=== PATIENT | male | born 1975 | race Caucasian/White ===

== ENCOUNTER 2016-02-17 13:46 | Outpatient (RCR) | payer MEDICAID, MEDICARE ==
[~2016-02-17 13:46] MED LIST: ADDR10T PO; AGM875T PO; ALLO300T2 GT; AMLO5TAB2 PO; AMOX500C2 PO; AMPH20CA PO; AMPH20CA5 PO; AMPH20TA2 PO; CEFD300C3 PO; CEPH-507 PO; CEPH250T; CEPH500C; CEPH500C PO; CTLP20T PO; DCS100C PO; DICL500C PO; DOXY-13 PO; DOXY100C2 PO; HYDR-1231 PO; HYDR-34 PO; HYDR-3454 PO; HYDR-3583 PO; HYDR-3714 PO; HYDR-3720; HYDR-3812 PO; HYDR-3876 PO; HYDR-690 PO; HYDR-707 PO; HYDR1CAP2 PO; HYDR1TAB PO; HYDR1TAB66 PO; HYDR1TAB8 OP; IBP800T PO; INDO25CA PO; INDO50CA PO; INTE30KI4 IM; LEVO750T6 PO; LIDO20SO20 PO; LISI-552 PO; LISI20TA PO; METH4TAB; METH4TAB PO; MINO50CA2 PO; NAPR220C11 PO; NF-AMPE5T PO; ONDA4TAB11 PO; ONDA8TAB13 PO; OXYC-197 PO; PRD50T PO; SULF1TAB35 PO; SULF1TAB38 PO; TMZP15C PO; [UNRECOGNIZED DRUG - OTHER]; milk thistle
--- OUTSIDE RECORDS SUMMARY | 2016-02-17 13:49 | XMS REPORT ---
Author JASEN Bardales Organization [employer] Address Unknown Phone Unavailable Care Team Providers Care Counter Checker Name Role Phone JASEN CARNEY CP Unavailable Allergies No Known Allergies Problems Problem Type Condition Code Onset Dates Condition Status Problem Unspecified diseases of conjunctiva due to viruses 077.99 Active Problem Attention deficit disorder of childhood without mention of hyperactivity 314.00 Active Problem Abdominal pain, right upper quadrant 789.01 Active Problem Seroma complicating a procedure 998.13 Active Problem Gout, unspecified 274.9 Active Problem Acute pharyngitis 462 Active Problem Unspecified disorder of skin and subcutaneous tissue 709.9 Active Problem Infected postoperative seroma 998.51 Active Problem Anxiety state, unspecified 300.00 Active Medications No Known Medications Results No Known Results Summary Purpose [employer] Submission
[2016-02-17 14:09] LABS: BASOPHILS % (AUTO) 1 % (0-10); EOSINOPHILS # (AUTO) 0.3 10^3/uL (0.0-0.3); EOSINOPHILS % (AUTO) 4 % (0-10); LYMPHOCYTES # (AUTO) 1.8 X 10^3 (1.0-4.0); LYMPHOCYTES % (AUTO) 30 % (12-44); MEAN CORPUSCULAR HEMOGLOBIN 30 PG (25-34); MEAN CORPUSCULAR HGB CONC 32 G/DL (32-36); MEAN CORPUSCULAR VOLUME 93 FL (80-99); MEAN PLATELET VOLUME 10.1 FL (7.4-10.4); MONOCYTES # (AUTO) 0.5 X 10^3 (0.0-1.0); MONOCYTES % (AUTO) 9 % (0-12); NEUTROPHILS # (AUTO) 3.3 X 10^3 (1.8-7.8); NEUTROPHILS % (AUTO) 56 % (42-75); PLATELET COUNT 247 10^3/uL (130-400); RED BLOOD COUNT 4.51 10^6/uL (4.35-5.85); RED CELL DISTRIBUTION WIDTH 12.9 % (10.0-14.5); WHITE BLOOD COUNT 5.9 10^3/uL (4.3-11.0)
[2016-02-17 14:34] LABS: ALANINE AMINOTRANSFERASE 23 U/L (0-55); ALBUMIN 4.1 G/DL (3.2-4.5); ANION GAP 8 MMOL/L (5-14); ASPARTATE AMINO TRANSFERASE 21 U/L (5-34); BILIRUBIN,TOTAL 0.4 MG/DL (0.1-1.0); BLOOD UREA NITROGEN 15 MG/DL (7-18); BUN/CREATININE RATIO 14; CALCIUM 9.4 MG/DL (8.5-10.1); CARBON DIOXIDE 26 MMOL/L (21-32); CHLORIDE 108 MMOL/L (98-107); CREATININE SERUM 1.05 MG/DL (0.60-1.30); GFR ESTIMATED > 60; GLUCOSE 85 MG/DL (70-105); LACTATE DEHYDROGENASE 210 U/L (125-220); POTASSIUM 4.3 MMOL/L (3.6-5.0); SODIUM 142 MMOL/L (135-145); TOTAL PROTEIN 7.1 G/DL (6.4-8.2)
== END 2016-05-17 | disposition home or self-care (01) ==
LOC: ONC 13:46
PROVIDERS: ATTEND Internal Medicine Hematology & Oncology
DX: Z08 Encounter for follow-up examination after completed treatment for malignant neoplasm (principal); Z85.820 Personal history of malignant melanoma of skin; F32.9 Major depressive disorder, single episode, unspecified; Z92.3 Personal history of irradiation; Z79.899 Other long term (current) drug therapy
CPT/HCPCS: 36415; 80053; 83615; 85025; 99213

== ENCOUNTER 2016-06-29 13:31 | Outpatient (RCR) | payer MEDICAID, MEDICARE ==
[2016-06-29 13:58] LABS: BASOPHILS % (AUTO) 1 % (0-10); EOSINOPHILS # (AUTO) 0.2 10^3/uL (0.0-0.3); EOSINOPHILS % (AUTO) 4 % (0-10); LYMPHOCYTES # (AUTO) 1.5 X 10^3 (1.0-4.0); LYMPHOCYTES % (AUTO) 27 % (12-44); MEAN CORPUSCULAR HEMOGLOBIN 30 PG (25-34); MEAN CORPUSCULAR HGB CONC 33 G/DL (32-36); MEAN CORPUSCULAR VOLUME 91 FL (80-99); MEAN PLATELET VOLUME 10.1 FL (7.4-10.4); MONOCYTES # (AUTO) 0.6 X 10^3 (0.0-1.0); MONOCYTES % (AUTO) 11 % (0-12); NEUTROPHILS # (AUTO) 3.1 X 10^3 (1.8-7.8); NEUTROPHILS % (AUTO) 58 % (42-75); PLATELET COUNT 252 10^3/uL (130-400); RED BLOOD COUNT 4.25 10^6/uL (4.35-5.85); RED CELL DISTRIBUTION WIDTH 12.9 % (10.0-14.5); WHITE BLOOD COUNT 5.4 10^3/uL (4.3-11.0)
[2016-06-29 14:22] LABS: ALANINE AMINOTRANSFERASE 25 U/L (0-55); ALBUMIN 3.9 G/DL (3.2-4.5); ANION GAP 6 MMOL/L (5-14); ASPARTATE AMINO TRANSFERASE 20 U/L (5-34); BILIRUBIN,TOTAL 0.4 MG/DL (0.1-1.0); BLOOD UREA NITROGEN 18 MG/DL (7-18); BUN/CREATININE RATIO 15; CALCIUM 9.4 MG/DL (8.5-10.1); CARBON DIOXIDE 30 MMOL/L (21-32); CHLORIDE 105 MMOL/L (98-107); CREATININE SERUM 1.23 MG/DL (0.60-1.30); GFR ESTIMATED > 60; GLUCOSE 105 MG/DL (70-105); LACTATE DEHYDROGENASE 194 U/L (125-220); POTASSIUM 4.1 MMOL/L (3.6-5.0); SODIUM 141 MMOL/L (135-145); TOTAL PROTEIN 6.9 G/DL (6.4-8.2)
[2016-09-17] MEDS ORDERED: NF-ADDXR30 PO (17:39)
[2016-09-17] MEDS ORDERED: TAMS0.4C98 PO (19:13)
[2016-09-17] MEDS ORDERED: SULF1TAB35 PO (19:13)
[2016-09-17] MEDS ORDERED: OXYC-197 PO (19:13)
[2016-09-23] MEDS ORDERED: NITR-68 PO (11:57)
[2016-09-23] MEDS ORDERED: HYDR-3875 PO (12:06)
== END 2016-09-27 | disposition home or self-care (01) ==
LOC: ONC 13:31
PROVIDERS: ATTEND Internal Medicine Hematology & Oncology
DX: Z08 Encounter for follow-up examination after completed treatment for malignant neoplasm (principal); Z85.820 Personal history of malignant melanoma of skin; F32.9 Major depressive disorder, single episode, unspecified; Z92.3 Personal history of irradiation; Z79.899 Other long term (current) drug therapy
CPT/HCPCS: 36415; 80053; 83615; 85025; 99213

== ENCOUNTER 2016-09-17 17:02 | Emergency (ER) | payer MEDICAID ==
[~2016-09-17] VITALS: Ht 190.5 cm; Wt 111.1 kg
[2016-09-17] MEDS ORDERED: NF-ADDXR30 PO (17:39)
--- NOTE | 2016-09-17 17:59 | ED Back Pain ---
General Chief Complaint: Back Problems Stated Complaint: RIGHT LOWER BACK PAIN/RLQ ABD PAIN Nursing Triage Note: Pt c/o R flank pain that started yesterday that now radiates to R side of abdomenn. Pt also c/o nausea. Nursing Sepsis Screen: No Definite Risk Source of Information: Patient Exam Limitations: No Limitations History of Present Illness Time Seen by Provider: 17:58 Initial Comments To ER with right flank pain that began 2-3 days ago. Radiates to the right abdomen. No fevers or chills. No dysuria. No history of this. Timing/Duration: 1-2 Days Severity: Moderate Allergies and Home Medications Allergies Coded Allergies: No Known Drug Allergies (Unverified , 03/10/11) Home Medications Dextroamphetamine/Amphetamine 20 Mg Cap.er.24h, 20 MG PO DAILY, (Reported) Dextroamphetamine/Amphetamine 30 Mg Cap.er.24h, 30 MG PO DAILY, (Reported) Lisinopril 20 Mg Tablet, 20 MG PO DAILY, (Reported) Oxycodone HCl/Acetaminophen 1 Each Tablet, 1 EACH PO Q4H PRN for PAIN-MODERATE TO SEVERE, #20 Prescribed by: ESA LOPEZ on 09/17/161912 Sulfamethoxazole/Trimethoprim 1 Each Tablet, 1 EACH PO BID, #14 Prescribed by: ESA LOPEZ on 09/17/161912 Tamsulosin HCl 0.4 Mg Cap, 0.4 MG PO DAILY, #14 Prescribed by: ESA LOPEZ on 09/17/161912 Constitutional: see HPI, No chills, No fever EENTM: see HPI Respiratory: no symptoms reported Cardiovascular: no symptoms reported Genitourinary: see HPI Musculoskeletal: no symptoms reported Skin: no symptoms reported Past Cvsjdjv-Yifwgc-Morexl Hx Patient Social History Alcohol Use: Denies Use Recreational Drug Use: No (denies current use) Drug of Choice: PT REPORTS HX OF METH USE; LAST USED 1 YEAR [employer] Recent Foreign Travel: No Contact w/Someone Who Travel: No Recent Infectious Disease Expo: No Recent Hopitalizations: No Immunizations Up To Date Tetanus Booster (TDap): More than 5yrs Date of Pneumonia Vaccine: Mar 08, 2009 Seasonal Allergies Seasonal Allergies: No Surgeries HX Surgeries: Yes (removal of 2 lesions to right and left groin on 12/23/2015) Surgeries: Adenoidectomy, Appendectomy, Orthopedic, Tonsillectomy Respiratory Hx Respiratory Disorders: Yes Respiratory Disorders: Sleep Apnea Cardiovascular Hx Cardiac Disorders: Yes Cardiac Disorders: Heart Murmur, Hypertension Neurological Hx Neurological Disorders: No Neurological Disorders: Headaches /Migraines Reproductive System Hx Reproductive Disorders: No Sexually Transmitted Disease: No HIV/AIDS: No Genitourinary Hx Genitourinary Disorders: Yes Genitourinary Disorders: Kidney Stones Gastrointestinal Hx Gastrointestinal Disorders: No Gastrointestinal Disorders: Gastroesophageal Reflux, Hepatitis Musculoskeletal Hx Musculoskeletal Disorders: Yes Musculoskeletal Disorders: Gout Endocrine Hx Endocrine Disorders: No HEENT HX ENT Disorders: No Loss of Vision: Denies Hearing Impairment: Denies Cancer Hx Cancer: Yes (stage 4 melanoma skin cancer) Cancer: Melanoma Psychosocial Hx Psychiatric Problems: Yes Behavioral Health Disorders: Anxiety, Depression Integumentary HX Skin/Integumentary Disorder: Yes (multiple lesion removals for melanoma) Blood Transfusions Hx Blood Disorders: No Adverse Reaction to a Blood Tr: No Family Medical History Significant Family History: No Pertinent Family Hx Family Medial History: FH: coronary artery disease 19 MOTHER FH: liver cancer 19 FATHER Physical Exam Vital Signs Vital Sign - Last 12Hours 09/17/16 17:34 Temp 99.1 Pulse 87 Resp 18 B/P (MAP) 158/106 Pulse Ox 97 O2 Delivery Room Air Capillary Refill : Less Than 3 Seconds General Appearance: No Apparent Distress, WD/WN HEENT: PERRL/EOMI, TMs Normal Respiratory: No Accessory Muscle Use, No Respiratory Distress Gastrointestinal: Normal Bowel Sounds, No Pulsatile Mass, Non Tender, Soft Extremity: Normal Capillary Refill, No Calf Tenderness Neurologic/Psychiatric: Alert, Oriented x3 Skin: Normal Color, Warm/Dry Progress/Results/Core Measures Results/Orders Lab Results Laboratory Tests Test 09/17/16 18:17 Range/Units White Blood Count 9.3 4.3-11.0 10^3/uL Red Blood Count 4.46 4.35-5.85 10^6/uL Hemoglobin 13.2 L 13.3-17.7 G/DL Hematocrit 40 40-54 % Mean Corpuscular Volume 89 80-99 FL Mean Corpuscular Hemoglobin 30 25-34 PG Mean Corpuscular Hemoglobin Concent 33 32-36 G/DL Red Cell Distribution Width 12.1 10.0-14.5 % Platelet Count 238 130-400 10^3/uL Mean Platelet Volume 10.5 H 7.4-10.4 FL Neutrophils (%) (Auto) 70 42-75 % Lymphocytes (%) (Auto) 15 12-44 % Monocytes (%) (Auto) 13 H 0-12 % Eosinophils (%) (Auto) 2 0-10 % Basophils (%) (Auto) 0 0-10 % Neutrophils # (Auto) 6.5 1.8-7.8 X 10^3 Lymphocytes # (Auto) 1.4 1.0-4.0 X 10^3 Monocytes # (Auto) 1.2 H 0.0-1.0 X 10^3 Eosinophils # (Auto) 0.2 0.0-0.3 10^3/uL Basophils # (Auto) 0.0 0.0-0.1 10^3/uL Sodium Level 136 135-145 MMOL/L Potassium Level 3.9 3.6-5.0 MMOL/L Chloride Level 102 98-107 MMOL/L Carbon Dioxide Level 22 21-32 MMOL/L Anion Gap 12 5-14 MMOL/L Blood Urea Nitrogen 15 7-18 MG/DL Creatinine 1.54 H 0.60-1.30 MG/DL Estimat Glomerular Filtration Rate 51 BUN/Creatinine Ratio 10 0-20 Glucose Level 98 70-105 MG/DL Calcium Level 9.4 8.5-10.1 MG/DL Total Bilirubin 0.7 0.1-1.0 MG/DL Aspartate Amino Transf (AST/SGOT) 12 5-34 U/L Alanine Aminotransferase (ALT/SGPT) 19 0-55 U/L Alkaline Phosphatase 65 40-136 U/L Total Protein 6.2 L 6.4-8.2 GM/DL Albumin 3.8 3.2-4.5 GM/DL My Orders Orders - ESA LOPEZ APRN Cbc With Automated Diff (09/17/16 17:46) Comprehensive Metabolic Panel (09/17/16 17:46) Ua Culture If Indicated (09/17/16 17:46) Drug Screen Stat (Urine) (09/17/16 17:46) Ct Abd/Pelvis Wo(Kidney Stone) (09/17/16 17:56) Saline Lock/Iv-Start (09/17/16 17:56) Ketorolac Injection (Toradol Injection) (09/17/16 18:00) Orphenadrine Injection (Norflex Injectio (09/17/16 18:00) Ns Iv 1000 Ml (Sodium Chloride 0.9%) (09/17/16 19:00) Ceftriaxone Injection (Rocephin Injectio (09/17/16 19:15) Abdomen/Kub 1view (09/17/16 19:08) Morphine Injection (Morphine Injection (09/17/16 19:15) Medications Given in ED Current Medications Medications Dose Ordered Sig/Tra Route Start Time Stop Time Status Last Admin Dose Admin Ceftriaxone Sodium 1000 mg/ Sodium Chloride 50 ml @ 100 mls/hr ONCE ONCE IV 09/17/16 19:15 09/17/16 19:44 DC 09/17/16 19:21 100 MLS/HR Ketorolac Tromethamine 30 mg ONCE ONCE IVP 09/17/16 18:00 09/17/16 18:01 DC 09/17/16 18:30 30 MG Morphine Sulfate 4 mg ONCE ONCE IVP 09/17/16 19:15 09/17/16 19:16 DC 09/17/16 19:20 4 MG Orphenadrine Citrate 30 mg ONCE ONCE IV 09/17/16 18:00 09/17/16 18:01 DC 09/17/16 18:32 30 MG Vital Signs/I&O Vital Sign - Last 12Hours 09/17/16 17:34 Temp 99.1 Pulse 87 Resp 18 B/P (MAP) 158/106 Pulse Ox 97 O2 Delivery Room Air Blood Pressure Mean: 123 Diagnostic Imaging Diagonstic Imaging: CT Comments NAME: LINDSAY [facility] REC#: [id number] PT STATUS: REG ER : 1975 PHYSICIAN: ESA LOPEZ APRN ADMIT DATE: 09/17/16/ER Draft Date of Exam:09/17/16 CT ABD/PELVIS WO(KIDNEY STONE) PROCEDURE: CT urinary tract, rule out kidney stone. TECHNIQUE: Multiple contiguous axial images were obtained through the abdomen and pelvis without the use of intravenous contrast. INDICATION: Right flank pain. COMPARISON: None. FINDINGS: There is mild bilateral basilar atelectasis. There is a 7 mm stone in the proximal right ureter about 6 cm distal to the ureteropelvic junction. There is moderate hydroureter proximal to the stone as well as moderate hydronephrosis. There is prominent perinephric soft tissue stranding/edema. There is an additional punctate calcification in the upper pole of the right kidney. There are 1 or 2 punctate nonobstructive calculi in the left kidney. There is a 2.3 cm probable cyst in the superior right renal cortex. The liver, gallbladder, pancreas, spleen, and adrenal glands appear unremarkable. The appendix is absent. There is a moderate amount of stool in the colon. The bladder appears unremarkable. There is no ascites or adenopathy. The abdominal aorta appears normal in caliber. There are small fat-containing inguinal hernias bilaterally. No acute osseous abnormality is demonstrated. IMPRESSION: 1. There is a 6 mm stone in the proximal right ureter about 6 cm distal to the ureteropelvic junction with moderate obstructive uropathy changes. 2. Bilateral nephrolithiasis. Dictated on workstation # [id number] Dict: 09/17/161849 Trans: 09/17/161855 [id number] Interpreted by: GIUSEPPE MALAGON DO Electronically signed by: Departure Communication Progress Notes 2048-patient still refuses to provide urine sample Impression Impression: Primary Impression: Calculus of proximal right ureter Disposition: HOME, SELF-CARE Condition: Stable Departure-Patient Inst. Decision time for Depature: 19:11 Referrals: [facility] JOSEPH DO (PCP) Primary Care Physician LUCAS PERALTA (Family) Primary Care Physician ERIC HELM MD Patient Instructions: Kidney Stones in Adults Add. Discharge Instructions: 1. Drink plenty of fluids 2. Medication as directed 3. Call Dr. Helm tomorrow to make an appointment to be seen All discharge instructions reviewed with patient and/or family. Voiced understanding. Scripts Tamsulosin HCl (Flomax) 0.4 Mg Cap 0.4 MG PO DAILY, #14 CAP Prov: ESA LOPEZ APRN 09/17/16 Sulfamethoxazole/Trimethoprim (Bactrim Ds Tablet) 1 Each Tablet 1 EACH PO BID, #14 TAB Prov: ESA LPOEZ APRN 09/17/16 Oxycodone HCl/Acetaminophen (Percocet 5-325 mg Tablet) 1 Each Tablet 1 EACH PO Q4H Y for PAIN-MODERATE TO SEVERE, #20 TAB Prov: ESA LOPEZ APRN 09/17/16 Copy Copies To 1: ERIC HELM MD, PETER J APRN Sep 17, 2016 17:59
[2016-09-17] MEDS ORDERED: ORPHENADRINE 60 MG/2 ML (NORFLEX) AMP IV ONE (18:00)
[2016-09-17] MEDS ORDERED: KETOROLAC 30 MG/ML VIAL IVP ONE (18:00)
[2016-09-17 18:32] LABS: BASOPHILS % (AUTO) 0 % (0-10); EOSINOPHILS # (AUTO) 0.2 10^3/uL (0.0-0.3); EOSINOPHILS % (AUTO) 2 % (0-10); LYMPHOCYTES # (AUTO) 1.4 X 10^3 (1.0-4.0); LYMPHOCYTES % (AUTO) 15 % (12-44); MEAN CORPUSCULAR HEMOGLOBIN 30 PG (25-34); MEAN CORPUSCULAR HGB CONC 33 G/DL (32-36); MEAN CORPUSCULAR VOLUME 89 FL (80-99); MEAN PLATELET VOLUME 10.5 FL (7.4-10.4); MONOCYTES # (AUTO) 1.2 X 10^3 (0.0-1.0); MONOCYTES % (AUTO) 13 % (0-12); NEUTROPHILS # (AUTO) 6.5 X 10^3 (1.8-7.8); NEUTROPHILS % (AUTO) 70 % (42-75); PLATELET COUNT 238 10^3/uL (130-400); RED BLOOD COUNT 4.46 10^6/uL (4.35-5.85); RED CELL DISTRIBUTION WIDTH 12.1 % (10.0-14.5); WHITE BLOOD COUNT 9.3 10^3/uL (4.3-11.0)
[2016-09-17 18:45] LABS: ALBUMIN 3.8 GM/DL (3.2-4.5); BILIRUBIN,TOTAL 0.7 MG/DL (0.1-1.0); CALCIUM 9.4 MG/DL (8.5-10.1); CREATININE SERUM 1.54 MG/DL (0.60-1.30); ICTERUS 0.7 (0-1.9); POTASSIUM 3.9 MMOL/L (3.6-5.0); TOTAL PROTEIN 6.2 GM/DL (6.4-8.2)
--- NOTE | 2016-09-17 18:56 | Diagnostic Imaging Report ---
PROCEDURE: CT urinary tract, rule out kidney stone. TECHNIQUE: Multiple contiguous axial images were obtained through the abdomen and pelvis without the use of intravenous contrast. INDICATION: Right flank pain. COMPARISON: None. FINDINGS: There is mild bilateral basilar atelectasis. There is a 7 mm stone in the proximal right ureter about 6 cm distal to the ureteropelvic junction. There is moderate hydroureter proximal to the stone as well as moderate hydronephrosis. There is prominent perinephric soft tissue stranding/edema. There is an additional punctate calcification in the upper pole of the right kidney. There are 1 or 2 punctate nonobstructive calculi in the left kidney. There is a 2.3 cm probable cyst in the superior right renal cortex. The liver, gallbladder, pancreas, spleen, and adrenal glands appear unremarkable. The appendix is absent. There is a moderate amount of stool in the colon. The bladder appears unremarkable. There is no ascites or adenopathy. The abdominal aorta appears normal in caliber. There are small fat-containing inguinal hernias bilaterally. No acute osseous abnormality is demonstrated. IMPRESSION: 1. There is a 6 mm stone in the proximal right ureter about 6 cm distal to the ureteropelvic junction with moderate obstructive uropathy changes. 2. Bilateral nephrolithiasis. Dictated by: Dictated on workstation # [id number]
[2016-09-17] MEDS ORDERED: NS IV 1000 ML 1,000 ML IV SCH (19:00)
[2016-09-17] MEDS ORDERED: OXYC-197 PO (19:13)
[2016-09-17] MEDS ORDERED: TAMS0.4C98 PO (19:13)
[2016-09-17] MEDS ORDERED: SULF1TAB35 PO (19:13)
[2016-09-17] MEDS ORDERED: morphine INJ 10 MG/ML 1ML (SYR OR VIAL) IVP ONE (19:15)
[2016-09-17] MEDS ORDERED: cefTRIAXone INJECTION 1,000 MG in NS (IVPB) 50 ML IV ONE (19:15)
--- NOTE | 2016-09-17 19:49 | Diagnostic Imaging Report ---
INDICATION: Flank pain. COMPARISON: CT scan from earlier the same date. FINDINGS: A 6 mm stone seen within the proximal right ureter on recent CT is visualized on plain radiographs adjacent to the right transverse process of L3. No additional urinary tract calcification is demonstrated on this film. The bowel gas pattern appears unremarkable. No osseous abnormality is seen. IMPRESSION: The calcification seen in the mid right ureter on recent CT is visible by radiography as described. Dictated by: Dictated on workstation # [id number]
[2016-09-17 21:01] VITALS: BP 158/106
== END 2016-09-17 21:01 | disposition home or self-care (01) ==
LOC: EDUNIT# 17:02 → ER 17:05
DX: N20.1 Calculus of ureter (principal); I10 Essential (primary) hypertension; Z85.820 Personal history of malignant melanoma of skin
CPT/HCPCS: 36415; 74000; 74176; 80053; 85025

== ENCOUNTER → 2016-09-21 | Outpatient (CLI) | payer MEDICAID ==
[~2016-09-21] MED LIST changes: +HYDR-3875 PO; +NF-ADDXR30 PO; +NITR-68 PO; +TAMS0.4C98 PO
--- NOTE | 2016-09-21 13:25 | Diagnostic Imaging Report ---
INDICATION: Ureteral calculus. EXAMINATION: KUB at 12:47 AM. FINDINGS: There is a 7 mm calculus adjacent to the L4 transverse process on the right. This is unchanged from the exam dated 09/17/2016. The bowel gas pattern is normal. IMPRESSION: The right mid ureteral calculus is unchanged from 09/17/2016. Dictated by: Dictated on workstation # [id number]
== END ==
LOC: RAD 12:19
PROVIDERS: ATTEND Urology
DX: N20.1 Calculus of ureter (principal)
CPT/HCPCS: 74000

== ENCOUNTER 2016-09-22 10:47 | Outpatient (CLI) | payer MEDICAID ==
[~2016-09-22] VITALS: Ht 190.5 cm; Wt 111.3 kg
[~2016-09-22 10:47] MED LIST changes: -HYDR-3875 PO; -NITR-68 PO
[2016-09-23] MEDS ORDERED: NITR-68 PO (11:57)
[2016-09-23] MEDS ORDERED: HYDR-3875 PO (12:06)
== END 2016-09-22 11:24 ==
LOC: PREOP 10:47
PROVIDERS: ATTEND Urology
DX: Z01.818 Encounter for other preprocedural examination (principal); N20.1 Calculus of ureter

== ENCOUNTER 2016-09-23 06:57 | Day surgery (SDC) | payer MEDICAID ==
[~2016-09-23] VITALS: Ht 190.5 cm; Wt 111.3 kg
[2016-09-23 07:03] VITALS: BP 158/105
[2016-09-23] MEDS ORDERED: cefTRIAXone 1 GM/NS 50 ML IVPB IV ONE ×2 (07:15)
[2016-09-23] MEDS ORDERED: CATHETER FLUSH 10 ML SYR IV PRN (07:15)
[2016-09-23] MEDS ORDERED: LACTATED RINGERS 1,000 ML IV PRN (07:46)
--- NOTE | 2016-09-23 07:46 | Diagnostic Imaging Report ---
INDICATION: Right ureteral calculus. Comparison with 09/21/2016. FINDINGS: The mid right ureteral calculus along the transverse process of L3 is again noted and unchanged. No new calculi are present. Bowel gas pattern appears normal. IMPRESSION: Persistent right mid ureteral calculus. This measures approximately 9 mm in diameter. Dictated by: Dictated on workstation # [id number]
[2016-09-23] MEDS ORDERED: FAMOTIDINE 20MG/2ML IV (PEPCID) IV ONE (08:00)
--- NOTE | 2016-09-23 08:50 | Progress Note-Pre Operative ---
Pre-Operative Progress Note H&P Reviewed The H&P was reviewed, patient examined and no changes noted. Date Seen by Provider: Sep 23, 2016 Time Seen by Provider: 08:49 Date H&P Reviewed: Sep 23, 2016 Time H&P Reviewed: 08:50 Pre-Operative Diagnosis: RT PROXIMAL URETERAL STONE ERIC HELM MD Sep 23, 2016 8:50 am
[2016-09-23] MEDS ORDERED: fentaNYL INJECTION 100 MCG/2 ML AMP IV ONE (09:15)
[2016-09-23] MEDS ORDERED: MIDAZOLAM 2 MG/2 ML (VERSED) VIAL IV ONE (09:15)
[2016-09-23] MEDS ORDERED: fentaNYL INJECTION 100 MCG/2 ML AMP ONE (09:25)
[2016-09-23] MEDS ORDERED: SEVOFLURANE (ULTANE) 15 ML INHAL SOLN ONE (09:26)
[2016-09-23] MEDS ORDERED: LACTATED RINGERS 1,000 ML IV ONE (09:26)
[2016-09-23] MEDS ORDERED: proPOfol 200 MG/20 ML (DIPRIVAN) VIAL IV ONE (09:26)
[2016-09-23] MEDS ORDERED: LIDOCAINE PF 2% 5 ML (XYLOCAINE) VIAL ONE (09:26)
[2016-09-23] MEDS ORDERED: ONDANSETRON 4 MG/2 ML (SDV) Z0FRAN ONE (09:56)
[2016-09-23] MEDS ORDERED: FUROSEMIDE 40 MG/4 ML INJ (LASIX) ONE (09:56)
--- NOTE | 2016-09-23 09:59 | Progress Note-Post Operative ---
Post-Operative Progess Note Surgeon (s)/Gas Cutting Machine Operator (s) Surgeon ERIC HEML MD Gas Cutting Machine Operator: N/A Pre-Operative Diagnosis RT PROXIMAL URETERAL STONE Post-Operative Diagnosis SAME Procedure & Operative Findings Date of Procedure 09/23/16 Procedure Performed/Findings RT ESWL FOR RT PROXIMAL URETERAL STONE Anesthesia Type GENERAL Estimated Blood Loss Estimated blood loss (mL): N/A Specimens/Packing Specimens Removed N/A Packing: N/A ERIC HELM MD Sep 23, 2016 9:59 am
--- NOTE | 2016-09-23 10:01 | Discharge Inst-Urology ---
Discharge Inst-Urology Discharge Medications New, Converted, or Re-newed RX: RX on Chart Patient Instructions/Follow Up Plan Please make appointment to been seen in office in 2 weeks. KUB prior to it KUB on way home Post ESWL instructions Increase oral fluids for 48 hours and then as needed. Diet and Activity as tolerated. If questions or concerns contact your physician Or seek help at emergency department. ERIC HELM MD Sep 23, 2016 10:01 am
[2016-09-23] MEDS ORDERED: ONDANSETRON 4 MG/2 ML (SDV) Z0FRAN IVP PRN (10:45)
[2016-09-23] MEDS ORDERED: morphine INJ 10 MG/ML 1ML (SYR OR VIAL) IVP PRN (10:45)
[2016-09-23 11:15] VITALS: BP 133/89
[2016-09-23 11:45] VITALS: BP 140/96
[2016-09-23] MEDS ORDERED: NITR-68 PO (11:57)
[2016-09-23] MEDS ORDERED: HYDR-3875 PO (12:06)
[2016-09-23 12:15] VITALS: BP 134/95
[2016-09-23 12:25] VITALS: BP 134/95
--- NOTE | 2016-09-23 14:37 | OPERATIVE REPORT ---
DATE OF SERVICE: 09/23/2016 PREOPERATIVE DIAGNOSIS: Right proximal ureteral stone. POSTOPERATIVE DIAGNOSIS: Right proximal ureteral stone. OPERATION PERFORMED: Right extracorporeal shock wave lithotripsy. SURGEON: Raul Helm MD ANESTHESIA: General. COMPLICATIONS: None. DESCRIPTION OF PROCEDURE: Under satisfactory general anesthesia, with the patient in supine position on the ESWL table, the right proximal ureteral stone was localized. Shocks were delivered at kV of 6, a total of 3000 shocks nicely fragmented the stone. The patient was given 30 mg of Toradol and 40 mg of Lasix IV at the end of the procedure. He tolerated the procedure and anesthesia well and was sent to the recovery room in stable condition. Job ID: [id number] DocumentID: [id number] Dictated Date: 09/23/2016 10:16:03 Release And Technical Records Clerk Date: 09/23/2016 14:36:36 Dictated By: RAUL HELM MD
--- NOTE | 2016-09-23 16:36 | Diagnostic Imaging Report ---
INDICATION: ESWL. COMPARISON: 09/23/2016 earlier the same day. This film is timed 12:06 p.m. FINDINGS: A calculus projecting over the right flank at the level of the inferior margin of the L3 spinous process measures a cephalocaudal dimension of about 9 mm. It appears unchanged in size and location from the prior. A left hemipelvic calcification of about 4 mm may be phlebolith or distal left ureteral stone. It is also unchanged. IMPRESSION: Calcifications unchanged in size, morphology, and alignment. Dictated by: Dictated on workstation # [id number]
--- OUTSIDE RECORDS SUMMARY | 2016-09-24 18:03 | XMS REPORT | Continuity of Care Document ---
Author Author [facility] Address Unknown Phone Unavailable Allergies Active Description Code Type Severity Reaction Onset Reported/Identified Relationship to Patient Clinical Status Yes No Known Drug Allergies [id number] Drug Allergy Unknown N/ A 03/10/2011 Medications Problems Date Dx Coded Attending Type Code Diagnosis Diagnosed By 03/25/2009 LUCAS PERALTA APRN V74.1 SCREENING EXAMINATION FOR PULMONARY TUBERCULOSIS 03/25/2009 V74.1 SCREENING EXAMINATION FOR PULMONARY TUBERCULOSIS 03/25/2009 V74.1 SCREENING EXAMINATION FOR PULMONARY TUBERCULOSIS 03/25/2009 V74.1 SCREENING EXAMINATION FOR PULMONARY TUBERCULOSIS 03/25/2009 V74.1 SCREENING EXAMINATION FOR PULMONARY TUBERCULOSIS 03/25/2009 [facility] DO V74.1 SCREENING EXAMINATION FOR PULMONARY TUBERCULOSIS 03/25/2009 CRISSY GUEVARA MD V74.1 SCREENING EXAMINATION FOR PULMONARY TUBERCULOSIS 03/25/2009 INNA BAZAN, JOSH De Anda V74.1 SCREENING EXAMINATION FOR PULMONARY TUBERCULOSIS 03/25/2009 LUCAS PERALTA APRN V74.1 SCREENING EXAMINATION FOR PULMONARY TUBERCULOSIS 03/25/2009 [facility] DO V74.1 SCREENING EXAMINATION FOR PULMONARY TUBERCULOSIS 03/25/2009 LUCAS PERALTA APRN V74.1 SCREENING EXAMINATION FOR PULMONARY TUBERCULOSIS 03/25/2009 MARIBEL DDS, NANCY Romero V74.1 SCREENING EXAMINATION FOR PULMONARY TUBERCULOSIS 03/27/2009 LUCAS PERALTA APRN V70.5 PREEMPLOYMENT/PRESCHOOL EXAM 03/27/2009 V70.5 PREEMPLOYMENT/PRESCHOOL EXAM 03/27/2009 V70.5 PREEMPLOYMENT/PRESCHOOL EXAM 03/27/2009 V70.5 PREEMPLOYMENT/PRESCHOOL EXAM 03/27/2009 V70.5 PREEMPLOYMENT/PRESCHOOL EXAM 03/27/2009 [facility] DO V70.5 PREEMPLOYMENT/PRESCHOOL EXAM 03/27/2009 CRISSY GUEVARA MD V70.5 PREEMPLOYMENT/PRESCHOOL EXAM 03/27/2009 INNA BAZAN, JOSH De Anda V70.5 PREEMPLOYMENT/PRESCHOOL EXAM 03/27/2009 LUCAS PERALTA APRN V70.5 PREEMPLOYMENT/PRESCHOOL EXAM 03/27/2009 [facility] DO V70.5 PREEMPLOYMENT/PRESCHOOL EXAM 03/27/2009 LUCAS PERALTA APRN V70.5 PREEMPLOYMENT/PRESCHOOL EXAM 03/27/2009 WHITE DDS, NANCY D V70.5 PREEMPLOYMENT/PRESCHOOL EXAM 04/04/2009 LUCAS PERALTA APRN 070.54 CHRONIC HEPATITIS C WITHOUT MENTION OF HEPATIC COMA 04/04/2009 LUCAS PERALTA APRN 681.10 CELLULITIS AND ABSCESS OF TOE, UNSPECIFIED 04/04/2009 LUCAS PERALTA APRN 998.83 NON-HEALING SURGICAL WOUND, NOT ELSEWHERE CLASSIFIED 04/04/2009 070.54 CHRONIC HEPATITIS C WITHOUT MENTION OF HEPATIC COMA 04/04/2009 681.10 CELLULITIS AND ABSCESS OF TOE, UNSPECIFIED 04/04/2009 998.83 NON-HEALING SURGICAL WOUND, NOT ELSEWHERE CLASSIFIED 04/04/2009 070.54 CHRONIC HEPATITIS C WITHOUT MENTION OF HEPATIC COMA 04/04/2009 681.10 CELLULITIS AND ABSCESS OF TOE, UNSPECIFIED 04/04/2009 998.83 NON-HEALING SURGICAL WOUND, NOT ELSEWHERE CLASSIFIED 04/04/2009 070.54 CHRONIC HEPATITIS C WITHOUT MENTION OF HEPATIC COMA 04/04/2009 681.10 CELLULITIS AND ABSCESS OF TOE, UNSPECIFIED 04/04/2009 998.83 NON-HEALING SURGICAL WOUND, NOT ELSEWHERE CLASSIFIED 04/04/2009 070.54 CHRONIC HEPATITIS C WITHOUT MENTION OF HEPATIC COMA 04/04/2009 681.10 CELLULITIS AND ABSCESS OF TOE, UNSPECIFIED 04/04/2009 998.83 NON-HEALING SURGICAL WOUND, NOT ELSEWHERE CLASSIFIED 04/04/2009 [facility] DO 070.54 CHRONIC HEPATITIS C WITHOUT MENTION OF HEPATIC COMA 04/04/2009 [facility] DO 681.10 CELLULITIS AND ABSCESS OF TOE, UNSPECIFIED 04/04/2009 [facility] DO K 998.83 NON-HEALING SURGICAL WOUND, NOT ELSEWHERE CLASSIFIED 04/04/2009 CRISSY GUEVARA MD 070.54 CHRONIC HEPATITIS C WITHOUT MENTION OF HEPATIC COMA 04/04/2009 CRISSY GUEVARA MD 681.10 CELLULITIS AND ABSCESS OF TOE, UNSPECIFIED 04/04/2009 CRISSY GUEVARA MD 998.83 NON-HEALING SURGICAL WOUND, NOT ELSEWHERE CLASSIFIED 04/04/2009 JOSH KEITH MD 070.54 CHRONIC HEPATITIS C WITHOUT MENTION OF HEPATIC COMA 04/04/2009 JOSH KEITH MD 681.10 CELLULITIS AND ABSCESS OF TOE, UNSPECIFIED 04/04/2009 JOSH KEITH MD 998.83 NON-HEALING SURGICAL WOUND, NOT ELSEWHERE CLASSIFIED 04/04/2009 LUCAS PERALTA APRN 070.54 CHRONIC HEPATITIS C WITHOUT MENTION OF HEPATIC COMA 04/04/2009 LUCAS PERALTA APRN 681.10 CELLULITIS AND ABSCESS OF TOE, UNSPECIFIED 04/04/2009 LUCAS PERALTA APRN 998.83 NON-HEALING SURGICAL WOUND, NOT ELSEWHERE CLASSIFIED 04/04/2009 JAKE ENCINAS [facility] K 070.54 CHRONIC HEPATITIS C WITHOUT MENTION OF HEPATIC COMA 04/04/2009 JOSEPH DO [facility] K 681.10 CELLULITIS AND ABSCESS OF TOE, UNSPECIFIED 04/04/2009 JOSEPH DO [facility] K 998.83 NON-HEALING SURGICAL WOUND, NOT ELSEWHERE CLASSIFIED 04/04/2009 LUCAS PERALTA APRN 070.54 CHRONIC HEPATITIS C WITHOUT MENTION OF HEPATIC COMA 04/04/2009 LUCAS PERALTA APRN 681.10 CELLULITIS AND ABSCESS OF TOE, UNSPECIFIED 04/04/2009 LUCAS PERALTA APRN 998.83 NON-HEALING SURGICAL WOUND, NOT ELSEWHERE CLASSIFIED 04/04/2009 WHITE DDS, NANCY D 070.54 CHRONIC HEPATITIS C WITHOUT MENTION OF HEPATIC COMA 04/04/2009 WHITE DDS, NANCY D 681.10 CELLULITIS AND ABSCESS OF TOE, UNSPECIFIED 04/04/2009 WHITE DDS, NANCY D 998.83 NON-HEALING SURGICAL WOUND, NOT ELSEWHERE CLASSIFIED 11/09/2009 Ot 274.9 11/09/2009 Ot 729.5 12/12/2009 Ot 521.00 12/12/2009 Ot 525.9 12/12/2009 Ot 681.00 12/15/2009 Ot 681.00 12/15/2009 Ot 780.60 12/15/2009 Ot 780.79 06/02/2010 LUCAS PERALTA APRN 296.90 MOOD DISORDER 06/02/2010 KATHRYN MOSS BLEACHER, LUCAS T 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 06/02/2010 LUCAS PERALTA APRN 702.19 OTHER SEBORRHEIC KERATOSIS 06/02/2010 LUCAS PERALTA APRN 719.40 ARTHRAIGIA UNSPEC 06/02/2010 LUCAS PERALTA APRN 781.0 ABNORMAL INVOLUNTARY MOVEMENTS 06/02/2010 LUCAS PERALTA APRN 783.5 POLYDIPSIA 06/02/2010 LUCAS PERALTA APRN 788.42 POLYURIA 06/02/2010 296.90 MOOD DISORDER 06/02/2010 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 06/02/2010 702.19 OTHER SEBORRHEIC KERATOSIS 06/02/2010 719.40 ARTHRAIGIA UNSPEC 06/02/2010 781.0 ABNORMAL INVOLUNTARY MOVEMENTS 06/02/2010 783.5 POLYDIPSIA 06/02/2010 788.42 POLYURIA 06/02/2010 296.90 MOOD DISORDER 06/02/2010 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 06/02/2010 702.19 OTHER SEBORRHEIC KERATOSIS 06/02/2010 719.40 ARTHRAIGIA UNSPEC 06/02/2010 781.0 ABNORMAL INVOLUNTARY MOVEMENTS 06/02/2010 783.5 POLYDIPSIA 06/02/2010 788.42 POLYURIA 06/02/2010 296.90 MOOD DISORDER 06/02/2010 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 06/02/2010 702.19 OTHER SEBORRHEIC KERATOSIS 06/02/2010 719.40 ARTHRAIGIA UNSPEC 06/02/2010 781.0 ABNORMAL INVOLUNTARY MOVEMENTS 06/02/2010 783.5 POLYDIPSIA 06/02/2010 788.42 POLYURIA 06/02/2010 296.90 MOOD DISORDER 06/02/2010 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 06/02/2010 702.19 OTHER SEBORRHEIC KERATOSIS 06/02/2010 719.40 ARTHRAIGIA UNSPEC 06/02/2010 781.0 ABNORMAL INVOLUNTARY MOVEMENTS 06/02/2010 783.5 POLYDIPSIA 06/02/2010 788.42 POLYURIA 06/02/2010 JOSEPH DO, [facility] K 296.90 MOOD DISORDER 06/02/2010 JAKE ENCINAS [facility] K 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 06/02/2010 JAKE ENCINAS [facility] K 702.19 OTHER SEBORRHEIC KERATOSIS 06/02/2010 JAKE ENCINAS [facility] K 719.40 ARTHRAIGIA UNSPEC 06/02/2010 JAKE ENCINAS [facility] K 781.0 ABNORMAL INVOLUNTARY MOVEMENTS 06/02/2010 JAKE ENCINAS [facility] K 783.5 POLYDIPSIA 06/02/2010 JAKE ENCINAS [facility] K 788.42 POLYURIA 06/02/2010 CRISSY GUEVARA MD 296.90 MOOD DISORDER 06/02/2010 CRISSY GUEVARA MD 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 06/02/2010 CRISSY GUEVARA MD 702.19 OTHER SEBORRHEIC KERATOSIS 06/02/2010 CRISSY GUEVARA MD 719.40 ARTHRAIGIA UNSPEC 06/02/2010 CRISSY GUEVARA MD 781.0 ABNORMAL INVOLUNTARY MOVEMENTS 06/02/2010 CRISSY GUEVARA MD 783.5 POLYDIPSIA 06/02/2010 CRISSY GUEVARA MD 788.42 POLYURIA 06/02/2010 JOSH KEITH MD 296.90 MOOD DISORDER 06/02/2010 JOSH KEITH MD 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 06/02/2010 JOSH KEITH MD 702.19 OTHER SEBORRHEIC KERATOSIS 06/02/2010 JOSH KEITH MD 719.40 ARTHRAIGIA UNSPEC 06/02/2010 JOSH KEITH MD 781.0 ABNORMAL INVOLUNTARY MOVEMENTS 06/02/2010 JOSH KEITH MD 783.5 POLYDIPSIA 06/02/2010 JOSH KEITH MD 788.42 POLYURIA 06/02/2010 LUCAS PERALTA APRN 296.90 MOOD DISORDER 06/02/2010 LUCAS PERALTA APRN 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 06/02/2010 LUCAS PERALTA APRN 702.19 OTHER SEBORRHEIC KERATOSIS 06/02/2010 LUCAS PERALTA APRN 719.40 ARTHRAIGIA UNSPEC 06/02/2010 LUCAS PERALTA APRN 781.0 ABNORMAL INVOLUNTARY MOVEMENTS 06/02/2010 LUCAS PERALTA APRN 783.5 POLYDIPSIA 06/02/2010 LUCAS PERALTA APRN 788.42 POLYURIA 06/02/2010 JOSEPH DO, [facility] K 296.90 MOOD DISORDER 06/02/2010 JOSEPH DO, [facility] K 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 06/02/2010 JOSEPH DO, [facility] K 702.19 OTHER SEBORRHEIC KERATOSIS 06/02/2010 JOSEPH DO, [facility] K 719.40 ARTHRAIGIA UNSPEC 06/02/2010 JOSEPH DO, [facility] K 781.0 ABNORMAL INVOLUNTARY MOVEMENTS 06/02/2010 JOSEPH DO, [facility] K 783.5 POLYDIPSIA 06/02/2010 JOSEPH DO, [facility] K 788.42 POLYURIA 06/02/2010 LUCAS PERALTA APRN 296.90 MOOD DISORDER 06/02/2010 LUCAS PERALTA APRN 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 06/02/2010 LUCAS PERALTA APRN 702.19 OTHER SEBORRHEIC KERATOSIS 06/02/2010 LUCAS PERALTA APRN 719.40 ARTHRAIGIA UNSPEC 06/02/2010 LUCAS PERALTA APRN 781.0 ABNORMAL INVOLUNTARY MOVEMENTS 06/02/2010 LUCAS PERALTA APRN 783.5 POLYDIPSIA 06/02/2010 LUCAS PERALTA APRN 788.42 POLYURIA 06/02/2010 WHITE DDS, NANCY D 296.90 MOOD DISORDER 06/02/2010 MARIBEL DDS, NANCY D 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 06/02/2010 WHITE DDS, NANCY D 702.19 OTHER SEBORRHEIC KERATOSIS 06/02/2010 WHITE DDS, NANCY D 719.40 ARTHRAIGIA UNSPEC 06/02/2010 WHITE DDS, NANCY D 781.0 ABNORMAL INVOLUNTARY MOVEMENTS 06/02/2010 WHITE DDS, NANCY D 783.5 POLYDIPSIA 06/02/2010 WHITE DDS, NANCY D 788.42 POLYURIA 08/18/2010 LUCAS PERALTA APRN 701.9 UNSPECIFIED HYPERTROPHIC AND ATROPHIC CONDITIONS OF SKIN 08/18/2010 701.9 UNSPECIFIED HYPERTROPHIC AND ATROPHIC CONDITIONS OF SKIN 08/18/2010 701.9 UNSPECIFIED HYPERTROPHIC AND ATROPHIC CONDITIONS OF SKIN 08/18/2010 701.9 UNSPECIFIED HYPERTROPHIC AND ATROPHIC CONDITIONS OF SKIN 08/18/2010 701.9 UNSPECIFIED HYPERTROPHIC AND ATROPHIC CONDITIONS OF SKIN 08/18/2010 [facility] DO 701.9 UNSPECIFIED HYPERTROPHIC AND ATROPHIC CONDITIONS OF SKIN 08/18/2010 CRISSY GUEVARA MD 701.9 UNSPECIFIED HYPERTROPHIC AND ATROPHIC CONDITIONS OF SKIN 08/18/2010 JOSH KEITH MD 701.9 UNSPECIFIED HYPERTROPHIC AND ATROPHIC CONDITIONS OF SKIN 08/18/2010 LUCAS PERALTA APRN 701.9 UNSPECIFIED HYPERTROPHIC AND ATROPHIC CONDITIONS OF SKIN 08/18/2010 [facility] DO 701.9 UNSPECIFIED HYPERTROPHIC AND ATROPHIC CONDITIONS OF SKIN 08/18/2010 LUCAS PERALTA APRN 701.9 UNSPECIFIED HYPERTROPHIC AND ATROPHIC CONDITIONS OF SKIN 08/18/2010 WHITE DAILYS, NANCY D 701.9 UNSPECIFIED HYPERTROPHIC AND ATROPHIC CONDITIONS OF SKIN 09/03/2010 LUCAS PERALTA APRN 216.9 MOLE/NEVUS - SITE UNSPECIFIED 09/03/2010 216.9 MOLE/NEVUS - SITE UNSPECIFIED 09/03/2010 216.9 MOLE/NEVUS - SITE UNSPECIFIED 09/03/2010 216.9 MOLE/NEVUS - SITE UNSPECIFIED 09/03/2010 216.9 MOLE/NEVUS - SITE UNSPECIFIED 09/03/2010 [facility] JO[facility] DO 216.9 MOLE/NEVUS - SITE UNSPECIFIED 09/03/2010 CRISSY GUEVARA MD 216.9 MOLE/NEVUS - SITE UNSPECIFIED 09/03/2010 JOSH KEITH MD 216.9 MOLE/NEVUS - SITE UNSPECIFIED 09/03/2010 LUCAS PERALTA APRN 216.9 MOLE/NEVUS - SITE UNSPECIFIED 09/03/2010 [facility] JO[facility] DO 216.9 MOLE/NEVUS - SITE UNSPECIFIED 09/03/2010 LUCAS PERALTA APRN 216.9 MOLE/NEVUS - SITE UNSPECIFIED 09/03/2010 WHITE DAILYS, NANCY D 216.9 MOLE/NEVUS - SITE UNSPECIFIED 09/13/2010 LUCAS PERALTA APRN 172.5 MALIGNANT MELANOMA OF SKIN OF TRUNK EXCEPT SCROTUM 09/13/2010 LUCAS PERALTA APRN V58.31 WOUND DRESSING 09/13/2010 LUCAS PERALTA APRN V58.32 SUTURE REMOVAL 09/13/2010 172.5 MALIGNANT MELANOMA OF SKIN OF TRUNK EXCEPT SCROTUM 09/13/2010 V58.31 WOUND DRESSING 09/13/2010 V58.32 SUTURE REMOVAL 09/13/2010 172.5 MALIGNANT MELANOMA OF SKIN OF TRUNK EXCEPT SCROTUM 09/13/2010 V58.31 WOUND DRESSING 09/13/2010 V58.32 SUTURE REMOVAL 09/13/2010 172.5 MALIGNANT MELANOMA OF SKIN OF TRUNK EXCEPT SCROTUM 09/13/2010 V58.31 WOUND DRESSING 09/13/2010 V58.32 SUTURE REMOVAL 09/13/2010 172.5 MALIGNANT MELANOMA OF SKIN OF TRUNK EXCEPT SCROTUM 09/13/2010 V58.31 WOUND DRESSING 09/13/2010 V58.32 SUTURE REMOVAL 09/13/2010 [facility] JOSEPH DO 172.5 MALIGNANT MELANOMA OF SKIN OF TRUNK EXCEPT SCROTUM 09/13/2010 [facility] JOSEPH DO K V58.31 WOUND DRESSING 09/13/2010 NATHALY JOSEPH DOA K V58.32 SUTURE REMOVAL 09/13/2010 CRISSY GUEVARA MD 172.5 MALIGNANT MELANOMA OF SKIN OF TRUNK EXCEPT SCROTUM 09/13/2010 CRISSY GUEVARA MD V58.31 WOUND DRESSING 09/13/2010 CRISSY GUEVARA MD V58.32 SUTURE REMOVAL 09/13/2010 JOSH KEITH MD 172.5 MALIGNANT MELANOMA OF SKIN OF TRUNK EXCEPT SCROTUM 09/13/2010 INNA BAZAN, JOSH De Anda V58.31 WOUND DRESSING 09/13/2010 INNA BAZAN, JOSH De Anda V58.32 SUTURE REMOVAL 09/13/2010 LUCAS PERALTA APRN 172.5 MALIGNANT MELANOMA OF SKIN OF TRUNK EXCEPT SCROTUM 09/13/2010 LUCAS PERALTA APRN V58.31 WOUND DRESSING 09/13/2010 LUCAS PERALTA APRN V58.32 SUTURE REMOVAL 09/13/2010 [facility] JOSEPH DO 172.5 MALIGNANT MELANOMA OF SKIN OF TRUNK EXCEPT SCROTUM 09/13/2010 [facility] JOSEPH DO K V58.31 WOUND DRESSING 09/13/2010 NATHALY JOSEPH DOA K V58.32 SUTURE REMOVAL 09/13/2010 LUCAS PERALTA APRN 172.5 MALIGNANT MELANOMA OF SKIN OF TRUNK EXCEPT SCROTUM 09/13/2010 LUCAS PERALTA APRN V58.31 WOUND DRESSING 09/13/2010 LUCAS PERALTA APRN V58.32 SUTURE REMOVAL 09/13/2010 WHITE DDS, NANCY D 172.5 MALIGNANT MELANOMA OF SKIN OF TRUNK EXCEPT SCROTUM 09/13/2010 WHITE DDS, NANCY D V58.31 WOUND DRESSING 09/13/2010 WHITE DDS, NANCY D V58.32 SUTURE REMOVAL 10/08/2010 Ot 172.5 MALIG MELANOMA TRUNK 10/21/2010 Ot 070.70 UNSPECIFIED VIRAL HEPATITIS C WITHOUT HE 10/21/2010 Ot 173.5 MALIG SHAE SKIN TRUNK 10/21/2010 Ot 300.4 DYSTHYMIC DISORDER 10/21/2010 Ot 530.81 ESOPHAGEAL REFLUX 10/21/2010 Ot 682.2 CELLULITIS OF TRUNK 10/21/2010 Ot 998.59 OTH POSTOPER INFECTION 10/21/2010 Ot E878.8 ABN REACT-SURG PROC NEC 10/23/2010 Ot 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 10/23/2010 Ot V10.82 HX-MALIG SKIN MELANOMA 11/11/2010 Ot 041.11 METHICILLIN SUSCEPTIBLE STAPHYLOCOCCUS A 11/11/2010 Ot 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 11/11/2010 Ot 682.2 CELLULITIS OF TRUNK 11/11/2010 Ot 708.0 ALLERGIC URTICARIA 11/11/2010 Ot 719.06 JOINT EFFUSION-L/LEG 11/11/2010 Ot 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.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 11/11/2010 Ot 998.59 OTH POSTOPER INFECTION 11/11/2010 Ot E930.8 ADV EFF ANTIBIOTICS NEC 11/11/2010 Ot V10.82 HX-MALIG SKIN MELANOMA 11/14/2010 Ot 599.70 HEMATURIA, UNSPECIFIED 11/14/2010 Ot 682.2 CELLULITIS OF TRUNK 11/14/2010 Ot 780.60 FEVER, UNSPECIFIED 11/17/2010 LUCAS PERALTA APRN 041.11 MSSA, METHICILLIN SUSCEPTIBLE 11/17/2010 LUCAS PERALTA APRN 172.9 MELANOMA OF SKIN SITE UNSPECIFIED 11/17/2010 LUCAS PERALTA APRN 599.70 HEMATURIA 11/17/2010 LUCAS PERALTA APRN 627.2 hot flashes 11/17/2010 LUCAS PERALTA APRN 780.64 CHILLS (WITHOUT FEVER) 11/17/2010 KATHRYN HANSONLUCAS 780.79 fatigue 11/17/2010 041.11 MSSA, METHICILLIN SUSCEPTIBLE 11/17/2010 172.9 MELANOMA OF SKIN SITE UNSPECIFIED 11/17/2010 599.70 HEMATURIA 11/17/2010 627.2 hot flashes 11/17/2010 780.64 CHILLS (WITHOUT FEVER) 11/17/2010 780.79 fatigue 11/17/2010 041.11 MSSA, METHICILLIN SUSCEPTIBLE 11/17/2010 172.9 MELANOMA OF SKIN SITE UNSPECIFIED 11/17/2010 599.70 HEMATURIA 11/17/2010 627.2 hot flashes 11/17/2010 780.64 CHILLS (WITHOUT FEVER) 11/17/2010 780.79 fatigue 11/17/2010 041.11 MSSA, METHICILLIN SUSCEPTIBLE 11/17/2010 172.9 MELANOMA OF SKIN SITE UNSPECIFIED 11/17/2010 599.70 HEMATURIA 11/17/2010 627.2 hot flashes 11/17/2010 780.64 CHILLS (WITHOUT FEVER) 11/17/2010 780.79 fatigue 11/17/2010 041.11 MSSA, METHICILLIN SUSCEPTIBLE 11/17/2010 172.9 MELANOMA OF SKIN SITE UNSPECIFIED 11/17/2010 599.70 HEMATURIA 11/17/2010 627.2 HOT FLASHES 11/17/2010 780.64 CHILLS (WITHOUT FEVER) 11/17/2010 780.79 FATIGUE 11/17/2010 JOSEPH DO, [facility] K 041.11 MSSA, METHICILLIN SUSCEPTIBLE 11/17/2010 JOSEPH DO, [facility] K 172.9 MELANOMA OF SKIN SITE UNSPECIFIED 11/17/2010 JOSEPH DO, [facility] K 599.70 HEMATURIA 11/17/2010 JOSEPH DO, [facility] K 627.2 HOT FLASHES 11/17/2010 JOSEPH DO, [facility] K 780.64 CHILLS (WITHOUT FEVER) 11/17/2010 JOSEPH , [facility] K 780.79 FATIGUE 11/17/2010 CRISSY GUEVARA MD 041.11 MSSA, METHICILLIN SUSCEPTIBLE 11/17/2010 CRISSY GUEVARA MD 172.9 MELANOMA OF SKIN SITE UNSPECIFIED 11/17/2010 CRISSY GUEVARA MD 599.70 HEMATURIA 11/17/2010 CRISSY GUEVARA MD 627.2 HOT FLASHES 11/17/2010 CRISSY GUEVARA MD 780.64 CHILLS (WITHOUT FEVER) 11/17/2010 CRISSY GUEVARA MD 780.79 FATIGUE 11/17/2010 JOSH KEITH MD 041.11 MSSA, METHICILLIN SUSCEPTIBLE 11/17/2010 JOSH KEITH MD 172.9 MELANOMA OF SKIN SITE UNSPECIFIED 11/17/2010 JOSH KEITH MD 599.70 HEMATURIA 11/17/2010 JOSH KEITH MD 627.2 HOT FLASHES 11/17/2010 JOSH KEITH MD 780.64 CHILLS (WITHOUT FEVER) 11/17/2010 JOSH KEITH MD 780.79 FATIGUE 11/17/2010 LUCAS PERALTA APRN 041.11 MSSA, METHICILLIN SUSCEPTIBLE 11/17/2010 LUCAS PERALTA APRN 172.9 MELANOMA OF SKIN SITE UNSPECIFIED 11/17/2010 LUCAS PERALTA APRN 599.70 HEMATURIA 11/17/2010 LUCAS PERALTA APRN 627.2 HOT FLASHES 11/17/2010 LUCAS PERALTA APRN 780.64 CHILLS (WITHOUT FEVER) 11/17/2010 LUCAS PERALTA APRN 780.79 FATIGUE 11/17/2010 JOSEPH DO, [facility] K 041.11 MSSA, METHICILLIN SUSCEPTIBLE 11/17/2010 JOSEPH DO, [facility] K 172.9 MELANOMA OF SKIN SITE UNSPECIFIED 11/17/2010 JOSEPH DO, [facility] K 599.70 HEMATURIA 11/17/2010 JOSEPH DO, [facility] K 627.2 HOT FLASHES 11/17/2010 JOSEPH DO, [facility] K 780.64 CHILLS (WITHOUT FEVER) 11/17/2010 JOSEPH DO, [facility] K 780.79 FATIGUE 11/17/2010 LUCAS PERALTA APRN 041.11 MSSA, METHICILLIN SUSCEPTIBLE 11/17/2010 LUCAS PERALTA APRN 172.9 MELANOMA OF SKIN SITE UNSPECIFIED 11/17/2010 LUCAS PERALTA APRN 599.70 HEMATURIA 11/17/2010 LUCAS PERALTA APRN 627.2 HOT FLASHES 11/17/2010 LUCAS PERALTA APRN 780.64 CHILLS (WITHOUT FEVER) 11/17/2010 LUCAS PERALTA APRN 780.79 FATIGUE 11/17/2010 WHITE DDS, NANCY D 041.11 MSSA, METHICILLIN SUSCEPTIBLE 11/17/2010 WHITE DDS, NANCY D 172.9 MELANOMA OF SKIN SITE UNSPECIFIED 11/17/2010 WHITE DDS, NANCY D 599.70 HEMATURIA 11/17/2010 WHITE DDS, NANCY D 627.2 HOT FLASHES 11/17/2010 WHITE DDS, NANCY D 780.64 CHILLS (WITHOUT FEVER) 11/17/2010 WHITE DDS, NANCY D 780.79 FATIGUE 11/24/2010 LUCAS PERALTA APRN 682.9 CELLULITIS AND ABSCESS OF UNSPECIFIED SITES 11/24/2010 LUCAS PERALTA APRN 780.60 FEVER UNSPECIFIED 11/24/2010 LUCAS PERALTA APRN 780.8 GENERALIZED HYPERHIDROSIS 11/24/2010 682.9 CELLULITIS AND ABSCESS OF UNSPECIFIED SITES 11/24/2010 780.60 FEVER UNSPECIFIED 11/24/2010 780.8 GENERALIZED HYPERHIDROSIS 11/24/2010 682.9 CELLULITIS AND ABSCESS OF UNSPECIFIED SITES 11/24/2010 780.60 FEVER UNSPECIFIED 11/24/2010 780.8 GENERALIZED HYPERHIDROSIS 11/24/2010 682.9 CELLULITIS AND ABSCESS OF UNSPECIFIED SITES 11/24/2010 780.60 FEVER UNSPECIFIED 11/24/2010 780.8 GENERALIZED HYPERHIDROSIS 11/24/2010 682.9 CELLULITIS AND ABSCESS OF UNSPECIFIED SITES 11/24/2010 780.60 FEVER UNSPECIFIED 11/24/2010 780.8 GENERALIZED HYPERHIDROSIS 11/24/2010 SINAI JOSEPH DO 682.9 CELLULITIS AND ABSCESS OF UNSPECIFIED SITES 11/24/2010 SINAI JOSEPH DO 780.60 FEVER UNSPECIFIED 11/24/2010 SINAI JOSEPH DO 780.8 GENERALIZED HYPERHIDROSIS 11/24/2010 CRISSY GUEVARA MD 682.9 CELLULITIS AND ABSCESS OF UNSPECIFIED SITES 11/24/2010 CRISSY GUEVARA MD 780.60 FEVER UNSPECIFIED 11/24/2010 CRISSY GUEVARA MD 780.8 GENERALIZED HYPERHIDROSIS 11/24/2010 JOSH KEITH MD 682.9 CELLULITIS AND ABSCESS OF UNSPECIFIED SITES 11/24/2010 JOSH KEITH MD 780.60 FEVER UNSPECIFIED 11/24/2010 JOSH KEITH MD 780.8 GENERALIZED HYPERHIDROSIS 11/24/2010 LUCAS PERALTA APRN 682.9 CELLULITIS AND ABSCESS OF UNSPECIFIED SITES 11/24/2010 LUCAS PERALTA APRN 780.60 FEVER UNSPECIFIED 11/24/2010 LUCAS PERALTA APRN 780.8 GENERALIZED HYPERHIDROSIS 11/24/2010 NATHALY JOSEPH DOA K 682.9 CELLULITIS AND ABSCESS OF UNSPECIFIED SITES 11/24/2010 JOSEPH DO, SINAI K 780.60 FEVER UNSPECIFIED 11/24/2010 JOSEPH DO SINAI K 780.8 GENERALIZED HYPERHIDROSIS 11/24/2010 LUCAS PERALTA APRN 682.9 CELLULITIS AND ABSCESS OF UNSPECIFIED SITES 11/24/2010 LUCAS PERALTA APRN 780.60 FEVER UNSPECIFIED 11/24/2010 LUCAS PERALTA APRN 780.8 GENERALIZED HYPERHIDROSIS 11/24/2010 WHITE DDS, NANCY D 682.9 CELLULITIS AND ABSCESS OF UNSPECIFIED SITES 11/24/2010 WHITE DDS, NANCY D 780.60 FEVER UNSPECIFIED 11/24/2010 WHITE DDS, NANCY D 780.8 GENERALIZED HYPERHIDROSIS 11/28/2010 Ot 041.12 METHICILLIN RESISTANT STAPHYLOCOCCUS AUR 11/28/2010 Ot 070.70 UNSPECIFIED VIRAL HEPATITIS C WITHOUT HE 11/28/2010 Ot 172.5 MALIG MELANOMA TRUNK 11/28/2010 Ot 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 11/28/2010 Ot 530.81 ESOPHAGEAL REFLUX 11/28/2010 Ot 682.2 CELLULITIS OF TRUNK 11/28/2010 Ot 727.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 11/28/2010 Ot 786.50 CHEST PAIN NOS 11/28/2010 Ot 998.59 OTH POSTOPER INFECTION 12/12/2010 Ot 172.5 MALIG MELANOMA TRUNK 12/12/2010 Ot 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 01/02/2011 LUCAS PERALTA APRN 401.1 HYPERTENSION, BENIGN ESSENTIAL 01/02/2011 401.1 HYPERTENSION, BENIGN ESSENTIAL 01/02/2011 401.1 HYPERTENSION, BENIGN ESSENTIAL 01/02/2011 401.1 HYPERTENSION, BENIGN ESSENTIAL 01/02/2011 401.1 HYPERTENSION, BENIGN ESSENTIAL 01/02/2011 SINAI JOSEPH DO K 401.1 HYPERTENSION, BENIGN ESSENTIAL 01/02/2011 ISMAEL BAZAN, CRISSY 401.1 HYPERTENSION, BENIGN ESSENTIAL 01/02/2011 INNA BAZAN, JOSH De Anda 401.1 HYPERTENSION, BENIGN ESSENTIAL 01/02/2011 LUCAS PERALTA APRN 401.1 HYPERTENSION, BENIGN ESSENTIAL 01/02/2011 SINAI JOSEPH DO 401.1 HYPERTENSION, BENIGN ESSENTIAL 01/02/2011 LUCAS PERALTA APRN 401.1 HYPERTENSION, BENIGN ESSENTIAL 01/02/2011 NANCY LÓPEZ DDS 401.1 HYPERTENSION, BENIGN ESSENTIAL 02/08/2011 Ot 789.09 ABDOMINAL PAIN, OTHER SPECIFIED SITE 02/08/2011 Ot 922.2 CONTUSION ABDOMINAL WALL 02/08/2011 Ot E000.8 OTHER EXTERNAL CAUSE STATUS 02/08/2011 Ot E928.9 ACCIDENT NOS 02/17/2011 Ot 172.5 MALIG MELANOMA TRUNK 02/20/2011 Ot 070.70 UNSPECIFIED VIRAL HEPATITIS C WITHOUT HE 02/20/2011 Ot 172.5 MALIG MELANOMA TRUNK 02/20/2011 Ot 285.9 ANEMIA NOS 02/20/2011 Ot 305.70 AMPHETAMINE ABUSE-UNSPEC 02/20/2011 Ot 401.9 HYPERTENSION NOS 02/20/2011 Ot 729.5 PAIN IN LIMB 02/20/2011 Ot 780.97 ALTERED MENTAL STATUS 03/14/2011 Ot 172.5 MALIG MELANOMA TRUNK 04/12/2011 Ot 041.11 METHICILLIN SUSCEPTIBLE STAPHYLOCOCCUS A 04/12/2011 Ot 041.85 BACTERIAL INFEC DUE TO OTH GRAM-NEG ORGA 04/12/2011 Ot 172.5 MALIG MELANOMA TRUNK 04/12/2011 Ot 682.3 CELLULITIS OF ARM 04/12/2011 Ot 998.51 INFECTED POSTOP SEROMA 04/20/2011 LUCAS PERALTA APRN 998.13 SEROMA COMPLICATING A PROCEDURE 04/20/2011 LUCAS PERALTA APRN 998.51 INFECTED POSTOPERATIVE SEROMA 04/20/2011 998.13 SEROMA COMPLICATING A PROCEDURE 04/20/2011 998.51 INFECTED POSTOPERATIVE SEROMA 04/20/2011 998.13 SEROMA COMPLICATING A PROCEDURE 04/20/2011 998.51 INFECTED POSTOPERATIVE SEROMA 04/20/2011 998.13 SEROMA COMPLICATING A PROCEDURE 04/20/2011 998.51 INFECTED POSTOPERATIVE SEROMA 04/20/2011 998.13 SEROMA COMPLICATING A PROCEDURE 04/20/2011 998.51 INFECTED POSTOPERATIVE SEROMA 04/20/2011 SINAI JOSEPH DO 998.13 SEROMA COMPLICATING A PROCEDURE 04/20/2011 SINAI JOSEPH DO 998.51 INFECTED POSTOPERATIVE SEROMA 04/20/2011 CRISSY GUEVARA MD 998.13 SEROMA COMPLICATING A PROCEDURE 04/20/2011 CRISSY GUEVARA MD 998.51 INFECTED POSTOPERATIVE SEROMA 04/20/2011 INNA BAZAN, JOSH De Anda 998.13 SEROMA COMPLICATING A PROCEDURE 04/20/2011 JOSH KEITH MD 998.51 INFECTED POSTOPERATIVE SEROMA 04/20/2011 LUCAS PERALTA APRN 998.13 SEROMA COMPLICATING A PROCEDURE 04/20/2011 LUCAS PERALTA APRN 998.51 INFECTED POSTOPERATIVE SEROMA 04/20/2011 SINAI JOSEPH DO 998.13 SEROMA COMPLICATING A PROCEDURE 04/20/2011 SINAI JOSEPH DO 998.51 INFECTED POSTOPERATIVE SEROMA 04/20/2011 LUCAS PERALTA APRN 998.13 SEROMA COMPLICATING A PROCEDURE 04/20/2011 LUCAS PERALTA APRN 998.51 INFECTED POSTOPERATIVE SEROMA 04/20/2011 NANCY LÓPEZ DDS 998.13 SEROMA COMPLICATING A PROCEDURE 04/20/2011 NANCY LÓPEZ DDS 998.51 INFECTED POSTOPERATIVE SEROMA 06/07/2011 Ot 172.5 MALIG MELANOMA TRUNK 09/09/2011 Ot 172.5 MALIG MELANOMA TRUNK 09/09/2011 Ot V58.0 ENCOUNTER FOR RADIOTHERAPY 12/03/2011 Ot 172.5 MALIG MELANOMA TRUNK 12/03/2011 Ot 457.1 OTHER LYMPHEDEMA 12/03/2011 Ot V45.89 POSTSURGICAL STATES NEC 12/03/2011 Ot V57.21 ENCOUNTER FOR OCCUPATIONAL THERAPY 12/23/2011 Ot 172.5 MALIG MELANOMA TRUNK 02/10/2012 LUCAS PERALTA APRN 789.01 ABDOMINAL PAIN RIGHT UPPER QUADRANT 02/10/2012 789.01 ABDOMINAL PAIN RIGHT UPPER QUADRANT 02/10/2012 789.01 ABDOMINAL PAIN RIGHT UPPER QUADRANT 02/10/2012 789.01 ABDOMINAL PAIN RIGHT UPPER QUADRANT 02/10/2012 789.01 ABDOMINAL PAIN RIGHT UPPER QUADRANT 02/10/2012 SINAI JOSEPH DO 789.01 ABDOMINAL PAIN RIGHT UPPER QUADRANT 02/10/2012 CRISSY GUEVARA MD 789.01 ABDOMINAL PAIN RIGHT UPPER QUADRANT 02/10/2012 INNA BAZAN, JOSH De Anda 789.01 ABDOMINAL PAIN RIGHT UPPER QUADRANT 02/10/2012 LUCAS PERALTA APRN 789.01 ABDOMINAL PAIN RIGHT UPPER QUADRANT 02/10/2012 [facility]AI JOSEPH DO 789.01 ABDOMINAL PAIN RIGHT UPPER QUADRANT 02/10/2012 LUCAS PERALTA APRN 789.01 ABDOMINAL PAIN RIGHT UPPER QUADRANT 02/10/2012 WHITE DDS, NANCY D 789.01 ABDOMINAL PAIN RIGHT UPPER QUADRANT 04/07/2012 Ot 172.5 MALIG MELANOMA TRUNK 04/07/2012 Ot 788.41 URINARY FREQUENCY 04/07/2012 Ot 789.09 ABDOMINAL PAIN, OTHER SPECIFIED SITE 06/08/2012 Ot 216.5 BENIGN SHAE SKIN TRUNK 06/08/2012 Ot 216.7 BENIGN SHAE SKIN LEG 06/08/2012 Ot V10.82 HX-MALIG SKIN MELANOMA 07/26/2012 077.99 UNSPECIFIED DISEASES OF CONJUNCTIVA DUE TO VIRUSES 07/26/2012 077.99 UNSPECIFIED DISEASES OF CONJUNCTIVA DUE TO VIRUSES 07/26/2012 077.99 UNSPECIFIED DISEASES OF CONJUNCTIVA DUE TO VIRUSES 07/26/2012 077.99 UNSPECIFIED DISEASES OF CONJUNCTIVA DUE TO VIRUSES 07/26/2012 S[facility]AI JOSEPH DO 077.99 UNSPECIFIED DISEASES OF CONJUNCTIVA DUE TO VIRUSES 07/26/2012 ISMAEL BAZAN, CRISSY 077.99 UNSPECIFIED DISEASES OF CONJUNCTIVA DUE TO VIRUSES 07/26/2012 INNA BAZAN, JOSH De Anda 077.99 UNSPECIFIED DISEASES OF CONJUNCTIVA DUE TO VIRUSES 07/26/2012 LUCAS PERALTA APRN 077.99 UNSPECIFIED DISEASES OF CONJUNCTIVA DUE TO VIRUSES 07/26/2012 SINAI JOSEPH DO 077.99 UNSPECIFIED DISEASES OF CONJUNCTIVA DUE TO VIRUSES 07/26/2012 LUCAS PERALTA APRN 077.99 UNSPECIFIED DISEASES OF CONJUNCTIVA DUE TO VIRUSES 07/26/2012 MRAIBEL DDS, NANCY Romero 077.99 UNSPECIFIED DISEASES OF CONJUNCTIVA DUE TO VIRUSES 08/10/2012 IVA CRUZ Ot 070.70 UNSPECIFIED VIRAL HEPATITIS C WITHOUT HE 08/10/2012 IVA CRUZ Ot 172.5 MALIG MELANOMA TRUNK 08/10/2012 IVA CRUZ Ot 278.00 OBESITY, NOS 08/10/2012 IVA CRUZ Ot 401.9 HYPERTENSION NOS 08/10/2012 IVA CRUZ Ot V15.3 HX OF IRRADIATION 08/10/2012 IVA CRUZ Ot V58.69 OTH MED,LT,CURRENT USE 08/22/2012 300.00 ANXIETY UNSPEC 08/22/2012 300.00 ANXIETY UNSPEC 08/22/2012 300.00 ANXIETY UNSPEC 08/22/2012 SINAI JOSEPH DO 300.00 ANXIETY UNSPEC 08/22/2012 CRISSY GUEVARA MD 300.00 ANXIETY UNSPEC 08/22/2012 JOSH KETIH MD 300.00 ANXIETY UNSPEC 08/22/2012 LUCAS PERALTA APRN 300.00 ANXIETY UNSPEC 08/22/2012 SINAI JOSEPH DO 300.00 ANXIETY UNSPEC 08/22/2012 LUCAS PERALTA APRN 300.00 ANXIETY UNSPEC 08/22/2012 NANCY LÓPEZ DDS 300.00 ANXIETY UNSPEC 10/24/2012 709.9 SKIN LESIONS 10/24/2012 SINAI JOSEPH DO 709.9 SKIN LESIONS 10/24/2012 CRISSY GUEVARA MD 709.9 SKIN LESIONS 10/24/2012 JOSH KEITH MD 709.9 SKIN LESIONS 10/24/2012 LUCAS PERALTA APRN 709.9 SKIN LESIONS 10/24/2012 S[facility]AI JOSEPH DO 709.9 SKIN LESIONS 10/24/2012 LUCAS PERALTA APRN 709.9 SKIN LESIONS 10/24/2012 NANCY LÓPEZ DDS 709.9 SKIN LESIONS 11/15/2012 BJ TERRY DESIGN PRINTING MACHINE SETTER Ot 070.70 UNSPECIFIED VIRAL HEPATITIS C WITHOUT HE 11/15/2012 BJ TERRY DESIGN PRINTING MACHINE SETTER Ot 172.5 MALIG MELANOMA TRUNK 11/15/2012 BJ TERRY DESIGN PRINTING MACHINE SETTER Ot 278.00 OBESITY, NOS 11/15/2012 BJ TERRY DESIGN PRINTING MACHINE SETTER Ot 401.9 HYPERTENSION NOS 11/15/2012 BJ TERRY DESIGN PRINTING MACHINE SETTER Ot V15.3 HX OF IRRADIATION 11/15/2012 BJ TERRY DESIGN PRINTING MACHINE SETTER Ot V58.69 OTH MED,LT,CURRENT USE 11/16/2012 INNA BAZAN, JOSH De Anda Ot 216.7 BENIGN SHAE SKIN LEG 12/23/2012 LIUDMILA WIGGINS MD Ot 274.9 GOUT NOS 12/23/2012 LIUDMILA WIGGINS MD Ot 729.81 SWELLING OF LIMB 02/22/2013 CRISSY GUEVARA MD 462 PHARYNGITIS ACUTE 02/22/2013 INNA BAZAN, JOSH M 462 PHARYNGITIS ACUTE 02/22/2013 LUCAS PERALTA APRN 462 PHARYNGITIS ACUTE 02/22/2013 SINAI JOSEPH DO 462 PHARYNGITIS ACUTE 02/22/2013 LUCAS PERALTA APRN 462 PHARYNGITIS ACUTE 02/22/2013 MARIBEL DDS, NANCY Romero 462 PHARYNGITIS ACUTE 02/22/2013 INNA BAZAN, JOSH M Ot 216.5 BENIGN SHAE SKIN TRUNK 02/22/2013 INNA BAZAN, JOSH M Ot 216.7 BENIGN SHAE SKIN LEG 02/22/2013 INNA BAZAN, JOSH M Ot V10.82 HX-MALIG SKIN MELANOMA 02/22/2013 INNA BAZAN, JOSH De Anda Ot V74.8 SCREEN-BACTERIAL DIS NEC 05/09/2013 IVA CRUZ Ot 070.70 UNSPECIFIED VIRAL HEPATITIS C WITHOUT HE 05/09/2013 IVA CRUZ Ot 172.5 MALIG MELANOMA TRUNK 05/09/2013 IVA CRUZ Ot 278.00 OBESITY, NOS 05/09/2013 IVA CRUZ Ot 401.9 HYPERTENSION NOS 05/09/2013 IVA CRUZ Ot V15.3 HX OF IRRADIATION 05/09/2013 IVA CRUZ Ot V58.69 OTH MED,LT,CURRENT USE 05/28/2013 TOMAS AUGUSTIN Ot 729.5 PAIN IN LIMB 05/28/2013 TOMAS AUGUSTIN Ot 729.81 SWELLING OF LIMB 05/28/2013 TOMAS AUGUSTIN Ot 784.0 HEADACHE 05/29/2013 TOMAS AUGUSTIN Ot 401.9 HYPERTENSION NOS 05/29/2013 TOMAS AUGUSTIN Ot 682.7 CELLULITIS OF FOOT 05/29/2013 TOMAS AUGUSTIN Ot 729.5 PAIN IN LIMB 05/29/2013 TOMAS AUGUSTIN Ot 729.81 SWELLING OF LIMB 05/29/2013 TOMAS AUGUSTNI Ot V10.82 HX-MALIG SKIN MELANOMA 06/01/2013 JAQUELINE SAMANO MD Ot 172.7 MALIG MELANOMA LEG 06/01/2013 JAQUELINE SAMANO MD Ot 216.5 BENIGN SHAE SKIN TRUNK 06/01/2013 JAZMYNE BAZAN, JAQUELINE Barclay Ot 702.19 OTHER SEBORRHEIC KERATOSIS 06/01/2013 JAZMYNE BAZAN, JAQUELINE Barclay Ot 709.8 SKIN DISORDERS NEC 06/01/2013 JAQUELINE SAMANO MD Ot 785.6 ENLARGEMENT LYMPH NODES 06/03/2013 LUCAS PERALTA APRN T 274.9 GOUT 06/03/2013 SINAI JOSEPH DO 274.9 GOUT 06/03/2013 LUCAS PERALTA APRN T 274.9 GOUT 06/03/2013 WHITE DDS, NANCY Romero 274.9 GOUT 06/15/2013 [place] ROSALBA ENCINAS Ot 172.7 MALIG MELANOMA LEG 07/21/2013 MELQUIADES GRAYSON MOSS BLEACHER Ot 327.23 OBSTRUCTIVE SLEEP APNEA (ADULT) ( PEDIATR 10/27/2013 JAQUELINE SAMANO MD Ot 327.23 OBSTRUCTIVE SLEEP APNEA (ADULT) (PEDIATR 01/18/2014 KISHOR BAZAN, PRESTON Dai Ot 364.3 IRIDOCYCLITIS NOS 01/18/2014 KISHOR BAZAN, PRESTON Dai Ot 930.0 CORNEAL FOREIGN BODY 01/18/2014 KISHOR BAZAN, PRESTON Dai Ot E000.8 OTHER EXTERNAL CAUSE STATUS 01/18/2014 PRESTON IVERSON MD Ot E849.0 ACCIDENT IN HOME 01/18/2014 KISHOR BAZAN, PRESTON Dai Ot E914 FB ENTERING EYE 01/29/2014 ESA LOPEZ APRN Ot 550.90 UNILAT INGUINAL HERNIA 02/10/2014 WESLY BAZAN, RY Romero Ot 550.90 UNILAT INGUINAL HERNIA 03/08/2014 STEVENSROSALBA NICOLE DO Ot 550.90 UNILAT INGUINAL HERNIA 03/16/2014 ROSALBA STEVENS DO Ot 550.90 03/16/2014 ROSALBA STEVENS DO Ot V72.84 03/16/2014 STEVENS ROSALBA ENCINAS Ot 550.90 03/16/2014 STEVENS ROSALBA ENCINAS Ot V72.84 03/17/2014 Ot 172.5 03/17/2014 Ot V72.83 03/17/2014 Ot V74.8 03/17/2014 Ot 172.5 03/17/2014 Ot V72.83 03/17/2014 Ot 172.5 03/17/2014 Ot 780.64 03/17/2014 Ot 780.79 03/17/2014 Ot 682.9 03/17/2014 Ot 172.9 03/17/2014 Ot 780.4 03/17/2014 Ot 784.0 03/17/2014 Ot 172.9 03/17/2014 Ot V72.83 03/17/2014 Ot 172.5 03/17/2014 Ot 172.5 03/17/2014 Ot V72.83 03/17/2014 Ot 172.9 03/17/2014 Ot 199.1 03/17/2014 Ot 682.3 03/17/2014 Ot 998.13 03/17/2014 Ot 172.9 03/17/2014 Ot 784.0 03/17/2014 Ot 172.5 03/17/2014 Ot 172.5 03/17/2014 Ot 172.9 03/17/2014 MARA BJ Loza DESIGN PRINTING MACHINE SETTER Ot 070.70 03/17/2014 MARA BJ Loza DESIGN PRINTING MACHINE SETTER Ot 172.5 03/17/2014 MARA BJ Loza DESIGN PRINTING MACHINE SETTER Ot 401.9 03/17/2014 MARA BJ Loza DESIGN PRINTING MACHINE SETTER Ot V15.3 03/17/2014 MARA BJ Loza DESIGN PRINTING MACHINE SETTER Ot V58.69 03/17/2014 Ot 603.9 03/17/2014 Ot 709.9 03/17/2014 Ot V10.82 03/17/2014 Ot V72.81 03/17/2014 Ot V74.8 03/17/2014 MARA BJ Loza DESIGN PRINTING MACHINE SETTER Ot 172.5 03/17/2014 MARA BJ Loza DESIGN PRINTING MACHINE SETTER Ot 780.4 03/17/2014 MARA BJ Loza DESIGN PRINTING MACHINE SETTER Ot 784.0 03/17/2014 MARA BJ Loza DESIGN PRINTING MACHINE SETTER Ot 780.4 03/17/2014 TERRY, BJ Loza DESIGN PRINTING MACHINE SETTER Ot 784.0 03/17/2014 INNA BAZAN, JOSH M Ot 709.9 03/17/2014 INNA BAZAN, JOSH M Ot V72.84 03/17/2014 INNA BAZAN, JOSH M Ot V74.8 03/17/2014 INNA BAZAN, JOSH M Ot 709.9 03/17/2014 INNA BAZAN, JOSH M Ot V72.84 03/17/2014 IVA CRUZ Ot 172.9 03/17/2014 ANTHONY, BOBAN N Ot 070.70 03/17/2014 ANTHONY, BOBAN N Ot 172.5 03/17/2014 ANTHONY, BOBAN N Ot 278.00 03/17/2014 ANTHONY, BOBAN N Ot 401.9 03/17/2014 ANTHONY, BOBAN N Ot V15.3 03/17/2014 ANTHONY, BOBAN N Ot V58.69 03/17/2014 JAZMYNE BAZAN, JAQUELINE P Ot 709.9 03/17/2014 JAZMYNE BAZAN, JAQUELINE P Ot V10.82 03/17/2014 JAZMYNE BAZAN, JAQUELNIE P Ot V72.83 03/17/2014 JAZMYNE BAZAN JAQUELINE P Ot V74.8 03/17/2014 STEVENS ROSALBA ENCINAS Ot 172.7 03/17/2014 STEVENSROSALBA NICOLE DO Ot V72.84 03/17/2014 BJ TERRY DESIGN PRINTING MACHINE SETTER Ot 172.7 03/17/2014 BJ TERRY S DESIGN PRINTING MACHINE SETTER Ot 070.70 03/17/2014 BJ TERRY S DESIGN PRINTING MACHINE SETTER Ot 172.5 03/17/2014 BJ TERRY S DESIGN PRINTING MACHINE SETTER Ot 278.00 03/17/2014 BJ TERRY S DESIGN PRINTING MACHINE SETTER Ot 401.9 03/17/2014 BJ TERRY S DESIGN PRINTING MACHINE SETTER Ot V58.69 03/17/2014 BJ TERRY S DESIGN PRINTING MACHINE SETTER Ot V85.35 03/17/2014 BJ TERRY S DESIGN PRINTING MACHINE SETTER Ot 172.9 03/17/2014 BJ TERRY S DESIGN PRINTING MACHINE SETTER Ot 592.0 03/17/2014 ANTHONYKELSEY VARELAAN N Ot 070.70 03/17/2014 ANTHONY, BOBAN N Ot 172.5 03/17/2014 ANTHONY, BOBAN N Ot 278.00 03/17/2014 ANTHONY, BOBAN N Ot 401.9 03/17/2014 ANTHONY, BOBAN N Ot V58.69 03/17/2014 ANTHONY, BOBAN N Ot V85.35 03/17/2014 BJ TERRY S DESIGN PRINTING MACHINE SETTER Ot 070.70 03/17/2014 BJ TERRY S DESIGN PRINTING MACHINE SETTER Ot 172.5 03/17/2014 BJ TERRY S DESIGN PRINTING MACHINE SETTER Ot 401.9 03/17/2014 BJ TERRY S DESIGN PRINTING MACHINE SETTER Ot V58.69 03/17/2014 BJ TERRY DESIGN PRINTING MACHINE SETTER Ot 172.9 03/17/2014 RODNEY ENCINASROSALBA Ot 550.90 03/17/2014 RODNEY ENCINASROSALBA Ot V72.84 03/17/2014 KAYLYNN HOOKER DO Ot 401.9 HYPERTENSION NOS 03/17/2014 KAYLYNN HOOKER DO Ot 729.5 PAIN IN LIMB 03/17/2014 KAYLYNN HOOKER DO Ot 729.81 SWELLING OF LIMB 03/17/2014 KAYLYNN HOOKER DO Ot V45.89 POSTSURGICAL STATES NEC 03/17/2014 KAYLYNN HOOKER DO Ot V58.69 OTH MED,LT,CURRENT USE 03/26/2014 BJ TERRY DESIGN PRINTING MACHINE SETTER Ot 070.70 03/26/2014 BJ TERRY DESIGN PRINTING MACHINE SETTER Ot 172.5 03/26/2014 BJ TERRY DESIGN PRINTING MACHINE SETTER Ot 401.9 03/26/2014 BJ TERRY DESIGN PRINTING MACHINE SETTER Ot V58.69 04/04/2014 BJ TERRY DESIGN PRINTING MACHINE SETTER Ot 172.9 05/30/2014 LUCAS PERALTA APRN 314.00 ADHD INATTENTIVE 05/30/2014 NANCY LÓPEZ DDS 314.00 ADHD INATTENTIVE 07/02/2014 ANTHONYIVA VARELA Ot 274.9 07/02/2014 ANTHONYIVA VARELA Ot 401.9 07/02/2014 ANTHONYIVA VARELA Ot V10.82 07/02/2014 ANTHONYIVA VARELA Ot V12.09 07/02/2014 ANTHONYIVA VARELA Ot V58.69 07/02/2014 ANTHONYIVA VARELA Ot V67.2 07/23/2014 Ot 172.5 07/23/2014 Ot V72.83 07/23/2014 Ot V74.8 07/23/2014 Ot 172.5 07/23/2014 Ot V72.83 07/23/2014 Ot 172.5 07/23/2014 Ot 780.64 07/23/2014 Ot 780.79 07/23/2014 Ot 682.9 07/23/2014 Ot 172.9 07/23/2014 Ot 780.4 07/23/2014 Ot 784.0 07/23/2014 Ot 172.9 07/23/2014 Ot V72.83 07/23/2014 Ot 172.5 07/23/2014 Ot 172.5 07/23/2014 Ot V72.83 07/23/2014 Ot 172.9 07/23/2014 Ot 199.1 07/23/2014 Ot 682.3 07/23/2014 Ot 998.13 07/23/2014 Ot 172.9 07/23/2014 Ot 784.0 07/23/2014 Ot 172.5 07/23/2014 Ot 172.5 07/23/2014 Ot 172.9 07/23/2014 BJ TERRY DESIGN PRINTING MACHINE SETTER Ot 070.70 07/23/2014 BJ TERRY DESIGN PRINTING MACHINE SETTER Ot 172.5 07/23/2014 BJ TERRY DESIGN PRINTING MACHINE SETTER Ot 401.9 07/23/2014 BJ TERRY DESIGN PRINTING MACHINE SETTER Ot V15.3 07/23/2014 BJ TERRY DESIGN PRINTING MACHINE SETTER Ot V58.69 07/23/2014 Ot 603.9 07/23/2014 Ot 709.9 07/23/2014 Ot V10.82 07/23/2014 Ot V72.81 07/23/2014 Ot V74.8 07/23/2014 BJ TERRY DESIGN PRINTING MACHINE SETTER Ot 172.5 07/23/2014 BJ TERRY DESIGN PRINTING MACHINE SETTER Ot 780.4 07/23/2014 BJ TERRY DESIGN PRINTING MACHINE SETTER Ot 784.0 07/23/2014 BJ ETRRY DESIGN PRINTING MACHINE SETTER Ot 780.4 07/23/2014 BJ TERRY DESIGN PRINTING MACHINE SETTER Ot 784.0 07/23/2014 INNA BAZAN, JOSH M Ot 709.9 07/23/2014 INNA BAZAN, JOSH De Anda Ot V72.84 07/23/2014 INNA BAZAN, JOSH M Ot V74.8 07/23/2014 INNA BAZAN, JOSH M Ot 709.9 07/23/2014 INNA BAZAN, JOSH M Ot V72.84 07/23/2014 ANTHONYIVA VARELA N Ot 172.9 07/23/2014 ANTHONY BOBAN N Ot 070.70 07/23/2014 ANTHONY, BOBAN N Ot 172.5 07/23/2014 ANTHONY BOBAN N Ot 278.00 07/23/2014 ANTHONY, BOBAN N Ot 401.9 07/23/2014 VIA CRUZ N Ot V15.3 07/23/2014 ANTHONYIVA VARELA N Ot V58.69 07/23/2014 JAZMYNE BAZAN, JAQUELINE P Ot 709.9 07/23/2014 JAZMYNE BAZAN, JAQUELINE P Ot V10.82 07/23/2014 JAZMYNE BAZAN, JAQUELINE P Ot V72.83 07/23/2014 JAZMYNE BAZAN, JAQUELINE P Ot V74.8 07/23/2014 [place] ROSALBA ENCINAS Ot 172.7 07/23/2014 [place] ROS[place] ENCINAS Ot V72.84 07/23/2014 MARA BJ S DESIGN PRINTING MACHINE SETTER Ot 172.7 07/23/2014 MARA BJ S DESIGN PRINTING MACHINE SETTER Ot 070.70 07/23/2014 TERRY HILAH S DESIGN PRINTING MACHINE SETTER Ot 172.5 07/23/2014 MARA ELHAMAH S DESIGN PRINTING MACHINE SETTER Ot 278.00 07/23/2014 MARA ELHAMAH S DESIGN PRINTING MACHINE SETTER Ot 401.9 07/23/2014 MARA BJ S DESIGN PRINTING MACHINE SETTER Ot V58.69 07/23/2014 TERRY, BJ S DESIGN PRINTING MACHINE SETTER Ot V85.35 07/23/2014 TERRY, BJ S DESIGN PRINTING MACHINE SETTER Ot 172.9 07/23/2014 MARA BJ S DESIGN PRINTING MACHINE SETTER Ot 592.0 07/23/2014 IVA CRUZ N Ot 070.70 07/23/2014 ANTHONY, BOBAN N Ot 172.5 07/23/2014 ANTHONYKELSEY VARELAAN N Ot 278.00 07/23/2014 ANTHONY, BOBAN N Ot 401.9 07/23/2014 ANTHONY, BOBAN N Ot V58.69 07/23/2014 ANTHONY, BOBAN N Ot V85.35 07/23/2014 TERRY BJ S DESIGN PRINTING MACHINE SETTER Ot 070.70 07/23/2014 TERRY BJ S DESIGN PRINTING MACHINE SETTER Ot 172.5 07/23/2014 TERRY ELHAMAH S DESIGN PRINTING MACHINE SETTER Ot 401.9 07/23/2014 TERRY ELHAMAH S DESIGN PRINTING MACHINE SETTER Ot V58.69 07/23/2014 TERRY, BJ S DESIGN PRINTING MACHINE SETTER Ot 172.9 07/23/2014 [place] ROSALBA ENCINAS Ot 550.90 07/23/2014 [place] ROS[place] ENCINAS Ot V72.84 07/23/2014 IVA CRUZ N Ot 274.9 07/23/2014 ANTHONYIVA VARELA N Ot 401.9 07/23/2014 ANTHONYIVA VARELA N Ot V10.82 07/23/2014 IVA CRUZ N Ot V12.09 07/23/2014 IVA CRUZ N Ot V58.69 07/23/2014 IVA CRUZ N Ot V67.2 07/23/2014 TOMAS AUGSUTIN Ot 521.00 UNSPEC DENTAL CARIES 07/23/2014 TOMAS AUGUSTIN Ot 522.5 PERIAPICAL ABSCESS 07/23/2014 TOMAS AUGUSTIN Ot 525.9 DENTAL DISORDER NOS 08/10/2014 BJ TERRY DESIGN PRINTING MACHINE SETTER Ot 172.9 08/10/2014 IVA CRUZ N Ot 274.9 08/10/2014 IVA CRUZ N Ot 401.9 08/10/2014 IVA CRUZ N Ot V10.82 08/10/2014 IVA CRUZ N Ot V12.09 08/10/2014 IVA CRUZ N Ot V58.69 08/10/2014 IVA CRUZ N Ot V67.2 08/29/2014 ANTHONYIVA VARELA N Ot 274.9 GOUT NOS 08/29/2014 IVA CRUZ N Ot 401.9 HYPERTENSION NOS 08/29/2014 IVA CRUZ N Ot V10.82 HX-MALIG SKIN MELANOMA 08/29/2014 IVA CRUZ N Ot V12.09 PERSONAL HISTORY OTH SPEC INFECT SHAE 08/29/2014 IVA CRUZ N Ot V58.69 OTH MED,LT,CURRENT USE 08/29/2014 IVA CRUZ N Ot V67.2 CHEMOTHERAPY FOLLOW-UP 09/26/2014 BJ TERRY DESIGN PRINTING MACHINE SETTER Ot 274.9 09/26/2014 BJ TERRY DESIGN PRINTING MACHINE SETTER Ot 401.9 09/26/2014 BJ TERRY DESIGN PRINTING MACHINE SETTER Ot V10.82 09/26/2014 BJ TERRY DESIGN PRINTING MACHINE SETTER Ot V12.09 09/26/2014 BJ TERRY DESIGN PRINTING MACHINE SETTER Ot V58.69 09/26/2014 BJ TERRY DESIGN PRINTING MACHINE SETTER Ot V67.2 10/18/2014 BJ TERRY DESIGN PRINTING MACHINE SETTER Ot 709.9 10/18/2014 MARABJ DESIGN PRINTING MACHINE SETTER Ot 788.1 10/18/2014 MARABJ DESIGN PRINTING MACHINE SETTER Ot 788.30 10/18/2014 MARABJ DESIGN PRINTING MACHINE SETTER Ot 788.41 10/18/2014 MARABJ DESIGN PRINTING MACHINE SETTER Ot V10.82 10/18/2014 MARABJ DESIGN PRINTING MACHINE SETTER Ot V12.09 10/18/2014 MARABJ DESIGN PRINTING MACHINE SETTER Ot V58.69 10/18/2014 TERRYBJ Loza DESIGN PRINTING MACHINE SETTER Ot V67.2 10/26/2014 ROSALBA STEVENS DO Ot 709.9 SKIN DISORDER NOS 10/26/2014 ROSALBA STEVENS DO Ot V64.3 NO PROC FOR REASONS NEC 10/31/2014 TERRYBJ Loza DESIGN PRINTING MACHINE SETTER Ot 274.9 10/31/2014 MARA BJ Loza DESIGN PRINTING MACHINE SETTER Ot 401.9 10/31/2014 MARA BJ Loza DESIGN PRINTING MACHINE SETTER Ot V10.82 10/31/2014 MARABJ DESIGN PRINTING MACHINE SETTER Ot V12.09 10/31/2014 MARABJ DESIGN PRINTING MACHINE SETTER Ot V58.69 10/31/2014 MARABJ DESIGN PRINTING MACHINE SETTER Ot V67.2 11/01/2014 MARABJ S DESIGN PRINTING MACHINE SETTER Ot 709.9 11/01/2014 MARABJ S DESIGN PRINTING MACHINE SETTER Ot 788.1 11/01/2014 MARA BJ S DESIGN PRINTING MACHINE SETTER Ot 788.30 11/01/2014 MARA BJ S DESIGN PRINTING MACHINE SETTER Ot 788.41 11/01/2014 MARABJ S DESIGN PRINTING MACHINE SETTER Ot V10.82 11/01/2014 MARABJ S DESIGN PRINTING MACHINE SETTER Ot V12.09 11/01/2014 MARABJ S DESIGN PRINTING MACHINE SETTER Ot V58.69 11/01/2014 MARABJ S DESIGN PRINTING MACHINE SETTER Ot V67.2 11/01/2014 MARABJ S DESIGN PRINTING MACHINE SETTER Ot 709.9 11/01/2014 MARA BJ S DESIGN PRINTING MACHINE SETTER Ot 788.1 11/01/2014 MARA BJ S DESIGN PRINTING MACHINE SETTER Ot 788.30 11/01/2014 MARA BJ S DESIGN PRINTING MACHINE SETTER Ot 788.41 11/01/2014 BJ TERRY DESIGN PRINTING MACHINE SETTER Ot V10.82 11/01/2014 TERRYBJ Loza DESIGN PRINTING MACHINE SETTER Ot V12.09 11/01/2014 BJ TERRY DESIGN PRINTING MACHINE SETTER Ot V58.69 11/01/2014 BJ TERRY DESIGN PRINTING MACHINE SETTER Ot V67.2 11/20/2014 Ot 172.5 11/20/2014 Ot V72.83 11/20/2014 Ot V74.8 11/20/2014 Ot 172.5 11/20/2014 Ot V72.83 11/20/2014 Ot 172.5 11/20/2014 Ot 780.64 11/20/2014 Ot 780.79 11/20/2014 Ot 682.9 11/20/2014 Ot 172.9 11/20/2014 Ot 780.4 11/20/2014 Ot 784.0 11/20/2014 Ot 172.9 11/20/2014 Ot V72.83 11/20/2014 Ot 172.5 11/20/2014 Ot 172.5 11/20/2014 Ot V72.83 11/20/2014 Ot 172.9 11/20/2014 Ot 199.1 11/20/2014 Ot 682.3 11/20/2014 Ot 998.13 11/20/2014 Ot 172.9 11/20/2014 Ot 784.0 11/20/2014 Ot 172.5 11/20/2014 Ot 172.5 11/20/2014 Ot 172.9 11/20/2014 BJ TERRY DESIGN PRINTING MACHINE SETTER Ot 070.70 11/20/2014 TERRYBJ Loza DESIGN PRINTING MACHINE SETTER Ot 172.5 11/20/2014 TERRYBJ Loza DESIGN PRINTING MACHINE SETTER Ot 401.9 11/20/2014 BJ TERRY DESIGN PRINTING MACHINE SETTER Ot V15.3 11/20/2014 BJ TERRY DESIGN PRINTING MACHINE SETTER Ot V58.69 11/20/2014 Ot 603.9 11/20/2014 Ot 709.9 11/20/2014 Ot V10.82 11/20/2014 Ot V72.81 11/20/2014 Ot V74.8 11/20/2014 MARABJ DESIGN PRINTING MACHINE SETTER Ot 172.5 11/20/2014 MARABJ DESIGN PRINTING MACHINE SETTER Ot 780.4 11/20/2014 MARABJ DESIGN PRINTING MACHINE SETTER Ot 784.0 11/20/2014 BJ TERRY DESIGN PRINTING MACHINE SETTER Ot 780.4 11/20/2014 BJ TERRY DESIGN PRINTING MACHINE SETTER Ot 784.0 11/20/2014 INNA BAZAN, JOSH M Ot 709.9 11/20/2014 INNA BAZAN, JOSH M Ot V72.84 11/20/2014 INNA BAZAN, JOSH M Ot V74.8 11/20/2014 INNA BAZAN, JOSH M Ot 709.9 11/20/2014 INNA BAZAN, JOSH M Ot V72.84 11/20/2014 ANTHONY, BOBAN N Ot 172.9 11/20/2014 ANTHONY, BOBAN N Ot 070.70 11/20/2014 ANTHONY, BOBAN N Ot 172.5 11/20/2014 ANTHONY, BOBAN N Ot 278.00 11/20/2014 ANTHONY, BOBAN N Ot 401.9 11/20/2014 ANTHONY, BOBAN N Ot V15.3 11/20/2014 ANTHONY, BOBAN N Ot V58.69 11/20/2014 JAZMYNE BAZAN, JAQUELINE P Ot 709.9 11/20/2014 JAZMYNE BAZAN, JAQUELINE P Ot V10.82 11/20/2014 JAZMYNE BAZAN, JAQUELINE P Ot V72.83 11/20/2014 JAZMYNE BAZAN, JAQUELINE P Ot V74.8 11/20/2014 [facility] Ot 172.7 11/20/2014 [facility] Ot V72.84 11/20/2014 BJ TERRY DESIGN PRINTING MACHINE SETTER Ot 172.7 11/20/2014 BJ TERRY DESIGN PRINTING MACHINE SETTER Ot 070.70 11/20/2014 BJ TERRY DESIGN PRINTING MACHINE SETTER Ot 172.5 11/20/2014 BJ TERRY DESIGN PRINTING MACHINE SETTER Ot 278.00 11/20/2014 BJ TERRY DESIGN PRINTING MACHINE SETTER Ot 401.9 11/20/2014 BJ TERRY DESIGN PRINTING MACHINE SETTER Ot V58.69 11/20/2014 BJ TERRY DESIGN PRINTING MACHINE SETTER Ot V85.35 11/20/2014 BJ TERRY DESIGN PRINTING MACHINE SETTER Ot 172.9 11/20/2014 BJ TERRY DESIGN PRINTING MACHINE SETTER Ot 592.0 11/20/2014 ANTHONY, BOBAN N Ot 070.70 11/20/2014 ANTHONYKELSEY VARELAAN N Ot 172.5 11/20/2014 ANTHONY, BOBAN N Ot 278.00 11/20/2014 ANTHONY, BOBAN N Ot 401.9 11/20/2014 ANTHONY, KELSEYAN N Ot V58.69 11/20/2014 ANTHONY, BOBAN N Ot V85.35 11/20/2014 TERRYBJ S DESIGN PRINTING MACHINE SETTER Ot 070.70 11/20/2014 MARA BJ S DESIGN PRINTING MACHINE SETTER Ot 172.5 11/20/2014 TERRY, BJ S DESIGN PRINTING MACHINE SETTER Ot 401.9 11/20/2014 MARA BJ S DESIGN PRINTING MACHINE SETTER Ot V58.69 11/20/2014 MARA BJ S DESIGN PRINTING MACHINE SETTER Ot 172.9 11/20/2014 [facility] Ot 550.90 11/20/2014 [facility] Ot V72.84 11/20/2014 MARA BJ S DESIGN PRINTING MACHINE SETTER Ot 274.9 11/20/2014 MARA BJ S DESIGN PRINTING MACHINE SETTER Ot 401.9 11/20/2014 MARA BJ S DESIGN PRINTING MACHINE SETTER Ot V10.82 11/20/2014 MARA BJ S DESIGN PRINTING MACHINE SETTER Ot V12.09 11/20/2014 MARA BJ S DESIGN PRINTING MACHINE SETTER Ot V58.69 11/20/2014 MARA BJ S DESIGN PRINTING MACHINE SETTER Ot V67.2 11/20/2014 ANTHONYKELSEY VARELAAN N Ot 274.9 11/20/2014 ANTHONYKELSEY VARELAAN N Ot 401.9 11/20/2014 ANTHONY, KELSEYAN N Ot V10.82 11/20/2014 ANTHONY, BOBAN N Ot V12.09 11/20/2014 ANTHONY, BOBAN N Ot V58.69 11/20/2014 ANTHONY, BOBAN N Ot V67.2 11/20/2014 MARA BJ S DESIGN PRINTING MACHINE SETTER Ot 709.9 11/20/2014 MARA ELHAMAH S DESIGN PRINTING MACHINE SETTER Ot 788.1 11/20/2014 MARA ELHAMAH S DESIGN PRINTING MACHINE SETTER Ot 788.30 11/20/2014 MARA BJ S DESIGN PRINTING MACHINE SETTER Ot 788.41 11/20/2014 MARA BJ S DESIGN PRINTING MACHINE SETTER Ot V10.82 11/20/2014 MARA ELHAMAH S DESIGN PRINTING MACHINE SETTER Ot V12.09 11/20/2014 TERRYBJ Loza DESIGN PRINTING MACHINE SETTER Ot V58.69 11/20/2014 BJ TERRY DESIGN PRINTING MACHINE SETTER Ot V67.2 11/20/2014 [facility] 709.9 11/20[facility]2014 [facility] Ot V72.84 11/22/2014 ANTHONY, BOBAN N Ot 274.9 11/22/2014 ANTHONY, BOBAN N Ot 401.9 11/22/2014 ANTHONY, BOBAN N Ot V10.82 11/22/2014 ANTHONY, BOBAN N Ot V12.09 11/22/2014 ANTHONY, BOBAN N Ot V58.69 11/22/2014 ANTHONY, BOBAN N Ot V67.2 11/27/2014 ANTHONY, BOBAN N Ot 274.9 11/27/2014 ANTHONY, BOBAN N Ot 401.9 11/27/2014 ANTHONY, BOBAN N Ot V10.82 11/27/2014 ANTHONY, BOBAN N Ot V12.09 11/27/2014 ANTHONY, BOBAN N Ot V58.69 11/27/2014 ANTHONY, BOBAN N Ot V67.2 11/29/2014 ANTHONY, BOBAN N Ot 274.9 11/29/2014 ANTHONY, BOBAN N Ot 401.9 11/29/2014 ANTHONY, BOBAN N Ot V10.82 11/29/2014 ANTHONY, BOBAN N Ot V12.09 11/29/2014 ANTHONY, BOBAN N Ot V58.69 11/29/2014 ANTHONY, BOBAN N Ot V67.2 11/30/2014 ANTHONY, BOBAN N Ot 274.9 11/30/2014 ANTHONY, BOBAN N Ot 401.9 11/30/2014 ANTHONY, BOBAN N Ot V10.82 11/30/2014 ANTHONY, BOBAN N Ot V12.09 11/30/2014 ANTHONY, BOBAN N Ot V58.69 11/30/2014 ANTHONY, BOBAN N Ot V67.2 12/12/2014 BJ TERRY DESIGN PRINTING MACHINE SETTER Ot 172.9 12/29/2014 TERRYBJ Loza DESIGN PRINTING MACHINE SETTER Ot 172.9 12/31/2014 TERRYBJ Loza S DESIGN PRINTING MACHINE SETTER Ot 172.9 01/02/2015 IVA CRUZ Ot 274.9 GOUT NOS 01/02/2015 IVA CRUZ Ot 401.9 HYPERTENSION NOS 01/02/2015 IVA CRUZ Ot V10.82 HX-MALIG SKIN MELANOMA 01/02/2015 IVA CRUZ Ot V12.09 PERSONAL HISTORY OTH SPEC INFECT SHAE 01/02/2015 IVA CRUZ Ot V58.69 OTH MED,LT,CURRENT USE 01/02/2015 IVA CRUZ Ot V67.2 CHEMOTHERAPY FOLLOW-UP 04/01/2015 Ot 172.5 04/01/2015 Ot V72.83 04/01/2015 Ot V74.8 04/01/2015 Ot 172.5 04/01/2015 Ot V72.83 04/01/2015 Ot 172.5 04/01/2015 Ot 780.64 04/01/2015 Ot 780.79 04/01/2015 Ot 682.9 04/01/2015 Ot 172.9 04/01/2015 Ot 780.4 04/01/2015 Ot 784.0 04/01/2015 Ot 172.9 04/01/2015 Ot V72.83 04/01/2015 Ot 172.5 04/01/2015 Ot 172.5 04/01/2015 Ot V72.83 04/01/2015 Ot 172.9 04/01/2015 Ot 199.1 04/01/2015 Ot 682.3 04/01/2015 Ot 998.13 04/01/2015 Ot 172.9 04/01/2015 Ot 784.0 04/01/2015 Ot 172.5 04/01/2015 Ot 172.5 04/01/2015 Ot 172.9 04/01/2015 BJ TERRY DESIGN PRINTING MACHINE SETTER Ot 070.70 04/01/2015 BJ TERRY DESIGN PRINTING MACHINE SETTER Ot 172.5 04/01/2015 BJ TERRY DESIGN PRINTING MACHINE SETTER Ot 401.9 04/01/2015 BJ TERRY DESIGN PRINTING MACHINE SETTER Ot V15.3 04/01/2015 BJ TERRY DESIGN PRINTING MACHINE SETTER Ot V58.69 04/01/2015 Ot 603.9 04/01/2015 Ot 709.9 04/01/2015 Ot V10.82 04/01/2015 Ot V72.81 04/01/2015 Ot V74.8 04/01/2015 TERRYBJ S DESIGN PRINTING MACHINE SETTER Ot 172.5 04/01/2015 MARA BJ S DESIGN PRINTING MACHINE SETTER Ot 780.4 04/01/2015 MARA BJ S DESIGN PRINTING MACHINE SETTER Ot 784.0 04/01/2015 TERRY, BJ S DESIGN PRINTING MACHINE SETTER Ot 780.4 04/01/2015 TERRY, BJ S DESIGN PRINTING MACHINE SETTER Ot 784.0 04/01/2015 INNA BAZAN, JOSH M Ot 709.9 04/01/2015 INNA BAZAN, JOSH M Ot V72.84 04/01/2015 INNA BAZAN, JOSH M Ot V74.8 04/01/2015 INNA BAZAN, JOSH M Ot 709.9 04/01/2015 INNA BAZAN, JOSH M Ot V72.84 04/01/2015 ANTHONY, BOBAN N Ot 172.9 04/01/2015 ANTHONY, BOBAN N Ot 070.70 04/01/2015 ANTHONY, BOBAN N Ot 172.5 04/01/2015 ANTHONY, BOBAN N Ot 278.00 04/01/2015 ANTHONY, BOBAN N Ot 401.9 04/01/2015 ANTHONY, BOBAN N Ot V15.3 04/01/2015 ANTHONY, BOBAN N Ot V58.69 04/01/2015 JAZMYNE BAZAN, JAQUELINE P Ot 709.9 04/01/2015 JAZMYNE BAZAN, JAQUELINE P Ot V10.82 04/01/2015 JAZMYNE BAZAN, JAQUELINE P Ot V72.83 04/01/2015 JAZMYNE BAZAN, JAQUELINE P Ot V74.8 04/01/2015 ROSALBA STEVENS DO Ot 172.7 04/01/2015 ROSALBA STEVENS DO Ot V72.84 04/01/2015 MARA BJ S DESIGN PRINTING MACHINE SETTER Ot 172.7 04/01/2015 MARA BJ S DESIGN PRINTING MACHINE SETTER Ot 070.70 04/01/2015 BJ TERRY S DESIGN PRINTING MACHINE SETTER Ot 172.5 04/01/2015 TERRY, EHLAMJOSE LUIS S DESIGN PRINTING MACHINE SETTER Ot 278.00 04/01/2015 BJ TERRY S DESIGN PRINTING MACHINE SETTER Ot 401.9 04/01/2015 BJ TERRY S DESIGN PRINTING MACHINE SETTER Ot V58.69 04/01/2015 MARA BJ S DESIGN PRINTING MACHINE SETTER Ot V85.35 04/01/2015 BJ TERRY S DESIGN PRINTING MACHINE SETTER Ot 172.9 04/01/2015 TERRYBJ Loza S DESIGN PRINTING MACHINE SETTER Ot 592.0 04/01/2015 IVA CRUZ N Ot 070.70 04/01/2015 IVA CRUZ N Ot 172.5 04/01/2015 IVA CRUZ N Ot 278.00 04/01/2015 IVA CRUZ N Ot 401.9 04/01/2015 IVA CRUZ N Ot V58.69 04/01/2015 IVA CRUZ N Ot V85.35 04/01/2015 BJ TERRY S DESIGN PRINTING MACHINE SETTER Ot 070.70 04/01/2015 TERRYBJ S DESIGN PRINTING MACHINE SETTER Ot 172.5 04/01/2015 TERRYBJ S DESIGN PRINTING MACHINE SETTER Ot 401.9 04/01/2015 TERRYBJ S DESIGN PRINTING MACHINE SETTER Ot V58.69 04/01/2015 MARA BJ S DESIGN PRINTING MACHINE SETTER Ot 172.9 04/01/2015 ROSALBA STEVENS DO Ot 550.90 04/01/2015 ROSALBA STEVENS DO Ot V72.84 04/01/2015 TERRYBJ Loza S DESIGN PRINTING MACHINE SETTER Ot 274.9 04/01/2015 MARA BJ S DESIGN PRINTING MACHINE SETTER Ot 401.9 04/01/2015 MARA BJ S DESIGN PRINTING MACHINE SETTER Ot V10.82 04/01/2015 MARA BJ S DESIGN PRINTING MACHINE SETTER Ot V12.09 04/01/2015 MARA BJ S DESIGN PRINTING MACHINE SETTER Ot V58.69 04/01/2015 MARA BJ S DESIGN PRINTING MACHINE SETTER Ot V67.2 04/01/2015 TERRY, BJ S DESIGN PRINTING MACHINE SETTER Ot 172.9 04/01/2015 TERRY, BJ S DESIGN PRINTING MACHINE SETTER Ot 709.9 04/01/2015 TERRY, BJ S DESIGN PRINTING MACHINE SETTER Ot 788.1 04/01/2015 MARA ELHAMAH S DESIGN PRINTING MACHINE SETTER Ot 788.30 04/01/2015 TERRY, BJ S DESIGN PRINTING MACHINE SETTER Ot 788.41 04/01/2015 TERRY, BJ S DESIGN PRINTING MACHINE SETTER Ot V10.82 04/01/2015 TERRY, BJ S DESIGN PRINTING MACHINE SETTER Ot V12.09 04/01/2015 MARA BJ S DESIGN PRINTING MACHINE SETTER Ot V58.69 04/01/2015 BJ TERRY DESIGN PRINTING MACHINE SETTER Ot V67.2 04/01/2015 KAMALJIT STEVENS DOTT Heather Ot 709.9 04/01/2015 ROSALBA STEVENS DO Ot V72.84 04/01/2015 BJ TERRY DESIGN PRINTING MACHINE SETTER Ot F32.9 04/01/2015 BJ TERRY DESIGN PRINTING MACHINE SETTER Ot N45.2 04/01/2015 BJ TERRY DESIGN PRINTING MACHINE SETTER Ot Z08 04/01/2015 BJ TERRY DESIGN PRINTING MACHINE SETTER Ot Z79.899 04/01/2015 BJ TERRY DESIGN PRINTING MACHINE SETTER Ot Z85.820 04/01/2015 BJ TERRY DESIGN PRINTING MACHINE SETTER Ot Z92.3 04/03/2015 Ot 172.5 04/03/2015 Ot V72.83 04/03/2015 Ot V74.8 04/03/2015 Ot 172.5 04/03/2015 Ot V72.83 04/03/2015 Ot 172.5 04/03/2015 Ot 780.64 04/03/2015 Ot 780.79 04/03/2015 Ot 682.9 04/03/2015 Ot 172.9 04/03/2015 Ot 780.4 04/03/2015 Ot 784.0 04/03/2015 Ot 172.9 04/03/2015 Ot V72.83 04/03/2015 Ot 172.5 04/03/2015 Ot 172.5 04/03/2015 Ot V72.83 04/03/2015 Ot 172.9 04/03/2015 Ot 199.1 04/03/2015 Ot 682.3 04/03/2015 Ot 998.13 04/03/2015 Ot 172.9 04/03/2015 Ot 784.0 04/03/2015 Ot 172.5 04/03/2015 Ot 172.5 04/03/2015 Ot 172.9 04/03/2015 TERRYBJ Loza DESIGN PRINTING MACHINE SETTER Ot 070.70 04/03/2015 TERRYBJ Loza DESIGN PRINTING MACHINE SETTER Ot 172.5 04/03/2015 TERRYBJ Loza DESIGN PRINTING MACHINE SETTER Ot 401.9 04/03/2015 MARABJ DESIGN PRINTING MACHINE SETTER Ot V15.3 04/03/2015 MARABJ DESIGN PRINTING MACHINE SETTER Ot V58.69 04/03/2015 Ot 603.9 04/03/2015 Ot 709.9 04/03/2015 Ot V10.82 04/03/2015 Ot V72.81 04/03/2015 Ot V74.8 04/03/2015 MARA ELHAMJOSE LUIS S DESIGN PRINTING MACHINE SETTER Ot 172.5 04/03/2015 TERRY, ELHAMJOSE LUIS S DESIGN PRINTING MACHINE SETTER Ot 780.4 04/03/2015 TERRY, HILJOSE LUIS S DESIGN PRINTING MACHINE SETTER Ot 784.0 04/03/2015 TERRY, HILJOSE LUIS S DESIGN PRINTING MACHINE SETTER Ot 780.4 04/03/2015 BJ TERRY S DESIGN PRINTING MACHINE SETTER Ot 784.0 04/03/2015 INNA BAZAN, JOSH M Ot 709.9 04/03/2015 INNA BAZAN, JOSH M Ot V72.84 04/03/2015 INNA BAZAN, JOSH M Ot V74.8 04/03/2015 INNA BAZAN, JOSH M Ot 709.9 04/03/2015 INNA BAZAN, JOSH M Ot V72.84 04/03/2015 ANTHONY, BOBAN N Ot 172.9 04/03/2015 ANTHONY, BOBAN N Ot 070.70 04/03/2015 ANTHONY, BOBAN N Ot 172.5 04/03/2015 ANTHONY, BOBAN N Ot 278.00 04/03/2015 ANTHONY, BOBAN N Ot 401.9 04/03/2015 ANTHONY, BOBAN N Ot V15.3 04/03/2015 ANTHONY, BOBAN N Ot V58.69 04/03/2015 JAZMYNE BAZAN, JAQUELINE P Ot 709.9 04/03/2015 JAZMYNE BAZAN, JAQUELINE P Ot V10.82 04/03/2015 JAZMYNE BAZAN, JAQUELINE P Ot V72.83 04/03/2015 JAZMYNE BAZAN, JAQUELINE P Ot V74.8 04/03/2015 ROSALBA STEVENS DO Ot 172.7 04/03/2015 ROSALBA STEVENS DO Ot V72.84 04/03/2015 BJ TERRY S DESIGN PRINTING MACHINE SETTER Ot 172.7 04/03/2015 BJ TERRY S DESIGN PRINTING MACHINE SETTER Ot 070.70 04/03/2015 BJ TERRY S DESIGN PRINTING MACHINE SETTER Ot 172.5 04/03/2015 BJ TERRY S DESIGN PRINTING MACHINE SETTER Ot 278.00 04/03/2015 BJ TERRY S DESIGN PRINTING MACHINE SETTER Ot 401.9 04/03/2015 BJ TERRY S DESIGN PRINTING MACHINE SETTER Ot V58.69 04/03/2015 BJ TERRY S DESIGN PRINTING MACHINE SETTER Ot V85.35 04/03/2015 BJ TERRY S DESIGN PRINTING MACHINE SETTER Ot 172.9 04/03/2015 BJ TERRY S DESIGN PRINTING MACHINE SETTER Ot 592.0 04/03/2015 IVA CRUZ N Ot 070.70 04/03/2015 ANTHONYIVA VARELA N Ot 172.5 04/03/2015 ANTHONYIVA VARELA N Ot 278.00 04/03/2015 ANTHONYKELSEY VARELAAN N Ot 401.9 04/03/2015 IVA CRUZ N Ot V58.69 04/03/2015 IVA CRUZ N Ot V85.35 04/03/2015 BJ TERRY S DESIGN PRINTING MACHINE SETTER Ot 070.70 04/03/2015 BJ TERRY S DESIGN PRINTING MACHINE SETTER Ot 172.5 04/03/2015 BJ TERRY S DESIGN PRINTING MACHINE SETTER Ot 401.9 04/03/2015 TERRYBJ Loza S DESIGN PRINTING MACHINE SETTER Ot V58.69 04/03/2015 BJ TERRY S DESIGN PRINTING MACHINE SETTER Ot 172.9 04/03/2015 [facility] Ot 550.90 04/03/2015 [facility] Ot V72.84 04/03/2015 TERRYBJ Loza S DESIGN PRINTING MACHINE SETTER Ot 274.9 04/03/2015 TERRYBJ Loza S DESIGN PRINTING MACHINE SETTER Ot 401.9 04/03/2015 TERRYBJ S DESIGN PRINTING MACHINE SETTER Ot V10.82 04/03/2015 TERRY, BJ S DESIGN PRINTING MACHINE SETTER Ot V12.09 04/03/2015 TERRYBJ Loza S DESIGN PRINTING MACHINE SETTER Ot V58.69 04/03/2015 TERRYBJ S DESIGN PRINTING MACHINE SETTER Ot V67.2 04/03/2015 TERRYBJ S DESIGN PRINTING MACHINE SETTER Ot 172.9 04/03/2015 TERRYBJ S DESIGN PRINTING MACHINE SETTER Ot 709.9 04/03/2015 TERRYBJ S DESIGN PRINTING MACHINE SETTER Ot 788.1 04/03/2015 TERRY BJ S DESIGN PRINTING MACHINE SETTER Ot 788.30 04/03/2015 TERRY BJ S DESIGN PRINTING MACHINE SETTER Ot 788.41 04/03/2015 TERRY BJ S DESIGN PRINTING MACHINE SETTER Ot V10.82 04/03/2015 TERRYBJ Loza DESIGN PRINTING MACHINE SETTER Ot V12.09 04/03/2015 BJ TERRY DESIGN PRINTING MACHINE SETTER Ot V58.69 04/03/2015 BJ TERRY S DESIGN PRINTING MACHINE SETTER Ot V67.2 04/03/2015 [facility] ROSALBA ENCINAS D Ot 709.9 04/03/2015 [facility] , ROSALBA D Ot V72.84 04/03/2015 TERRYBJ Loza DESIGN PRINTING MACHINE SETTER Ot F32.9 04/03/2015 TERRYBJ Loza S DESIGN PRINTING MACHINE SETTER Ot N45.2 04/03/2015 TERRYBJ Loza DESIGN PRINTING MACHINE SETTER Ot Z08 04/03/2015 TERRYBJ Loza S DESIGN PRINTING MACHINE SETTER Ot Z79.899 04/03/2015 TERRYBJ Loza S DESIGN PRINTING MACHINE SETTER Ot Z85.820 04/03/2015 TERRYBJ Loza S DESIGN PRINTING MACHINE SETTER Ot Z92.3 04/03/2015 TERRYBJ Loza DESIGN PRINTING MACHINE SETTER Ot N50.8 04/11/2015 TERRYBJ Loza S DESIGN PRINTING MACHINE SETTER Ot F32.9 04/11/2015 TERRYBJ Loza S DESIGN PRINTING MACHINE SETTER Ot N45.2 04/11/2015 TERRYBJ Loza DESIGN PRINTING MACHINE SETTER Ot Z08 04/11/2015 TERRYBJ Loza S DESIGN PRINTING MACHINE SETTER Ot Z79.899 04/11/2015 TERRYBJ Loza S DESIGN PRINTING MACHINE SETTER Ot Z85.820 04/11/2015 TERRYBJ Loza S DESIGN PRINTING MACHINE SETTER Ot Z92.3 04/16/2015 ALICJA BAZAN, ERIC Pina Ot N43.3 HYDROCELE, UNSPECIFIED 04/19/2015 TERRYBJ Loza S DESIGN PRINTING MACHINE SETTER Ot F32.9 04/19/2015 TERRYBJ Loza S DESIGN PRINTING MACHINE SETTER Ot N45.2 04/19/2015 TERRYBJ Loza S DESIGN PRINTING MACHINE SETTER Ot Z08 04/19/2015 TERRYBJ S DESIGN PRINTING MACHINE SETTER Ot Z79.899 04/19/2015 TERRYBJ S DESIGN PRINTING MACHINE SETTER Ot Z85.820 04/19/2015 TERRYBJ S DESIGN PRINTING MACHINE SETTER Ot Z92.3 04/25/2015 MARABJ S DESIGN PRINTING MACHINE SETTER Ot N50.8 04/28/2015 KAYLYNN HOOKER DO Ot M79.661 PAIN IN RIGHT LOWER LEG 04/28/2015 KAYLYNN HOOKER DO Ot M79.89 OTHER SPECIFIED SOFT TISSUE DISORDERS 05/03/2015 BJ TERRY DESIGN PRINTING MACHINE SETTER Ot N50.8 05/03/2015 BJ TERRY DESIGN PRINTING MACHINE SETTER Ot N50.8 06/13/2015 Ot 172.5 06/13/2015 Ot V72.83 06/13/2015 Ot V74.8 06/13/2015 Ot 172.5 06/13/2015 Ot V72.83 06/13/2015 Ot 172.5 06/13/2015 Ot 780.64 06/13/2015 Ot 780.79 06/13/2015 Ot 682.9 06/13/2015 Ot 172.9 06/13/2015 Ot 780.4 06/13/2015 Ot 784.0 06/13/2015 Ot 172.9 06/13/2015 Ot V72.83 06/13/2015 Ot 172.5 06/13/2015 Ot 172.5 06/13/2015 Ot V72.83 06/13/2015 Ot 172.9 06/13/2015 Ot 199.1 06/13/2015 Ot 682.3 06/13/2015 Ot 998.13 06/13/2015 Ot 172.9 06/13/2015 Ot 784.0 06/13/2015 Ot 172.5 06/13/2015 Ot 172.5 06/13/2015 Ot 172.9 06/13/2015 BJ TERRY DESIGN PRINTING MACHINE SETTER Ot 070.70 06/13/2015 BJ TERRY DESIGN PRINTING MACHINE SETTER Ot 172.5 06/13/2015 BJ TERRY DESIGN PRINTING MACHINE SETTER Ot 401.9 06/13/2015 BJ TERRY DESIGN PRINTING MACHINE SETTER Ot V15.3 06/13/2015 BJ TERRY DESIGN PRINTING MACHINE SETTER Ot V58.69 06/13/2015 Ot 603.9 06/13/2015 Ot 709.9 06/13/2015 Ot V10.82 06/13/2015 Ot V72.81 06/13/2015 Ot V74.8 06/13/2015 BJ TERRY DESIGN PRINTING MACHINE SETTER Ot 172.5 06/13/2015 BJ TERRY DESIGN PRINTING MACHINE SETTER Ot 780.4 06/13/2015 BJ TERRY DESIGN PRINTING MACHINE SETTER Ot 784.0 06/13/2015 BJ TERRY DESIGN PRINTING MACHINE SETTER Ot 780.4 06/13/2015 BJ TERRY S DESIGN PRINTING MACHINE SETTER Ot 784.0 06/13/2015 INNA BAZAN, JOSH M Ot 709.9 06/13/2015 INNA BAZAN, JOSH M Ot V72.84 06/13/2015 INNA BAZAN, JOSH M Ot V74.8 06/13/2015 INNA BAZAN, JOSH M Ot 709.9 06/13/2015 INNA BAZAN, JOSH M Ot V72.84 06/13/2015 ANTHONY, BOBAN N Ot 172.9 06/13/2015 ANTHONY, BOBAN N Ot 070.70 06/13/2015 ANTHONY, BOBAN N Ot 172.5 06/13/2015 ANTHONY, BOBAN N Ot 278.00 06/13/2015 ANTHONY, BOBAN N Ot 401.9 06/13/2015 ANTHONY, BOBAN N Ot V15.3 06/13/2015 ANTHONY, BOBAN N Ot V58.69 06/13/2015 JAZMYNE BAZAN, JAQUELINE P Ot 709.9 06/13/2015 JAZMYNE BAZAN, JAQUELINE P Ot V10.82 06/13/2015 JAZMYNE BAZAN, JAQUELINE P Ot V72.83 06/13/2015 JAZMYNE BAZAN, JAQUELINE P Ot V74.8 06/13/2015 [facility] ROSALBA ENCINAS Ot 172.7 06/13/2015 [facility] ROSALBA ENCINAS Ot V72.84 06/13/2015 BJ TERRY S DESIGN PRINTING MACHINE SETTER Ot 172.7 06/13/2015 BJ TERRY S DESIGN PRINTING MACHINE SETTER Ot 070.70 06/13/2015 BJ TERRY S DESIGN PRINTING MACHINE SETTER Ot 172.5 06/13/2015 BJ TERRY S DESIGN PRINTING MACHINE SETTER Ot 278.00 06/13/2015 TERRYBJ Loza S DESIGN PRINTING MACHINE SETTER Ot 401.9 06/13/2015 TERRY, HILAH S DESIGN PRINTING MACHINE SETTER Ot V58.69 06/13/2015 BJ TERRY S DESIGN PRINTING MACHINE SETTER Ot V85.35 06/13/2015 TERRYBJ Loza S DESIGN PRINTING MACHINE SETTER Ot 172.9 06/13/2015 BJ TERRY S DESIGN PRINTING MACHINE SETTER Ot 592.0 06/13/2015 ANTHONY, BOBAN N Ot 070.70 06/13/2015 ANTHONY, BOBAN N Ot 172.5 06/13/2015 ANTHONY, BOBAN N Ot 278.00 06/13/2015 IVA CRUZ N Ot 401.9 06/13/2015 IVA CRUZ N Ot V58.69 06/13/2015 IVA CRUZ N Ot V85.35 06/13/2015 BJ TERRY DESIGN PRINTING MACHINE SETTER Ot 070.70 06/13/2015 TERRYBJ Loza S DESIGN PRINTING MACHINE SETTER Ot 172.5 06/13/2015 TERRYBJ Loza S DESIGN PRINTING MACHINE SETTER Ot 401.9 06/13/2015 TERRYBJ S DESIGN PRINTING MACHINE SETTER Ot V58.69 06/13/2015 TERRYBJ S DESIGN PRINTING MACHINE SETTER Ot 172.9 06/13/2015 [facility] Ot 550.90 06/13/2015 [facility] Ot V72.84 06/13/2015 TERRYBJ Loza S DESIGN PRINTING MACHINE SETTER Ot 274.9 06/13/2015 TERRYBJ Loza S DESIGN PRINTING MACHINE SETTER Ot 401.9 06/13/2015 MARA BJ S DESIGN PRINTING MACHINE SETTER Ot V10.82 06/13/2015 TERRYBJ S DESIGN PRINTING MACHINE SETTER Ot V12.09 06/13/2015 TERRYBJ S DESIGN PRINTING MACHINE SETTER Ot V58.69 06/13/2015 TERRYBJ Loza S DESIGN PRINTING MACHINE SETTER Ot V67.2 06/13/2015 TERRYBJ Loza S DESIGN PRINTING MACHINE SETTER Ot 172.9 06/13/2015 TERRYBJ Loza S DESIGN PRINTING MACHINE SETTER Ot 709.9 06/13/2015 TERRYBJ Loza S DESIGN PRINTING MACHINE SETTER Ot 788.1 06/13/2015 TERRY, BJ S DESIGN PRINTING MACHINE SETTER Ot 788.30 06/13/2015 TERRYBJ S DESIGN PRINTING MACHINE SETTER Ot 788.41 06/13/2015 TERRYBJ S DESIGN PRINTING MACHINE SETTER Ot V10.82 06/13/2015 TERRYBJ S DESIGN PRINTING MACHINE SETTER Ot V12.09 06/13/2015 TERRYBJ S DESIGN PRINTING MACHINE SETTER Ot V58.69 06/13/2015 TERRYBJ S DESIGN PRINTING MACHINE SETTER Ot V67.2 06/13/2015 [facility] Ot 709.9 06/13/[facility] Heather Ot V72.84 06/13/2015 TERRY, BJ S DESIGN PRINTING MACHINE SETTER Ot F32.9 06/13/2015 TERRY, HILAH S DESIGN PRINTING MACHINE SETTER Ot N45.2 06/13/2015 TERRYBJ Loza DESIGN PRINTING MACHINE SETTER Ot Z08 06/13/2015 MARABJ DESIGN PRINTING MACHINE SETTER Ot Z79.899 06/13/2015 MARABJ DESIGN PRINTING MACHINE SETTER Ot Z85.820 06/13/2015 MARABJ DESIGN PRINTING MACHINE SETTER Ot Z92.3 06/13/2015 MARA BJ Loza DESIGN PRINTING MACHINE SETTER Ot N50.8 06/13/2015 ERIC HELM MD Ot N43.3 07/22/2015 Ot 172.5 MALIG MELANOMA TRUNK 07/22/2015 Ot V72.83 EXAM PRE-OPERATIVE NEC 07/22/2015 Ot V74.8 SCREEN-BACTERIAL DIS NEC 07/22/2015 Ot 172.5 MALIG MELANOMA TRUNK 07/22/2015 Ot V72.83 EXAM PRE-OPERATIVE NEC 07/22/2015 Ot 172.5 MALIG MELANOMA TRUNK 07/22/2015 Ot 780.64 CHILLS (WITHOUT FEVER) 07/22/2015 Ot 780.79 OTH MALAISE FATIGUE 07/22/2015 Ot 682.9 CELLULITIS NOS 07/22/2015 Ot 172.9 MALIG MELANOMA SKIN NOS 07/22/2015 Ot 780.4 DIZZINESS AND GIDDINESS 07/22/2015 Ot 784.0 HEADACHE 07/22/2015 Ot 172.9 MALIG MELANOMA SKIN NOS 07/22/2015 Ot V72.83 EXAM PRE-OPERATIVE NEC 07/22/2015 Ot 172.5 MALIG MELANOMA TRUNK 07/22/2015 Ot 172.5 MALIG MELANOMA TRUNK 07/22/2015 Ot V72.83 EXAM PRE-OPERATIVE NEC 07/22/2015 Ot 172.9 MALIG MELANOMA SKIN NOS 07/22/2015 Ot 199.1 MALIGNANT NEOPLASM NOS 07/22/2015 Ot 682.3 CELLULITIS OF ARM 07/22/2015 Ot 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 07/22/2015 Ot 172.9 MALIG MELANOMA SKIN NOS 07/22/2015 Ot 784.0 HEADACHE 07/22/2015 Ot 172.5 MALIG MELANOMA TRUNK 07/22/2015 Ot 172.5 MALIG MELANOMA TRUNK 07/22/2015 Ot 172.9 MALIG MELANOMA SKIN NOS 07/22/2015 BJ TERRY DESIGN PRINTING MACHINE SETTER Ot 070.70 UNSPECIFIED VIRAL HEPATITIS C WITHOUT HE 07/22/2015 BJ TERRY DESIGN PRINTING MACHINE SETTER Ot 172.5 MALIG MELANOMA TRUNK 07/22/2015 BJ TERRY DESIGN PRINTING MACHINE SETTER Ot 401.9 HYPERTENSION NOS 07/22/2015 BJ TERRY DESIGN PRINTING MACHINE SETTER Ot V15.3 HX OF IRRADIATION 07/22/2015 BJ TERRY DESIGN PRINTING MACHINE SETTER Ot V58.69 OTH MED,LT,CURRENT USE 07/22/2015 Ot 603.9 HYDROCELE NOS 07/22/2015 Ot 709.9 SKIN DISORDER NOS 07/22/2015 Ot V10.82 HX-MALIG SKIN MELANOMA 07/22/2015 Ot V72.81 [id number] CARDIOVASCULAR 07/22/2015 Ot V74.8 SCREEN-BACTERIAL DIS NEC 07/22/2015 BJ TERRY DESIGN PRINTING MACHINE SETTER Ot 172.5 MALIG MELANOMA TRUNK 07/22/2015 BJ TERRY DESIGN PRINTING MACHINE SETTER Ot 780.4 DIZZINESS AND GIDDINESS 07/22/2015 TERRYBJ Loza DESIGN PRINTING MACHINE SETTER Ot 784.0 HEADACHE 07/22/2015 BJ TERRY DESIGN PRINTING MACHINE SETTER Ot 780.4 DIZZINESS AND GIDDINESS 07/22/2015 BJ TERRY DESIGN PRINTING MACHINE SETTER Ot 784.0 HEADACHE 07/22/2015 INNA BAZAN, JOSH De Anda Ot 709.9 SKIN DISORDER NOS 07/22/2015 INNA BAZAN, JOSH De Anda Ot V72.84 EXAM PRE-OPERATIVE NOS 07/22/2015 INNA BAZAN, JOSH De Anda Ot V74.8 SCREEN-BACTERIAL DIS NEC 07/22/2015 INNA BAZAN, JOSH De Anda Ot 709.9 SKIN DISORDER NOS 07/22/2015 INNA BAZAN, JOSH De Anda Ot V72.84 EXAM PRE-OPERATIVE NOS 07/22/2015 IVA CRUZ N Ot 172.9 MALIG MELANOMA SKIN NOS 07/22/2015 IVA CRUZ Ot 070.70 UNSPECIFIED VIRAL HEPATITIS C WITHOUT HE 07/22/2015 IVA CRUZ N Ot 172.5 MALIG MELANOMA TRUNK 07/22/2015 IVA CRUZ Ot 278.00 OBESITY, NOS 07/22/2015 IVA CRUZ N Ot 401.9 HYPERTENSION NOS 07/22/2015 IVA CRUZ Ot V15.3 HX OF IRRADIATION 07/22/2015 IVA CRUZ Ot V58.69 OTH MED,LT,CURRENT USE 07/22/2015 JAZMYNE BAZAN, JAQUELINE Barclay Ot 709.9 SKIN DISORDER NOS 07/22/2015 JAZMYNE BAZAN, JAQUELINE Barclay Ot V10.82 HX-MALIG SKIN MELANOMA 07/22/2015 JAZMYNE BAZAN, JAQUELINE Barclay Ot V72.83 EXAM PRE-OPERATIVE NEC 07/22/2015 JAQUELINE SAMANO MD Ot V74.8 SCREEN-BACTERIAL DIS NEC 07/22/2015 STEVENS DO, ROSALBA D Ot 172.7 MALIG MELANOMA LEG 07/22/2015 STEVENS DO, ROSALBA D Ot V72.84 EXAM PRE-OPERATIVE NOS 07/22/2015 ELHAM TERRYAH S DESIGN PRINTING MACHINE SETTER Ot 172.7 MALIG MELANOMA LEG 07/22/2015 MARA HILAH S DESIGN PRINTING MACHINE SETTER Ot 070.70 UNSPECIFIED VIRAL HEPATITIS C WITHOUT HE 07/22/2015 TERRY HILAH S DESIGN PRINTING MACHINE SETTER Ot 172.5 MALIG MELANOMA TRUNK 07/22/2015 TERRY HILAH S DESIGN PRINTING MACHINE SETTER Ot 278.00 OBESITY, NOS 07/22/2015 TERRY HILAH S DESIGN PRINTING MACHINE SETTER Ot 401.9 HYPERTENSION NOS 07/22/2015 TERRYELHAMAH S DESIGN PRINTING MACHINE SETTER Ot V58.69 OTH MED,LT,CURRENT USE 07/22/2015 TERRYELHAMAH S DESIGN PRINTING MACHINE SETTER Ot V85.35 BODY MASS INDEX 35.0-35.9, ADULT 07/22/2015 TERRYELHAMAH S DESIGN PRINTING MACHINE SETTER Ot 172.9 MALIG MELANOMA SKIN NOS 07/22/2015 TERRYELHAMAH S DESIGN PRINTING MACHINE SETTER Ot 592.0 CALCULUS OF KIDNEY 07/22/2015 IVA CRUZ N Ot 070.70 UNSPECIFIED VIRAL HEPATITIS C WITHOUT HE 07/22/2015 IVA CURZ N Ot 172.5 MALIG MELANOMA TRUNK 07/22/2015 IVA CRUZ N Ot 278.00 OBESITY, NOS 07/22/2015 ANTHONY BOBDWAIN N Ot 401.9 HYPERTENSION NOS 07/22/2015 IVA CRUZ N Ot V58.69 OTH MED,LT,CURRENT USE 07/22/2015 IVA CRUZ N Ot V85.35 BODY MASS INDEX 35.0-35.9, ADULT 07/22/2015 TERRYELHAMAH S DESIGN PRINTING MACHINE SETTER Ot 070.70 UNSPECIFIED VIRAL HEPATITIS C WITHOUT HE 07/22/2015 TERRY HILAH S DESIGN PRINTING MACHINE SETTER Ot 172.5 MALIG MELANOMA TRUNK 07/22/2015 TERRYBJ Loza DESIGN PRINTING MACHINE SETTER Ot 401.9 HYPERTENSION NOS 07/22/2015 TERRYBJ Loza DESIGN PRINTING MACHINE SETTER Ot V58.69 OTH MED,LT,CURRENT USE 07/22/2015 BJ TERRY DESIGN PRINTING MACHINE SETTER Ot 172.9 MALIG MELANOMA SKIN NOS 07/22/2015 STEVENS DO, ROSALBA D Ot 550.90 UNILAT INGUINAL HERNIA 07/22/2015 ROSALBA STEVENS DO D Ot V72.84 EXAM PRE-OPERATIVE NOS 07/22/2015 TERRY BJ Dago DESIGN PRINTING MACHINE SETTER Ot 274.9 GOUT NOS 07/22/2015 MARA BJ S DESIGN PRINTING MACHINE SETTER Ot 401.9 HYPERTENSION NOS 07/22/2015 MARA BJ Loza DESIGN PRINTING MACHINE SETTER Ot V10.82 HX-MALIG SKIN MELANOMA 07/22/2015 TERRYBJ DESIGN PRINTING MACHINE SETTER Ot V12.09 PERSONAL HISTORY OTH SPEC INFECT SHAE 07/22/2015 ELHAM TERRYJOSE ULIS Loza DESIGN PRINTING MACHINE SETTER Ot V58.69 OTH MED,LT,CURRENT USE 07/22/2015 TERRYBJ Lzoa DESIGN PRINTING MACHINE SETTER Ot V67.2 CHEMOTHERAPY FOLLOW-UP 07/22/2015 MARA BJ Loza DESIGN PRINTING MACHINE SETTER Ot 172.9 MALIG MELANOMA SKIN NOS 07/22/2015 TERRY BJ Loza DESIGN PRINTING MACHINE SETTER Ot 709.9 SKIN DISORDER NOS 07/22/2015 TERRY BJ S DESIGN PRINTING MACHINE SETTER Ot 788.1 DYSURIA 07/22/2015 MARA BJ Loza DESIGN PRINTING MACHINE SETTER Ot 788.30 UNSPECIFIED URINARY INCONTINENCE 07/22/2015 MARA BJ S DESIGN PRINTING MACHINE SETTER Ot 788.41 URINARY FREQUENCY 07/22/2015 MARA BJ Loza DESIGN PRINTING MACHINE SETTER Ot V10.82 HX-MALIG SKIN MELANOMA 07/22/2015 MARA BJ S DESIGN PRINTING MACHINE SETTER Ot V12.09 PERSONAL HISTORY OTH SPEC INFECT SHAE 07/22/2015 MARA BJ Loza DESIGN PRINTING MACHINE SETTER Ot V58.69 OTH MED,LT,CURRENT USE 07/22/2015 TERRYBJ S DESIGN PRINTING MACHINE SETTER Ot V67.2 CHEMOTHERAPY FOLLOW-UP 07/22/2015 ROSALBA STEVENS DO D Ot 709.9 SKIN DISORDER NOS 07/22/2015 ROSALBA STEVENS DO D Ot V72.84 EXAM PRE-OPERATIVE NOS 07/22/2015 MARABJ Ot F32.9 MAJOR DEPRESSIVE DISORDER, SINGLE EPISOD 07/22/2015 TERRYBJ LozaP Ot N45.2 ORCHITIS 07/22/2015 TERRY BJ Loza DESIGN PRINTING MACHINE SETTER Ot Z08 ENCNTR FOR FOLLOW-UP EXAM AFTER TRTMT FO 07/22/2015 BJ TERRY DESIGN PRINTING MACHINE SETTER Ot Z79.899 OTHER SKILLED NURSING (CURRENT) DRUG THERAPY 07/22/2015 MARA BJ Loza DESIGN PRINTING MACHINE SETTER Ot Z85.820 PERSONAL HISTORY OF MALIGNANT MELANOMA O 07/22/2015 MARA BJ Loza DESIGN PRINTING MACHINE SETTER Ot Z92.3 PERSONAL HISTORY OF IRRADIATION 07/22/2015 MARA BJ Loza DESIGN PRINTING MACHINE SETTER Ot N50.8 OTHER SPECIFIED DISORDERS OF MALE GENITA 07/22/2015 ALICJA BAZAN, ERIC Pina Ot N43.3 HYDROCELE, UNSPECIFIED 07/23/2015 MARA BJ LIMP Ot F32.9 MAJOR DEPRESSIVE DISORDER, SINGLE EPISOD 07/23/2015 MARA BJ LIMP Ot Z08 ENCNTR FOR FOLLOW-UP EXAM AFTER TRTMT FO 07/23/2015 MARA BJ LIMP Ot Z79.899 OTHER CHAIR TRIMMER (CURRENT) DRUG THERAPY 07/23/2015 MARA BJ Loza DESIGN PRINTING MACHINE SETTER Ot Z85.820 PERSONAL HISTORY OF MALIGNANT MELANOMA O 07/23/2015 MARA BJ Loza DESIGN PRINTING MACHINE SETTER Ot Z92.3 PERSONAL HISTORY OF IRRADIATION 07/30/2015 Ot 172.5 MALIG MELANOMA TRUNK 07/30/2015 Ot V72.83 EXAM PRE-OPERATIVE NEC 07/30/2015 Ot V74.8 SCREEN-BACTERIAL DIS NEC 07/30/2015 Ot 172.5 MALIG MELANOMA TRUNK 07/30/2015 Ot V72.83 EXAM PRE-OPERATIVE NEC 07/30/2015 Ot 172.5 MALIG MELANOMA TRUNK 07/30/2015 Ot 780.64 CHILLS (WITHOUT FEVER) 07/30/2015 Ot 780.79 OTH MALAISE FATIGUE 07/30/2015 Ot 682.9 CELLULITIS NOS 07/30/2015 Ot 172.9 MALIG MELANOMA SKIN NOS 07/30/2015 Ot 780.4 DIZZINESS AND GIDDINESS 07/30/2015 Ot 784.0 HEADACHE 07/30/2015 Ot 172.9 MALIG MELANOMA SKIN NOS 07/30/2015 Ot V72.83 EXAM PRE-OPERATIVE NEC 07/30/2015 Ot 172.5 MALIG MELANOMA TRUNK 07/30/2015 Ot 172.5 MALIG MELANOMA TRUNK 07/30/2015 Ot V72.83 EXAM PRE-OPERATIVE NEC 07/30/2015 Ot 172.9 MALIG MELANOMA SKIN NOS 07/30/2015 Ot 199.1 MALIGNANT NEOPLASM NOS 07/30/2015 Ot 682.3 CELLULITIS OF ARM 07/30/2015 Ot 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 07/30/2015 Ot 172.9 MALIG MELANOMA SKIN NOS 07/30/2015 Ot 784.0 HEADACHE 07/30/2015 Ot 172.5 MALIG MELANOMA TRUNK 07/30/2015 Ot 172.5 MALIG MELANOMA TRUNK 07/30/2015 Ot 172.9 MALIG MELANOMA SKIN NOS 07/30/2015 BJ TERRY DESIGN PRINTING MACHINE SETTER Ot 070.70 UNSPECIFIED VIRAL HEPATITIS C WITHOUT HE 07/30/2015 BJ TERRY DESIGN PRINTING MACHINE SETTER Ot 172.5 MALIG MELANOMA TRUNK 07/30/2015 BJ TERRY DESIGN PRINTING MACHINE SETTER Ot 401.9 HYPERTENSION NOS 07/30/2015 BJ TERRY DESIGN PRINTING MACHINE SETTER Ot V15.3 HX OF IRRADIATION 07/30/2015 BJ TERRY DESIGN PRINTING MACHINE SETTER Ot V58.69 OTH MED,LT,CURRENT USE 07/30/2015 Ot 603.9 HYDROCELE NOS 07/30/2015 Ot 709.9 SKIN DISORDER NOS 07/30/2015 Ot V10.82 HX-MALIG SKIN MELANOMA 07/30/2015 Ot V72.81 [id number] CARDIOVASCULAR 07/30/2015 Ot V74.8 SCREEN-BACTERIAL DIS NEC 07/30/2015 BJ TERRY S DESIGN PRINTING MACHINE SETTER Ot 172.5 MALIG MELANOMA TRUNK 07/30/2015 BJ TERRY DESIGN PRINTING MACHINE SETTER Ot 780.4 DIZZINESS AND GIDDINESS 07/30/2015 BJ TERRY S DESIGN PRINTING MACHINE SETTER Ot 784.0 HEADACHE 07/30/2015 BJ TERRY S DESIGN PRINTING MACHINE SETTER Ot 780.4 DIZZINESS AND GIDDINESS 07/30/2015 BJ TERRY S DESIGN PRINTING MACHINE SETTER Ot 784.0 HEADACHE 07/30/2015 INNA BAZAN, JOSH De Anda Ot 709.9 SKIN DISORDER NOS 07/30/2015 INNA BAZAN, JOSH De Anda Ot V72.84 EXAM PRE-OPERATIVE NOS 07/30/2015 INNA BAZAN, JOSH De Anda Ot V74.8 SCREEN-BACTERIAL DIS NEC 07/30/2015 INNA BAZAN, JOSH De Anda Ot 709.9 SKIN DISORDER NOS 07/30/2015 INNA BAZAN, JOSH De Anda Ot V72.84 EXAM PRE-OPERATIVE NOS 07/30/2015 IVA CRUZ N Ot 172.9 MALIG MELANOMA SKIN NOS 07/30/2015 IVA CRUZ N Ot 070.70 UNSPECIFIED VIRAL HEPATITIS C WITHOUT HE 07/30/2015 IVA CRUZ N Ot 172.5 MALIG MELANOMA TRUNK 07/30/2015 IVA CRUZ N Ot 278.00 OBESITY, NOS 07/30/2015 ANTHONY IVA N Ot 401.9 HYPERTENSION NOS 07/30/2015 IVA CRUZ Dexter Ot V15.3 HX OF IRRADIATION 07/30/2015 IVA CRUZ Dexter Ot V58.69 OTH MED,LT,CURRENT USE 07/30/2015 JAZMYNE BAZAN, JAQUELINE Barclay Ot 709.9 SKIN DISORDER NOS 07/30/2015 JAZMYNE BAZAN, JAQUELINE Barclay Ot V10.82 HX-MALIG SKIN MELANOMA 07/30/2015 JAZMYNE BAZAN, JAQUELINE Barclay Ot V72.83 EXAM PRE-OPERATIVE NEC 07/30/2015 JAZMYNE BAZAN, JAQUELINE Barclay Ot V74.8 SCREEN-BACTERIAL DIS NEC 07/30/2015 ROSALBA STEVENS DO Ot 172.7 MALIG MELANOMA LEG 07/30/2015 ROSALBA STEVENS DO Ot V72.84 EXAM PRE-OPERATIVE NOS 07/30/2015 BJ TERRY DESIGN PRINTING MACHINE SETTER Ot 172.7 MALIG MELANOMA LEG 07/30/2015 BJ TERRY DESIGN PRINTING MACHINE SETTER Ot 070.70 UNSPECIFIED VIRAL HEPATITIS C WITHOUT HE 07/30/2015 BJ TERRY DESIGN PRINTING MACHINE SETTER Ot 172.5 MALIG MELANOMA TRUNK 07/30/2015 BJ TERRY DESIGN PRINTING MACHINE SETTER Ot 278.00 OBESITY, NOS 07/30/2015 BJ TERRY DESIGN PRINTING MACHINE SETTER Ot 401.9 HYPERTENSION NOS 07/30/2015 BJ TERRY DESIGN PRINTING MACHINE SETTER Ot V58.69 OTH MED,LT,CURRENT USE 07/30/2015 BJ TERRY DESIGN PRINTING MACHINE SETTER Ot V85.35 BODY MASS INDEX 35.0-35.9, ADULT 07/30/2015 BJ TERRY DESIGN PRINTING MACHINE SETTER Ot 172.9 MALIG MELANOMA SKIN NOS 07/30/2015 BJ TERRY DESIGN PRINTING MACHINE SETTER Ot 592.0 CALCULUS OF KIDNEY 07/30/2015 IVA CRUZ Ot 070.70 UNSPECIFIED VIRAL HEPATITIS C WITHOUT HE 07/30/2015 IVA CRUZ N Ot 172.5 MALIG MELANOMA TRUNK 07/30/2015 IVA CRUZ Ot 278.00 OBESITY, NOS 07/30/2015 IVA CRUZ N Ot 401.9 HYPERTENSION NOS 07/30/2015 IVA CRUZ Ot V58.69 OTH MED,LT,CURRENT USE 07/30/2015 IVA CRUZ Ot V85.35 BODY MASS INDEX 35.0-35.9, ADULT 07/30/2015 BJ TERRY DESIGN PRINTING MACHINE SETTER Ot 070.70 UNSPECIFIED VIRAL HEPATITIS C WITHOUT HE 07/30/2015 BJ TERRY DESIGN PRINTING MACHINE SETTER Ot 172.5 MALIG MELANOMA TRUNK 07/30/2015 BJ TERRY DESIGN PRINTING MACHINE SETTER Ot 401.9 HYPERTENSION NOS 07/30/2015 BJ TERRY DESIGN PRINTING MACHINE SETTER Ot V58.69 OTH MED,LT,CURRENT USE 07/30/2015 BJ TERRY DESIGN PRINTING MACHINE SETTER Ot 172.9 MALIG MELANOMA SKIN NOS 07/30/2015 ROSALBA STEVENS DO Ot 550.90 UNILAT INGUINAL HERNIA 07/30/2015 ROSALBA STEVENS DO Ot V72.84 EXAM PRE-OPERATIVE NOS 07/30/2015 BJ TERRY DESIGN PRINTING MACHINE SETTER Ot 274.9 GOUT NOS 07/30/2015 BJ TERRY DESIGN PRINTING MACHINE SETTER Ot 401.9 HYPERTENSION NOS 07/30/2015 BJ TERRY DESIGN PRINTING MACHINE SETTER Ot V10.82 HX-MALIG SKIN MELANOMA 07/30/2015 BJ TERRY DESIGN PRINTING MACHINE SETTER Ot V12.09 PERSONAL HISTORY OTH SPEC INFECT SHAE 07/30/2015 BJ TERRY DESIGN PRINTING MACHINE SETTER Ot V58.69 OTH MED,LT,CURRENT USE 07/30/2015 BJ TERRY DESIGN PRINTING MACHINE SETTER Ot V67.2 CHEMOTHERAPY FOLLOW-UP 07/30/2015 BJ TERRY DESIGN PRINTING MACHINE SETTER Ot 172.9 MALIG MELANOMA SKIN NOS 07/30/2015 BJ TERRY DESIGN PRINTING MACHINE SETTER Ot 709.9 SKIN DISORDER NOS 07/30/2015 MARA BJ Loza DESIGN PRINTING MACHINE SETTER Ot 788.1 DYSURIA 07/30/2015 ELHAM TERRYJOSE LUIS Loza DESIGN PRINTING MACHINE SETTER Ot 788.30 UNSPECIFIED URINARY INCONTINENCE 07/30/2015 [place] TERRYJOSE LUIS Loza DESIGN PRINTING MACHINE SETTER Ot 788.41 URINARY FREQUENCY 07/30/2015 BJ TERRY DESIGN PRINTING MACHINE SETTER Ot V10.82 HX-MALIG SKIN MELANOMA 07/30/2015 [place] TERRYJOSE LUIS Lzoa DESIGN PRINTING MACHINE SETTER Ot V12.09 PERSONAL HISTORY OTH SPEC INFECT SHAE 07/30/2015 [place] TERRYJOSE LUIS Loza DESIGN PRINTING MACHINE SETTER Ot V58.69 OTH MED,LT,CURRENT USE 07/30/2015 [place] TERRYJOSE LUIS Dago DESIGN PRINTING MACHINE SETTER Ot V67.2 CHEMOTHERAPY FOLLOW-UP 07/30/2015 ROSALBA STEVENS DO Ot 709.9 SKIN DISORDER NOS 07/30/2015 ROSALBA STEVENS DO Ot V72.84 EXAM PRE-OPERATIVE NOS 07/30/2015 BJ TERRYP Ot F32.9 MAJOR DEPRESSIVE DISORDER, SINGLE EPISOD 07/30/2015 BJ TERRY DESIGN PRINTING MACHINE SETTER Ot N45.2 ORCHITIS 07/30/2015 BJ TERRY DESIGN PRINTING MACHINE SETTER Ot Z08 ENCNTR FOR FOLLOW-UP EXAM AFTER TRTMT FO 07/30/2015 BJ TERRY DESIGN PRINTING MACHINE SETTER Ot Z79.899 OTHER SKILLED NURSING (CURRENT) DRUG THERAPY 07/30/2015 BJ TERRY DESIGN PRINTING MACHINE SETTER Ot Z85.820 PERSONAL HISTORY OF MALIGNANT MELANOMA O 07/30/2015 BJ TERRY DESIGN PRINTING MACHINE SETTER Ot Z92.3 PERSONAL HISTORY OF IRRADIATION 07/30/2015 BJ TERRY DESIGN PRINTING MACHINE SETTER Ot N50.8 OTHER SPECIFIED DISORDERS OF MALE GENITA 07/30/2015 ALICJA BAZAN, ERIC Pina Ot N43.3 HYDROCELE, UNSPECIFIED 07/30/2015 BJ TERRY DESIGN PRINTING MACHINE SETTER Ot F32.9 MAJOR DEPRESSIVE DISORDER, SINGLE EPISOD 07/30/2015 BJ TERRY DESIGN PRINTING MACHINE SETTER Ot Z08 ENCNTR FOR FOLLOW-UP EXAM AFTER TRTMT FO 07/30/2015 BJ TERRY DESIGN PRINTING MACHINE SETTER Ot Z79.899 OTHER SKILLED NURSING (CURRENT) DRUG THERAPY 07/30/2015 BJ TERRY DESIGN PRINTING MACHINE SETTER Ot Z85.820 PERSONAL HISTORY OF MALIGNANT MELANOMA O 07/30/2015 [place] TERRYJOSE LUIS Dago WHITAKER Ot Z92.3 PERSONAL HISTORY OF IRRADIATION 07/31/2015 BJ TERRY Ot C43.72 MALIGNANT MELANOMA OF LEFT LOWER LIMB, I 08/05/2015 BJ TERRY Ot C43.72 MALIGNANT MELANOMA OF LEFT LOWER LIMB, I 08/12/2015 ROSALBA STEVENS DO Ot L98.9 DISORDER OF THE SKIN AND SUBCUTANEOUS TI 08/12/2015 ROSALBA STEVENS DO Ot Z01.818 ENCOUNTER FOR OTHER PREPROCEDURAL EXAMIN 08/12/2015 ROSALBA STEVENS DO Ot Z85.820 PERSONAL HISTORY OF MALIGNANT MELANOMA O 08/13/2015 BJ TERRY Ot F32.9 MAJOR DEPRESSIVE DISORDER, SINGLE EPISOD 08/13/2015 BJ TERRY Ot Z08 ENCNTR FOR FOLLOW-UP EXAM AFTER TRTMT FO 08/13/2015 BJ TERRY Ot Z79.899 OTHER SKILLED NURSING (CURRENT) DRUG THERAPY 08/13/2015 BJ TERRY Ot Z85.820 PERSONAL HISTORY OF MALIGNANT MELANOMA O 08/13/2015 [place] TERRYJOSE LUIS Dago WHITAKER Ot Z92.3 PERSONAL HISTORY OF IRRADIATION 08/15/2015 ROSALBA STEVENS DO Ot L98.9 DISORDER OF THE SKIN AND SUBCUTANEOUS TI 08/15/2015 ROSALBA STEVENS DO Ot Z53.20 PROC/TRTMT NOT CRD OUT BEC PT DECISION F 08/15/2015 ROSALBA STEVENS DO Ot Z85.820 PERSONAL HISTORY OF MALIGNANT MELANOMA O 08/16/2015 ROSALBA STEVENS DO Ot L98.9 DISORDER OF THE SKIN AND SUBCUTANEOUS TI 08/16/2015 ROSALBA STEVENS DO Ot Z53.20 PROC/TRTMT NOT CRD OUT BEC PT DECISION F 08/16/2015 ROSALBA STEVENS DO Ot Z85.820 PERSONAL HISTORY OF MALIGNANT MELANOMA O 08/23/2015 BJ TERRY Ot F32.9 MAJOR DEPRESSIVE DISORDER, SINGLE EPISOD 08/23/2015 BJ TERRY Ot Z08 ENCNTR FOR FOLLOW-UP EXAM AFTER TRTMT FO 08/23/2015 BJ TERRY Ot Z79.899 OTHER SKILLED NURSING (CURRENT) DRUG THERAPY 08/23/2015 BJ TERRY Ot Z85.820 PERSONAL HISTORY OF MALIGNANT MELANOMA O 08/23/2015 BJ TERRY Ot Z92.3 PERSONAL HISTORY OF IRRADIATION 09/13/2015 BJ TERRY Ot C43.72 MALIGNANT MELANOMA OF LEFT LOWER LIMB, I 09/16/2015 BJ TERRY Ot C43.72 MALIGNANT MELANOMA OF LEFT LOWER LIMB, I 11/06/2015 Ot 172.5 MALIG MELANOMA TRUNK 11/06/2015 Ot V72.83 EXAM PRE-OPERATIVE NEC 11/06/2015 Ot V74.8 SCREEN-BACTERIAL DIS NEC 11/06/2015 Ot 172.5 MALIG MELANOMA TRUNK 11/06/2015 Ot V72.83 EXAM PRE-OPERATIVE NEC 11/06/2015 Ot 172.5 MALIG MELANOMA TRUNK 11/06/2015 Ot 780.64 CHILLS (WITHOUT FEVER) 11/06/2015 Ot 780.79 OTH MALAISE FATIGUE 11/06/2015 Ot 682.9 CELLULITIS NOS 11/06/2015 Ot 172.9 MALIG MELANOMA SKIN NOS 11/06/2015 Ot 780.4 DIZZINESS AND GIDDINESS 11/06/2015 Ot 784.0 HEADACHE 11/06/2015 Ot 172.9 MALIG MELANOMA SKIN NOS 11/06/2015 Ot V72.83 EXAM PRE-OPERATIVE NEC 11/06/2015 Ot 172.5 MALIG MELANOMA TRUNK 11/06/2015 Ot 172.5 MALIG MELANOMA TRUNK 11/06/2015 Ot V72.83 EXAM PRE-OPERATIVE NEC 11/06/2015 Ot 172.9 MALIG MELANOMA SKIN NOS 11/06/2015 Ot 199.1 MALIGNANT NEOPLASM NOS 11/06/2015 Ot 682.3 CELLULITIS OF ARM 11/06/2015 Ot 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 11/06/2015 Ot 172.9 MALIG MELANOMA SKIN NOS 11/06/2015 Ot 784.0 HEADACHE 11/06/2015 Ot 172.5 MALIG MELANOMA TRUNK 11/06/2015 Ot 172.5 MALIG MELANOMA TRUNK 11/06/2015 Ot 172.9 MALIG MELANOMA SKIN NOS 11/06/2015 BJ TERRY Ot 070.70 UNSPECIFIED VIRAL HEPATITIS C WITHOUT HE 11/06/2015 BJ TERRY DESIGN PRINTING MACHINE SETTER Ot 172.5 MALIG MELANOMA TRUNK 11/06/2015 BJ TERRY DESIGN PRINTING MACHINE SETTER Ot 401.9 HYPERTENSION NOS 11/06/2015 BJ TERRY DESIGN PRINTING MACHINE SETTER Ot V15.3 HX OF IRRADIATION 11/06/2015 BJ TERRY DESIGN PRINTING MACHINE SETTER Ot V58.69 OTH MED,LT,CURRENT USE 11/06/2015 Ot 603.9 HYDROCELE NOS 11/06/2015 Ot 709.9 SKIN DISORDER NOS 11/06/2015 Ot V10.82 HX-MALIG SKIN MELANOMA 11/06/2015 Ot V72.81 [id number] CARDIOVASCULAR 11/06/2015 Ot V74.8 SCREEN-BACTERIAL DIS NEC 11/06/2015 BJ TERRY DESIGN PRINTING MACHINE SETTER Ot 172.5 MALIG MELANOMA TRUNK 11/06/2015 BJ TERRY DESIGN PRINTING MACHINE SETTER Ot 780.4 DIZZINESS AND GIDDINESS 11/06/2015 TERRYBJ Loza DESIGN PRINTING MACHINE SETTER Ot 784.0 HEADACHE 11/06/2015 BJ TERRY DESIGN PRINTING MACHINE SETTER Ot 780.4 DIZZINESS AND GIDDINESS 11/06/2015 TERRYBJ Loza DESIGN PRINTING MACHINE SETTER Ot 784.0 HEADACHE 11/06/2015 INNA BAZAN, JOSH De Anda Ot 709.9 SKIN DISORDER NOS 11/06/2015 INNA BAZAN, JOSH De Anda Ot V72.84 EXAM PRE-OPERATIVE NOS 11/06/2015 INNA BAZAN, JOSH De Anda Ot V74.8 SCREEN-BACTERIAL DIS NEC 11/06/2015 INNA BAZAN, JOSH De Anda Ot 709.9 SKIN DISORDER NOS 11/06/2015 INNA BAZAN, JOSH De Anda Ot V72.84 EXAM PRE-OPERATIVE NOS 11/06/2015 IVA CRUZ Ot 172.9 MALIG MELANOMA SKIN NOS 11/06/2015 IVA CRUZ Ot 070.70 UNSPECIFIED VIRAL HEPATITIS C WITHOUT HE 11/06/2015 IVA CRUZ N Ot 172.5 MALIG MELANOMA TRUNK 11/06/2015 IVA CRUZ Ot 278.00 OBESITY, NOS 11/06/2015 IVA CRUZ N Ot 401.9 HYPERTENSION NOS 11/06/2015 IVA CRUZ Ot V15.3 HX OF IRRADIATION 11/06/2015 ANTHONY, BOBAN N Ot V58.69 OTH MED,LT,CURRENT USE 11/06/2015 JAZMYNE BAZAN, JAQUELINE Barclay Ot 709.9 SKIN DISORDER NOS 11/06/2015 JAZMYNE BAZAN, JAQUELINE Barclay Ot V10.82 HX-MALIG SKIN MELANOMA 11/06/2015 JAZMYNE BAZAN, JAQUELINE Barclay Ot V72.83 EXAM PRE-OPERATIVE NEC 11/06/2015 JAZMYNE BAZAN, JAQUELINE Barclay Ot V74.8 SCREEN-BACTERIAL DIS NEC 11/06/2015 STEVENS DO, ROSALBA D Ot 172.7 MALIG MELANOMA LEG 11/06/2015 STEVENS DO, ROSALBA D Ot V72.84 EXAM PRE-OPERATIVE NOS 11/06/2015 TERRY HILAH S DESIGN PRINTING MACHINE SETTER Ot 172.7 MALIG MELANOMA LEG 11/06/2015 TERRY HILAH S DESIGN PRINTING MACHINE SETTER Ot 070.70 UNSPECIFIED VIRAL HEPATITIS C WITHOUT HE 11/06/2015 TERRY, HILAH S DESIGN PRINTING MACHINE SETTER Ot 172.5 MALIG MELANOMA TRUNK 11/06/2015 TERRY HILAH S DESIGN PRINTING MACHINE SETTER Ot 278.00 OBESITY, NOS 11/06/2015 TERRY HILAH S DESIGN PRINTING MACHINE SETTER Ot 401.9 HYPERTENSION NOS 11/06/2015 TERRY HILAH S DESIGN PRINTING MACHINE SETTER Ot V58.69 OTH MED,LT,CURRENT USE 11/06/2015 TERRY HILAH S DESIGN PRINTING MACHINE SETTER Ot V85.35 BODY MASS INDEX 35.0-35.9, ADULT 11/06/2015 TERRY HILAH S DESIGN PRINTING MACHINE SETTER Ot 172.9 MALIG MELANOMA SKIN NOS 11/06/2015 TERRY HILAH S DESIGN PRINTING MACHINE SETTER Ot 592.0 CALCULUS OF KIDNEY 11/06/2015 IVA CRUZ N Ot 070.70 UNSPECIFIED VIRAL HEPATITIS C WITHOUT HE 11/06/2015 ANTHONY BOBDWAIN N Ot 172.5 MALIG MELANOMA TRUNK 11/06/2015 IVA CRUZ N Ot 278.00 OBESITY, NOS 11/06/2015 ANTHONY BOBAN N Ot 401.9 HYPERTENSION NOS 11/06/2015 IVA CRUZ N Ot V58.69 OTH MED,LT,CURRENT USE 11/06/2015 ANTHONY BOBAN N Ot V85.35 BODY MASS INDEX 35.0-35.9, ADULT 11/06/2015 TERRY HILAH S DESIGN PRINTING MACHINE SETTER Ot 070.70 UNSPECIFIED VIRAL HEPATITIS C WITHOUT HE 11/06/2015 TERRY, HILAH S DESIGN PRINTING MACHINE SETTER Ot 172.5 MALIG MELANOMA TRUNK 11/06/2015 TERRYBJ Loza S DESIGN PRINTING MACHINE SETTER Ot 401.9 HYPERTENSION NOS 11/06/2015 BJ TERRY DESIGN PRINTING MACHINE SETTER Ot V58.69 OTH MED,LT,CURRENT USE 11/06/2015 BJ TERRY S DESIGN PRINTING MACHINE SETTER Ot 172.9 MALIG MELANOMA SKIN NOS 11/06/2015 ROSALBA STEVENS DO D Ot 550.90 UNILAT INGUINAL HERNIA 11/06/2015 ROSALBA STEVENS DO Ot V72.84 EXAM PRE-OPERATIVE NOS 11/06/2015 TERRY BJ Loza DESIGN PRINTING MACHINE SETTER Ot 274.9 GOUT NOS 11/06/2015 TERRY BJ S DESIGN PRINTING MACHINE SETTER Ot 401.9 HYPERTENSION NOS 11/06/2015 MARA BJ S DESIGN PRINTING MACHINE SETTER Ot V10.82 HX-MALIG SKIN MELANOMA 11/06/2015 TERRY BJ S DESIGN PRINTING MACHINE SETTER Ot V12.09 PERSONAL HISTORY OTH SPEC INFECT SHAE 11/06/2015 MARA BJ Loza DESIGN PRINTING MACHINE SETTER Ot V58.69 OTH MED,LT,CURRENT USE 11/06/2015 TERRYBJ Loza DESIGN PRINTING MACHINE SETTER Ot V67.2 CHEMOTHERAPY FOLLOW-UP 11/06/2015 TERRYBJ Loza DESIGN PRINTING MACHINE SETTER Ot 172.9 MALIG MELANOMA SKIN NOS 11/06/2015 TERRY BJ S DESIGN PRINTING MACHINE SETTER Ot 709.9 SKIN DISORDER NOS 11/06/2015 TERRY BJ S DESIGN PRINTING MACHINE SETTER Ot 788.1 DYSURIA 11/06/2015 TERRY BJ S DESIGN PRINTING MACHINE SETTER Ot 788.30 UNSPECIFIED URINARY INCONTINENCE 11/06/2015 MARA BJ S DESIGN PRINTING MACHINE SETTER Ot 788.41 URINARY FREQUENCY 11/06/2015 TERRY BJ S DESIGN PRINTING MACHINE SETTER Ot V10.82 HX-MALIG SKIN MELANOMA 11/06/2015 TERRY BJ S DESIGN PRINTING MACHINE SETTER Ot V12.09 PERSONAL HISTORY OTH SPEC INFECT SHAE 11/06/2015 MARA BJ S DESIGN PRINTING MACHINE SETTER Ot V58.69 OTH MED,LT,CURRENT USE 11/06/2015 TERRYBJ Loza S DESIGN PRINTING MACHINE SETTER Ot V67.2 CHEMOTHERAPY FOLLOW-UP 11/06/2015 ROSALBA STEVENS DO D Ot 709.9 SKIN DISORDER NOS 11/06/2015 ROSALBA STEVENS DO Ot V72.84 EXAM PRE-OPERATIVE NOS 11/06/2015 BJ TERRY DESIGN PRINTING MACHINE SETTER Ot F32.9 MAJOR DEPRESSIVE DISORDER, SINGLE EPISOD 11/06/2015 BJ TERRY DESIGN PRINTING MACHINE SETTER Ot N45.2 ORCHITIS 11/06/2015 BJ TERRY DESIGN PRINTING MACHINE SETTER Ot Z08 ENCNTR FOR FOLLOW-UP EXAM AFTER TRTMT FO 11/06/2015 BJ TERRY DESIGN PRINTING MACHINE SETTER Ot Z79.899 OTHER CHAIR TRIMMER (CURRENT) DRUG THERAPY 11/06/2015 TERRYBJ Loza DESIGN PRINTING MACHINE SETTER Ot Z85.820 PERSONAL HISTORY OF MALIGNANT MELANOMA O 11/06/2015 TERRYELHAMJOSE LUIS Loza DESIGN PRINTING MACHINE SETTER Ot Z92.3 PERSONAL HISTORY OF IRRADIATION 11/06/2015 [place] TERRYJOSE LUIS Loza DESIGN PRINTING MACHINE SETTER Ot N50.8 OTHER SPECIFIED DISORDERS OF MALE GENITA 11/06/2015 ALICJA BAZAN, ERIC Pina Ot N43.3 HYDROCELE, UNSPECIFIED 11/06/2015 MARA BJ Loza DESIGN PRINTING MACHINE SETTER Ot F32.9 MAJOR DEPRESSIVE DISORDER, SINGLE EPISOD 11/06/2015 TERRYBJ Loza DESIGN PRINTING MACHINE SETTER Ot Z08 ENCNTR FOR FOLLOW-UP EXAM AFTER TRTMT FO 11/06/2015 TERRYBJ Loza DESIGN PRINTING MACHINE SETTER Ot Z79.899 OTHER SKILLED NURSING (CURRENT) DRUG THERAPY 11/06/2015 TERRYBJ Loza DESIGN PRINTING MACHINE SETTER Ot Z85.820 PERSONAL HISTORY OF MALIGNANT MELANOMA O 11/06/2015 TERRYBJ Loza DESIGN PRINTING MACHINE SETTER Ot Z92.3 PERSONAL HISTORY OF IRRADIATION 11/06/2015 TERRY BJ Loza DESIGN PRINTING MACHINE SETTER Ot C43.72 MALIGNANT MELANOMA OF LEFT LOWER LIMB, I 11/25/2015 TERRY, ELHAMJOSE LUIS Loza DESIGN PRINTING MACHINE SETTER Ot F32.9 MAJOR DEPRESSIVE DISORDER, SINGLE EPISOD 11/25/2015 TERRYBJ Loza DESIGN PRINTING MACHINE SETTER Ot Z08 ENCNTR FOR FOLLOW-UP EXAM AFTER TRTMT FO 11/25/2015 TERRYBJ Loza DESIGN PRINTING MACHINE SETTER Ot Z79.899 OTHER CHAIR TRIMMER (CURRENT) DRUG THERAPY 11/25/2015 TERRYBJ Loza DESIGN PRINTING MACHINE SETTER Ot Z85.820 PERSONAL HISTORY OF MALIGNANT MELANOMA O 11/25/2015 MARA BJ Loza DESIGN PRINTING MACHINE SETTER Ot Z92.3 PERSONAL HISTORY OF IRRADIATION 12/12/2015 Ot L98.9 DISORDER OF THE SKIN AND SUBCUTANEOUS TI 12/12/2015 Ot Z01.818 ENCOUNTER FOR OTHER PREPROCEDURAL EXAMIN 12/12/2015 Ot Z85.820 PERSONAL HISTORY OF MALIGNANT MELANOMA O 12/12/2015 Ot L98.9 DISORDER OF THE SKIN AND SUBCUTANEOUS TI 12/12/2015 Ot Z01.818 ENCOUNTER FOR OTHER PREPROCEDURAL EXAMIN 12/12/2015 Ot Z85.820 PERSONAL HISTORY OF MALIGNANT MELANOMA O 12/13/2015 Ot 172.5 MALIG MELANOMA TRUNK 12/13/2015 Ot V72.83 EXAM PRE-OPERATIVE NEC 12/13/2015 Ot V74.8 SCREEN-BACTERIAL DIS NEC 12/13/2015 Ot 172.5 MALIG MELANOMA TRUNK 12/13/2015 Ot V72.83 EXAM PRE-OPERATIVE NEC 12/13/2015 Ot 172.5 MALIG MELANOMA TRUNK 12/13/2015 Ot 780.64 CHILLS (WITHOUT FEVER) 12/13/2015 Ot 780.79 OTH MALAISE FATIGUE 12/13/2015 Ot 682.9 CELLULITIS NOS 12/13/2015 Ot 172.9 MALIG MELANOMA SKIN NOS 12/13/2015 Ot 780.4 DIZZINESS AND GIDDINESS 12/13/2015 Ot 784.0 HEADACHE 12/13/2015 Ot 172.9 MALIG MELANOMA SKIN NOS 12/13/2015 Ot V72.83 EXAM PRE-OPERATIVE NEC 12/13/2015 Ot 172.5 MALIG MELANOMA TRUNK 12/13/2015 Ot 172.5 MALIG MELANOMA TRUNK 12/13/2015 Ot V72.83 EXAM PRE-OPERATIVE NEC 12/13/2015 Ot 172.9 MALIG MELANOMA SKIN NOS 12/13/2015 Ot 199.1 MALIGNANT NEOPLASM NOS 12/13/2015 Ot 682.3 CELLULITIS OF ARM 12/13/2015 Ot 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 12/13/2015 Ot 172.9 MALIG MELANOMA SKIN NOS 12/13/2015 Ot 784.0 HEADACHE 12/13/2015 Ot 172.5 MALIG MELANOMA TRUNK 12/13/2015 Ot 172.5 MALIG MELANOMA TRUNK 12/13/2015 Ot 172.9 MALIG MELANOMA SKIN NOS 12/13/2015 BJ TERRY Ot 070.70 UNSPECIFIED VIRAL HEPATITIS C WITHOUT HE 12/13/2015 BJ TERRY Ot 172.5 MALIG MELANOMA TRUNK 12/13/2015 TERRY, HILAH S DESIGN PRINTING MACHINE SETTER Ot 401.9 HYPERTENSION NOS 12/13/2015 BJ TERRY DESIGN PRINTING MACHINE SETTER Ot V15.3 HX OF IRRADIATION 12/13/2015 BJ TERRY DESIGN PRINTING MACHINE SETTER Ot V58.69 OTH MED,LT,CURRENT USE 12/13/2015 Ot 603.9 HYDROCELE NOS 12/13/2015 Ot 709.9 SKIN DISORDER NOS 12/13/2015 Ot V10.82 HX-MALIG SKIN MELANOMA 12/13/2015 Ot V72.81 [id number] CARDIOVASCULAR 12/13/2015 Ot V74.8 SCREEN-BACTERIAL DIS NEC 12/13/2015 BJ TERRY DESIGN PRINTING MACHINE SETTER Ot 172.5 MALIG MELANOMA TRUNK 12/13/2015 BJ TERRY DESIGN PRINTING MACHINE SETTER Ot 780.4 DIZZINESS AND GIDDINESS 12/13/2015 TERRYBJ Loza DESIGN PRINTING MACHINE SETTER Ot 784.0 HEADACHE 12/13/2015 TERRYBJ Loza DESIGN PRINTING MACHINE SETTER Ot 780.4 DIZZINESS AND GIDDINESS 12/13/2015 TERRYBJ Loza DESIGN PRINTING MACHINE SETTER Ot 784.0 HEADACHE 12/13/2015 INNA BAZAN, JOSH De Anda Ot 709.9 SKIN DISORDER NOS 12/13/2015 INNA BAZAN, JOSH De Anda Ot V72.84 EXAM PRE-OPERATIVE NOS 12/13/2015 INNA BAZAN, JOSH De Anda Ot V74.8 SCREEN-BACTERIAL DIS NEC 12/13/2015 INNA BAZAN, JOSH De Anda Ot 709.9 SKIN DISORDER NOS 12/13/2015 INNA BAZAN, JOSH De Anda Ot V72.84 EXAM PRE-OPERATIVE NOS 12/13/2015 IVA CRUZ N Ot 172.9 MALIG MELANOMA SKIN NOS 12/13/2015 IVA CRUZ N Ot 070.70 UNSPECIFIED VIRAL HEPATITIS C WITHOUT HE 12/13/2015 IVA CRUZ N Ot 172.5 MALIG MELANOMA TRUNK 12/13/2015 IVA CRUZ N Ot 278.00 OBESITY, NOS 12/13/2015 IVA CRUZ N Ot 401.9 HYPERTENSION NOS 12/13/2015 IVA CRUZ N Ot V15.3 HX OF IRRADIATION 12/13/2015 IVA CRUZ Ot V58.69 OTH MED,LT,CURRENT USE 12/13/2015 JAZMYNE BAZAN, JAQUELINE Barclay Ot 709.9 SKIN DISORDER NOS 12/13/2015 JAQUELINE SAMANO MD Ot V10.82 HX-MALIG SKIN MELANOMA 12/13/2015 JAQUELINE SAMANO MD Ot V72.83 EXAM PRE-OPERATIVE NEC 12/13/2015 JAQUELINE SAMANO MD Ot V74.8 SCREEN-BACTERIAL DIS NEC 12/13/2015 STEVENS DOROSALBA Ot 172.7 MALIG MELANOMA LEG 12/13/2015 [place] DOROSALBA Ot V72.84 EXAM PRE-OPERATIVE NOS 12/13/2015 TERRY, HILAH S DESIGN PRINTING MACHINE SETTER Ot 172.7 MALIG MELANOMA LEG 12/13/2015 TERRY HILAH S DESIGN PRINTING MACHINE SETTER Ot 070.70 UNSPECIFIED VIRAL HEPATITIS C WITHOUT HE 12/13/2015 TERRY HILAH S DESIGN PRINTING MACHINE SETTER Ot 172.5 MALIG MELANOMA TRUNK 12/13/2015 TERRY HILAH S DESIGN PRINTING MACHINE SETTER Ot 278.00 OBESITY, NOS 12/13/2015 TERRY, HILAH S DESIGN PRINTING MACHINE SETTER Ot 401.9 HYPERTENSION NOS 12/13/2015 TERRY HILAH S DESIGN PRINTING MACHINE SETTER Ot V58.69 OTH MED,LT,CURRENT USE 12/13/2015 TERRY, HILAH S DESIGN PRINTING MACHINE SETTER Ot V85.35 BODY MASS INDEX 35.0-35.9, ADULT 12/13/2015 TERRY HILAH S DESIGN PRINTING MACHINE SETTER Ot 172.9 MALIG MELANOMA SKIN NOS 12/13/2015 TERRY HILAH S DESIGN PRINTING MACHINE SETTER Ot 592.0 CALCULUS OF KIDNEY 12/13/2015 IVA CRUZ N Ot 070.70 UNSPECIFIED VIRAL HEPATITIS C WITHOUT HE 12/13/2015 IVA CRUZ N Ot 172.5 MALIG MELANOMA TRUNK 12/13/2015 IVA CRUZ N Ot 278.00 OBESITY, NOS 12/13/2015 KELSEY CRUZAN N Ot 401.9 HYPERTENSION NOS 12/13/2015 IVA CRUZ N Ot V58.69 OTH MED,LT,CURRENT USE 12/13/2015 EKLSEY CRUZAN N Ot V85.35 BODY MASS INDEX 35.0-35.9, ADULT 12/13/2015 TERRY HILAH S DESIGN PRINTING MACHINE SETTER Ot 070.70 UNSPECIFIED VIRAL HEPATITIS C WITHOUT HE 12/13/2015 TERRY HILAH S DESIGN PRINTING MACHINE SETTER Ot 172.5 MALIG MELANOMA TRUNK 12/13/2015 TERRY HILAH S DESIGN PRINTING MACHINE SETTER Ot 401.9 HYPERTENSION NOS 12/13/2015 BJ TERRY DESIGN PRINTING MACHINE SETTER Ot V58.69 OTH MED,LT,CURRENT USE 12/13/2015 ELHAM TERRYJOSE LUIS Dago DESIGN PRINTING MACHINE SETTER Ot 172.9 MALIG MELANOMA SKIN NOS 12/13/2015 STEVENS ROSALBA ENCINAS D Ot 550.90 UNILAT INGUINAL HERNIA 12/13/2015 ROSALBA STEVENS DO Ot V72.84 EXAM PRE-OPERATIVE NOS 12/13/2015 BJ TERRY DESIGN PRINTING MACHINE SETTER Ot 274.9 GOUT NOS 12/13/2015 BJ TERRY DESIGN PRINTING MACHINE SETTER Ot 401.9 HYPERTENSION NOS 12/13/2015 BJ TERRY DESIGN PRINTING MACHINE SETTER Ot V10.82 HX-MALIG SKIN MELANOMA 12/13/2015 BJ TERRY DESIGN PRINTING MACHINE SETTER Ot V12.09 PERSONAL HISTORY OTH SPEC INFECT SHAE 12/13/2015 BJ TERRY DESIGN PRINTING MACHINE SETTER Ot V58.69 OTH MED,LT,CURRENT USE 12/13/2015 BJ TERRY DESIGN PRINTING MACHINE SETTER Ot V67.2 CHEMOTHERAPY FOLLOW-UP 12/13/2015 BJ TERRY DESIGN PRINTING MACHINE SETTER Ot 172.9 MALIG MELANOMA SKIN NOS 12/13/2015 BJ TERRY DESIGN PRINTING MACHINE SETTER Ot 709.9 SKIN DISORDER NOS 12/13/2015 BJ TERRY DESIGN PRINTING MACHINE SETTER Ot 788.1 DYSURIA 12/13/2015 BJ TERRY DESIGN PRINTING MACHINE SETTER Ot 788.30 UNSPECIFIED URINARY INCONTINENCE 12/13/2015 BJ TERRY DESIGN PRINTING MACHINE SETTER Ot 788.41 URINARY FREQUENCY 12/13/2015 BJ TERRY DESIGN PRINTING MACHINE SETTER Ot V10.82 HX-MALIG SKIN MELANOMA 12/13/2015 BJ TERRY DESIGN PRINTING MACHINE SETTER Ot V12.09 PERSONAL HISTORY OTH SPEC INFECT SHAE 12/13/2015 BJ TERRY DESIGN PRINTING MACHINE SETTER Ot V58.69 OTH MED,LT,CURRENT USE 12/13/2015 BJ TERRY DESIGN PRINTING MACHINE SETTER Ot V67.2 CHEMOTHERAPY FOLLOW-UP 12/13/2015 ROSALBA STEVENS DO D Ot 709.9 SKIN DISORDER NOS 12/13/2015 ROSALBA STEVENS DO Ot V72.84 EXAM PRE-OPERATIVE NOS 12/13/2015 BJ TERRY DESIGN PRINTING MACHINE SETTER Ot F32.9 MAJOR DEPRESSIVE DISORDER, SINGLE EPISOD 12/13/2015 BJ TERRY S DESIGN PRINTING MACHINE SETTER Ot N45.2 ORCHITIS 12/13/2015 TERRYBJ Loza DESIGN PRINTING MACHINE SETTER Ot Z08 ENCNTR FOR FOLLOW-UP EXAM AFTER TRTMT FO 12/13/2015 TERRYBJ DESIGN PRINTING MACHINE SETTER Ot Z79.899 OTHER SKILLED NURSING (CURRENT) DRUG THERAPY 12/13/2015 TERRYBJ DESIGN PRINTING MACHINE SETTER Ot Z85.820 PERSONAL HISTORY OF MALIGNANT MELANOMA O 12/13/2015 [place] TERRYJOSE LUIS Loza DESIGN PRINTING MACHINE SETTER Ot Z92.3 PERSONAL HISTORY OF IRRADIATION 12/13/2015 MARA BJ Loza DESIGN PRINTING MACHINE SETTER Ot N50.8 OTHER SPECIFIED DISORDERS OF MALE GENITA 12/13/2015 ALICJA BAZAN, ERIC Pina Ot N43.3 HYDROCELE, UNSPECIFIED 12/13/2015 [place] TERRYJOSE LUIS Dago DESIGN PRINTING MACHINE SETTER Ot F32.9 MAJOR DEPRESSIVE DISORDER, SINGLE EPISOD 12/13/2015 MARA BJ Loza DESIGN PRINTING MACHINE SETTER Ot Z08 ENCNTR FOR FOLLOW-UP EXAM AFTER TRTMT FO 12/13/2015 [place] TERRYJOSE LUIS Loza DESIGN PRINTING MACHINE SETTER Ot Z79.899 OTHER CHAIR TRIMMER (CURRENT) DRUG THERAPY 12/13/2015 MARA BJ Loza DESIGN PRINTING MACHINE SETTER Ot Z85.820 PERSONAL HISTORY OF MALIGNANT MELANOMA O 12/13/2015 [place] TERRYJOSE LUIS Dago DESIGN PRINTING MACHINE SETTER Ot Z92.3 PERSONAL HISTORY OF IRRADIATION 12/13/2015 MARA BJ Loza DESIGN PRINTING MACHINE SETTER Ot C43.72 MALIGNANT MELANOMA OF LEFT LOWER LIMB, I 12/13/2015 MARA BJ Loza DESIGN PRINTING MACHINE SETTER Ot F32.9 MAJOR DEPRESSIVE DISORDER, SINGLE EPISOD 12/13/2015 MARA BJ Loza DESIGN PRINTING MACHINE SETTER Ot Z08 ENCNTR FOR FOLLOW-UP EXAM AFTER TRTMT FO 12/13/2015 MARA BJ Loza DESIGN PRINTING MACHINE SETTER Ot Z79.899 OTHER CHAIR TRIMMER (CURRENT) DRUG THERAPY 12/13/2015 [place] TERRYJOSE LUIS Loza DESIGN PRINTING MACHINE SETTER Ot Z85.820 PERSONAL HISTORY OF MALIGNANT MELANOMA O 12/13/2015 MARA BJ Loza DESIGN PRINTING MACHINE SETTER Ot Z92.3 PERSONAL HISTORY OF IRRADIATION 12/13/2015 Ot L98.9 DISORDER OF THE SKIN AND SUBCUTANEOUS TI 12/13/2015 Ot Z01.818 ENCOUNTER FOR OTHER PREPROCEDURAL EXAMIN 12/13/2015 Ot Z85.820 PERSONAL HISTORY OF MALIGNANT MELANOMA O 12/13/2015 Ot L98.9 DISORDER OF THE SKIN AND SUBCUTANEOUS TI 12/13/2015 Ot Z01.818 ENCOUNTER FOR OTHER PREPROCEDURAL EXAMIN 12/13/2015 Ot Z85.820 PERSONAL HISTORY OF MALIGNANT MELANOMA O 12/13/2015 INNA BAZAN, JOSH De Anda Ot 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 12/13/2015 INNA BAZAN, JOSH De Anda Ot Z85.820 PERSONAL HISTORY OF MALIGNANT MELANOMA O 12/13/2015 BJ TERRY DESIGN PRINTING MACHINE SETTER Ot F32.9 MAJOR DEPRESSIVE DISORDER, SINGLE EPISOD 12/13/2015 BJ TERRY DESIGN PRINTING MACHINE SETTER Ot Z08 ENCNTR FOR FOLLOW-UP EXAM AFTER TRTMT FO 12/13/2015 BJ TERRY DESIGN PRINTING MACHINE SETTER Ot Z79.899 OTHER SKILLED NURSING (CURRENT) DRUG THERAPY 12/13/2015 BJ TERRY DESIGN PRINTING MACHINE SETTER Ot Z85.820 PERSONAL HISTORY OF MALIGNANT MELANOMA O 12/13/2015 BJ TERRY DESIGN PRINTING MACHINE SETTER Ot Z92.3 PERSONAL HISTORY OF IRRADIATION 12/18/2015 INNA BAZAN, JOSH De Anda Ot 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 12/18/2015 INNA BAZAN, JOSH De Anda Ot Z85.820 PERSONAL HISTORY OF MALIGNANT MELANOMA O 12/24/2015 BJ TERRY DESIGN PRINTING MACHINE SETTER Ot F32.9 MAJOR DEPRESSIVE DISORDER, SINGLE EPISOD 12/24/2015 BJ TERRY DESIGN PRINTING MACHINE SETTER Ot Z08 ENCNTR FOR FOLLOW-UP EXAM AFTER TRTMT FO 12/24/2015 BJ TERRY DESIGN PRINTING MACHINE SETTER Ot Z79.899 OTHER CHAIR TRIMMER (CURRENT) DRUG THERAPY 12/24/2015 BJ TERRY S DESIGN PRINTING MACHINE SETTER Ot Z85.820 PERSONAL HISTORY OF MALIGNANT MELANOMA O 12/24/2015 BJ TERRY S DESIGN PRINTING MACHINE SETTER Ot Z92.3 PERSONAL HISTORY OF IRRADIATION 12/30/2015 INNA BAZAN, JOSH De Anda Ot 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 12/30/2015 JOSH KEITH MD Ot Z01.818 ENCOUNTER FOR OTHER PREPROCEDURAL EXAMIN 12/31/2015 JOSH KEITH MD Ot 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 12/31/2015 INNA BAZAN, JOSH De Anda Ot Z01.818 ENCOUNTER FOR OTHER PREPROCEDURAL EXAMIN 01/06/2016 INNA BAZAN, JOSH De Anda Ot L98.9 DISORDER OF THE SKIN AND SUBCUTANEOUS TI 01/06/2016 INNA BAZAN, JOSH De Anda Ot Z53.29 PROC/TRTMT NOT CRD OUT BEC PT DECISION F 01/07/2016 INNA BAZAN, JOSH De Anda Ot L98.9 DISORDER OF THE SKIN AND SUBCUTANEOUS TI 01/07/2016 INNA BAZAN, JOSH De Anda Ot Z53.29 PROC/TRTMT NOT CRD OUT BEC PT DECISION F 01/15/2016 JASEN BARBOSA MD Ot 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 01/15/2016 JASEN BARBOSA MD Ot G47.30 SLEEP APNEA, UNSPECIFIED 01/15/2016 JASEN BARBOSA MD Ot I10 ESSENTIAL (PRIMARY) HYPERTENSION 01/15/2016 JASEN BARBOSA MD Ot K21.9 GASTRO-ESOPHAGEAL REFLUX DISEASE WITHOUT 01/15/2016 JASEN BARBOSA MD Ot N45.3 EPIDIDYMO-ORCHITIS 01/15/2016 JASEN BARBOSA MD Ot Z85.820 PERSONAL HISTORY OF MALIGNANT MELANOMA O 03/16/2016 IVA CRUZ Ot F32.9 MAJOR DEPRESSIVE DISORDER, SINGLE EPISOD 03/16/2016 IVA CRUZ Ot Z08 ENCNTR FOR FOLLOW-UP EXAM AFTER TRTMT FO 03/16/2016 IVA CRUZ Ot Z79.899 OTHER CHAIR TRIMMER (CURRENT) DRUG THERAPY 03/16/2016 IVA CRUZ Ot Z85.820 PERSONAL HISTORY OF MALIGNANT MELANOMA O 03/16/2016 IVA CRUZ Ot Z92.3 PERSONAL HISTORY OF IRRADIATION 05/17/2016 IVA CRUZ Ot F32.9 MAJOR DEPRESSIVE DISORDER, SINGLE EPISOD 05/17/2016 IVA CRUZ Ot Z08 ENCNTR FOR FOLLOW-UP EXAM AFTER TRTMT FO 05/17/2016 IVA CRUZ Ot Z79.899 OTHER SKILLED NURSING (CURRENT) DRUG THERAPY 05/17/2016 IVA CRUZ Ot Z85.820 PERSONAL HISTORY OF MALIGNANT MELANOMA O 05/17/2016 IVA CRUZ Ot Z92.3 PERSONAL HISTORY OF IRRADIATION 07/09/2016 IVA CRUZ Ot F32.9 MAJOR DEPRESSIVE DISORDER, SINGLE EPISOD 07/09/2016 IVA CRUZ N Ot Z08 ENCNTR FOR FOLLOW-UP EXAM AFTER TRTMT FO 07/09/2016 IVA CRUZ Ot Z79.899 OTHER SKILLED NURSING (CURRENT) DRUG THERAPY 07/09/2016 IVA CRUZ N Ot Z85.820 PERSONAL HISTORY OF MALIGNANT MELANOMA O 07/09/2016 IVA CRUZ N Ot Z92.3 PERSONAL HISTORY OF IRRADIATION 08/21/2016 IVA CRUZ Ot F32.9 MAJOR DEPRESSIVE DISORDER, SINGLE EPISOD 08/21/2016 IVA CRUZ N Ot Z08 ENCNTR FOR FOLLOW-UP EXAM AFTER TRTMT FO 08/21/2016 IVA CRUZ Ot Z79.899 OTHER CHAIR TRIMMER (CURRENT) DRUG THERAPY 08/21/2016 IVA CRUZ N Ot Z85.820 PERSONAL HISTORY OF MALIGNANT MELANOMA O 08/21/2016 IVA CRUZ N Ot Z92.3 PERSONAL HISTORY OF IRRADIATION 09/16/2016 IVA CRUZ Ot F32.9 MAJOR DEPRESSIVE DISORDER, SINGLE EPISOD 09/16/2016 IVA CRUZ N Ot Z08 ENCNTR FOR FOLLOW-UP EXAM AFTER TRTMT FO 09/16/2016 IVA CRUZ Ot Z79.899 OTHER SKILLED NURSING (CURRENT) DRUG THERAPY 09/16/2016 IVA CRUZ N Ot Z85.820 PERSONAL HISTORY OF MALIGNANT MELANOMA O 09/16/2016 IVA CRUZ N Ot Z92.3 PERSONAL HISTORY OF IRRADIATION 09/17/2016 Ot 172.9 MALIG MELANOMA SKIN NOS 09/17/2016 Ot 199.1 MALIGNANT NEOPLASM NOS 09/17/2016 Ot 682.3 CELLULITIS OF ARM 09/17/2016 Ot 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 09/17/2016 Ot 172.9 MALIG MELANOMA SKIN NOS 09/17/2016 Ot 784.0 HEADACHE 09/17/2016 Ot 172.5 MALIG MELANOMA TRUNK 09/17/2016 Ot 172.5 MALIG MELANOMA TRUNK 09/17/2016 Ot 172.9 MALIG MELANOMA SKIN NOS 09/17/2016 BJ TERRY Ot 070.70 UNSPECIFIED VIRAL HEPATITIS C WITHOUT HE 09/17/2016 TERRY, HILAH S DESIGN PRINTING MACHINE SETTER Ot 172.5 MALIG MELANOMA TRUNK 09/17/2016 BJ TERRY DESIGN PRINTING MACHINE SETTER Ot 401.9 HYPERTENSION NOS 09/17/2016 BJ TERRY DESIGN PRINTING MACHINE SETTER Ot V15.3 HX OF IRRADIATION 09/17/2016 BJ TERRY DESIGN PRINTING MACHINE SETTER Ot V58.69 OTH MED,LT,CURRENT USE 09/17/2016 Ot 603.9 HYDROCELE NOS 09/17/2016 Ot 709.9 SKIN DISORDER NOS 09/17/2016 Ot V10.82 HX-MALIG SKIN MELANOMA 09/17/2016 Ot V72.81 [id number]-[id number] CARDIOVASCULAR 09/17/2016 Ot V74.8 SCREEN-BACTERIAL DIS NEC 09/17/2016 BJ TERRY DESIGN PRINTING MACHINE SETTER Ot 172.5 MALIG MELANOMA TRUNK 09/17/2016 BJ TERRY DESIGN PRINTING MACHINE SETTER Ot 780.4 DIZZINESS AND GIDDINESS 09/17/2016 BJ TERRY DESIGN PRINTING MACHINE SETTER Ot 784.0 HEADACHE 09/17/2016 TERRYBJ Loza DESIGN PRINTING MACHINE SETTER Ot 780.4 DIZZINESS AND GIDDINESS 09/17/2016 TERRYBJ Loza DESIGN PRINTING MACHINE SETTER Ot 784.0 HEADACHE 09/17/2016 INNA BAZAN, JOSH De Anda Ot 709.9 SKIN DISORDER NOS 09/17/2016 INNA BAZAN, JOSH De Anda Ot V72.84 EXAM PRE-OPERATIVE NOS 09/17/2016 INNA BAZAN, JOSH De Anda Ot V74.8 SCREEN-BACTERIAL DIS NEC 09/17/2016 INNA BAZAN, JOSH De Anda Ot 709.9 SKIN DISORDER NOS 09/17/2016 INNA BAZAN, JOSH De Anda Ot V72.84 EXAM PRE-OPERATIVE NOS 09/17/2016 IVA CRUZ N Ot 172.9 MALIG MELANOMA SKIN NOS 09/17/2016 IVA CRUZ N Ot 070.70 UNSPECIFIED VIRAL HEPATITIS C WITHOUT HE 09/17/2016 IVA CRUZ N Ot 172.5 MALIG MELANOMA TRUNK 09/17/2016 IVA CRUZ N Ot 278.00 OBESITY, NOS 09/17/2016 IVA CRUZ N Ot 401.9 HYPERTENSION NOS 09/17/2016 IVA CRUZ Ot V15.3 HX OF IRRADIATION 09/17/2016 IVA CRUZ Ot V58.69 OTH MED,LT,CURRENT USE 09/17/2016 JAQUELINE SAMANO MD Ot 709.9 SKIN DISORDER NOS 09/17/2016 JAQUELINE SAMANO MD Ot V10.82 HX-MALIG SKIN MELANOMA 09/17/2016 JAQUELINE SAMANO MD Ot V72.83 EXAM PRE-OPERATIVE NEC 09/17/2016 JAQUELINE SAMANO MD Ot V74.8 SCREEN-BACTERIAL DIS NEC 09/17/2016 STEVENS DO, ROSALBA D Ot 172.7 MALIG MELANOMA LEG 09/17/2016 STEVENS DO, ROSALBA D Ot V72.84 EXAM PRE-OPERATIVE NOS 09/17/2016 MARA HILAH S DESIGN PRINTING MACHINE SETTER Ot 172.7 MALIG MELANOMA LEG 09/17/2016 MARA HILAH S DESIGN PRINTING MACHINE SETTER Ot 070.70 UNSPECIFIED VIRAL HEPATITIS C WITHOUT HE 09/17/2016 TERRY HILAH S DESIGN PRINTING MACHINE SETTER Ot 172.5 MALIG MELANOMA TRUNK 09/17/2016 TERRY HILAH S DESIGN PRINTING MACHINE SETTER Ot 278.00 OBESITY, NOS 09/17/2016 TERRY HILAH S DESIGN PRINTING MACHINE SETTER Ot 401.9 HYPERTENSION NOS 09/17/2016 TERRYELHAMAH S DESIGN PRINTING MACHINE SETTER Ot V58.69 OTH MED,LT,CURRENT USE 09/17/2016 TERRY HILAH S DESIGN PRINTING MACHINE SETTER Ot V85.35 BODY MASS INDEX 35.0-35.9, ADULT 09/17/2016 TERRY HILAH S DESIGN PRINTING MACHINE SETTER Ot 172.9 MALIG MELANOMA SKIN NOS 09/17/2016 TERRYELHAMAH S DESIGN PRINTING MACHINE SETTER Ot 592.0 CALCULUS OF KIDNEY 09/17/2016 IVA CRUZ N Ot 070.70 UNSPECIFIED VIRAL HEPATITIS C WITHOUT HE 09/17/2016 KELSEY CRUZAN N Ot 172.5 MALIG MELANOMA TRUNK 09/17/2016 KELSEY CRUZAN N Ot 278.00 OBESITY, NOS 09/17/2016 ANTHONY, BOBAN N Ot 401.9 HYPERTENSION NOS 09/17/2016 ANTHONY BOBAN N Ot V58.69 OTH MED,LT,CURRENT USE 09/17/2016 ANTHONY BOBAN N Ot V85.35 BODY MASS INDEX 35.0-35.9, ADULT 09/17/2016 TERRY HILAH S DESIGN PRINTING MACHINE SETTER Ot 070.70 UNSPECIFIED VIRAL HEPATITIS C WITHOUT HE 09/17/2016 TERRY HILAH S DESIGN PRINTING MACHINE SETTER Ot 172.5 MALIG MELANOMA TRUNK 09/17/2016 ELHAM TERRYJOSE LUIS Loza DESIGN PRINTING MACHINE SETTER Ot 401.9 HYPERTENSION NOS 09/17/2016 TERRYBJ Loza DESIGN PRINTING MACHINE SETTER Ot V58.69 OTH MED,LT,CURRENT USE 09/17/2016 TERRYBJ Loza DESIGN PRINTING MACHINE SETTER Ot 172.9 MALIG MELANOMA SKIN NOS 09/17/2016 STEVENS DO, ROSALBA D Ot 550.90 UNILAT INGUINAL HERNIA 09/17/2016 STEVENS DO, ROSALBA D Ot V72.84 EXAM PRE-OPERATIVE NOS 09/17/2016 BJ TERRY DESIGN PRINTING MACHINE SETTER Ot 274.9 GOUT NOS 09/17/2016 ELHAM TERRYJOSE LUIS S DESIGN PRINTING MACHINE SETTER Ot 401.9 HYPERTENSION NOS 09/17/2016 [place]AM TERRYJOSE LUIS Dago DESIGN PRINTING MACHINE SETTER Ot V10.82 HX-MALIG SKIN MELANOMA 09/17/2016 ELHAM TERRYJOSE LUIS Dago DESIGN PRINTING MACHINE SETTER Ot V12.09 PERSONAL HISTORY OTH SPEC INFECT SHAE 09/17/2016 BJ TERRY DESIGN PRINTING MACHINE SETTER Ot V58.69 OTH MED,LT,CURRENT USE 09/17/2016 ELHAM TERRYJOSE LUIS Dago DESIGN PRINTING MACHINE SETTER Ot V67.2 CHEMOTHERAPY FOLLOW-UP 09/17/2016 BJ TERRY DESIGN PRINTING MACHINE SETTER Ot 172.9 MALIG MELANOMA SKIN NOS 09/17/2016 [place]AM TERRYJOSE LUIS Dago DESIGN PRINTING MACHINE SETTER Ot 709.9 SKIN DISORDER NOS 09/17/2016 BJ TERRY DESIGN PRINTING MACHINE SETTER Ot 788.1 DYSURIA 09/17/2016 ELHAM TERRYJOSE LUIS S DESIGN PRINTING MACHINE SETTER Ot 788.30 UNSPECIFIED URINARY INCONTINENCE 09/17/2016 ELHAM TERRYJOSE LUIS S DESIGN PRINTING MACHINE SETTER Ot 788.41 URINARY FREQUENCY 09/17/2016 BJ TERRY DESIGN PRINTING MACHINE SETTER Ot V10.82 HX-MALIG SKIN MELANOMA 09/17/2016 [place] TERRYJOSE LUIS S DESIGN PRINTING MACHINE SETTER Ot V12.09 PERSONAL HISTORY OTH SPEC INFECT SHAE 09/17/2016 BJ TERRY DESIGN PRINTING MACHINE SETTER Ot V58.69 OTH MED,LT,CURRENT USE 09/17/2016 BJ TERRY S DESIGN PRINTING MACHINE SETTER Ot V67.2 CHEMOTHERAPY FOLLOW-UP 09/17/2016 STEVENS DO, ROSALBA D Ot 709.9 SKIN DISORDER NOS 09/17/2016 STEVENS DO, ROSALBA D Ot V72.84 EXAM PRE-OPERATIVE NOS 09/17/2016 BJ TERRY DESIGN PRINTING MACHINE SETTER Ot F32.9 MAJOR DEPRESSIVE DISORDER, SINGLE EPISOD 09/17/2016 BJ TERRY DESIGN PRINTING MACHINE SETTER Ot N45.2 ORCHITIS 09/17/2016 BJ TERRY DESIGN PRINTING MACHINE SETTER Ot Z08 ENCNTR FOR FOLLOW-UP EXAM AFTER TRTMT FO 09/17/2016 BJ TERRY DESIGN PRINTING MACHINE SETTER Ot Z79.899 OTHER SKILLED NURSING (CURRENT) DRUG THERAPY 09/17/2016 BJ TERRY DESIGN PRINTING MACHINE SETTER Ot Z85.820 PERSONAL HISTORY OF MALIGNANT MELANOMA O 09/17/2016 TERRYBJ Loza DESIGN PRINTING MACHINE SETTER Ot Z92.3 PERSONAL HISTORY OF IRRADIATION 09/17/2016 TERRYBJ Loza DESIGN PRINTING MACHINE SETTER Ot N50.8 OTHER SPECIFIED DISORDERS OF MALE GENITA 09/17/2016 ALICJA BAZAN, ERIC Pina Ot N43.3 HYDROCELE, UNSPECIFIED 09/17/2016 BJ TERRY DESIGN PRINTING MACHINE SETTER Ot F32.9 MAJOR DEPRESSIVE DISORDER, SINGLE EPISOD 09/17/2016 BJ TERRYP Ot Z08 ENCNTR FOR FOLLOW-UP EXAM AFTER TRTMT FO 09/17/2016 BJ TERRY DESIGN PRINTING MACHINE SETTER Ot Z79.899 OTHER CHAIR TRIMMER (CURRENT) DRUG THERAPY 09/17/2016 BJ TERRY DESIGN PRINTING MACHINE SETTER Ot Z85.820 PERSONAL HISTORY OF MALIGNANT MELANOMA O 09/17/2016 TERRYBJ Loza DESIGN PRINTING MACHINE SETTER Ot Z92.3 PERSONAL HISTORY OF IRRADIATION 09/17/2016 TERRYBJ Loza DESIGN PRINTING MACHINE SETTER Ot C43.72 MALIGNANT MELANOMA OF LEFT LOWER LIMB, I 09/17/2016 TERRY BJ Loza DESIGN PRINTING MACHINE SETTER Ot F32.9 MAJOR DEPRESSIVE DISORDER, SINGLE EPISOD 09/17/2016 BJ TERRY DESIGN PRINTING MACHINE SETTER Ot Z08 ENCNTR FOR FOLLOW-UP EXAM AFTER TRTMT FO 09/17/2016 BJ TERRY DESIGN PRINTING MACHINE SETTER Ot Z79.899 OTHER SKILLED NURSING (CURRENT) DRUG THERAPY 09/17/2016 TERRYBJ Loza DESIGN PRINTING MACHINE SETTER Ot Z85.820 PERSONAL HISTORY OF MALIGNANT MELANOMA O 09/17/2016 TERRYBJ Loza DESIGN PRINTING MACHINE SETTER Ot Z92.3 PERSONAL HISTORY OF IRRADIATION 09/17/2016 Ot L98.9 DISORDER OF THE SKIN AND SUBCUTANEOUS TI 09/17/2016 Ot Z01.818 ENCOUNTER FOR OTHER PREPROCEDURAL EXAMIN 09/17/2016 Ot Z85.820 PERSONAL HISTORY OF MALIGNANT MELANOMA O 09/17/2016 INNA ABZAN, JOSH De Anda Ot L98.9 DISORDER OF THE SKIN AND SUBCUTANEOUS TI 09/17/2016 INNA BAZAN, JOSH De Anda Ot Z53.29 PROC/TRTMT NOT CRD OUT BEC PT DECISION F 09/17/2016 IVA CRUZ Ot F32.9 MAJOR DEPRESSIVE DISORDER, SINGLE EPISOD 09/17/2016 IVA CRUZ Ot Z08 ENCNTR FOR FOLLOW-UP EXAM AFTER TRTMT FO 09/17/2016 IVA CRUZ Ot Z79.899 OTHER SKILLED NURSING (CURRENT) DRUG THERAPY 09/17/2016 IVA CRUZ Ot Z85.820 PERSONAL HISTORY OF MALIGNANT MELANOMA O 09/17/2016 IVA CRUZ Ot Z92.3 PERSONAL HISTORY OF IRRADIATION Procedures Code Description Performed By Performed On 86.04 OTHER SKIN SUBQ I D 11/08/2010 81.92 INJECTION INTO JOINT 11/11/2010 86.01 02/18/2011 86.05 02/20/2011 86.01 ASPIRATION SKIN SUBQ 04/08/2011 29260 ROUTINE VENIPUNCTURE 02/10/2012 48792 HIDA SCAN 2011 85047 CMP 02/10/2012 40522 AMYLASE 2011 87228 LIPASE 2011 63741 CBC 02/10/2012 12098 HEP C PCR QUANT W/STAN 02/10/2012 54999 UA LONG DIP 08/22 37947 URINE DRUG SCREEN (IN-HOUSE) 08/22/2012 50086 CMP 08/23/2012 43391 TSH 08/23/2012 84963 CBC 08/23/2012 General S Rosalba Stevens 02/23/2013 [id number] EXCISION OF ABDOMEN SKIN, EXTERNAL APPRO 01/15/2016 Results Test Result Range Urine drug screening test - 12/13/15 08:15 Urine phencyclidine detection by screening method NEGATIVE NEGATIVE Urine benzodiazepines detection by screening method NEGATIVE NEGATIVE Urine cocaine detection NEGATIVE NEGATIVE Urine amphetamines detection by screening method NEGATIVE NEGATIVE Urine methamphetamine detection by screening method NEGATIVE NEGATIVE Urine cannabinoids detection by screening method NEGATIVE NEGATIVE Urine opiates detection by screening method NEGATIVE NEGATIVE Urine barbiturates detection NEGATIVE NEGATIVE Screening urine tricyclic antidepressants detection NEGATIVE NEGATIVE Urine methadone detection by screening method NEGATIVE NEGATIVE Urine oxycodone detection NEGATIVE NEGATIVE Urine propoxyphene detection NEGATIVE NEGATIVE Urine buprenophrine screen NEGATIVE NEGATIVE Methicillin resistant Staphylococcus aureus (MRSA) screening culture - 08:35 Methicillin resistant Staphylococcus aureus (MRSA) screening culture NEG [facility] Complete blood count (CBC) with automated white blood cell (WBC) differential - 01/11/16 01:25 Blood leukocytes automated count (number/volume) 10.4 10*3/ uL 4.3-11.0 Blood erythrocytes automated count (number/volume) 4.19 10*6 /uL 4.35-5.85 Venous blood hemoglobin measurement (mass/volume) 12.7 g/dL 13.3-17.7 Blood hematocrit (volume fraction) 38 % 40-54 Automated erythrocyte mean corpuscular volume 91 [foz_us] 80-99 Automated erythrocyte mean corpuscular hemoglobin (mass per erythrocyte) 30 pg 25-34 Automated erythrocyte mean corpuscular hemoglobin concentration measurement ( mass/volume) 33 g/dL 32-36 Automated erythrocyte distribution width ratio 12.3 % 10.0-14.5 Automated blood platelet count (count/volume) 216 10*3/uL 130-400 Automated blood platelet mean volume measurement 10.6 [foz_ us] 7.4-10.4 Automated blood neutrophils/100 leukocytes 79 % 42-75 Automated blood lymphocytes/100 leukocytes 8 % 12-44 Blood monocytes/100 leukocytes 11 % 0-12 Automated blood eosinophils/100 leukocytes 1 % 0-10 Automated blood basophils/100 leukocytes 0 % 0-10 Blood neutrophils automated count (number/volume) 8.3 10*3 1.8-7.8 Blood lymphocytes automated count (number/volume) 0.9 10*3 1.0-4.0 Blood monocytes automated count (number/volume) 1.2 10*3 0.0-1.0 Automated eosinophil count 0.1 10*3/uL 0.0-0.3 Automated blood basophil count (count/volume) 0.0 10*3/uL 0.0-0.1 Blood lactic acid measurement (moles/volume) - 01/11/16 01:25 Blood lactic acid measurement (moles/volume) 1.3 mmol/L 0.5-2.0 Comprehensive metabolic panel - 01/11/16 01:25 Serum or plasma sodium measurement (moles/volume) 140 mmol/ L 135-145 Serum or plasma potassium measurement (moles/volume) 3.7 mmol/L 3.6-5.0 Serum or plasma chloride measurement (moles/volume) 106 mmol /L 98-107 Carbon dioxide 21 mmol/L 21-32 Serum or plasma anion gap determination (moles/volume) 13 mmol/L 5-14 Serum or plasma urea nitrogen measurement (mass/volume) 11 mg/dL 7-18 Serum or plasma creatinine measurement (mass/volume) 0.97 mg /dL 0.60-1.30 Serum or plasma urea nitrogen/creatinine mass ratio 11 NRG Serum or plasma creatinine measurement with calculation of estimated glomerular filtration rate > NRG Serum or plasma glucose measurement (mass/volume) 109 mg/dL 70-105 Serum or plasma calcium measurement (mass/volume) 9.1 mg/dL 8.5-10.1 Serum or plasma total bilirubin measurement (mass/volume) 0.5 mg/dL 0.1-1.0 Serum or plasma alkaline phosphatase measurement (enzymatic activity/volume) 76 U/L 40-136 Serum or plasma aspartate aminotransferase measurement (enzymatic activity/ volume) 16 U/L 5-34 Serum or plasma alanine aminotransferase measurement (enzymatic activity/volume ) 19 U/L 0-55 Serum or plasma protein measurement (mass/volume) 7.0 g/dL 6.4-8.2 Serum or plasma albumin measurement (mass/volume) 4.0 g/dL 3.2-4.5 Serum or plasma C reactive protein measurement (mass/volume) - 01/11/16 01:25 Serum or plasma C reactive protein measurement (mass/volume) 1.63 mg/dL 0.00-0.50 Bacterial blood culture - 01/11/16 01:25 Bacterial blood culture NG NRG Bacterial blood culture - 01/11/16 02:43 Bacterial blood culture NG NRG Complete urinalysis with reflex to culture - 01/11/16 04:30 Urine color determination YELLOW NRG Urine clarity determination CLEAR NRG Urine pH measurement by test strip 7 5- 9 Specific gravity of urine by test strip 1.015 1.016-1.022 Urine protein assay by test strip, semi-quantitative 2+ NEGATIVE Urine glucose detection by automated test strip NEGATIVE NEGATIVE Erythrocytes detection in urine sediment by light microscopy 3+ NEGATIVE Urine ketones detection by automated test strip NEGATIVE NEGATIVE Urine nitrite detection by test strip NEGATIVE NEGATIVE Urine total bilirubin detection by test strip NEGATIVE NEGATIVE Urine urobilinogen measurement by automated test strip (mass/volume) NORMAL NORMAL Urine leukocyte esterase detection by dipstick 2+ NEGATIVE Automated urine sediment erythrocyte count by microscopy (number/high power field) [HPF] NRG Automated urine sediment leukocyte count by microscopy (number/high power field ) [HPF] NRG Bacteria detection in urine sediment by light microscopy TRACE NRG Squamous epithelial cells detection in urine sediment by light microscopy 0-2 NRG Crystals detection in urine sediment by light microscopy NONE NRG Casts detection in urine sediment by light microscopy NONE NRG Mucus detection in urine sediment by light microscopy SMALL NRG Complete urinalysis with reflex to culture YES NRG Bacterial urine culture - 01/11/16 04:30 URINE CULTURE RESULTS <10,000/ML NRG Complete blood count (CBC) with automated white blood cell (WBC) differential - 01/12/16 10:07 Blood leukocytes automated count (number/volume) 11.4 10*3/ uL 4.3-11.0 Blood erythrocytes automated count (number/volume) 4.00 10*6 /uL 4.35-5.85 Venous blood hemoglobin measurement (mass/volume) 12.2 g/dL 13.3-17.7 Blood hematocrit (volume fraction) 37 % 40-54 Automated erythrocyte mean corpuscular volume 92 [foz_us] 80-99 Automated erythrocyte mean corpuscular hemoglobin (mass per erythrocyte) 31 pg 25-34 Automated erythrocyte mean corpuscular hemoglobin concentration measurement ( mass/volume) 33 g/dL 32-36 Automated erythrocyte distribution width ratio 12.3 % 10.0-14.5 Automated blood platelet count (count/volume) 207 10*3/uL 130-400 Automated blood platelet mean volume measurement 10.6 [foz_ us] 7.4-10.4 Automated blood neutrophils/100 leukocytes 83 % 42-75 Automated blood lymphocytes/100 leukocytes 7 % 12-44 Blood monocytes/100 leukocytes 9 % 0-12 Automated blood eosinophils/100 leukocytes 1 % 0-10 Automated blood basophils/100 leukocytes 0 % 0-10 Blood neutrophils automated count (number/volume) 9.5 10*3 1.8-7.8 Blood lymphocytes automated count (number/volume) 0.8 10*3 1.0-4.0 Blood monocytes automated count (number/volume) 1.1 10*3 0.0-1.0 Automated eosinophil count 0.1 10*3/uL 0.0-0.3 Automated blood basophil count (count/volume) 0.0 10*3/uL 0.0-0.1 Complete blood count (CBC) with automated white blood cell (WBC) differential - 01/13/16 04:45 Blood leukocytes automated count (number/volume) 10.4 10*3/ uL 4.3-11.0 Blood erythrocytes automated count (number/volume) 3.88 10*6 /uL 4.35-5.85 Venous blood hemoglobin measurement (mass/volume) 11.8 g/dL 13.3-17.7 Blood hematocrit (volume fraction) 35 % 40-54 Automated erythrocyte mean corpuscular volume 91 [foz_us] 80-99 Automated erythrocyte mean corpuscular hemoglobin (mass per erythrocyte) 30 pg 25-34 Automated erythrocyte mean corpuscular hemoglobin concentration measurement ( mass/volume) 33 g/dL 32-36 Automated erythrocyte distribution width ratio 12.0 % 10.0-14.5 Automated blood platelet count (count/volume) 211 10*3/uL 130-400 Automated blood platelet mean volume measurement 10.6 [foz_ us] 7.4-10.4 Automated blood neutrophils/100 leukocytes 76 % 42-75 Automated blood lymphocytes/100 leukocytes 12 % 12-44 Blood monocytes/100 leukocytes 10 % 0-12 Automated blood eosinophils/100 leukocytes 1 % 0-10 Automated blood basophils/100 leukocytes 0 % 0-10 Blood neutrophils automated count (number/volume) 7.9 10*3 1.8-7.8 Blood lymphocytes automated count (number/volume) 1.2 10*3 1.0-4.0 Blood monocytes automated count (number/volume) 1.1 10*3 0.0-1.0 Automated eosinophil count 0.1 10*3/uL 0.0-0.3 Automated blood basophil count (count/volume) 0.0 10*3/uL 0.0-0.1 Whole blood basic metabolic panel - 01/13/16 04:45 Serum or plasma sodium measurement (moles/volume) 139 mmol/ L 135-145 Serum or plasma potassium measurement (moles/volume) 4.2 mmol/L 3.6-5.0 Serum or plasma chloride measurement (moles/volume) 108 mmol /L 98-107 Carbon dioxide 20 mmol/L 21-32 Serum or plasma anion gap determination (moles/volume) 11 mmol/L 5-14 Serum or plasma urea nitrogen measurement (mass/volume) 15 mg/dL 7-18 Serum or plasma creatinine measurement (mass/volume) 0.80 mg /dL 0.60-1.30 Serum or plasma urea nitrogen/creatinine mass ratio 19 NRG Serum or plasma creatinine measurement with calculation of estimated glomerular filtration rate > NRG Serum or plasma glucose measurement (mass/volume) 93 mg/dL 70-105 Serum or plasma calcium measurement (mass/volume) 8.9 mg/dL 8.5-10.1 Complete blood count (CBC) with automated white blood cell (WBC) differential - 01/14/16 04:50 Blood leukocytes automated count (number/volume) 8.8 10*3/ uL 4.3-11.0 Blood erythrocytes automated count (number/volume) 3.89 10*6 /uL 4.35-5.85 Venous blood hemoglobin measurement (mass/volume) 11.8 g/dL 13.3-17.7 Blood hematocrit (volume fraction) 35 % 40-54 Automated erythrocyte mean corpuscular volume 91 [foz_us] 80-99 Automated erythrocyte mean corpuscular hemoglobin (mass per erythrocyte) 30 pg 25-34 Automated erythrocyte mean corpuscular hemoglobin concentration measurement ( mass/volume) 33 g/dL 32-36 Automated erythrocyte distribution width ratio 12.0 % 10.0-14.5 Automated blood platelet count (count/volume) 233 10*3/uL 130-400 Automated blood platelet mean volume measurement 10.3 [foz_ us] 7.4-10.4 Automated blood neutrophils/100 leukocytes 70 % 42-75 Automated blood lymphocytes/100 leukocytes 16 % 12-44 Blood monocytes/100 leukocytes 11 % 0-12 Automated blood eosinophils/100 leukocytes 2 % 0-10 Automated blood basophils/100 leukocytes 0 % 0-10 Blood neutrophils automated count (number/volume) 6.2 10*3 1.8-7.8 Blood lymphocytes automated count (number/volume) 1.4 10*3 1.0-4.0 Blood monocytes automated count (number/volume) 1.0 10*3 0.0-1.0 Automated eosinophil count 0.2 10*3/uL 0.0-0.3 Automated blood basophil count (count/volume) 0.0 10*3/uL 0.0-0.1 Whole blood basic metabolic panel - 01/14/16 04:50 Serum or plasma sodium measurement (moles/volume) 140 mmol/ L 135-145 Serum or plasma potassium measurement (moles/volume) 4.2 mmol/L 3.6-5.0 Serum or plasma chloride measurement (moles/volume) 108 mmol /L 98-107 Carbon dioxide 19 mmol/L 21-32 Serum or plasma anion gap determination (moles/volume) 13 mmol/L 5-14 Serum or plasma urea nitrogen measurement (mass/volume) 15 mg/dL 7-18 Serum or plasma creatinine measurement (mass/volume) 0.77 mg /dL 0.60-1.30 Serum or plasma urea nitrogen/creatinine mass ratio 19 NRG Serum or plasma creatinine measurement with calculation of estimated glomerular filtration rate > NRG Serum or plasma glucose measurement (mass/volume) 92 mg/dL 70-105 Serum or plasma calcium measurement (mass/volume) 8.9 mg/dL 8.5-10.1 Complete blood count (CBC) with automated white blood cell (WBC) differential - 01/15/16 07:23 Blood leukocytes automated count (number/volume) 6.5 10*3/ uL 4.3-11.0 Blood erythrocytes automated count (number/volume) 3.94 10*6 /uL 4.35-5.85 Venous blood hemoglobin measurement (mass/volume) 11.7 g/dL 13.3-17.7 Blood hematocrit (volume fraction) 36 % 40-54 Automated erythrocyte mean corpuscular volume 91 [foz_us] 80-99 Automated erythrocyte mean corpuscular hemoglobin (mass per erythrocyte) 30 pg 25-34 Automated erythrocyte mean corpuscular hemoglobin concentration measurement ( mass/volume) 33 g/dL 32-36 Automated erythrocyte distribution width ratio 11.9 % 10.0-14.5 Automated blood platelet count (count/volume) 240 10*3/uL 130-400 Automated blood platelet mean volume measurement 10.2 [foz_ us] 7.4-10.4 Automated blood neutrophils/100 leukocytes 65 % 42-75 Automated blood lymphocytes/100 leukocytes 21 % 12-44 Blood monocytes/100 leukocytes 10 % 0-12 Automated blood eosinophils/100 leukocytes 4 % 0-10 Automated blood basophils/100 leukocytes 0 % 0-10 Blood neutrophils automated count (number/volume) 4.2 10*3 1.8-7.8 Blood lymphocytes automated count (number/volume) 1.3 10*3 1.0-4.0 Blood monocytes automated count (number/volume) 0.7 10*3 0.0-1.0 Automated eosinophil count 0.3 10*3/uL 0.0-0.3 Automated blood basophil count (count/volume) 0.0 10*3/uL 0.0-0.1 Whole blood basic metabolic panel - 01/15/16 07:23 Serum or plasma sodium measurement (moles/volume) 139 mmol/ L 135-145 Serum or plasma potassium measurement (moles/volume) 4.4 mmol/L 3.6-5.0 Serum or plasma chloride measurement (moles/volume) 105 mmol /L 98-107 Carbon dioxide 21 mmol/L 21-32 Serum or plasma anion gap determination (moles/volume) 13 mmol/L 5-14 Serum or plasma urea nitrogen measurement (mass/volume) 16 mg/dL 7-18 Serum or plasma creatinine measurement (mass/volume) 0.79 mg /dL 0.60-1.30 Serum or plasma urea nitrogen/creatinine mass ratio 20 NRG Serum or plasma creatinine measurement with calculation of estimated glomerular filtration rate > NRG Serum or plasma glucose measurement (mass/volume) 89 mg/dL 70-105 Serum or plasma calcium measurement (mass/volume) 9.2 mg/dL 8.5-10.1 Complete blood count (CBC) with automated white blood cell (WBC) differential - 09/17/16 18:17 Blood leukocytes automated count (number/volume) 9.3 10*3/ uL 4.3-11.0 Blood erythrocytes automated count (number/volume) 4.46 10*6 /uL 4.35-5.85 Venous blood hemoglobin measurement (mass/volume) 13.2 g/dL 13.3-17.7 Blood hematocrit (volume fraction) 40 % 40-54 Automated erythrocyte mean corpuscular volume 89 [foz_us] 80-99 Automated erythrocyte mean corpuscular hemoglobin (mass per erythrocyte) 30 pg 25-34 Automated erythrocyte mean corpuscular hemoglobin concentration measurement ( mass/volume) 33 g/dL 32-36 Automated erythrocyte distribution width ratio 12.1 % 10.0-14.5 Automated blood platelet count (count/volume) 238 10*3/uL 130-400 Automated blood platelet mean volume measurement 10.5 [foz_ us] 7.4-10.4 Automated blood neutrophils/100 leukocytes 70 % 42-75 Automated blood lymphocytes/100 leukocytes 15 % 12-44 Blood monocytes/100 leukocytes 13 % 0-12 Automated blood eosinophils/100 leukocytes 2 % 0-10 Automated blood basophils/100 leukocytes 0 % 0-10 Blood neutrophils automated count (number/volume) 6.5 10*3 1.8-7.8 Blood lymphocytes automated count (number/volume) 1.4 10*3 1.0-4.0 Blood monocytes automated count (number/volume) 1.2 10*3 0.0-1.0 Automated eosinophil count 0.2 10*3/uL 0.0-0.3 Automated blood basophil count (count/volume) 0.0 10*3/uL 0.0-0.1 Comprehensive metabolic panel - 09/17/16 18:17 Serum or plasma sodium measurement (moles/volume) 136 mmol/ L 135-145 Serum or plasma potassium measurement (moles/volume) 3.9 mmol/L 3.6-5.0 Serum or plasma chloride measurement (moles/volume) 102 mmol /L 98-107 Carbon dioxide 22 mmol/L 21-32 Serum or plasma anion gap determination (moles/volume) 12 mmol/L 5-14 Serum or plasma urea nitrogen measurement (mass/volume) 15 mg/dL 7-18 Serum or plasma creatinine measurement (mass/volume) 1.54 mg /dL 0.60-1.30 Serum or plasma urea nitrogen/creatinine mass ratio 10 0-20 Serum or plasma creatinine measurement with calculation of estimated glomerular filtration rate 51 NRG Serum or plasma glucose measurement (mass/volume) 98 mg/dL 70-105 Serum or plasma calcium measurement (mass/volume) 9.4 mg/dL 8.5-10.1 Serum or plasma total bilirubin measurement (mass/volume) 0.7 mg/dL 0.1-1.0 Serum or plasma alkaline phosphatase measurement (enzymatic activity/volume) 65 U/L 40-136 Serum or plasma aspartate aminotransferase measurement (enzymatic activity/ volume) 12 U/L 5-34 Serum or plasma alanine aminotransferase measurement (enzymatic activity/volume ) 19 U/L 0-55 Serum or plasma protein measurement (mass/volume) 6.2 g/dL 6.4-8.2 Serum or plasma albumin measurement (mass/volume) 3.8 g/dL 3.2-4.5 Encounters ACCT No. Visit Date/Time Discharge Status Pt. Type Provider Facility Loc./Unit Complaint [id number] 07/24/2014 15:00:00 07/24/2014 23: 59:59 CLS Outpatient MARIBEL NANCY ROBERTO Heather [id number] 05/30/2014 11:10:00 05/30/2014 23: 59:59 CLS Outpatient LUCAS PERALTA APRN [id number] 04/20/2014 16:16:00 04/20/2014 23: 59:59 CLS Outpatient SINAI JOSEPH DO [id number] 06/03/2013 09:33:00 06/03/2013 23: 59:59 CLS Outpatient LUCAS PERALTA APRN [id number] 04/18/2013 07:47:00 04/18/2013 23: 59:59 CLS Outpatient JOSH KEITH MD [id number] 02/22/2013 18:11:00 02/22/2013 23: 59:59 CLS Outpatient CRISSY GUEVARA MD [id number] 02/13/2013 14:12:00 02/13/2013 23: 59:59 CLS Outpatient SINAI JOSEPH DO [id number] 04/20/2011 08:17:00 04/20/2011 23:59 :59 CLS Outpatient LUCAS PERALTA APRN [id number] 12/12/2012 16:09:00 Document Registration [id number] 08/22/2012 14:15:00 Document Registration [id number] 08/22/2012 14:15:00 Document Registration [id number] 07/26/2012 16:04:00 Document Registration
== END 2016-09-23 12:25 | disposition home or self-care (01) ==
LOC: SDC 06:57
PROVIDERS: ATTEND Urology
DX: N20.1 Calculus of ureter (principal); Z11.2 Encounter for screening for other bacterial diseases; I10 Essential (primary) hypertension; G47.33 Obstructive sleep apnea (adult) (pediatric); F32.9 Major depressive disorder, single episode, unspecified; F41.9 Anxiety disorder, unspecified; G43.909 Migraine, unspecified, not intractable, without status migrainosus; K21.9 Gastro-esophageal reflux disease without esophagitis; Z85.820 Personal history of malignant melanoma of skin
CPT/HCPCS: 74000; 87081

== ENCOUNTER → 2016-10-07 | Outpatient (CLI) | payer SELFPAY ==
[~2016-10-07] MED LIST changes: +HYDR-3875 PO; +NITR-68 PO
--- NOTE | 2016-10-07 18:09 | Diagnostic Imaging Report ---
KUB. INDICATION: Follow-up right ureteric stone. FINDINGS: There is a 9 mm ureteric stone that has progressed further into the proximal to mid right ureter at the L5 level. Another calcification more proximally measuring 6 mm could also be slightly more proximal in the proximal right ureter. The calcifications in the pelvis are likely phleboliths. IMPRESSION: Calcifications in the proximal to mid right ureter up to 9 mm in size are suggestive of stones. Dictated by: Dictated on workstation # [id number]
== END ==
LOC: RAD 14:32
PROVIDERS: ATTEND Urology
DX: N20.1 Calculus of ureter (principal)
CPT/HCPCS: 74000

== ENCOUNTER 2016-10-13 11:34 | Outpatient (CLI) | payer MEDICARE ==
[~2016-10-13] VITALS: Ht 190.5 cm; Wt 111.3 kg
== END 2016-10-13 14:54 ==
LOC: PREOP 11:34
PROVIDERS: ATTEND Urology
DX: Z01.818 Encounter for other preprocedural examination (principal); N20.1 Calculus of ureter

== ENCOUNTER → 2017-04-28 | Outpatient (CLI) | payer MEDICARE, MEDICAID ==
[~2017-04-28] MED LIST changes: +ACHD5005 PO; -HYDR-3812 PO
[2017-04-28 11:28] LABS: BASOPHILS % (AUTO) 0 % (0-10); EOSINOPHILS # (AUTO) 0.2 10^3/uL (0.0-0.3); EOSINOPHILS % (AUTO) 4 % (0-10); HEMATOCRIT 39 % (40-54); HEMOGLOBIN 13.1 G/DL (13.3-17.7); LYMPHOCYTES # (AUTO) 1.5 X 10^3 (1.0-4.0); LYMPHOCYTES % (AUTO) 24 % (12-44); MEAN CORPUSCULAR HEMOGLOBIN 30 PG (25-34); MEAN CORPUSCULAR HGB CONC 33 G/DL (32-36); MEAN CORPUSCULAR VOLUME 90 FL (80-99); MEAN PLATELET VOLUME 10.2 FL (7.4-10.4); MONOCYTES # (AUTO) 0.6 X 10^3 (0.0-1.0); MONOCYTES % (AUTO) 9 % (0-12); NEUTROPHILS # (AUTO) 3.9 X 10^3 (1.8-7.8); NEUTROPHILS % (AUTO) 63 % (42-75); PLATELET COUNT 244 10^3/uL (130-400); RED BLOOD COUNT 4.37 10^6/uL (4.35-5.85); RED CELL DISTRIBUTION WIDTH 12.7 % (10.0-14.5); WHITE BLOOD COUNT 6.2 10^3/uL (4.3-11.0)
[2017-04-28 11:47] LABS: ALANINE AMINOTRANSFERASE 26 U/L (0-55); ALBUMIN 4.1 GM/DL (3.2-4.5); ALKALINE PHOSPHATASE 69 U/L (40-136); BILIRUBIN,TOTAL 0.5 MG/DL (0.1-1.0); BUN/CREATININE RATIO 22; CALCIUM 9.4 MG/DL (8.5-10.1); CARBON DIOXIDE 26 MMOL/L (21-32); CHLORIDE 105 MMOL/L (98-107); CREATININE SERUM 1.18 MG/DL (0.60-1.30); GFR ESTIMATED > 60; GLUCOSE 96 MG/DL (70-105); POTASSIUM 4.4 MMOL/L (3.6-5.0); SODIUM 140 MMOL/L (135-145); TOTAL PROTEIN 7.6 GM/DL (6.4-8.2)
== END ==
LOC: EDSTATUS 09-28 11:00 → ONC 10:55
PROVIDERS: ATTEND Internal Medicine Hematology & Oncology
DX: Z08 Encounter for follow-up examination after completed treatment for malignant neoplasm (principal); Z85.820 Personal history of malignant melanoma of skin; Z86.19 Personal history of other infectious and parasitic diseases; F32.9 Major depressive disorder, single episode, unspecified; R19.7 Diarrhea, unspecified; I10 Essential (primary) hypertension; Z79.899 Other long term (current) drug therapy
CPT/HCPCS: 80053; 83615; 85025

== ENCOUNTER 2017-09-07 08:17 | Outpatient (RCR) | payer MEDICARE, MEDICAID ==
[~2017-09-07 08:17] MED LIST changes: -INDO50CA PO; +INDO50CA11 PO; -OXYC-197 PO; +OXYC1TAB87 PO
== END 2017-12-06 | disposition home or self-care (01) ==
LOC: ONC 08:17
PROVIDERS: ATTEND Internal Medicine Hematology & Oncology
DX: Z08 Encounter for follow-up examination after completed treatment for malignant neoplasm (principal); Z85.820 Personal history of malignant melanoma of skin; Z86.19 Personal history of other infectious and parasitic diseases; F32.9 Major depressive disorder, single episode, unspecified; R19.7 Diarrhea, unspecified; I10 Essential (primary) hypertension; Z79.899 Other long term (current) drug therapy

== ENCOUNTER → 2018-03-22 | Outpatient (CLI) | payer MEDICAID, MEDICARE ==
--- NOTE | 2018-03-22 13:56 | Diagnostic Imaging Report ---
INDICATION: Malignant melanoma in the left flank. This study is performed for subsequent treatment strategy restaging. TECHNIQUE: Serum blood glucose level at the time of injection is 89 mg/dL. 12.4 mCi F-18 FDG was injected intravenously in the right wrist region and whole-body PET imaging was performed. Noncontrast CT was also performed for attenuation correction and anatomic correlation. COMPARISON: Correlation is made with prior PET/CT from 07/30/2015. FINDINGS: There is symmetric uptake of activity within the brain. There is nasopharyngeal and oropharyngeal uptake without anatomic correlate on the CT which is likely physiologic. There is some uptake within a lymph node in the left posterior lateral upper neck which was not present on prior exam. This lymph node measures approximately 12 mm in size and uptake measures SUV max of 3.2. This is indeterminate. No other areas of abnormal uptake in the neck are identified. Chest and mediastinum unremarkable. No pulmonary uptake is seen. [place] unremarkable. Physiologic activity within the GI and tracts in the abdomen and pelvis are seen. No abnormal foci of hypermetabolism are seen. Imaging through the lower extremities is unremarkable. IMPRESSION: Unremarkable PET scan with the exception of mild uptake involving a left posterolateral neck lymph node, new since prior PET study from 2016. Possibility of a small metastatic node cannot be entirely excluded. A followup would be recommended. Dictated by: Dictated on workstation # [id number]
== END ==
LOC: RAD 09:35
PROVIDERS: ATTEND Nurse Practitioner Adult Health
DX: C43.59 Malignant melanoma of other part of trunk (principal); C77.3 Secondary and unspecified malignant neoplasm of axilla and upper limb lymph nodes

== ENCOUNTER 2018-03-24 14:05 | Outpatient (RCR) | payer MEDICAID, MEDICARE ==
[2018-03-15 14:31] LABS: BASOPHILS % (AUTO) 0 % (0-10); EOSINOPHILS # (AUTO) 0.2 10^3/uL (0.0-0.3); EOSINOPHILS % (AUTO) 4 % (0-10); HEMATOCRIT 43 % (40-54); HEMOGLOBIN 13.9 G/DL (13.3-17.7); LYMPHOCYTES % (AUTO) 34 % (12-44); MEAN CORPUSCULAR HEMOGLOBIN 29 PG (25-34); MEAN CORPUSCULAR HGB CONC 32 G/DL (32-36); MEAN CORPUSCULAR VOLUME 91 FL (80-99); MEAN PLATELET VOLUME 10.4 FL (7.4-10.4); MONOCYTES # (AUTO) 0.4 X 10^3 (0.0-1.0); MONOCYTES % (AUTO) 8 % (0-12); NEUTROPHILS % (AUTO) 53 % (42-75); PLATELET COUNT 263 10^3/uL (130-400); RED CELL DISTRIBUTION WIDTH 13.1 % (10.0-14.5); WHITE BLOOD COUNT 5.7 10^3/uL (4.3-11.0)
[2018-03-15 14:49] LABS: ALANINE AMINOTRANSFERASE 21 U/L (0-55); ALKALINE PHOSPHATASE 81 U/L (40-136); BILIRUBIN,TOTAL 0.4 MG/DL (0.1-1.0); BUN/CREATININE RATIO 18; CALCIUM 9.4 MG/DL (8.5-10.1); CARBON DIOXIDE 25 MMOL/L (21-32); CHLORIDE 108 MMOL/L (98-107); CREATININE SERUM 1.12 MG/DL (0.60-1.30); GFR ESTIMATED > 60; GLUCOSE 109 MG/DL (70-105); POTASSIUM 4.2 MMOL/L (3.6-5.0); SODIUM 142 MMOL/L (135-145); TOTAL PROTEIN 7.4 GM/DL (6.4-8.2)
== END 2018-06-13 | disposition home or self-care (01) ==
LOC: ONC 14:05
PROVIDERS: ATTEND Internal Medicine Hematology & Oncology
DX: Z08 Encounter for follow-up examination after completed treatment for malignant neoplasm (principal); Z85.820 Personal history of malignant melanoma of skin; R59.0 Localized enlarged lymph nodes; R42 Dizziness and giddiness; H53.9 Unspecified visual disturbance; I10 Essential (primary) hypertension; F32.9 Major depressive disorder, single episode, unspecified; R39.15 Urgency of urination; Z86.19 Personal history of other infectious and parasitic diseases; Z79.899 Other long term (current) drug therapy; Z92.3 Personal history of irradiation
CPT/HCPCS: 36415; 80053; 83615; 85025; 99213

== ENCOUNTER → 2018-03-31 | Outpatient (CLI) | payer MEDICAID, MEDICARE ==
[~2018-03-31] MED LIST changes: +GADOBUTROL 15 MMOL/15 ML (GADAVIST) VIAL IV ONE
--- NOTE | 2018-03-31 13:23 | Diagnostic Imaging Report ---
INDICATION: Lesion on the left side of the neck. Patient has history of malignant melanoma. COMPARISON: Correlation is made with the recent PET/CT study performed 03/22/2018. FINDINGS: Sonographic interrogation of the lateral left neck does show a slightly prominent lymph node measuring 2.4 x 0.4 x 1.4 cm. This is indeterminate. No other enlarged nodes are seen. IMPRESSION: There is an enlarged lymph node in the left neck, as described and indeterminate. No other abnormalities are detected. Dictated by: Dictated on workstation # [id number]
--- NOTE | 2018-03-31 14:19 | Diagnostic Imaging Report ---
PROCEDURE: MR imaging of the brain without contrast. TECHNIQUE: Multiplanar, multisequence MR imaging of the brain was performed without contrast. INDICATION: Malignant melanoma. Patient complains of visual changes and dizzy spells and left neck pain. COMPARISON: Correlation is made with prior MRI of the brain from 12/03/2010. IV contrast was not administered due to difficult IV access. FINDINGS: Ventricles and sulci are within normal limits. No sulcal effacement or midline shift is seen. No acute intra-axial or extra-axial hemorrhage is detected. Occasional periventricular and subcortical white matter foci are noted, likely on the basis of chronic microvascular ischemia. No diffusion restriction is identified. The normal expected flow-voids within the carotid siphons are seen. No mass lesion is identified. The corpus callosum is unremarkable. Sella and parasellar structures are unremarkable. IMPRESSION: Essentially unremarkable noncontrast MRI of the brain apart from mild changes of chronic microvascular ischemia. No mass lesion or evidence of acute abnormality is detected. Dictated by: Dictated on workstation # [id number]
== END ==
LOC: RAD 12:13
PROVIDERS: ATTEND Nurse Practitioner Adult Health
DX: C43.59 Malignant melanoma of other part of trunk (principal); I67.82 Cerebral ischemia; R59.0 Localized enlarged lymph nodes; H53.9 Unspecified visual disturbance; L98.9 Disorder of the skin and subcutaneous tissue, unspecified
CPT/HCPCS: 70551; 76536

== ENCOUNTER 2018-04-19 05:31 | Outpatient (CLI) | payer MEDICARE ==
[~2018-04-19] VITALS: Ht 190.5 cm; Wt 122.5 kg
[~2018-04-19 05:31] MED LIST changes: -GADOBUTROL 15 MMOL/15 ML (GADAVIST) VIAL IV ONE
== END 2018-04-19 10:43 | disposition home or self-care (01) ==
LOC: PREOP 05:31
PROVIDERS: ATTEND Surgery
DX: Z01.818 Encounter for other preprocedural examination (principal)

== ENCOUNTER 2018-04-22 08:46 | Day surgery (SDC) | payer MEDICARE ==
[~2018-04-22] VITALS: Ht 190.5 cm; Wt 122.5 kg
[2018-04-22] MEDS ORDERED: LACTATED RINGERS 1,000 ML IV PRN (08:53)
[2018-04-22 09:00] VITALS: BP 130/94
[2018-04-22] MEDS ORDERED: ceFAZolin 2 GM IV Premixed 50 ML IV ONE (09:00)
[2018-04-22] MEDS ORDERED: BUP/EPI 0.5% 1:200,000 (SENSORCAINE) 30 ML VIAL ONE (09:38)
[2018-04-22 09:45] LABS: AMPHETAMINE SCREEN, URINE POSITIVE (NEGATIVE); BARBITURATE SCREEN URINE NEGATIVE (NEGATIVE); BENZODIAZEPINES SCREEN URINE NEGATIVE (NEGATIVE); CANNABINOID SCREEN, URINE NEGATIVE (NEGATIVE); COCAINE SCREEN URINE NEGATIVE (NEGATIVE); METHADONE STAT NEGATIVE (NEGATIVE); METHAMPHETAMINE SCREEN URINE S POSITIVE (NEGATIVE); OPIATE SCREEN URINE NEGATIVE (NEGATIVE); OXYCODONE STAT NEGATIVE (NEGATIVE); PROPOXYPHENE STAT NEGATIVE (NEGATIVE); TRICYCLIC ANTIDEPRESSANTS SCRE NEGATIVE (NEGATIVE)
--- NOTE | 2018-04-22 09:45 | Progress Note-Pre Operative ---
Pre-Operative Progress Note H&P Reviewed The H&P was reviewed, patient examined and no changes noted. Date Seen by Provider: Apr 06, 2018 Time Seen by Provider: 14:00 Date H&P Reviewed: Apr 22, 2018 Time H&P Reviewed: 09:45 Pre-Operative Diagnosis: Lesion left side of neck JOSH KEITH MD Apr 22, 2018 09:45
[2018-04-22] MEDS ORDERED: proPOfol 200 MG/20 ML (DIPRIVAN) VIAL IV ONE (10:10)
[2018-04-22] MEDS ORDERED: MIDAZOLAM 2 MG/2 ML (VERSED) VIAL ONE (10:11)
--- NOTE | 2018-04-22 10:55 | Operative Report ---
Operative Report Date of Procedure/Surgery Apr 22, 2018 Surgeon (s) JOSH KEITH MD Milk Collector (s): N/A Post-Operative Diagnosis same Procedure Performed excision Description of Procedure Anesthesia Type: MAC Estimated blood loss (mL): minimal Specimen(s) collected/removed skin lesion Description of the Procedure Indication for the procedure: This gentleman, with a history of melanoma of the skin, presented with a raised and tender lesion over the left side of his neck. It was felt reasonable to excise it to establish a definitive diagnosis. Informed consent was obtained after reviewing the procedure in detail. Description of the procedure: He was placed supine on the operative table and our anesthesiologist administered sedation. The area was prepared and draped in the usual sterile manner. Local anesthesia was achieved using 0.5 percent Marcaine with epinephrine. An elliptical incision about 3 cm in length by 1.5 cm in width was made and the lesion excised down to the subcutaneous tissue. Hemostasis was achieved using cautery and the incision closed using interrupted 4-0 nylon sutures. A nonadherent dressing was then applied. He tolerated the procedure well and was taken to the recovery room in a stable condition. Findings of the Procedure See op report Allergies and Home Medications Allergies Coded Allergies: No Known Drug Allergies (Unverified , 03/10/11) Home Medications No Active Prescriptions or Reported Meds Patient Home Medication List Home Medication List Reviewed: Yes JOSH KEITH MD Apr 22, 2018 10:55
--- NOTE | 2018-04-22 10:56 | Discharge Inst-Simple/Standard ---
Discharge Inst-Standard Discharge Medications New, Converted or Re-Newed RX: Other Patient Instructions/Follow Up Plan of Care/Instructions/FU: to use Tylenol or ibuprofen. Follow-up with my nurse in 10 days for suture removal Activity as Tolerated: Yes Discharge Diet: No Restrictions JOSH KEITH MD Apr 22, 2018 10:56
[2018-04-22] MEDS ORDERED: ONDANSETRON 4 MG/2 ML (SDV) Z0FRAN IVP PRN (11:00)
[2018-04-22 11:25] VITALS: BP 126/83
[2018-04-22 11:55] VITALS: BP 127/93
[2018-04-22 12:00] VITALS: BP 127/93
--- NOTE | 2018-04-22 13:45 | Anesthesia-General Post-Op ---
MAC Patient Condition Mental Status/LOC: Same as Preop Cardiovascular: Satisfactory Nausea/Vomiting: Absent Respiratory: Satisfactory Pain: Controlled Complications: Absent Post Op Complications Complications None Follow Up Care/Instructions Patient Instructions None needed. Anesthesiology Discharge Order Discharge Order Patient is doing well, no complaints, stable vital signs, no apparent adverse anesthesia problems. No complications reported per nursing. EMELY HAYWOOD CRNA Apr 22, 2018 13:45
== END 2018-04-22 12:07 | disposition home or self-care (01) ==
LOC: SDC 08:46
PROVIDERS: ATTEND Surgery
DX: R22.1 Localized swelling, mass and lump, neck (principal); I10 Essential (primary) hypertension; G47.33 Obstructive sleep apnea (adult) (pediatric); C43.59 Malignant melanoma of other part of trunk; Z85.820 Personal history of malignant melanoma of skin; Z79.899 Other long term (current) drug therapy
CPT/HCPCS: 80306; 87081; 88305

== ENCOUNTER 2018-08-23 06:07 | Emergency (ER) | payer MEDICARE ==
[~2018-08-23] VITALS: Ht 190.5 cm; Wt 127.0 kg
[2018-08-23] MEDS ORDERED: KETOROLAC 30 MG/ML VIAL IVP STA (06:15)
[2018-08-23] MEDS ORDERED: NS IV 1000 ML 1,000 ML IV ONE (06:15)
[2018-08-23] MEDS ORDERED: fentaNYL INJECTION 100 MCG/2 ML AMP IVP STA (06:15)
--- NOTE | 2018-08-23 06:29 | ED General ---
General Stated Complaint: LEG PAIN Source of Information: Patient Exam Limitations: No Limitations (RY JARRELL MD) History of Present Illness Date Seen by Provider: August 23, 2018 Time Seen by Provider: 06:05 Initial Comments Here by EMS with report of right leg pain. Note swelling of the knee. States feels like his gout he did take his gout medicine yesterday which was colchicine. He took the dose followed by another dose an hour later later. States pain radiates from his knee up to his hip. Denies fever or chills. Denies nausea or vomiting. Pain is severe and he has not had anything for it. Recently had a tick bite diagnosed with Lyme's disease and is currently on doxycycline. Timing/Duration: 2-3 Days Severity: Moderate, Severe Modifying Factors: improves with Immobilization; worse with Movement Associated Systoms: No Fever/Chills, No Nausea/Vomiting, No Shortness of Air, No Weakness (RY JARRELL MD) Allergies and Home Medications Allergies Coded Allergies: No Known Drug Allergies (Unverified , 03/10/11) Patient Home Medication List Home Medication List Reviewed: Yes (RY JARRELL MD) Review of Systems Review of Systems Constitutional: see HPI; No chills, No fever EENTM: no symptoms reported Respiratory: no symptoms reported Cardiovascular: no symptoms reported Gastrointestinal: No nausea, No vomiting Genitourinary: no symptoms reported Musculoskeletal: see HPI, joint pain, joint swelling, muscle pain, muscle stiffness Skin: change in color; No lesions Psychiatric/Neurological: Denies Headache, Denies Numbness Hematologic/Lymphatic: No Symptoms Reported (RY JARRELL MD) All Other Systems Reviewed Negative Unless Noted: Yes (RY JARRELL MD) Past Nzdvrsa-Yfmgrc-Elsdva Hx Past Med/Social Hx: Reviewed Nursing Past Med/Soc Hx (RY JARRELL MD) Patient Social History Alcohol Use: Occasionally Uses Alcohol Beverage of Choice: Beer Recreational Drug Use: No Drug of Choice: PT REPORTS HX OF METH USE; Smoking Status: Never a Smoker 2nd Hand Smoke Exposure: No Recent Foreign Travel: No Contact w/Someone Who Travel: No Recent Hopitalizations: No (RY JARRELL MD) Immunizations Up To Date Tetanus Booster (TDap): More than 5yrs Date of Pneumonia Vaccine: Mar 16, 2014 (RY JARRELL MD) Seasonal Allergies Seasonal Allergies: No (RY JARRELL MD) Past Medical History Surgeries: Yes (removal of 2 lesions to right and left groin, L shoulder, ESWL) Adenoidectomy, Appendectomy, Orthopedic, Tonsillectomy Respiratory: Yes Sleep Apnea Currently Using CPAP: Yes ("sometimes") Currently Using BIPAP: No Cardiac: Yes Heart Murmur Neurological: No Headaches /Migraines Reproductive Disorders: No Sexually Transmitted Disease: No HIV/AIDS: No Genitourinary: Yes Kidney Stones Gastrointestinal: Yes Gastroesophageal Reflux, Hepatitis Musculoskeletal: Yes Gout Endocrine: No HEENT: No Loss of Vision: Denies Hearing Impairment: Denies Cancer: Yes (stage 4 melanoma skin cancer) Melanoma What Type of Treatment Did You: Surgical Intervention Psychosocial: Yes Anxiety, Depression Integumentary: Yes (multiple lesion removals for melanoma,stage 4 melanoma) Blood Disorders: No Adverse Reaction/Blood Tranf: No (RY JARRELL MD) Family Medical History FH: coronary artery disease 19 MOTHER FH: liver cancer 19 FATHER No Pertinent Family Hx (RY JARRELL MD) Physical Exam Vital Signs Vital Signs - First Documented 08/23/18 08/23/18 06:07 06:45 Temp 99.0 Pulse 90 Resp 20 B/P (MAP) 156/91 (112) Pulse Ox 97 O2 Delivery Room Air O2 Flow Rate 2.00 (RHETT GUILLEN) Vital Signs Capillary Refill : (RY JARRELL MD) Height, Weight, BMI Height: 6'3.00" Weight: 270lbs. 0.0oz. 122.271919tm; 33.8 BMI Method:Stated General Appearance: WD/WN, Moderate Distress (pain) HEENT: PERRL/EOMI, Pharynx Normal Neck: Non Tender, Supple Respiratory: Lungs Clear, Normal Breath Sounds Cardiovascular: Regular Rate, Rhythm, No Murmur Gastrointestinal: Non Tender, Soft Extremity: No Calf Tenderness, Pelvis Stable, Swelling (right knee swollen as well as right upper leg.) Neurologic/Psychiatric: Alert, Oriented x3, No Motor/Sensory Deficits Skin: Warm/Dry, Erythema (right knee and upper leg), Other (no obvious lesions or injuries externally to the upper leg.) (RY JARRELL MD) Focused Exam Lactate Level 08/23/18 06:25: Lactic Acid Level 1.82 (RHETT GUILLEN) Lactic Acid Level (RHETT GUILLEN) Procedures/Interventions Additional Procedures: Arthrocentesis Aspirating Progress The patient was positioned in an upright sitting position with his leg at a nearly 90 flexed position. The knee was palpated and using a medial approach to the anterior knee we made a stuart using the cap Of a ballpoint pen and then thoroughly scrubbed the skin of the knee using alcohol pads. After that dried we then used Betadine swabs and cleaned his whole knee anteriorly. We then donned sterile gloves using usual sterile technique we used a 5 inch 20-gauge spinal needle to enter the anterior medial right knee joint space. We infiltrated about 2 cc of equal parts 1% lidocaine and 0.5% Marcaine without epinephrine. We then switched the syringe out for a 20 cc syringe and aspirated 20 cc of a viscus, yellow, cloudy, stringy fluid. We switched out the syringe and sent that down for cultures to the lab. We aspirate another 20 cc out. We then removed the needle and placed a sterile bandage. Patient tolerated procedure well. (RHETT GUILLEN) Progress/Results/Core Measures Suspected Sepsis SIRS Temperature: Pulse: Respiratory Rate: Blood Pressure / Mean: (RY JARRELL MD) Results/Orders Lab Results Laboratory Tests Test 08/23/18 06:25 08/23/18 06:50 08/23/18 08:15 Range/Units White Blood Count 12.9 H 4.3-11.0 10^3/uL Red Blood Count 4.20 L 4.35-5.85 10^6/uL Hemoglobin 12.3 L 13.3-17.7 G/DL Hematocrit 36 L 40-54 % Mean Corpuscular Volume 86 80-99 FL Mean Corpuscular Hemoglobin 29 25-34 PG Mean Corpuscular Hemoglobin Concent 34 32-36 G/DL Red Cell Distribution Width 12.7 10.0-14.5 % Platelet Count 283 130-400 10^3/uL Mean Platelet Volume 10.2 7.4-10.4 FL Neutrophils (%) (Auto) 77 H 42-75 % Lymphocytes (%) (Auto) 13 12-44 % Monocytes (%) (Auto) 10 0-12 % Eosinophils (%) (Auto) 0 0-10 % Basophils (%) (Auto) 0 0-10 % Neutrophils # (Auto) 9.9 H 1.8-7.8 X 10^3 Lymphocytes # (Auto) 1.6 1.0-4.0 X 10^3 Monocytes # (Auto) 1.3 H 0.0-1.0 X 10^3 Eosinophils # (Auto) 0.0 0.0-0.3 10^3/uL Basophils # (Auto) 0.0 0.0-0.1 10^3/uL Erythrocyte Sedimentation Rate 48 H 0-15 MM/HR Sodium Level 137 135-145 MMOL/L Potassium Level 4.0 3.6-5.0 MMOL/L Chloride Level 104 98-107 MMOL/L Carbon Dioxide Level 20 L 21-32 MMOL/L Anion Gap 13 5-14 MMOL/L Blood Urea Nitrogen 10 7-18 MG/DL Creatinine 0.84 0.60-1.30 MG/DL Estimat Glomerular Filtration Rate > 60 BUN/Creatinine Ratio 12 Glucose Level 102 70-105 MG/DL Lactic Acid Level 1.82 0.50-2.00 MMOL/L Calcium Level 9.4 8.5-10.1 MG/DL Corrected Calcium 9.6 8.5-10.1 MG/DL Total Bilirubin 0.7 0.1-1.0 MG/DL Aspartate Amino Transf (AST/SGOT) 12 5-34 U/L Alanine Aminotransferase (ALT/SGPT) 16 0-55 U/L Alkaline Phosphatase 67 40-136 U/L C-Reactive Protein High Sensitivity 9.20 H 0.00-0.50 MG/DL Total Protein 6.9 6.4-8.2 GM/DL Albumin 3.8 3.2-4.5 GM/DL Uric Acid 6.6 2.6-7.2 MG/DL Body Fluid Source SYNOVIAL Body Fluid Color PALE YELLOW Body Fluid Appearance MKD CLDY Body Fluid WBC 76098 /uL Body Fluid RBC 150 /uL Body Fluid Polynuclear WBCs 97 % Body Fluid Mononuclear WBCs 0 % Body Fluid Lymphocytes 3 % Body Fluid Other Cells 0 % Body Fluid Crystals CA PYROPHOSPHATE (RHETT GUILLEN) My Orders Orders - RHETT GUILLEN Fentanyl Injection (Sublimaze Injection (08/23/18 08:00) Lidocaine 1% Inj 20 Ml (Xylocaine 1% Inj (08/23/18 08:00) Bupivacaine 0.5% Injection (Sensorcaine (08/23/18 08:00) Body Fluid Cell Count (08/23/18 08:01) Body Fluid Culture (08/23/18 08:01) Anaerobic Culture (08/23/18 08:15) Crystals,Body Fluid (08/23/18 10:32) General/Regular (08/23/18 Lunch) Oxycodone/Apap 5/325mg Tablet (Percocet (08/23/18 11:15) (RHETT GUILLEN) Medications Given in ED Current Medications Medications Dose Ordered Sig/Tra Route Start Time Stop Time Status Last Admin Dose Admin Bupivacaine HCl 30 ml ONCE ONCE INJ 08/23/18 08:00 08/23/18 08:01 DC 08/23/18 07:56 30 ML Fentanyl Citrate 100 mcg ONCE ONCE IVP 08/23/18 08:00 08/23/18 08:01 DC 08/23/18 07:55 100 MCG Lidocaine HCl 20 ml ONCE ONCE INJ 08/23/18 08:00 08/23/18 08:01 DC 08/23/18 07:56 20 ML Oxycodone/ Acetaminophen 1 tab ONCE ONCE PO 08/23/18 11:15 08/23/18 11:16 DC 08/23/18 11:10 1 TAB Sodium Chloride 1,000 ml @ 0 mls/hr Q0M ONCE IV 08/23/18 06:15 08/23/18 06:18 DC 08/23/18 06:28 1,000 MLS/HR (RHETT GUILLEN) Vital Signs/I&O 08/23/18 08/23/18 08/23/18 06:07 06:45 06:55 Temp 99.0 99.0 Pulse 90 90 Resp 20 20 B/P (MAP) 156/91 (112) 156/91 Pulse Ox 97 98 97 O2 Delivery Room Air Nasal Cannula O2 Flow Rate 2.00 (RHETT GUILLEN) Vital Signs/I&O Capillary Refill : (RY JARRELL MD) Progress Note : Progress Note Seen and evaluated on arrival by EMS. IV, labs, normal saline 1 L bolus, fentanyl 75 g IV and Toradol 30 mg IV. Due to Inflammation of the leg, blood cu ltures and lactic acid will be ordered. X-ray of the right knee will be ordered as well. (RY JARRELL MD) Progress Note #1: Time: 07:58 Progress Note Assumed care of the patient at 0700 shift change. Patient has what looks like gout and has great toe as well as his knee is swollen and he has some pain going all the way up into his hip. His uric acid is not elevated and he has elevated markers of inflammation and a white count. We are going to aspirate his knee sedative for culture and cell count. Blood cultures were already obtained. Ordered another 100 g of fentanyl for pain relief before we do the procedure. Risks, benefits and alternatives were explained to the patient and he consents to do it. Progress Note #2: Time: 09:50 Progress Note Patient received quite a bit of relief from having the fluid drained off of his right knee. We called micro-about the cell count which is still pending. I in formed us that the fluid was with copious cells so the cell count was taking a little longer but they were still working on. Progress Note #3: Time: 10:49 Progress Note Inflammatory versus infectious cell count. No bacteria noted. Waiting on crystal analysis. Progress Note #4: Time: 11:33 Progress Note Pseudogout. We'll have him continue his colchicine and start Naprosyn 500 twice a day and a steroid taper. (RHETT GUILLEN) Diagnostic Imaging Diagonstic Imaging: Xray Plain Films/CT/US/NM/MRI: knee (r) Comments [facility] [place], [place] NAME: LINDSAY BUTLER Silvana MED REC#: [id number] PT STATUS: REG ER : 1975 PHYSICIAN: RY JARRELL MD ADMIT DATE: 08/23/18/ER Draft Date of Exam:08/23/18 KNEE, RIGHT, 3 VIEWS INDICATION: Right knee pain and swelling. EXAMINATION: Right knee dated 08/23/2018. FINDINGS: 3 views of the knee. Diffuse soft tissue swelling noted. True lateral view not obtained therefore an effusion cannot be excluded but a joint effusion is suspected. Tiny density adjacent to the lateral border of the distal femur is noted and could be associated with soft tissues with a tiny avulsion fracture difficult to exclude. Remaining osseous structures unremarkable. IMPRESSION: 1. Tiny density laterally possibly a small avulsion fracture from the adjacent femur versus soft tissue findings. Correlate with any point tenderness. 2. Diffuse soft tissue swelling especially anteriorly with other findings and limitations as above. Dictated on workstation # [id number] Dict: 08/23/1814 Trans: 08/23/18 0731 [id number] Interpreted by: LAKISHA MCCLELLAN MD Electronically signed by: Reviewed: Reviewed by Me (RHETT GUILLEN) Departure Impression Primary Impression: Pseudogout involving multiple joints Disposition: HOME, SELF-CARE Condition: Improved Departure-Patient Inst. Decision time for Depature: 11:34 (RHETT GUILLEN) Referrals: [facility] DO (PCP) Primary Care Physician LUCAS PERALTA (Family) Primary Care Physician Patient Instructions: Calcium Pyrophosphate Deposition DiseaseDischarge Instructions (DC) Add. Discharge Instructions: back up scan coordinator the Naprosyn and use one capsule twice a day until your flare subsides. Use your colchicine 0.6 mg capsule twice a day until the flare subsides. back up scan coordinator some prednisone and take one capsule twice a day for the next 5 days. Follow-up with primary care as necessary. Take 1-2 tablets of Percocet every 6 hours as needed for breakthrough pain. Percocet will cause drowsiness and constipation. You should probably take MiraLAX at least once a day while on opiates. Scripts Prednisone (Prednisone) 20 Mg Tab 20 MG PO BID for 5 Days, #10 TAB 0 Refills Prov: RHETT GUILLEN 08/23/18 Naproxen (Naprosyn) 500 Mg Tablet 500 MG PO BID, #30 TAB 0 Refills Prov: RHETT GUILLEN 08/23/18 Colchicine (Colchicine) 0.6 Mg Capsule 0.6 MG PO BID PRN for GOUT PAIN, #20 CAP 0 Refills Prov: RHETT GUILLEN 08/23/18 Oxycodone HCl/Acetaminophen (Percocet 5-325 mg Tablet) 1 Each Tablet 1-2 TAB PO Q6H PRN for BREAKTHROUGH PAIN MDD 6 TABS, #15 TAB 0 Refills Prov: RHETT GUILLEN 08/23/18 RY JARRELL MD August 23, 2018 06:29 RHETT GUILLEN August 23, 2018 07:53
[2018-08-23 06:39] LABS: BASOPHILS % (AUTO) 0 % (0-10); EOSINOPHILS % (AUTO) 0 % (0-10); HEMATOCRIT 36 % (40-54); HEMOGLOBIN 12.3 G/DL (13.3-17.7); LYMPHOCYTES # (AUTO) 1.6 X 10^3 (1.0-4.0); LYMPHOCYTES % (AUTO) 13 % (12-44); MEAN CORPUSCULAR HEMOGLOBIN 29 PG (25-34); MEAN CORPUSCULAR HGB CONC 34 G/DL (32-36); MEAN CORPUSCULAR VOLUME 86 FL (80-99); MEAN PLATELET VOLUME 10.2 FL (7.4-10.4); MONOCYTES # (AUTO) 1.3 X 10^3 (0.0-1.0); MONOCYTES % (AUTO) 10 % (0-12); NEUTROPHILS # (AUTO) 9.9 X 10^3 (1.8-7.8); NEUTROPHILS % (AUTO) 77 % (42-75); PLATELET COUNT 283 10^3/uL (130-400); RED CELL DISTRIBUTION WIDTH 12.7 % (10.0-14.5); WHITE BLOOD COUNT 12.9 10^3/uL (4.3-11.0)
[2018-08-23 06:59] LABS: ALANINE AMINOTRANSFERASE 16 U/L (0-55); ALBUMIN 3.8 GM/DL (3.2-4.5); ALKALINE PHOSPHATASE 67 U/L (40-136); BILIRUBIN,TOTAL 0.7 MG/DL (0.1-1.0); BUN/CREATININE RATIO 12; CALCIUM 9.4 MG/DL (8.5-10.1); CARBON DIOXIDE 20 MMOL/L (21-32); CHLORIDE 104 MMOL/L (98-107); CREATININE SERUM 0.84 MG/DL (0.60-1.30); GFR ESTIMATED > 60; GLUCOSE 102 MG/DL (70-105); SODIUM 137 MMOL/L (135-145); TOTAL PROTEIN 6.9 GM/DL (6.4-8.2)
[2018-08-23 07:01] LABS: ERYTHROCYTE SEDIMENTATION RATE 48 MM/HR (0-15)
--- NOTE | 2018-08-23 07:03 | NUR ---
REPORT GIVEN TO NURYS GAVIN
--- NOTE | 2018-08-23 07:32 | Diagnostic Imaging Report ---
INDICATION: Right knee pain and swelling. EXAMINATION: Right knee dated 08/23/2018. FINDINGS: 3 views of the knee. Diffuse soft tissue swelling noted. True lateral view not obtained therefore an effusion cannot be excluded but a joint effusion is suspected. Tiny density adjacent to the lateral border of the distal femur is noted and could be associated with soft tissues with a tiny avulsion fracture difficult to exclude. Remaining osseous structures unremarkable. IMPRESSION: 1. Tiny density laterally possibly a small avulsion fracture from the adjacent femur versus soft tissue findings. Correlate with any point tenderness. 2. Diffuse soft tissue swelling especially anteriorly with other findings and limitations as above. Dictated by: Dictated on workstation # [id number]
--- NOTE | 2018-08-23 07:45 | NUR ---
IN ROOM AT THIS TIME.
--- NOTE | 2018-08-23 07:46 | NUR ---
DR BROWNING OF HYPERTENSION ET HE STATES HE IS GOING TO GIVE HIM SOME
--- NOTE | 2018-08-23 07:51 | NUR ---
CONTRACT DRIVER NOTIFIED OF NEEDING A 18G 1.5" NEEDLE FOR ASPIRATION.
[2018-08-23] MEDS ORDERED: fentaNYL INJECTION 100 MCG/2 ML AMP IVP ONE (08:00)
[2018-08-23] MEDS ORDERED: LIDOCAINE 1% INJ 20 ML 20 ML VIAL INJ ONE (08:00)
[2018-08-23] MEDS ORDERED: BUPIVACAINE 0.5% 30 ML (SENSORCAINE) VIAL INJ ONE (08:00)
--- NOTE | 2018-08-23 08:15 | NUR ---
DR IN ROOM ASPERATING FLUID FROM RIGHT KNEE.
--- NOTE | 2018-08-23 09:27 | NUR ---
PT STATES HE IS FEELING BETTER. WATER GIVEN PER REQUEST.
[2018-08-23 09:51] LABS: BODY FLUID APPEARENCE MKD CLDY; BODY FLUID COLOR PALE YELLOW; BODY FLUID SOURCE SYNOVIAL; BODY FLUID WBC TOTAL COUNT 34600 /uL
[2018-08-23 09:52] LABS: BODY FLUID RBC COUNT 150 /uL
[2018-08-23 10:10] LABS: BF OTHER CELLS 0 %; LYMPHOCYTES,BODY FLUID 3 %
--- NOTE | 2018-08-23 11:03 | NUR ---
PT COMPLAINS OF PAIN IN KNEE. NOTIFLYLE. WARM BLANKET GIVEN AND MENU GIVEN.
[2018-08-23] MEDS ORDERED: oxyCODONE/APAP 5/325MG (PERCOCET 5) TABLET PO ONE ×2 (11:15→11:45)
--- NOTE | 2018-08-23 11:22 | NUR ---
LUNCH ORDERED FOR PT.
[2018-08-23] MEDS ORDERED: COLC0.6C3 PO (11:44)
[2018-08-23] MEDS ORDERED: NAPR-1071 PO (11:44)
[2018-08-23] MEDS ORDERED: OXYC1TAB87 PO (11:44)
[2018-08-23] MEDS ORDERED: PRD20T PO (11:44)
[2018-08-23] MEDS ORDERED: methylPREDNISolone 80 MG/ML (DEPO MEDROL) VIAL IM ONE (11:45)
[2018-08-23 11:52] VITALS: BP 127/92
== END 2018-08-23 11:53 | disposition home or self-care (01) ==
LOC: EDUNIT# 06:07 → ER 06:09
DX: M11.29 Other chondrocalcinosis, multiple sites (principal); G47.30 Sleep apnea, unspecified; G43.909 Migraine, unspecified, not intractable, without status migrainosus; K21.9 Gastro-esophageal reflux disease without esophagitis; M10.9 Gout, unspecified; F41.9 Anxiety disorder, unspecified; F32.9 Major depressive disorder, single episode, unspecified; Z85.820 Personal history of malignant melanoma of skin; Z87.19 Personal history of other diseases of the digestive system; Z87.442 Personal history of urinary calculi; Z90.49 Acquired absence of other specified parts of digestive tract; Z80.0 Family history of malignant neoplasm of digestive organs; Z82.49 Family history of ischemic heart disease and other diseases of the circulatory system; Z90.89 Acquired absence of other organs; Z98.890 Other specified postprocedural states
CPT/HCPCS: 36415; 73562; 80053; 83605; 84550; 85025; 85652; 86141; 87040; 87070; 87075; 87116; 87205; 87206; 89051; 89060

== ENCOUNTER 2018-09-13 13:20 | Outpatient (RCR) | payer MEDICARE ==
[~2018-09-13 13:20] MED LIST changes: +COLC0.6C3 PO; +NAPR-1071 PO; +PRD20T PO
[2018-09-13 13:32] LABS: BASOPHILS % (AUTO) 1 % (0-10); EOSINOPHILS # (AUTO) 0.3 10^3/uL (0.0-0.3); EOSINOPHILS % (AUTO) 6 % (0-10); HEMATOCRIT 39 % (40-54); HEMOGLOBIN 12.4 G/DL (13.3-17.7); LYMPHOCYTES # (AUTO) 1.9 X 10^3 (1.0-4.0); LYMPHOCYTES % (AUTO) 33 % (12-44); MEAN CORPUSCULAR HEMOGLOBIN 29 PG (25-34); MEAN CORPUSCULAR HGB CONC 32 G/DL (32-36); MEAN CORPUSCULAR VOLUME 91 FL (80-99); MEAN PLATELET VOLUME 10.5 FL (7.4-10.4); MONOCYTES # (AUTO) 0.5 X 10^3 (0.0-1.0); MONOCYTES % (AUTO) 9 % (0-12); NEUTROPHILS # (AUTO) 2.9 X 10^3 (1.8-7.8); NEUTROPHILS % (AUTO) 51 % (42-75); PLATELET COUNT 233 10^3/uL (130-400); RED CELL DISTRIBUTION WIDTH 13.4 % (10.0-14.5); WHITE BLOOD COUNT 5.6 10^3/uL (4.3-11.0)
[2018-09-13 14:04] LABS: ALANINE AMINOTRANSFERASE 24 U/L (0-55); ALKALINE PHOSPHATASE 76 U/L (40-136); BUN/CREATININE RATIO 16; CALCIUM 9.8 MG/DL (8.5-10.1); CARBON DIOXIDE 28 MMOL/L (21-32); CHLORIDE 107 MMOL/L (98-107); CREATININE SERUM 1.12 MG/DL (0.60-1.30); GFR ESTIMATED > 60; GLUCOSE 82 MG/DL (70-105); POTASSIUM 4.4 MMOL/L (3.6-5.0); SODIUM 144 MMOL/L (135-145)
[2018-09-13 14:14] LABS: BILIRUBIN,TOTAL 0.3 MG/DL (0.1-1.0)
[2018-10-14] MEDS ORDERED: OXYC1TAB87 PO (15:07)
[2018-10-14] MEDS ORDERED: PRD20T PO (15:07)
== END 2018-12-12 | disposition home or self-care (01) ==
LOC: ONC 13:20
PROVIDERS: ATTEND Internal Medicine Hematology & Oncology
DX: C43.59 Malignant melanoma of other part of trunk (principal); C77.3 Secondary and unspecified malignant neoplasm of axilla and upper limb lymph nodes; I10 Essential (primary) hypertension; B19.20 Unspecified viral hepatitis C without hepatic coma; F39 Unspecified mood [affective] disorder; E66.9 Obesity, unspecified; Z68.34 Body mass index [BMI] 34.0-34.9, adult; Z79.899 Other long term (current) drug therapy
CPT/HCPCS: 36415; 80053; 83615; 85025; 99213

== ENCOUNTER 2018-10-14 13:14 | Emergency (ER) | payer MEDICARE ==
[~2018-10-14] VITALS: Ht 193 cm; Wt 124.7 kg
[2018-10-14] MEDS ORDERED: BUPIVACAINE 0.5% 30 ML (SENSORCAINE) VIAL INJ ONE (14:00)
[2018-10-14] MEDS ORDERED: LIDOCAINE 1% INJ 20 ML 20 ML VIAL INJ ONE (14:00)
[2018-10-14] MEDS ORDERED: KETOROLAC 30 MG/ML VIAL IVP ONE (14:00)
[2018-10-14] MEDS ORDERED: oxyCODONE/APAP 5/325MG (PERCOCET 5) TABLET PO ONE (14:00)
--- NOTE | 2018-10-14 14:12 | ED Lower Extremity ---
General Chief Complaint: Lower Extremity Stated Complaint: FOOT SWELLING Nursing Triage Note: Pt presents to ER via w/c with boot on left foot. Pt has concerns about his swollen left ankle. Pt states he was treated x2 months ago for pseudo-gout. Ankle is not red but warm to touch with +1 edema extended to his left knee. Multiple alleged bites are present. Pt reports he's gotten multiple tick bites in the past while fishing. Nursing Sepsis Screen: No Definite Risk Source: patient Exam Limitations: no limitations History of Present Illness Date Seen by Provider: Oct 14, 2018 Time Seen by Provider: 13:30 Initial Comments To ER with reports of left ankle pain and swelling. This began a few days ago, he was treated 2 months ago for pseudogout of the left knee. Multiple sores on lower extremities that she states are from bug bites. He was also on doxycycline a few months ago for alleged Lyme disease. History of methamphetamine use. He reports fevers. Onset: just prior to arrival Severity: moderate Pain/Injury Location: left ankle Method of Injury: unknown Modifying Factors: Worse With Movement Allergies and Home Medications Allergies Coded Allergies: No Known Drug Allergies (Unverified , 03/10/11) Home Medications Colchicine 0.6 Mg Capsule, 0.6 MG PO BID PRN for GOUT PAIN Prescribed by: RHETT GUILLEN on 08/23/18 1144 Naproxen 500 Mg Tablet, 500 MG PO BID Prescribed by: RHETT GUILLEN on 08/23/18 1144 Oxycodone HCl/Acetaminophen 1 Each Tablet, 1-2 TAB PO Q6H PRN for BREAKTHROUGH PAIN Prescribed by: RHETT GUILLEN on 08/23/18 1144 Oxycodone HCl/Acetaminophen 1 Each Tablet, 1 TAB PO Q4H Prescribed by: ESA LOEPZ on 10/14/18 1507 Prednisone 20 Mg Tab, 20 MG PO BID Prescribed by: RHETT GUILLEN on 08/23/18 1144 Prednisone 20 Mg Tab, 40 MG PO DAILY Prescribed by: ESA LOPEZ on 10/14/18 1507 Patient Home Medication List Home Medication List Reviewed: Yes Review of Systems Constitutional: see HPI, chills, fever EENTM: see HPI Respiratory: no symptoms reported Cardiovascular: no symptoms reported Genitourinary: no symptoms reported Musculoskeletal: see HPI Skin: no symptoms reported Psychiatric/Neurological: No Symptoms Reported Past Hqobybz-Frpndh-Eplweu Hx Patient Social History Alcohol Beverage of Choice: Beer Drug of Choice: PT REPORTS HX OF METH USE; 2nd Hand Smoke Exposure: No Recent Foreign Travel: No Contact w/Someone Who Travel: No Recent Infectious Disease Expo: No Recent Hopitalizations: No Immunizations Up To Date Tetanus Booster (TDap): Less than 5yrs Date of Pneumonia Vaccine: Mar 16, 2014 Seasonal Allergies Seasonal Allergies: No Past Medical History Surgeries: Yes (removal of 2 lesions to right and left groin, L shoulder, ESWL) Adenoidectomy, Appendectomy, Orthopedic, Tonsillectomy Respiratory: Yes Sleep Apnea Currently Using CPAP: Yes ("sometimes") Currently Using BIPAP: No Cardiac: Yes Heart Murmur Neurological: No Headaches /Migraines Reproductive Disorders: No Sexually Transmitted Disease: No HIV/AIDS: No Genitourinary: Yes Kidney Stones Gastrointestinal: Yes Gastroesophageal Reflux, Hepatitis Musculoskeletal: Yes Gout Endocrine: No HEENT: No Loss of Vision: Denies Hearing Impairment: Denies Cancer: Yes (stage 4 melanoma skin cancer) Melanoma What Type of Treatment Did You: Surgical Intervention Psychosocial: Yes Anxiety, Depression Integumentary: Yes (multiple lesion removals for melanoma,stage 4 melanoma) Blood Disorders: No Adverse Reaction/Blood Tranf: No Family Medical History FH: coronary artery disease 19 MOTHER FH: liver cancer 19 FATHER No Pertinent Family Hx Physical Exam Vital Signs Vital Signs - First Documented 10/14/18 13:28 Temp 98.7 Pulse 94 Resp 18 B/P (MAP) 149/103 (118) O2 Delivery Room Air Capillary Refill : Less Than 3 Seconds Height, Weight, BMI Height: 6'4.00" Weight: 275lbs. 0.0oz. 124.231510gf; 33.8 BMI Method:Stated General Appearance: WD/WN, no apparent distress Gastrointestinal: normal bowel sounds, non tender, soft Hips: bilateral hip non-tender, bilateral hip normal inspection, bilateral hip normal range of motion Legs: bilateral leg non-tender, bilateral leg normal inspection, bilateral leg normal range of motion, bilateral leg other (there are multiple sores to the anterior and posterior lower leg) Knees: bilateral knee non-tender, bilateral knee normal inspection Ankles: left ankle other (left ankle is swollen but without erythema. Swelling is circumferential) Feet: bilateral foot non-tender, bilateral foot normal inspection Neurologic/Psychiatric: alert, normal mood/affect, oriented x 3 Skin: normal color, warm/dry Progress/Results/Core Measures Results/Orders Lab Results Laboratory Tests Test 10/14/18 14:08 Range/Units White Blood Count 9.2 4.3-11.0 10^3/uL Red Blood Count 4.22 L 4.35-5.85 10^6/uL Hemoglobin 12.2 L 13.3-17.7 G/DL Hematocrit 38 L 40-54 % Mean Corpuscular Volume 90 80-99 FL Mean Corpuscular Hemoglobin 29 25-34 PG Mean Corpuscular Hemoglobin Concent 32 32-36 G/DL Red Cell Distribution Width 13.2 10.0-14.5 % Platelet Count 247 130-400 10^3/uL Mean Platelet Volume 10.1 7.4-10.4 FL Neutrophils (%) (Auto) 75 42-75 % Lymphocytes (%) (Auto) 13 12-44 % Monocytes (%) (Auto) 10 0-12 % Eosinophils (%) (Auto) 3 0-10 % Basophils (%) (Auto) 0 0-10 % Neutrophils # (Auto) 6.8 1.8-7.8 X 10^3 Lymphocytes # (Auto) 1.2 1.0-4.0 X 10^3 Monocytes # (Auto) 0.9 0.0-1.0 X 10^3 Eosinophils # (Auto) 0.2 0.0-0.3 10^3/uL Basophils # (Auto) 0.0 0.0-0.1 10^3/uL Sodium Level 140 135-145 MMOL/L Potassium Level 4.2 3.6-5.0 MMOL/L Chloride Level 105 98-107 MMOL/L Carbon Dioxide Level 27 21-32 MMOL/L Anion Gap 8 5-14 MMOL/L Blood Urea Nitrogen 14 7-18 MG/DL Creatinine 1.02 0.60-1.30 MG/DL Estimat Glomerular Filtration Rate > 60 BUN/Creatinine Ratio 14 Glucose Level 116 H 70-105 MG/DL Calcium Level 9.3 8.5-10.1 MG/DL Corrected Calcium 9.5 8.5-10.1 MG/DL Total Bilirubin 0.3 0.1-1.0 MG/DL Aspartate Amino Transf (AST/SGOT) 14 5-34 U/L Alanine Aminotransferase (ALT/SGPT) 22 0-55 U/L Alkaline Phosphatase 84 40-136 U/L C-Reactive Protein High Sensitivity 2.55 H 0.00-0.50 MG/DL Total Protein 7.1 6.4-8.2 GM/DL Albumin 3.8 3.2-4.5 GM/DL My Orders Orders - ESA LOPEZ APRN Cbc With Automated Diff (10/14/18 13:48) Erythrocyte Sedimentation Rate (10/14/18 13:48) Hs C Reactive Protein (10/14/18 13:48) Tick Panel With Lyme Eia (10/14/18 13:48) Ed Iv/Invasive Line Start (10/14/18 13:48) Ketorolac Injection (Toradol Injection) (10/14/18 14:00) Oxycodone/Apap 5/325mg Tablet (Percocet (10/14/18 14:00) Body Fluid Cell Count (10/14/18 13:48) Body Fluid Culture (10/14/18 13:48) Crystals,Body Fluid (10/14/18 13:48) Comprehensive Metabolic Panel (10/14/18 13:48) Lidocaine 1% Inj 20 Ml (Xylocaine 1% Inj (10/14/18 14:00) Bupivacaine 0.5% Injection (Sensorcaine (10/14/18 14:00) Fentanyl Injection (Sublimaze Injection (10/14/18 14:45) Methylprednisolone Sod Succ (Solu-Medrol (10/14/18 15:00) Medications Given in ED Current Medications Medications Dose Ordered Sig/Tra Route Start Time Stop Time Status Last Admin Dose Admin Fentanyl Citrate 75 mcg ONCE ONCE IVP 10/14/18 14:45 10/14/18 14:46 DC 10/14/18 14:45 75 MCG Ketorolac Tromethamine 30 mg ONCE ONCE IVP 10/14/18 14:00 10/14/18 14:01 DC 10/14/18 14:09 30 MG Methylprednisolone Sodium Succinate 125 mg ONCE ONCE IVP 10/14/18 15:00 10/14/18 15:01 DC 10/14/18 14:55 125 MG Oxycodone/ Acetaminophen 1 tab ONCE ONCE PO 10/14/18 14:00 10/14/18 14:01 DC 10/14/18 13:58 1 TAB Vital Signs/I&O 10/14/18 13:28 Temp 98.7 Pulse 94 Resp 18 B/P (MAP) 149/103 (118) O2 Delivery Room Air Blood Pressure Mean: 118 Departure Communication (Admissions) I did recommend arthrocentesis left ankle today that he refused that states he does not want to do it yet. Impression Primary Impression: Pseudogout of left ankle Disposition: HOME, SELF-CARE Condition: Stable Departure-Patient Inst. Decision time for Depature: 15:06 Referrals: [facility] DO (PCP) Primary Care Physician LUCAS PERALTA (Family) Primary Care Physician Patient Instructions: Calcium Pyrophosphate Deposition Disease Add. Discharge Instructions: 1. Anti-inflammatories as directed. Pain medication as directed. Return to ER for any fevers worsening swelling redness or other concerns. At that point the joint may need to be drained All discharge instructions reviewed with patient and/or family. Voiced understanding. Scripts Oxycodone HCl/Acetaminophen (Percocet 5-325 mg Tablet) 1 Each Tablet 1 TAB PO Q4H for PAIN-MODERATE MDD 6 TABS for 7 Days, #14 TAB Prov: ESA LOPEZ APRN 10/14/18 Prednisone (Prednisone) 20 Mg Tab 40 MG PO DAILY, #6 TAB 0 Refills Prov: ESA LOPEZ APRN 10/14/18 ESA LOPEZ APRN Oct 14, 2018 14:12
[2018-10-14 14:15] LABS: BASOPHILS % (AUTO) 0 % (0-10); EOSINOPHILS # (AUTO) 0.2 10^3/uL (0.0-0.3); EOSINOPHILS % (AUTO) 3 % (0-10); HEMATOCRIT 38 % (40-54); HEMOGLOBIN 12.2 G/DL (13.3-17.7); LYMPHOCYTES # (AUTO) 1.2 X 10^3 (1.0-4.0); LYMPHOCYTES % (AUTO) 13 % (12-44); MEAN CORPUSCULAR HEMOGLOBIN 29 PG (25-34); MEAN CORPUSCULAR HGB CONC 32 G/DL (32-36); MEAN CORPUSCULAR VOLUME 90 FL (80-99); MEAN PLATELET VOLUME 10.1 FL (7.4-10.4); MONOCYTES # (AUTO) 0.9 X 10^3 (0.0-1.0); MONOCYTES % (AUTO) 10 % (0-12); NEUTROPHILS # (AUTO) 6.8 X 10^3 (1.8-7.8); NEUTROPHILS % (AUTO) 75 % (42-75); PLATELET COUNT 247 10^3/uL (130-400); RED CELL DISTRIBUTION WIDTH 13.2 % (10.0-14.5); WHITE BLOOD COUNT 9.2 10^3/uL (4.3-11.0)
[2018-10-14 14:37] LABS: ALANINE AMINOTRANSFERASE 22 U/L (0-55); ALBUMIN 3.8 GM/DL (3.2-4.5); ALKALINE PHOSPHATASE 84 U/L (40-136); BILIRUBIN,TOTAL 0.3 MG/DL (0.1-1.0); BUN/CREATININE RATIO 14; CALCIUM 9.3 MG/DL (8.5-10.1); CARBON DIOXIDE 27 MMOL/L (21-32); CHLORIDE 105 MMOL/L (98-107); CREATININE SERUM 1.02 MG/DL (0.60-1.30); GFR ESTIMATED > 60; GLUCOSE 116 MG/DL (70-105); POTASSIUM 4.2 MMOL/L (3.6-5.0); SODIUM 140 MMOL/L (135-145); TOTAL PROTEIN 7.1 GM/DL (6.4-8.2)
[2018-10-14] MEDS ORDERED: fentaNYL INJECTION 100 MCG/2 ML AMP IVP ONE (14:45)
[2018-10-14] MEDS ORDERED: methylPREDNISolone 125 MG (Solu-MEDROL) VIAL IVP ONE (15:00)
[2018-10-14] MEDS ORDERED: OXYC1TAB87 PO (15:07)
[2018-10-14] MEDS ORDERED: PRD20T PO (15:07)
[2018-10-14 15:20] VITALS: BP 136/92
[2018-10-14 15:21] LABS: ERYTHROCYTE SEDIMENTATION RATE 33 MM/HR (0-15)
--- OUTSIDE RECORDS SUMMARY | 2018-10-14 21:18 | XMS REPORT ---
Author Author Migration, Doctor Organization [facility] Address Unknown Phone Unavailable Care Team Providers Care Insurance And Financial Services Agent Name Role Phone Migration, Doctor Unavailable Unavailable PROBLEMS Type Condition ICD9-CM Code [id number] Code Onset Dates Condition Status SNOMED Code Problem Acute gout of right foot, unspecified cause M10.9 Active 053442559 Problem Hypertension, benign I10 Active 79166161 Problem Anxiety F41.9 Active 72550353 Problem Attention deficit hyperactivity disorder (ADHD), predominantly inattentive type F90.0 Active 46564813 Problem Arthritis M19.90 Active 3918844 Problem Acute gout of left foot, unspecified cause M10.9 Active [id number] ALLERGIES No Information ENCOUNTERS Encounter Location Date Diagnosis [facility] [address] [address] August, [facility] [address] [address] August, [facility] [address] [address] August, [facility] [address] [address] August, Acute gout of right foot, unspecified cause M10.9 [facility] [address] [address] August, Fatigue, unspecified type R53.83 and Tick bite, initial encounter W57.XXXA [facility] [address] [address] Jul, Attention deficit hyperactivity disorder (ADHD), predominantly inattentive type F90.0 [facility] [id number] [place] [address] Jul, [facility] [address] [place] [address] Jul, Attention deficit hyperactivity disorder (ADHD), predominantly inattentive type F90.0 [facility] [id number] [place] [address] Jun, Attention deficit hyperactivity disorder (ADHD), predominantly inattentive type F90.0 [facility] [id number] [place] [address] May, Attention deficit hyperactivity disorder (ADHD), predominantly inattentive type F90.0 and Hypertension, benign I10 [facility] [id number] [place] [address] Dec, Acute gout of right foot, unspecified cause M10.9 [facility] [id number] [place] [address] Sep, Dermatitis L30.9 [facility] [id number] [place] [address] Nov, Acute gout of left foot, unspecified cause M10.9 [facility] [id number] [place] [address] Nov, [facility] [id number] [place] [address] August, Attention deficit hyperactivity disorder (ADHD), predominantly inattentive type F90.0 [facility] [id number] [place] [address] Jun, Attention deficit hyperactivity disorder (ADHD), predominantly inattentive type F90.0 [facility] [address] [place] [address] Jun, Attention deficit hyperactivity disorder (ADHD), predominantly inattentive type F90.0 [facility] [address] [place] [address] Jun, [facility] [id number] [place] [address] Apr, Attention deficit hyperactivity disorder (ADHD), predominantly inattentive type F90.0 and Exposure to chlamydia Z20.2 [facility] [address] [address] Apr, Attention deficit hyperactivity disorder (ADHD), predominantly inattentive type F90.0 [facility] [address] [address] Mar, Attention deficit hyperactivity disorder (ADHD), predominantly inattentive type F90.0 and Arthritis M19.90 [facility] [address] [address] Feb, [facility] [address] [address] Jan, Attention deficit hyperactivity disorder (ADHD), predominantly inattentive type F90.0 and Scrotal pain N50.82 [facility] [address] [address] Jan, [facility] [address] [address] Dec, Attention deficit hyperactivity disorder (ADHD), predominantly inattentive type F90.0 and Hypertension, benign I10 [facility] [id number] [place] [address] Apr, Gout of multiple sites, unspecified cause, unspecified chronicity M10.9 [facility] [id number] [place] [address] Oct, [facility] [id number] [place] [address] Oct, [facility] [id number] [place] [address] Oct, [facility] [id number] [place] [address] Sep, [facility] [address] [place] [address] August, [facility] [address] [id number] [place] [address] August, [facility] [place] [facility] [address] [id number] [place] [address] Jul, [facility] [place] [facility] [address] [id number] [place] [address] Jul, [facility] [place] [facility] [address] [id number] [place] [address] Jun, [facility] [place] [facility] [address] [id number] [place] [address] Jun, [facility] [place] [facility] [address] [id number] [place] [address] May, [facility] [place] [facility] [address] [id number] [place] [address] May, [facility] [place] [facility] [address] [id number] [place] [address] May, [facility] [place] [facility] [address] [id number] [place] [address] May, [facility] [place] [facility] [address] [id number] [place] [address] Apr, [facility] [place] [facility] [address] [id number] [place] [address] Apr, [facility] [place] [facility] [address] [id number] [place] [address] Apr, [facility] [place] [facility] [address] [id number] [place] [address] Apr, [facility] [place] [facility] [address] [id number] [place] [address] Sep, [facility] [place] [facility] [address] [id number] [place] [address] Sep, [facility] [place] [facility] [address] [id number] [place] [address] August, [facility] [place] [facility] [address] [id number] [place] [address] August, [facility] [place] [facility] [address] [id number] [place] [address] August, [facility] [place] [facility] [address] [id number] [place] [address] Jun, [facility] [place] [facility] [address] [id number] [place] [address] Jun, [facility] [place] [facility] [address] [id number] [place] [address] May, [facility] [place] [facility] [address] [id number] [place] [address] May, [facility] [place] [facility] [address] [id number] [place] [address] Mar, [facility] [place] [facility] [address] [id number] [place] [address] Mar, [facility] [place] [facility] [address] [id number], [place] [address] Mar, [facility] [place] [facility] [address] [id number], [place] [address] Mar, [facility] [place] [facility] [address] [id number], [place] [address] Mar, [facility] [place] [facility] [address] [id number] [place] [address] Mar, [facility] [place] [facility] [address] [id number] [place] [address] Feb, [facility] [place] [facility] [address] [id number], [place] [address] Feb, [facility] [place] [facility] [address] [id number], [place] [address] 11 Feb, 2013 [facility] [address] [id number] [place] [address] 11 Feb, 2013 [facility] [place] [facility] [address] [id number] [place] [address] 2012 [facility] [place] [facility] [address] [id number] [place] [address] Oct, [facility] [place] [facility] [address] [id number] [place] [address] 15 Oct, 2012 [facility] [address] [id number] [place] [address] Oct, [facility] [place] [facility] [address] [id number] [place] [address] Sep, [facility] [address] [id number] [place] [address] Sep, [facility] [place] [facility] [address] [id number] [place] [address] August, [facility] [address] [id number] [place] [address] Jul, [facility] [place] [facility] [address] [id number] [place] [address] Feb, [facility] [address] [id number] [place] [address] 14 Feb, 2012 [facility] [place] [facility] [address] [id number], [place] [address] 14 Feb, 2012 [facility] [place] [facility] [address] [id number] [place] [address] 13 Feb, 2012 [facility] [place] [facility] [address] [id number] [place] [address] 13 Feb, 2012 [facility] [place] [facility] [address] [facility] [id number] [place] [address] 12 Feb, 2012 [facility] [place] [facility] [address], [place] [address] 08 Feb, 2012 [facility] [id number] [place] [address] Feb, [facility] [id number] [place] [address] Feb, [facility] [id number] [place] [address] Feb, [facility] [id number] [place] [address] Feb, [facility] [id number] [place] [address] 16 Apr, 2011 Attention deficit hyperactivity disorder (ADHD), predominantly inattentive type F90.0 [facility] [id number] [place] [address] Feb, [facility] [id number] [place] [address] Feb, [facility] [id number] [place] [address] Nov, [facility] [id number] [place] [address] Sep, [facility] [id number] [place] [address] August, [facility] [id number] [address] Mar, [facility] [id number] [place] [address] Mar, [facility] [address], [place] [address] Mar, IMMUNIZATIONS No Known Immunizations SOCIAL HISTORY Never Assessed REASON FOR VISIT [place] [place] OF CARE VITAL SIGNS MEDICATIONS Unknown Medications RESULTS No Results PROCEDURES No Known procedures INSTRUCTIONS MEDICATIONS ADMINISTERED No Known Medications MEDICAL (GENERAL) HISTORY Type Description Date Medical History hypertension Medical History skin cancer Medical History ADHD Medical History gout Surgical History Testicular surgery 04/16/2015 Surgical History Cancer tumor removal 12/2015 Surgical History left testical swollen 01/2016 Surgical History kidney stone removal 09/2016 Surgical History removed a spot on his neck 03/2018 Hospitalization History left testical swollen 01/2016
--- OUTSIDE RECORDS SUMMARY | 2018-10-14 21:18 | XMS REPORT ---
Author Author LUCAS PERALTA Organization [facility] Address [address] [place] [address] Care Team Providers Care Commercial Real Estate Lender Name Role Phone LUCAS PERALTA Unavailable PROBLEMS Type Condition ICD9-CM Code VTS77-OS Code Onset Dates Condition Status SNOMED Code Problem Anxiety F41.9 Active 62694310 Problem Hypertension, benign I10 Active 28591928 Problem Chronic fatigue R53.82 Active 84091401 Problem Attention deficit hyperactivity disorder (ADHD), predominantly inattentive type F90.0 Active 31150961 Problem Arthritis M19.90 Active 4355883 Problem Acute gout of left foot, unspecified cause M10.9 Active 127951437 Problem Acute gout of right foot, unspecified cause M10.9 Active 603167433 ALLERGIES No Information ENCOUNTERS Encounter Location Date Diagnosis [facility] [id number] [place] [address] Sep, Attention deficit hyperactivity disorder (ADHD), predominantly inattentive type F90.0 [facility] [id number] [place] [address] August, Chronic fatigue R53.82 ; Arthritis M19.90 and 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 [facility] [id number] [place] [address] August, Chronic fatigue R53.82 [facility] [id number] [place] [address] August, [facility] [id number] [place] [address] August, Acute gout of right foot, unspecified cause M10.9 [facility] [address] [place] [address] August, Fatigue, unspecified type R53.83 and Tick bite, initial encounter W57.XXXA [facility] [id number] [place] [address] Jul, Attention deficit hyperactivity disorder (ADHD), predominantly inattentive type F90.0 [facility] [id number] [place] [address] Jul, [facility] [address] [address] Jul, Attention deficit hyperactivity disorder (ADHD), predominantly inattentive type F90.0 [place] [address] [address] Jun, Attention deficit hyperactivity disorder (ADHD), predominantly inattentive type F90.0 [place] [id number] [place] [address] May, Attention deficit hyperactivity disorder (ADHD), predominantly inattentive type F90.0 and Hypertension, benign I10 [facility] [id number] [place] [address] Dec, Acute gout of right foot, unspecified cause M10.9 [facility] [id number] [place] [address] Sep, Dermatitis L30.9 [facility] [id number] [place] [address] Nov, Acute gout of left foot, unspecified cause M10.9 [facility] [id number] [place] [address] Nov, [facility] [id number] [place] [address] August, Attention deficit hyperactivity disorder (ADHD), predominantly inattentive type F90.0 [facility] [id number] [place] [address] Jun, Attention deficit hyperactivity disorder (ADHD), predominantly inattentive type F90.0 [facility] [address] [address] Jun, Attention deficit hyperactivity disorder (ADHD), predominantly inattentive type F90.0 [facility] [id number] [place] [address] Jun, [facility] [id number] [place] [address] Apr, Attention deficit hyperactivity disorder (ADHD), predominantly inattentive type F90.0 and Exposure to chlamydia Z20.2 [facility] [id number] [place] [address] Apr, Attention deficit hyperactivity disorder (ADHD), predominantly inattentive type F90.0 [facility] [id number] [place] [address] Mar, Attention deficit hyperactivity disorder (ADHD), predominantly inattentive type F90.0 and Arthritis M19.90 [facility] [id number] [place] [address] Feb, [facility] [id number] [place] [address] 17 Jan, 2016 Attention deficit hyperactivity disorder (ADHD), predominantly inattentive type F90.0 and Scrotal pain N50.82 [facility] [id number] [place] [address] Jan, [facility] [id number] [place] [address] Dec, Attention deficit hyperactivity disorder (ADHD), predominantly inattentive type F90.0 and Hypertension, benign I10 [facility] [id number] [place] [address] Apr, Gout of multiple sites, unspecified cause, unspecified chronicity M10.9 [facility] [id number] [place] [address] Oct, [facility] [place] [facility] [address] [id number] [place] [address] Oct, [facility] [place] [facility] [address] [id number] [place] [address] Oct, [facility] [place] [facility] [address] [id number] [place] [address] Sep, [facility] [place] [facility] [address] [id number] [place] [address] August, [facility] [place] [facility] [address] [id number] [place] [address] August, [facility] [place] [facility] [address] [id number] [place] [address] Jul, [facility] [place] [facility] [address] [id number] [place] [address] Jul, [facility] [place] [facility] [address] [id number] [place] [address] Jun, [facility] [place] [facility] [address] [id number] [place] [address] Jun, [facility] [place] [facility] [address] [id number] [place] [address] May, [facility] [place] [facility] [address] [id number] [place] [address] May, [facility] [place] [facility] [address] [id number] [place] [address] May, [facility] [place] [facility] [address] [id number] [place] [address] May, [facility] [place] [facility] [address] [id number] [place] [address] Apr, [facility] [place] [facility] [address] [id number] [place] [address] Apr, [facility] [place] [facility] [address] [id number] [place] [address] Apr, [facility] [address] [id number] [place] [address] Apr, [facility] [place] [facility] [address] [id number] [place] [address] Sep, [facility] [address] [id number] [place] [address] Sep, [facility] [place] [facility] [address] [id number] [place] [address] August, [facility] [address] [id number] [place] [address] August, [facility] [place] [facility] [address] [id number] [place] [address] August, [facility] [address] [id number] [place] [address] Jun, [facility] [place] [facility] [address] [id number] [place] [address] Jun, [facility] [place] [facility] [address] [id number] [place] [address] May, [facility] [address] [id number] [place] [address] May, [facility] [place] [facility] [address] [id number] [place] [address] Mar, [facility] [place] [facility] [address] [id number] [place] [address] Mar, [facility] [place] [facility] [address] [id number] [place] [address] Mar, [facility] [place] [facility] [address] [id number] [place] [address] Mar, [facility] [place] [facility] [address] [id number] [place] [address] Mar, [facility] [address] [id number] [place] [address] Mar, [facility] [place] [facility] [address] [id number] [place] [address] Feb, [facility] [place] [facility] [address] [id number] [place] [address] Feb, [facility] [place] [facility] [address] [id number] [place] [address] Feb, [facility] [place] [facility] [address] [id number] [place] [address] Feb, [facility] [place] [facility] [address] [id number] [place] [address] Dec, [facility] [place] [facility] [address] [id number] [place] [address] Oct, [facility] [place] [facility] [address] [id number] [place] [address] Oct, [facility] [place] [facility] [address] [id number] [place] [address] Oct, [facility] [place] [facility] [address] [id number], [place] [address] Sep, [facility] [place] [facility] [address] [id number] [place] [address] Sep, [facility] [place] [facility] [address] [id number], [place] [address] August, [facility] [place] [facility] [address] [id number] [place] [address] Jul, [facility] [place] [facility] [address] [id number], [place] [address] Feb, [facility] [place] [facility] [address] [id number], [place] [address] 14 Feb, 2012 [facility] [place] [facility] [address] [id number], [place] [address] 14 Feb, 2012 [facility] [place] [facility] [id number] [address] 13 Feb, 2012 [facility] [id number], [place] [address] 13 Feb, 2012 [facility] [id number] [place] [address] 12 Feb, 2012 [facility] [id number] [place] [address] 08 Feb, 2012 [facility] [id number] [place] [address] 07 Feb, 2012 [facility] [id number] [place] [address] 07 Feb, 2012 [facility] [id number] [place] [address] Feb, [facility] [address] [id number], [place] [address] Feb, [facility] [place] [facility] [id number] [place] [address] 16 Apr, 2011 Attention deficit hyperactivity disorder (ADHD), predominantly inattentive type F90.0 [facility] [id number], [place] [address] Feb, [facility] [place] [facility] [id number], [place] [address] 15 Feb, 2011 [facility] [address] [id number], [place] [address] 15 Nov, 2010 [facility] [address] [id number], [place] [address] Sep, [facility] [id number], [place] [address] 16 Aug, 2010 [facility] [id number] [place] [address] Mar, [facility] [address] [facility] [id number] [place] [address] Mar, [facility] [address] [facility] [id number] [place] [address] Mar, IMMUNIZATIONS No Known Immunizations SOCIAL HISTORY Never Assessed REASON FOR VISIT PLAN OF CARE VITAL SIGNS MEDICATIONS Unknown [...] 03/2018 Hospitalization History left testical swollen 01/2016 Hospitalization History Gout in his foot 08/2018
--- OUTSIDE RECORDS SUMMARY | 2018-10-14 21:19 | XMS REPORT ---
Author Author Migration, Doctor Organization [facility] Address Unknown Phone Unavailable Care Team Providers Care Fleece Tier Name Role Phone Migration, Doctor Unavailable Unavailable PROBLEMS Type Condition ICD9-CM Code [id number] Code Onset Dates Condition Status SNOMED Code Problem Acute gout of right foot, unspecified cause M10.9 Active 122241893 Problem Hypertension, benign I10 Active 10024528 Problem Anxiety F41.9 Active 94386784 Problem Attention deficit hyperactivity disorder (ADHD), predominantly inattentive type F90.0 Active 49131455 Problem Arthritis M19.90 Active 4531939 Problem Acute gout of left foot, unspecified cause M10.9 Active [id number] ALLERGIES No Information ENCOUNTERS Encounter Location Date Diagnosis [facility] [address] [address] August, [facility] [address] [address] Jul, [facility] [address] [address] Jul, Attention deficit hyperactivity disorder (ADHD), predominantly inattentive type F90.0 [facility] [id number] [place] [address] Jun, Attention deficit hyperactivity disorder (ADHD), predominantly inattentive type F90.0 [facility] [id number] [place] [address] May, Attention deficit hyperactivity disorder (ADHD), predominantly inattentive type F90.0 and Hypertension, benign I10 [facility] [id number] [place] [address] Dec, Acute gout of right foot, unspecified cause M10.9 [facility] [id number] [place] [address] Sep, Dermatitis L30.9 [facility] [address], [place] [address] Nov, Acute gout of left foot, unspecified cause M10.9 [facility] [address], [place] [address] Nov, [facility] [id number] [place] [address] August, Attention deficit hyperactivity disorder (ADHD), predominantly inattentive type F90.0 [facility] [id number] [place] [address] Jun, Attention deficit hyperactivity disorder (ADHD), predominantly inattentive type F90.0 [facility] [address], [place] [address] Jun, Attention deficit hyperactivity disorder (ADHD), predominantly inattentive type F90.0 [facility] [id number] [address] Jun, [facility] [id number] [place] [address] Apr, Attention deficit hyperactivity disorder (ADHD), predominantly inattentive type F90.0 and Exposure to chlamydia Z20.2 [facility] [address], [place] [address] Apr, Attention deficit hyperactivity disorder (ADHD), predominantly inattentive type F90.0 [facility] [address], [place] [address] Mar, Attention deficit hyperactivity disorder (ADHD), predominantly inattentive type F90.0 and Arthritis M19.90 [facility] [id number] [address] Feb, [facility] [address], [place] [address] Jan, Attention deficit hyperactivity disorder (ADHD), predominantly inattentive type F90.0 and Scrotal pain N50.82 [facility] [id number] [address] Jan, [facility] [id number] [place] [address] 16 Dec, 2015 Attention deficit hyperactivity disorder (ADHD), predominantly inattentive type F90.0 and Hypertension, benign I10 [facility] [id number] [place] [address] Apr, Gout of multiple sites, unspecified cause, unspecified chronicity M10.9 [facility] [id number] [place] [address] Oct, [facility] [id number] [place] [address] Oct, [facility] [id number] [place] [address] Oct, [facility] [address], [place] [address] Sep, [facility] [id number] [address] August, [facility] [address], [place] [address] August, [facility] [address], [place] [address] Jul, [facility] [address], [place] [address] Jul, [facility] [address] [address] Jun, [facility] [address] [address] Jun, [facility] [address], [place] [address] May, [facility] [place] [facility] [address] [id number] [place] [address] May, [facility] [place] [facility] [address] [id number] [place] [address] May, [facility] [place] [facility] [address] [id number] [place] [address] May, [facility] [place] [facility] [address] [id number] [place] [address] Apr, [facility] [place] [facility] [address] [id number] [place] [address] Apr, [facility] [place] [facility] [address] [id number] [place] [address] Apr, [facility] [place] [facility] [address] [id number] [place] [address] Apr, [facility] [place] [facility] [address] [id number] [place] [address] Sep, [facility] [place] [facility] [address] [id number] [place] [address] Sep, [facility] [place] [facility] [address] [id number] [place] [address] August, [facility] [place] [facility] [address] [id number] [place] [address] August, [facility] [place] [facility] [address] [id number] [place] [address] August, [facility] [place] [facility] [address] [id number] [place] [address] Jun, [facility] [place] [facility] [address] [id number] [place] [address] Jun, [facility] [place] [facility] [address] [id number] [place] [address] May, [facility] [place] [facility] [address] [id number] [place] [address] May, [facility] [address] [id number] [place] [address] Mar, [facility] [address] [id number] [place] [address] Mar, [facility] [address] [id number] [place] [address] Mar, [facility] [place] [facility] [address] [id number] [place] [address] Mar, [facility] [address] [id number] [place] [address] Mar, [facility] [address] [id number] [place] [address] Mar, [facility] [address] [id number] [place] [address] Feb, [facility] [address] [id number] [place] [address] Feb, [facility] [address] [id number] [place] [address] Feb, [facility] [address] [facility] [id number] [place] [address] Feb, [facility] [address] [id number] [place] [address] Dec, [facility] [place] [facility] [address] [id number], [place] [address] Oct, [facility] [place] [facility] [address] [id number] [place] [address] Oct, [facility] [place] [facility] [address] [id number] [place] [address] Oct, [facility] [place] [facility] [address] [id number], [place] [address] Sep, [facility] [place] [facility] [address] [id number] [place] [address] Sep, [facility] [address] [facility] [id number] [place] [address] August, [facility] [address] [facility] [id number] [place] [address] Jul, [facility] [address] [id number] [place] [address] Feb, [facility] [address] [id number] [place] [address] 14 Feb, 2012 [facility] [address] [facility] [id number] [place] [address] 14 Feb, 2012 [facility] [id number] [address] 13 Feb, 2012 [facility] [id number] [address] 13 Feb, 2012 [facility] [id number] [address] 12 Feb, 2012 [facility] [id number] [address] 08 Feb, 2012 [facility] [id number] [address] Feb, [facility] [address] [facility] [id number], [place] [address] Feb, [facility] [address] [facility] [id number] [place] [address] Feb, [facility] [place] [facility] [address] [facility] [id number] [place] [address] Feb, [facility] [place] [facility] [address] [facility] [id number] [place] [address] 16 Apr, 2011 Attention deficit hyperactivity disorder (ADHD), predominantly inattentive type F90.0 [facility] [id number], [place] [address] Feb, [facility] [address], [place] [address] Feb, [facility] [address], [place] [address] Nov, [facility] [address], [place] [address] Sep, [facility] [address], [place] [address] August, [facility] [address], [place] [address] Mar, [facility] [address], [place] [address] Mar, [facility] [address], [place] [address] Mar, IMMUNIZATIONS No Known Immunizations SOCIAL HISTORY Never Assessed REASON FOR VISIT [facility] PLAN OF CARE VITAL [...]
--- OUTSIDE RECORDS SUMMARY | 2018-10-14 21:19 | XMS REPORT ---
Author Author Migration, Doctor Organization [facility] Address Unknown Phone Unavailable Care Team Providers Care Electrical Helper Name Role Phone Migration, Doctor Unavailable Unavailable PROBLEMS Type Condition ICD9-CM Code [id number] Code Onset Dates Condition Status SNOMED Code Problem Acute gout of right foot, unspecified cause M10.9 Active 788605360 Problem Hypertension, benign I10 Active 43268186 Problem Anxiety F41.9 Active 79739712 Problem Attention deficit hyperactivity disorder (ADHD), predominantly inattentive type F90.0 Active 03978326 Problem Arthritis M19.90 Active 6324015 Problem Acute gout of left foot, unspecified cause M10.9 Active 849732460 ALLERGIES No Information ENCOUNTERS Encounter Location Date Diagnosis [place] [address] [address] Jul, [place] [address] [address] Jun, Attention deficit hyperactivity disorder (ADHD), predominantly inattentive type F90.0 [place] [address] [address] May, Attention deficit hyperactivity disorder (ADHD), predominantly inattentive type F90.0 and Hypertension, benign I10 [facility] [id number] [place] [address] Dec, Acute gout of right foot, unspecified cause M10.9 [facility] [address] [address] Sep, Dermatitis L30.9 [facility] [address] [address] Nov, Acute gout of left foot, unspecified cause M10.9 [facility] [address] [address] Nov, [facility] [address] [place] [address] August, Attention deficit hyperactivity disorder (ADHD), predominantly inattentive type F90.0 [facility] [id number] [place] [address] Jun, Attention deficit hyperactivity disorder (ADHD), predominantly inattentive type F90.0 [facility] [id number] [place] [address] Jun, Attention deficit hyperactivity disorder (ADHD), predominantly inattentive type F90.0 [facility] [id number] [place] [address] Jun, [facility] [id number] [place] [address] Apr, Attention deficit hyperactivity disorder (ADHD), predominantly inattentive type F90.0 and Exposure to chlamydia Z20.2 [facility] [id number] [place] [address] Apr, Attention deficit hyperactivity disorder (ADHD), predominantly inattentive type F90.0 [facility] [id number] [place] [address] Mar, Attention deficit hyperactivity disorder (ADHD), predominantly inattentive type F90.0 and Arthritis M19.90 [facility] [id number] [place] [address] Feb, [facility] [id number] [place] [address] Jan, Attention deficit hyperactivity disorder (ADHD), predominantly inattentive type F90.0 and Scrotal pain N50.82 [facility] [id number] [place] [address] Jan, [facility] [id number] [place] [address] 16 Sep, 2016 Attention deficit hyperactivity disorder (ADHD), predominantly inattentive type F90.0 and Hypertension, benign I10 [facility] [address], [place] [address] Apr, Gout of multiple sites, unspecified cause, unspecified chronicity M10.9 [facility] [id number] [place] [address] Oct, [facility] [id number] [place] [address] Oct, [facility] [address] [id number] [place] [address] Oct, [facility] [id number] [place] [address] Sep, [facility] [id number], [place] [address] August, [facility] [id number], [place] [address] August, [facility] [id number] [place] [address] Jul, [facility] [address], [place] [address] Jul, [facility] [address], [place] [address] Jun, [facility] [address], [place] [address] Jun, [facility] [id number] [place] [address] May, [facility] [address], [place] [address] May, [facility] [address], [place] [address] May, [facility] [address] [id number] [place] [address] May, [facility] [address] [id number] [place] [address] Apr, [facility] [place] [facility] [address] [id number] [place] [address] Apr, [facility] [place] [facility] [address] [id number] [place] [address] Apr, [facility] [place] [facility] [address] [id number] [place] [address] Apr, [facility] [place] [facility] [address] [id number] [place] [address] Sep, [facility] [place] [facility] [address] [id number] [place] [address] Sep, [facility] [place] [facility] [address] [id number] [place] [address] August, [facility] [place] [facility] [address] [id number] [place] [address] August, [facility] [place] [facility] [address] [id number] [place] [address] August, [facility] [place] [facility] [address] [id number] [place] [address] Jun, [facility] [place] [facility] [address] [id number] [place] [address] Jun, [facility] [place] [facility] [address] [id number] [place] [address] May, [facility] [place] [facility] [address] [id number] [place] [address] May, [facility] [place] [facility] [address] [id number] [place] [address] Mar, [facility] [place] [facility] [address] [id number] [place] [address] Mar, [facility] [place] [facility] [address] [id number] [place] [address] Mar, [facility] [place] [facility] [address] [id number] [place] [address] Mar, [facility] [place] [facility] [address] [id number] [place] [address] Mar, [facility] [place] [facility] [address] [id number] [place] [address] Mar, [facility] [address] [id number] [place] [address] Feb, [facility] [place] [facility] [address] [id number] [place] [address] Feb, [facility] [address] [id number] [place] [address] Feb, [facility] [place] [facility] [address] [id number] [place] [address] Feb, [facility] [place] [facility] [address] [id number] [place] [address] Dec, [facility] [place] [facility] [address] [id number] [place] [address] Oct, [facility] [place] [facility] [address] [id number] [place] [address] Oct, [facility] [place] [facility] [address] [id number], [place] [address] Oct, [facility] [place] [facility] [address] [id number] [place] [address] Sep, [facility] [place] [facility] [address] [id number] [place] [address] Sep, [facility] [place] [facility] [address] [id number] [place] [address] August, [facility] [place] [facility] [address] [id number], [place] [address] Jul, [facility] [address], [place] [address] 20 Feb, 2012 [facility] [address], [place] [address] 14 Feb, 2012 [facility] [address], [place] [address] 14 Feb, 2012 [facility] [id number] [place] [address] 13 Feb, 2012 [facility] [address] [place] [address] 13 Feb, 2012 [facility] [address] [place] [address] 12 Feb, 2012 [facility] [id number] [place] [address] 08 Feb, 2012 [facility] [address], [place] [address] 07 Feb, 2012 [facility] [address] [place] [address] 07 Feb, 2012 [facility] [address], [place] [address] 07 Feb, 2012 [facility] [address], [place] [address] Feb, [facility] [address], [place] [address] 16 Apr, 2011 Attention deficit hyperactivity disorder (ADHD), predominantly inattentive type F90.0 [facility] [address], [place] [address] Feb, [facility] [address], [place] [address] 15 Feb, 2011 [facility] [address], [place] [address] Nov, [facility] [address] [facility] [id number] [place] [address] Sep, [facility] [address] [facility] [id number], [place] [address] August, [facility] [address] [facility] [id number], [place] [address] Mar, [facility] [address] [facility] [id number], [place] [address] Mar, [facility] [address] [facility] [id number], [place] [address] Mar, IMMUNIZATIONS No Known Immunizations SOCIAL HISTORY Never Assessed REASON FOR VISIT [facility] [place] PLAN OF CARE VITAL SIGNS MEDICATIONS Medication Instructions Dosage Frequency Start Date End Date Duration Status Imitrex 100 mg 1 tablet by Oral route 1 time per day and repeat once more after 2 hours if headache recurs PRN Apr, Active Lisinopril 20 mg take 1 tablet by Oral route 1 time per day Jun, Active Colcrys 0.6 mg take 2 tablets by Oral route initially, then take 1 tablet (0.6 mg) in 1 hour Apr, Active Bactrim DS 800-160 mg 1 tablet by Oral route 2 times per day for 10 day(s) Apr, Active Adderall XR 20 mg take 1 capsule (20 mg) by oral route once daily in the morning upon awakening for ADHD Jun, Active Amoxicillin 500 mg 1 capsule by Oral route 3 times per day for 10 days Feb, Active Indomethacin 50 mg 1 capsule by Oral route 3 times per day Jun, Active RESULTS No Results PROCEDURES No Known procedures INSTRUCTIONS MEDICATIONS ADMINISTERED No Known Medications MEDICAL (GENERAL) HISTORY Type Description Date Medical History hypertension Medical History skin cancer Medical History ADHD Medical History gout Surgical History Testicular surgery 04/16/2015 Surgical History Cancer tumor removal 12/2015 Surgical History left testical swollen 01/2016 Surgical History kidney stone removal 09/2016 Hospitalization History left testical swollen 01/2016
--- OUTSIDE RECORDS SUMMARY | 2018-10-14 21:19 | XMS REPORT ---
Author Author Migration, Doctor Organization [facility] Address Unknown Phone Unavailable Care Team Providers Care Corpsman Name Role Phone Migration, Doctor Unavailable Unavailable PROBLEMS Type Condition ICD9-CM Code DTP38-MC Code Onset Dates Condition Status SNOMED Code Problem Acute gout of right foot, unspecified cause M10.9 Active 697996224 Problem Hypertension, benign I10 Active 84357136 Problem Anxiety F41.9 Active 90173878 Problem Attention deficit hyperactivity disorder (ADHD), predominantly inattentive type F90.0 Active 82586472 Problem Arthritis M19.90 Active 9301034 Problem Acute gout of left foot, unspecified cause M10.9 Active [id number] ALLERGIES No Information ENCOUNTERS Encounter Location Date Diagnosis [facility] [address] [address] Jul, [facility] [address] [address] May, Attention deficit hyperactivity disorder (ADHD), predominantly inattentive type F90.0 and Hypertension, benign I10 [facility] [id number] [place] [address] Dec, Acute gout of right foot, unspecified cause M10.9 [facility] [id number] [place] [address] Sep, Dermatitis L30.9 [facility] [id number] [place] [address] Nov, Acute gout of left foot, unspecified cause M10.9 [facility] [address] [address] Nov, [facility] [address] [address] August, Attention deficit hyperactivity disorder (ADHD), predominantly inattentive type F90.0 [facility] [address] [address] Jun, Attention deficit hyperactivity disorder (ADHD), predominantly inattentive type F90.0 [facility] [id number] [place] [address] Jun, Attention deficit hyperactivity disorder (ADHD), predominantly inattentive type F90.0 [facility] [id number] [place] [address] Jun, [facility] [id number] [place] [address] Apr, Attention deficit hyperactivity disorder (ADHD), predominantly inattentive type F90.0 and Exposure to chlamydia Z20.2 [facility] [id number] [place] [address] Apr, Attention deficit hyperactivity disorder (ADHD), predominantly inattentive type F90.0 [facility] [id number] [place] [address] Mar, Attention deficit hyperactivity disorder (ADHD), predominantly inattentive type F90.0 and Arthritis M19.90 [facility] [id number] [place] [address] Feb, [facility] [id number] [place] [address] Jan, Attention deficit hyperactivity disorder (ADHD), predominantly inattentive type F90.0 and Scrotal pain N50.82 [facility] [id number] [place] [address] Jan, [facility] [id number] [place] [address] Dec, Attention deficit hyperactivity disorder (ADHD), predominantly inattentive type F90.0 and Hypertension, benign I10 [facility] [id number] [place] [address] Apr, Gout of multiple sites, unspecified cause, unspecified chronicity M10.9 [facility] [address] [id number] [place] [address] Oct, [facility] [address] [id number] [place] [address] Oct, [facility] [address] [id number] [place] [address] Oct, [facility] [address] [id number] [place] [address] Sep, [facility] [address] [id number] [place] [address] August, [facility] [address] [facility] [id number] [place] [address] August, [facility] [address] [id number] [place] [address] Jul, [facility] [address] [facility] [address] [facility] [id number] [place] [address] Jul, [facility] [address] [id number] [place] [address] Jun, [facility] [address] [id number] [place] [address] Jun, [facility] [address] [id number] [place] [address] May, [facility] [address] [address] [facility] [id number] [place] [address] May, [facility] [address] [facility] [id number] [place] [address] May, [facility] [address] [facility] [id number] [place] [address] May, [facility] [address] [id number] [place] [address] Apr, [facility] [address] [id number] [place] [address] Apr, [facility] [place] [facility] [address] [id number] [place] [address] Apr, [facility] [place] [facility] [address] [id number] [place] [address] Apr, [facility] [place] [facility] [address] [id number] [place] [address] Sep, [facility] [place] [facility] [address] [id number] [place] [address] Sep, [facility] [place] [facility] [address] [id number] [place] [address] August, [facility] [place] [facility] [address] [id number] [place] [address] August, [facility] [place] [facility] [address] [id number] [place] [address] August, [facility] [place] [facility] [address] [id number] [place] [address] Jun, [facility] [place] [facility] [address] [id number] [place] [address] Jun, [facility] [place] [facility] [address] [id number] [place] [address] May, [facility] [place] [facility] [address] [id number] [place] [address] May, [facility] [place] [facility] [address] [id number] [place] [address] Mar, [facility] [place] [facility] [address] [id number] [place] [address] Mar, [facility] [place] [facility] [address] [id number] [place] [address] Mar, [facility] [place] [facility] [address] [id number] [place] [address] Mar, [facility] [address] [id number] [place] [address] Mar, [facility] [place] [facility] [address] [id number] [place] [address] Mar, [facility] [address] [id number] [place] [address] Feb, [facility] [place] [facility] [address] [id number] [place] [address] Feb, [facility] [place] [facility] [address] [id number] [place] [address] Feb, [facility] [place] [facility] [address] [id number] [place] [address] Feb, [facility] [address] [id number] [place] [address] Dec, [facility] [place] [facility] [address] [id number] [place] [address] Oct, [facility] [place] [facility] [address] [id number] [place] [address] Oct, [facility] [place] [facility] [address] [id number] [place] [address] Oct, [facility] [place] [facility] [address] [id number] [place] [address] Sep, [facility] [place] [facility] [address] [id number] [place] [address] Sep, [facility] [place] [facility] [address] [id number] [place] [address] August, [facility] [place] [facility] [address] [id number] [place] [address] Jul, [facility] [place] [facility] [address] [id number] [place] [address] Feb, [facility] [place] [facility] [address] [address] [facility] [id number] [place] [address] 14 Feb, 2012 [facility] [address] [facility] [id number] [place] [address] 14 Feb, 2012 [facility] [address] [facility] [id number] [place] [address] 13 Feb, 2012 [facility] [address] [address] [facility] [id number] [place] [address], [place] [address] 13 Feb, 2012 [facility] [address] [facility] [id number] [place] [address] 12 Feb, 2012 [facility] [address] [facility] [id number] [place] [address], [place] [address] 08 Feb, 2012 [facility] [address] [id number] [place] [address] 07 Feb, 2012 [facility] [id number] [place] [address] 07 Feb, 2012 [facility] [address] [id number] [place] [address] Feb, [facility] [address] [address] 07 Feb, 2012 [facility] [address] [id number] [address] 16 Apr, 2011 Attention deficit hyperactivity disorder (ADHD), predominantly inattentive type F90.0 [facility] [address] [id number] [place] [address] Feb, [facility] [address] [id number] [address] 15 Feb, 2011 [facility] [address] [id number] [place] [address] 15 Nov, 2010 [facility] [address] [id number] [place] [address] Sep, [facility] [address] [address] [facility] [id number] [place] [address] August, [facility] [address] [facility] [id number], [place] [address] Mar, [facility] [address] [facility] [id number], [place] [address] Mar, [facility] [address] [facility] [id number], [place] [address] Mar, IMMUNIZATIONS No Known Immunizations SOCIAL HISTORY Never Assessed REASON FOR VISIT EMR-[facility] PLAN OF CARE VITAL SIGNS MEDICATIONS Unknown [...]
--- OUTSIDE RECORDS SUMMARY | 2018-10-14 21:19 | XMS REPORT ---
Author Author Migration, Doctor Organization [facility] Address Unknown Phone Unavailable Care Team Providers Care Buyer Grain Name Role Phone Migration, Doctor Unavailable Unavailable PROBLEMS Type Condition ICD9-CM Code [id number] Code Onset Dates Condition Status SNOMED Code Problem Acute gout of right foot, unspecified cause M10.9 Active 403107034 Problem Hypertension, benign I10 Active 01566716 Problem Anxiety F41.9 Active 81495656 Problem Attention deficit hyperactivity disorder (ADHD), predominantly inattentive type F90.0 Active 69199028 Problem Arthritis M19.90 Active 6791510 Problem Acute gout of left foot, unspecified cause M10.9 Active 889918895 ALLERGIES No Information ENCOUNTERS Encounter Location Date Diagnosis [facility] [address] [address] August, [facility] [address] [address] Jul, Attention deficit hyperactivity disorder (ADHD), predominantly inattentive type F90.0 [facility] [id number] [place] [address] Jul, [facility] [id number] [place] [address] Jul, Attention deficit hyperactivity disorder (ADHD), predominantly inattentive type F90.0 [facility] [id number] [place] [address] Jun, Attention deficit hyperactivity disorder (ADHD), predominantly inattentive type F90.0 [facility] [address] [address] May, Attention deficit hyperactivity disorder (ADHD), predominantly inattentive type F90.0 and Hypertension, benign I10 [facility] [address] [address] Dec, Acute gout of right foot, unspecified cause M10.9 [facility] [id number] [place] [address] Sep, Dermatitis L30.9 [facility] [id number] [place] [address] Nov, Acute gout of left foot, unspecified cause M10.9 [facility] [id number] [place] [address] Nov, [facility] [id number] [place] [address] August, Attention deficit hyperactivity disorder (ADHD), predominantly inattentive type F90.0 [facility] [id number] [place] [address] Jun, Attention deficit hyperactivity disorder (ADHD), predominantly inattentive type F90.0 [facility] [id number] [place] [address] Jun, Attention deficit hyperactivity disorder (ADHD), predominantly inattentive type F90.0 [facility] [id number] [place] [address] Jun, [facility] [id number] [place] [address] Apr, Attention deficit hyperactivity disorder (ADHD), predominantly inattentive type F90.0 and Exposure to chlamydia Z20.2 [facility] [id number] [place] [address] Apr, Attention deficit hyperactivity disorder (ADHD), predominantly inattentive type F90.0 [facility] [id number] [place] [address] Mar, Attention deficit hyperactivity disorder (ADHD), predominantly inattentive type F90.0 and Arthritis M19.90 [facility] [id number] [place] [address] Feb, [facility] [address], [place] [address] Jan, Attention deficit hyperactivity disorder (ADHD), predominantly inattentive type F90.0 and Scrotal pain N50.82 [facility] [address] [id number] [address] Jan, [facility] [id number] [place] [address] Dec, Attention deficit hyperactivity disorder (ADHD), predominantly inattentive type F90.0 and Hypertension, benign I10 [facility] [id number] [place] [address] Apr, Gout of multiple sites, unspecified cause, unspecified chronicity M10.9 [facility] [id number] [place] [address] Oct, [facility] [id number] [place] [address] Oct, [facility] [id number] [place] [address] Oct, [facility] [id number] [place] [address] Sep, [facility] [address], [place] [address] August, [facility] [id number] [place] [address] August, [facility] [address] [address] Jul, [facility] [id number] [place] [address] Jul, [facility] [address], [place] [address] Jun, [facility] [id number] [place] [address] Jun, [facility] [place] [facility] [address] [id number] [place] [address] May, [facility] [place] [facility] [address] [id number] [place] [address] May, [facility] [place] [facility] [address] [id number] [place] [address] May, [facility] [place] [facility] [address] [id number] [place] [address] May, [facility] [place] [facility] [address] [id number] [place] [address] Apr, [facility] [place] [facility] [address] [id number] [place] [address] Apr, [facility] [place] [facility] [address] [id number] [place] [address] Apr, [facility] [place] [facility] [address] [id number] [place] [address] Apr, [facility] [place] [facility] [address] [id number] [place] [address] Sep, [facility] [place] [facility] [address] [facility] [id number] [place] [address] Sep, [facility] [place] [facility] [address] [id number] [place] [address] August, [facility] [place] [facility] [address] [id number] [place] [address] August, [facility] [place] [facility] [address] [id number] [place] [address] August, [facility] [place] [facility] [address] [id number] [place] [address] Jun, [facility] [place] [facility] [address] [id number] [place] [address] Jun, [facility] [place] [facility] [address] [id number] [place] [address] May, [facility] [address] [id number] [place] [address] May, [facility] [address] [id number] [place] [address] Mar, [facility] [place] [facility] [address] [id number] [place] [address] Mar, [facility] [address] [id number] [place] [address] Mar, [facility] [place] [facility] [address] [id number] [place] [address] Mar[facility] [address] [id number] [place] [address] Mar, [facility] [address] [id number] [place] [address] Mar, [facility] [place] [facility] [address] [id number] [place] [address] Feb, [facility] [place] [facility] [address] [id number] [place] [address] Feb, [facility] [place] [facility] [address] [id number] [place] [address] Feb, [facility] [place] [facility] [address] [id number], [place] [address] Feb, [facility] [place] [facility] [address] [id number] [place] [address] Dec, [facility] [place] [facility] [address] [id number] [place] [address] Oct, [facility] [place] [facility] [address] [id number] [place] [address] Oct, [facility] [place] [facility] [address] [id number], [place] [address] Oct, [facility] [place] [facility] [address] [id number] [place] [address] Sep, [facility] [place] [facility] [address] [id number] [place] [address] Sep, [facility] [place] [facility] [address] [id number] [place] [address] August, [facility] [place] [facility] [address] [id number] [place] [address] Jul, [facility] [place] [facility] [address] [id number] [place] [address] Feb, [facility] [place] [facility] [address] [id number] [place] [address] 14 Feb, 2012 [facility] [place] [facility] [address] [id number] [place] [address] 14 Feb, 2012 [facility] [place] [facility] [address] [id number] [place] [address] Feb, [facility] [place] [facility] [address] [id number] [place] [address] 13 Feb, 2012 [facility] [place] [facility] [address] [id number] [place] [address] Feb, [facility] [place] [facility] [address] [id number], [place] [address] 08 Feb, 2012 [facility] [place] [facility] [address] [id number], [place] [address] 07 Feb, 2012 [facility] [place] [facility] [address] [id number] [place] [address] Feb, [facility] [place] [facility] [address] [id number] [place] [address] 07 Feb, 2012 [facility] [place] [facility] [address] [id number] [place] [address] Feb, [facility] [place] [facility] [id number] [address] 16 Apr, 2011 Attention deficit hyperactivity disorder (ADHD), predominantly inattentive type F90.0 [facility] [id number], [place] [address] Feb, [facility] [id number] [place] [address] Feb, [facility] [id number], [place] [address] Nov, [facility] [id number], [place] [address] Sep, [facility] [id number], [place] [address] August, [facility] [id number], [place] [address] Mar, [facility] [id number], [place] [address] Mar, [facility] [id number], [place] [address] Mar, IMMUNIZATIONS No Known Immunizations SOCIAL HISTORY Never Assessed REASON FOR VISIT [facility] PLAN OF CARE VITAL SIGNS MEDICATIONS Unknown [...]
--- OUTSIDE RECORDS SUMMARY | 2018-10-14 21:20 | XMS REPORT ---
Author Author Migration, Doctor Organization [facility] Address Unknown Phone Unavailable Care Team Providers Care Manager Of Radiology Name Role Phone Migration, Doctor Unavailable Unavailable PROBLEMS Type Condition ICD9-CM Code [id number] Code Onset Dates Condition Status SNOMED Code Problem Acute gout of right foot, unspecified cause M10.9 Active 818477695 Problem Hypertension, benign I10 Active 61014817 Problem Anxiety F41.9 Active 01723210 Problem Attention deficit hyperactivity disorder (ADHD), predominantly inattentive type F90.0 Active 19232904 Problem Arthritis M19.90 Active 9094502 Problem Acute gout of left foot, unspecified cause M10.9 Active 525747300 ALLERGIES No Information ENCOUNTERS Encounter Location Date Diagnosis [facility] [address] [address] Jul, [facility] [address] [address] May, Attention deficit hyperactivity disorder (ADHD), predominantly inattentive type F90.0 and Hypertension, benign I10 [facility] [id number] [place] [address] Dec, Acute gout of right foot, unspecified cause M10.9 [facility] [id number] [place] [address] Sep, Dermatitis L30.9 [facility] [id number] [place] [address] Nov, Acute gout of left foot, unspecified cause M10.9 [facility] [address] [address] Nov, [facility] [address] [address] August, Attention deficit hyperactivity disorder (ADHD), predominantly inattentive type F90.0 [facility] [address] [address] Jun, Attention deficit hyperactivity disorder (ADHD), predominantly inattentive type F90.0 [facility] [id number] [place] [address] Jun, Attention deficit hyperactivity disorder (ADHD), predominantly inattentive type F90.0 [facility] [id number] [place] [address] Jun, [facility] [id number] [place] [address] Apr, Attention deficit hyperactivity disorder (ADHD), predominantly inattentive type F90.0 and Exposure to chlamydia Z20.2 [facility] [id number] [place] [address] Apr, Attention deficit hyperactivity disorder (ADHD), predominantly inattentive type F90.0 [facility] [id number] [place] [address] Mar, Attention deficit hyperactivity disorder (ADHD), predominantly inattentive type F90.0 and Arthritis M19.90 [facility] [id number] [place] [address] Feb, [facility] [id number] [place] [address] Jan, Attention deficit hyperactivity disorder (ADHD), predominantly inattentive type F90.0 and Scrotal pain N50.82 [facility] [id number] [place] [address] Jan, [facility] [id number] [place] [address] Dec, Attention deficit hyperactivity disorder (ADHD), predominantly inattentive type F90.0 and Hypertension, benign I10 [facility] [id number] [place] [address] Apr, Gout of multiple sites, unspecified cause, unspecified chronicity M10.9 [facility] [address] [id number] [place] [address] Oct, [facility] [address] [id number] [place] [address] Oct, [facility] [address] [id number] [place] [address] Oct, [facility] [address] [id number] [place] [address] Sep, [facility] [address] [id number] [place] [address] August, [facility] [address] [facility] [id number] [place] [address] August, [facility] [address] [id number] [place] [address] Jul, [facility] [address] [facility] [id number] [place] [address] Jul, [facility] [address] [id number] [place] [address] Jun, [facility] [address] [id number] [place] [address] Jun, [facility] [address] [id number] [place] [address] May, [facility] [address] [facility] [id number] [place] [address] May, [facility] [address] [facility] [id number] [place] [address] May, [facility] [address] [facility] [id number] [place] [address] May, [facility] [address] [id number] [place] [address] Apr, [facility] [address] [id number] [place] [address] Apr, [facility] [place] [facility] [address] [id number] [place] [address] Apr, [facility] [place] [facility] [address] [id number] [place] [address] Apr, [facility] [place] [facility] [address] [id number] [place] [address] Sep, [facility] [place] [facility] [address] [id number] [place] [address] Sep, [facility] [place] [facility] [address] [id number] [place] [address] August, [facility] [place] [facility] [address] [id number] [place] [address] August, [facility] [place] [facility] [address] [id number] [place] [address] August, [facility] [place] [facility] [address] [id number] [place] [address] Jun, [facility] [place] [facility] [address] [id number] [place] [address] Jun, [facility] [place] [facility] [address] [id number] [place] [address] May, [facility] [place] [facility] [address] [id number] [place] [address] May, [facility] [place] [facility] [address] [id number] [place] [address] Mar, [facility] [place] [facility] [address] [id number] [place] [address] Mar, [facility] [place] [facility] [address] [id number] [place] [address] Mar, [facility] [place] [facility] [address] [id number] [place] [address] Mar, [facility] [address] [id number] [place] [address] Mar, [facility] [place] [facility] [address] [id number] [place] [address] Mar, [facility] [address] [id number] [place] [address] Feb, [facility] [place] [facility] [address] [id number] [place] [address] Feb, [facility] [place] [facility] [address] [id number] [place] [address] Feb, [facility] [place] [facility] [address] [id number] [place] [address] Feb, [facility] [address] [id number] [place] [address] Dec, [facility] [place] [facility] [address] [id number] [place] [address] Oct, [facility] [place] [facility] [address] [id number] [place] [address] Oct, [facility] [place] [facility] [address] [id number] [place] [address] Oct, [facility] [place] [facility] [address] [id number] [place] [address] Sep, [facility] [place] [facility] [address] [id number] [place] [address] Sep, [facility] [place] [facility] [address] [id number] [place] [address] August, [facility] [place] [facility] [address] [id number] [place] [address] Jul, [facility] [place] [facility] [address] [id number] [place] [address] Feb, [facility] [place] [facility] [address] [facility] [id number] [place] [address] 14 Feb, 2012 [facility] [address] [facility] [id number] [place] [address] 14 Feb, 2012 [facility] [address] [facility] [id number] [place] [address] 13 Feb, 2012 [facility] [address] [facility] [id number] [place] [address], [place] [address] 13 Feb, 2012 [facility] [address] [facility] [id number] [place] [address] 12 Feb, 2012 [facility] [address] [facility] [id number] [place] [address], [place] [address] 08 Feb, 2012 [facility] [address] [id number] [place] [address] 07 Feb, 2012 [facility] [id number] [place] [address] 07 Feb, 2012 [facility] [address] [id number] [place] [address] Feb, [facility] [address] [address] 07 Feb, 2012 [facility] [address] [id number] [address] 16 Apr, 2011 Attention deficit hyperactivity disorder (ADHD), predominantly inattentive type F90.0 [facility] [address] [id number] [place] [address] Feb, [facility] [address] [id number] [address] 15 Feb, 2011 [facility] [address] [id number] [place] [address] 15 Nov, 2010 [facility] [address] [id number] [place] [address] Sep, [facility] [address] [facility] [id number] [place] [address] August, [facility] [address] [facility] [id number] [address] Mar, [facility] [address] [facility] [id number] [address] Mar, [facility] [address] [facility] [id number] [address] Mar, IMMUNIZATIONS No Known Immunizations SOCIAL HISTORY Never Assessed REASON FOR VISIT EMR-[facility] PLAN OF CARE VITAL SIGNS [...]
--- OUTSIDE RECORDS SUMMARY | 2018-10-14 21:20 | XMS REPORT ---
Author Author ALIYAH ENCINAS Organization [facility] Address [address] [place] [address] Care Team Providers Care Gelatin Powder Mixer Name Role Phone ALIYAH ENCINAS Unavailable PROBLEMS Type Condition ICD9-CM Code [id number] Code Onset Dates Condition Status SNOMED Code Problem Acute gout of left foot, unspecified cause M10.9 Active 944798073 Problem Arthritis M19.90 Active 7688241 Problem Attention deficit hyperactivity disorder (ADHD), predominantly inattentive type F90.0 Active 18152993 Problem Anxiety F41.9 Active 59166192 ALLERGIES No Known Allergies ENCOUNTERS Encounter Location Date Diagnosis [facility] [id number] [place] [address] Sep, Dermatitis L30.9 [facility] [id number] [place] [address] Nov, Acute gout of left foot, unspecified cause M10.9 [facility] [id number] [place] [address] Nov, [facility] [id number] [place] [address] August, Attention deficit hyperactivity disorder (ADHD), predominantly inattentive type F90.0 [facility] [id number] [place] [address] Jun, Attention deficit hyperactivity disorder (ADHD), predominantly inattentive type F90.0 [facility] [id number] [place] [address] Jun, Attention deficit hyperactivity disorder (ADHD), predominantly inattentive type F90.0 [facility] [id number] [place] [address] Jun, [facility] [id number] [place] [address] Apr, Attention deficit hyperactivity disorder (ADHD), predominantly inattentive type F90.0 and Exposure to chlamydia Z20.2 [facility] [id number] [place] [address] Apr, Attention deficit hyperactivity disorder (ADHD), predominantly inattentive type F90.0 [facility] [id number] [place] [address] Mar, Attention deficit hyperactivity disorder (ADHD), predominantly inattentive type F90.0 and Arthritis M19.90 [facility] [place] [id number] [place] [address] Feb, [facility] [place] [id number] [place] [address] Jan, Attention deficit hyperactivity disorder (ADHD), predominantly inattentive type F90.0 and Scrotal pain N50.82 [facility] [id number] [place] [address] Jan, [facility] [id number] [place] [address] Dec, Attention deficit hyperactivity disorder (ADHD), predominantly inattentive type F90.0 and Hypertension, benign I10 [facility] [id number] [place] [address] Apr, Gout of multiple sites, unspecified cause, unspecified chronicity M10.9 [facility] [id number] [place] [address] Oct, [facility] [id number] [place] [address] Oct, [facility] [id number] [place] [address] Oct, [facility] [id number] [place] [address] Sep, [facility] [place] [facility] [address] [id number] [place] [address] August, [facility] [place] [facility] [address] [id number] [place] [address] August, [facility] [place] [facility] [address] [facility] [id number] [place] [address] Jul, [facility] [place] [facility] [address] [id number] [place] [address] Jul, [facility] [place] [facility] [address] [id number] [place] [address] Jun, [facility] [place] [facility] [address] [id number] [place] [address] Jun, [facility] [place] [facility] [address] [id number] [place] [address] May, [facility] [place] [facility] [address] [id number] [place] [address] May, [facility] [place] [facility] [address] [id number] [place] [address] May, [facility] [place] [facility] [address] [facility] [id number] [place] [address] May, [facility] [place] [facility] [address] [id number] [place] [place] [address] Apr, [facility] [place] [facility] [address] [id number] [place] [address] Apr, [facility] [place] [facility] [address] [id number] [place] [address] Apr, [facility] [place] [facility] [address] [facility] [id number] [place] [address] Apr, [facility] [place] [facility] [address] [facility] [id number], [place] [address] Sep, [facility] [place] [facility] [address] [id number] [place] [address] Sep, [facility] [place] [facility] [address] [id number] [place] [address] August, [facility] [place] [facility] [address] [id number] [place] [address] August, [facility] [place] [facility] [address] [id number] [place] [address] August, [facility] [place] [facility] [address] [id number] [place] [address] Jun, [facility] [place] [facility] [address] [id number] [place] [address] Jun, [facility] [address] [id number] [place] [address] May, [facility] [place] [facility] [address] [id number] [place] [address] May, [facility] [place] [facility] [address] [id number] [place] [address] Mar, [facility] [place] [facility] [address] [id number] [place] [address] Mar, [facility] [place] [facility] [address] [id number] [place] [address] Mar, [facility] [place] [facility] [address] [id number], [place] [address] Mar, [facility] [place] [facility] [address] [id number] [place] [address] Mar, [facility] [place] [facility] [address] [id number] [place] [address] Mar, [facility] [place] [facility] [address] [id number] [place] [address] Feb, [facility] [place] [facility] [address] [id number], [place] [address] Feb, [facility] [address] [id number] [place] [address] Feb, [facility] [place] [facility] [address] [id number] [place] [address] Feb, [facility] [place] [facility] [address] [id number] [place] [address] Dec, [facility] [place] [facility] [address] [id number] [place] [address] Oct, [facility] [place] [facility] [address] [id number] [place] [address] Oct, [facility] [place] [facility] [address] [id number] [place] [address] Oct, [facility] [address] [id number] [place] [address] Sep, [facility] [place] [facility] [address] [id number] [place] [address] Sep, [facility] [place] [facility] [address] [id number] [place] [address] August, [facility] [place] [facility] [address] [id number] [place] [address] Jul, [facility] [place] [facility] [address] [id number], [place] [address] Feb, [facility] [place] [facility] [address] [id number] [place] [address] 14 Feb, 2012 [facility] [place] [facility] [address] [id number] [place] [address] 14 Feb, 2012 [facility] [place] [facility] [address] [id number] [place] [address] 13 Feb, 2012 [facility] [place] [facility] [address] [id number] [place] [address] 13 Feb, 2012 [facility] [place] [facility] [address], [place] [address] 12 Feb, 2012 [facility] [address], [place] [address] 08 Feb, 2012 [facility] [address], [place] [address] Feb, [facility] [address], [place] [address] Feb, [facility] [address], [place] [address] Feb, [facility] [address], [place] [address] Feb, [facility] [id number] [place] [address] 16 Apr, 2011 Attention deficit hyperactivity disorder (ADHD), predominantly inattentive type F90.0 [facility] [place] [id number] [place] [address] Feb, [facility] [place] [id number] [place] [address] Feb, [facility] [place] [id number] [place] [address] Nov, [facility] [place] [id number] [place] [address] Sep, [facility] [place] [id number] [place] [address] August, [facility] [place] [id number] [place] [address] Mar, [facility] [place] [id number] [place] [address] Mar, [facility] [place] [id number] [address] Mar, IMMUNIZATIONS No Known Immunizations SOCIAL HISTORY Never Assessed REASON FOR VISIT area on his right upper back has itched for the past year. recently noticed the skin is red and he can feel a knot under the skin. [id number] PLAN OF CARE Activity Details Follow Up w/ Dr. Marmolejo Reason:dermatitis VITAL SIGNS Height 76 in 2017-09-11 Weight 269.4 lbs 2017-09-11 Temperature 98.9 degrees Fahrenheit 2017-09-11 Heart Rate 68 bpm 2017-09-11 Respiratory Rate 20 2017-09-11 BMI 32.79 kg/m2 2017-09-11 Blood pressure systolic 138 mmHg 2017-09-11 Blood pressure diastolic 84 mmHg 2017-09-11 MEDICATIONS Medication Instructions Dosage Frequency Start Date End Date Duration Status Adderall XR 30 MG Orally Once a day 1 capsule in the morning 24h August, 28 days Active Lisinopril 20 mg 1 tablet 24h Jun, Active [place] 5-325 MG Orally every 6 hrs 1 tablet as needed 6h Apr, Not-Taking [facility] Hydrocortisone Max St 1 % Externally Twice a day 1 application to affected area 12h Sep, Oct, 30 days Active Indomethacin 50 mg 1 capsule by Oral route 3 times per day Jun, Not-Taking RESULTS No Results PROCEDURES Procedure Date Ordered Result Body Site [facility] VISIT ESTABLISHED PATIENT September 11, 2017 INSTRUCTIONS MEDICATIONS ADMINISTERED No Known Medications MEDICAL (GENERAL) HISTORY Type Description Date Medical History hypertension Medical History skin cancer Medical History ADHD Surgical History Testicular surgery 04/16/2015 Surgical History Cancer tumor removal 12/2015 Surgical History left testical swollen 01/2016 Surgical History kidney stone removal 09/2016 Hospitalization History left testical swollen 01/2016
--- OUTSIDE RECORDS SUMMARY | 2018-10-14 21:20 | XMS REPORT ---
Author Author LUCAS PERALTA [facility] Address [address] [place] [address] Care Team Providers Care Speech Language Pathologist Prn Name Role Phone LUCAS PERALTA Unavailable PROBLEMS Type Condition ICD9-CM Code EXF44-KB Code Onset Dates Condition Status SNOMED Code Problem Acute gout of left foot, unspecified cause M10.9 Active 360831436 Problem Arthritis M19.90 Active 1021118 Problem Attention deficit hyperactivity disorder (ADHD), predominantly inattentive type F90.0 Active 51732802 Problem Anxiety F41.9 Active 13416188 ALLERGIES No Information SOCIAL HISTORY Never Assessed PLAN OF CARE VITAL SIGNS MEDICATIONS Medication Instructions Dosage Frequency Start Date End Date Duration Status Adderall XR 30 MG Orally Once a day 1 capsule in the morning 24h Jun, 28 days Active RESULTS No Results PROCEDURES No Known procedures IMMUNIZATIONS No Known Immunizations MEDICAL (GENERAL) HISTORY Type Description Date Medical History hypertension Medical History skin cancer Medical History ADHD Surgical History Testicular surgery 04/16/2015 Surgical History Cancer tumor removal 12/2015 Surgical History left testical swollen 01/2016 Surgical History kidney stone removal 09/2016 Hospitalization History left testical swollen 01/2016
--- OUTSIDE RECORDS SUMMARY | 2018-10-14 21:20 | XMS REPORT ---
Author Author SHONDA BUTLER Organization [facility] Address [address] [place] [address] Care Team Providers Care Hydraulic Specialist Name Role Phone SHONDA BUTLER Unavailable PROBLEMS Type Condition ICD9-CM Code MVA92-MC Code Onset Dates Condition Status SNOMED Code Problem Acute gout of left foot, unspecified cause M10.9 Active 107589849 Problem Arthritis M19.90 Active 4209657 Problem Attention deficit hyperactivity disorder (ADHD), predominantly inattentive type F90.0 Active 76667319 Problem Anxiety F41.9 Active 75433682 ALLERGIES No Known Allergies ENCOUNTERS Encounter Location Date Diagnosis [facility] [id number] [place] [address] Nov, Acute gout of left foot, unspecified cause M10.9 [facility] [id number] [place] [address] Nov, [facility] [id number] [place] [address] August, Attention deficit hyperactivity disorder (ADHD), predominantly inattentive type F90.0 [facility] [id number] [place] [address] Jun, Attention deficit hyperactivity disorder (ADHD), predominantly inattentive type F90.0 [facility] [address], [place] [address] Jun, Attention deficit hyperactivity disorder (ADHD), predominantly inattentive type F90.0 [facility] [id number] [place] [address] Jun, [facility] [id number] [place] [address] Apr, Attention deficit hyperactivity disorder (ADHD), predominantly inattentive type F90.0 and Exposure to chlamydia Z20.2 [facility] [id number] [place] [address] Apr, Attention deficit hyperactivity disorder (ADHD), predominantly inattentive type F90.0 [facility] [id number] [place] [address] Mar, Attention deficit hyperactivity disorder (ADHD), predominantly inattentive type F90.0 and Arthritis M19.90 [facility] [address] [address] Feb, [facility] [address] [address] Jan, Attention deficit hyperactivity disorder (ADHD), predominantly inattentive type F90.0 and Scrotal pain N50.[address] [address] Jan, [facility] [id number] [place] [address] Dec, Attention deficit hyperactivity disorder (ADHD), predominantly inattentive type F90.0 and Hypertension, benign I10 [facility] [id number] [place] [address] Apr, Gout of multiple sites, unspecified cause, unspecified chronicity M10.9 [facility] [id number] [place] [address] Oct, [facility] [id number] [place] [address] Oct, [facility] [id number] [place] [address] Oct, [facility] [id number] [place] [address] Sep, [facility] [address] [address] August, [facility] [place] [facility] [address] [id number] [place] [address] August, [facility] [place] [facility] [address] [id number] [place] [address] Jul, [facility] [place] [facility] [address] [id number] [place] [address] Jul, [facility] [place] [facility] [address] [id number] [place] [address] Jun, [facility] [place] [facility] [address] [id number] [place] [address] Jun, [facility] [place] [facility] [address] [id number] [place] [address] May, [facility] [place] [facility] [address] [id number] [place] [address] May, [facility] [place] [facility] [address] [id number] [place] [address] May, [facility] [place] [facility] [address] [id number] [place] [address] May, [facility] [place] [facility] [address] [id number] [place] [address] Apr, [facility] [place] [facility] [address] [id number] [place] [address] Apr, [facility] [place] [facility] [address] [id number] [place] [address] Apr, [facility] [place] [facility] [address] [id number] [place] [address] Apr, [facility] [place] [facility] [address] [id number] [place] [address] Sep, [facility] [place] [facility] [address] [id number] [place] [address] Sep, [facility] [place] [facility] [address] [id number] [place] [address] August, [facility] [address] [id number] [place] [address] August, [facility] [place] [facility] [address] [id number] [place] [address] August, [facility] [place] [facility] [address] [id number] [place] [address] Jun, [facility] [place] [facility] [address] [id number] [place] [address] Jun, [facility] [place] [facility] [address] [id number] [place] [address] May, [facility] [place] [facility] [address] [id number] [place] [address] May, [facility] [place] [facility] [address] [id number] [place] [address] Mar, [facility] [place] [facility] [address] [id number] [place] [address] Mar, [facility] [place] [facility] [address] [id number] [place] [address] Mar, [facility] [place] [facility] [address] [id number] [place] [address] Mar, [facility] [place] [facility] [address] [id number] [place] [address] Mar, [facility] [place] [facility] [address] [id number] [place] [address] Mar, [facility] [place] [facility] [address] [id number] [place] [address] Feb, [facility] [place] [facility] [address] [id number] [place] [address] Feb, [facility] [place] [facility] [address] [id number] [place] [address] Feb, [facility] [place] [facility] [address] [id number] [place] [address] 11 Feb, 2013 [facility] [place] [facility] [address] [id number] [place] [address] 2012 [facility] [place] [facility] [address] [id number] [place] [address] Oct, [facility] [place] [facility] [address] [id number] [place] [address] 15 Oct, 2012 [facility] [place] [facility] [address] [id number] [place] [address] Oct, [facility] [place] [facility] [address] [id number] [place] [address] Sep, [facility] [place] [facility] [address] [id number] [place] [address] Sep, [facility] [place] [facility] [address] [id number] [place] [address] August, [facility] [place] [facility] [address] [id number] [place] [address] Jul, [facility] [place] [facility] [address] [id number] [place] [address] 20 Feb, 2012 [facility] [place] [facility] [address] [id number] [address] 14 Feb, 2012 [facility] [place] [facility] [address] [id number] [address] 14 Feb, 2012 [facility] [place] [facility] [address] [id number] [place] [address] 13 Feb, 2012 [facility] [place] [facility] [address] [id number] [place] [address] 13 Feb, 2012 [facility] [place] [facility] [address] [id number] [place] [address] 12 Feb, 2012 [facility] [place] [facility] [address] [place] [address] 08 Feb, 2012 [facility] [address] [place] [address] Feb, [facility] [address] [place] [address] Feb, [facility] [id number] [place] [address] Feb, [facility] [id number] [place] [address] Feb, [facility] [id number] [place] [address] Apr, Attention deficit hyperactivity disorder (ADHD), predominantly inattentive type F90.0 [facility] [address] [address] Feb, [facility] [id number] [place] [address] Feb, [facility] [id number] [place] [address] Nov, [facility] [id number] [place] [address] Sep, [facility] [id number] [place] [address] August, [facility] [id number] [place] [address] Mar, [facility] [id number] [place] [address] Mar, [facility] [id number] [place] [address] Mar, IMMUNIZATIONS No Known Immunizations SOCIAL HISTORY Never Assessed REASON FOR VISIT left foot pain/infection started about 5 days ago JStrasserRN PLAN OF CARE Activity Details Follow Up prn Reason: VITAL SIGNS Height 76 in 2016-11-29 Weight 266.6 lbs 2016-11-29 Temperature 98.2 degrees Fahrenheit 2016-11-29 Heart Rate 66 bpm 2016-11-29 Respiratory Rate 20 2016-11-29 BMI 32.45 kg/m2 2016-11-29 Blood pressure systolic 154 mmHg 2016-11-29 Blood pressure diastolic 100 mmHg 2016-11-29 MEDICATIONS Medication Instructions Dosage Frequency Start Date End Date Duration Status Adderall XR 30 MG Orally Once a day 1 capsule in the morning 24h August, 28 days Active Colchicine 0.6 MG Orally Take two tablets now then take one tablet in one hour as directecd Nov, Nov, 1 days Active Lisinopril 20 mg 1 tablet 24h Jun, Active RESULTS No Results PROCEDURES No [...]
--- OUTSIDE RECORDS SUMMARY | 2018-10-14 21:20 | XMS REPORT ---
Author Author LUCAS PERALTA [facility] Address [address] [place] [address] Care Team Providers Care Acoustical Carpenter Name Role Phone KATHRYN LUCAS Unavailable PROBLEMS Type Condition ICD9-CM Code [id number] Code Onset Dates Condition Status SNOMED Code Problem Acute gout of left foot, unspecified cause M10.9 Active 622858007 Problem Arthritis M19.90 Active 7598531 Problem Attention deficit hyperactivity disorder (ADHD), predominantly inattentive type F90.0 Active 69281528 Problem Anxiety F41.9 Active 05656709 ALLERGIES Substance Reaction Event Type Date Status N.K.D.A. Unknown Non Drug Allergy Apr, Unknown SOCIAL HISTORY No smoking Hx information available PLAN OF CARE VITAL SIGNS Height 76 in 2016-04-13 Weight 263.3 lbs 2016-04-13 Temperature 98.3 degrees Fahrenheit 2016-04-13 Heart Rate 76 bpm 2016-04-13 Respiratory Rate 18 2016-04-13 BMI 32.05 kg/m2 2016-04-13 Blood pressure systolic 146 mmHg 2016-04-13 Blood pressure diastolic 98 mmHg 2016-04-13 MEDICATIONS Medication Instructions Dosage Frequency Start Date End Date Duration Status Azithromycin 250 MG Orally one time 4 tablets Apr, 1 dose Active Lisinopril 20 mg 1 tablet 24h Jun, Active [place] 5-325 MG Orally every 6 hrs 1 tablet as needed 6h Apr, Active Adderall XR 30 MG Orally Once a day 1 capsule in the morning 24h Apr, 28 days Active Indomethacin 50 mg 1 capsule by Oral route 3 times per day Jun, Active RESULTS No Results PROCEDURES Procedure Date Ordered Related Diagnosis Body Site Office Visit, Est Pt., Level 3 Apr 13, 2016 IMMUNIZATIONS No Known Immunizations
--- OUTSIDE RECORDS SUMMARY | 2018-10-14 21:21 | XMS REPORT ---
Author Author LUCAS PERALTA [facility] Address [address] [place] [address] Care Team Providers Care Duty Engineer Name Role Phone LUCAS PERALTA Unavailable PROBLEMS Type Condition ICD9-CM Code HHT62-WZ Code Onset Dates Condition Status SNOMED Code Problem Acute gout of left foot, unspecified cause M10.9 Active 879944458 Problem Arthritis M19.90 Active 4509152 Problem Attention deficit hyperactivity disorder (ADHD), predominantly inattentive type F90.0 Active 81949465 Problem Anxiety F41.9 Active 58904879 ALLERGIES No Information SOCIAL HISTORY Never Assessed PLAN OF CARE VITAL SIGNS MEDICATIONS No Known Medications RESULTS No Results PROCEDURES No Known [...]
--- OUTSIDE RECORDS SUMMARY | 2018-10-14 21:27 | XMS REPORT | Continuity of Care Document ---
Author Organization Unknown Address Unknown Allergies Active Description Code Type Severity Reaction Onset Reported/Identified Relationship to Patient Clinical Status Yes No Known Drug Allergies [id number] Drug Allergy Unknown N/A 03/10/2011 Medications There is no data. Problems Date Dx Coded Attending Type Code [...] V74.1 SCREENING EXAMINATION FOR PULMONARY TUBERCULOSIS 03/25/2009 WHITE DDS, NANCY Romero V74.1 SCREENING EXAMINATION FOR [...] OF TOE, UNSPECIFIED 04/04/2009 [facility] JOSEPH DO 998.83 NON-HEALING SURGICAL WOUND, NOT ELSEWHERE CLASSIFIED 04/04/2009 CRISSY GUEVARA MD 070.54 CHRONIC HEPATITIS C WITHOUT MENTION OF HEPATIC COMA 04/04/2009 CRISSY GUEVARA MD 681.10 CELLULITIS AND ABSCESS OF TOE, UNSPECIFIED 04/04/2009 ISMAEL BAZAN, CRISSY 998.83 NON-HEALING SURGICAL WOUND, NOT ELSEWHERE CLASSIFIED [...] NOT ELSEWHERE CLASSIFIED 04/04/2009 [facility] JOSEPH DO K 070.54 CHRONIC HEPATITIS C WITHOUT MENTION OF HEPATIC COMA 04/04/2009 NATHALY JOSEPH DOA K 681.10 CELLULITIS AND ABSCESS OF TOE, UNSPECIFIED 04/04/2009 NATHALY JOSEPH DOA K 998.83 NON-HEALING SURGICAL WOUND, NOT ELSEWHERE [...] [facility] K 296.90 MOOD DISORDER 06/02/2010 JAKE ENCINAS, [facility] K 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 06/02/2010 JAKE ENCINAS, [facility] K 702.19 OTHER SEBORRHEIC KERATOSIS 06/02/2010 JAKE ENCINAS, [facility] K 719.40 ARTHRAIGIA UNSPEC 06/02/2010 JAKE ENCINAS, [facility] K 781.0 ABNORMAL INVOLUNTARY MOVEMENTS 06/02/2010 JAKE ENCINAS, [facility] K 783.5 POLYDIPSIA 06/02/2010 JAKE ENCINAS, [facility] K 788.42 POLYURIA 06/02/2010 CRISSY GUEVARA [...] MD 783.5 POLYDIPSIA 06/02/2010 JOSH KEITH MD M 788.42 POLYURIA 06/02/2010 LUCAS PERALTA APRN 296.90 [...] DDS, NANCY D 296.90 MOOD DISORDER 06/02/2010 WHITE DDS, NANCY D 305.73 NONDEPENDENT AMPHETAMINE OR [...] HYPERTROPHIC AND ATROPHIC CONDITIONS OF SKIN 08/18/2010 NANCY LÓPEZ DDS D 701.9 UNSPECIFIED HYPERTROPHIC AND ATROPHIC CONDITIONS [...] APRN 216.9 MOLE/NEVUS - SITE UNSPECIFIED 09/03/2010 NANCY LÓPEZ DDS D 216.9 MOLE/NEVUS - SITE UNSPECIFIED 09/13/2010 [...] WOUND DRESSING 09/13/2010 V58.32 SUTURE REMOVAL 09/13/2010 NATHALY JOSEPH DOA K 172.5 MALIGNANT MELANOMA OF SKIN OF TRUNK EXCEPT SCROTUM 09/13/2010 JAKE ENCINAS [facility] K V58.31 WOUND DRESSING 09/13/2010 NATHALY JOSEPH DOA K V58.32 SUTURE REMOVAL 09/13/2010 CRISSY GUEVARA MD 172.5 MALIGNANT MELANOMA OF SKIN OF TRUNK EXCEPT SCROTUM 09/13/2010 CRISSY GUEVARA MD V58.31 WOUND DRESSING 09/13/2010 CRISSY GUEVARA MD V58.32 SUTURE REMOVAL 09/13/2010 INNA BAZAN, JOSH De Anda 172.5 MALIGNANT MELANOMA OF SKIN OF TRUNK EXCEPT SCROTUM 09/13/2010 INNA BAZAN, JOSH De Anda V58.31 WOUND DRESSING 09/13/2010 INNA BAZAN, JOSH De Anda V58.32 SUTURE REMOVAL 09/13/2010 LUCAS PERALTA APRN 172.5 MALIGNANT MELANOMA OF SKIN OF TRUNK EXCEPT SCROTUM 09/13/2010 LUCAS PERALTA APRN V58.31 WOUND DRESSING 09/13/2010 LUCAS PERALTA APRN V58.32 SUTURE REMOVAL 09/13/2010 [facility] DO K 172.5 MALIGNANT MELANOMA OF SKIN OF TRUNK EXCEPT SCROTUM 09/13/2010 JAKE ENCINAS [facility] K V58.31 WOUND DRESSING 09/13/2010 NATHALY JOSEPH [...] PROC NEC 10/23/2010 Ot 196.3 MAL SHAE LYMPH- AXILLA/ARM 10/23/2010 Ot V10.82 HX-MALIG SKIN MELANOMA 11/11/2010 Ot 041.11 METHICILLIN SUSCEPTIBLE STAPHYLOCOCCUS A 11/11/2010 Ot 196.3 MAL SHAE LYMPH- AXILLA/ARM 11/11/2010 Ot 682.2 CELLULITIS OF TRUNK 11/11/2010 Ot 708.0 ALLERGIC URTICARIA 11/11/2010 Ot 719.06 JOINT EFFUSION- L/LEG 11/11/2010 Ot 727.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 11/11/2010 [...] CHILLS (WITHOUT FEVER) 11/17/2010 LUCAS PERALTA APRN Suhas 780.79 fatigue 11/17/2010 041.11 MSSA, METHICILLIN SUSCEPTIBLE [...] OF UNSPECIFIED SITES 11/24/2010 [facility] DO K 780.60 FEVER UNSPECIFIED 11/24/2010 [facility] DO K 780.8 GENERALIZED HYPERHIDROSIS 11/24/2010 CRISSY GUEVARA MD [...] AND ABSCESS OF UNSPECIFIED SITES 11/24/2010 [facility]SEPH DONATHALYA K 780.60 FEVER UNSPECIFIED 11/24/2010 JOSEPH NATHALY ENCINASA K 780.8 GENERALIZED HYPERHIDROSIS 11/24/2010 LUCAS PERALTA [...] MELANOMA TRUNK 11/28/2010 Ot 196.3 MAL SHAE LYMPH- AXILLA/ARM 11/28/2010 Ot 530.81 ESOPHAGEAL REFLUX 11/28/2010 Ot 682.2 CELLULITIS OF TRUNK 11/28/2010 Ot 727.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 11/28/2010 Ot 786.50 CHEST PAIN NOS 11/28/2010 Ot 998.59 OTH POSTOPER INFECTION 12/12/2010 Ot 172.5 MALIG MELANOMA TRUNK 12/12/2010 Ot 196.3 MAL SHAE LYMPH- AXILLA/ARM 01/02/2011 LUCAS PERALTA APRN 401.1 HYPERTENSION, BENIGN [...] PERALTA APRN 401.1 HYPERTENSION, BENIGN ESSENTIAL 01/02/2011 WHITE DDSNANCY Heather 401.1 HYPERTENSION, BENIGN ESSENTIAL 02/08/2011 Ot 789.09 ABDOMINAL PAIN, OTHER SPECIFIED SITE 02/08/2011 Ot 922.2 CONTUSION ABDOMINAL WALL 02/08/2011 Ot E000.8 OTHER EXTERNAL CAUSE STATUS 02/08/2011 Ot E928.9 ACCIDENT NOS 02/17/2011 Ot 172.5 MALIG MELANOMA TRUNK 02/20/2011 Ot 070.70 UNSPECIFIED VIRAL HEPATITIS C WITHOUT HE 02/20/2011 Ot 172.5 MALIG MELANOMA TRUNK 02/20/2011 Ot 285.9 ANEMIA NOS 02/20/2011 Ot 305.70 AMPHETAMINE ABUSE- UNSPEC 02/20/2011 Ot 401.9 HYPERTENSION NOS 02/20/2011 Ot [...] Anda 998.13 SEROMA COMPLICATING A PROCEDURE 04/20/2011 INNA BAZAN, JOSH De Anda 998.51 INFECTED POSTOPERATIVE SEROMA 04/20/2011 LUCAS PERALTA [...] DDS 998.13 SEROMA COMPLICATING A PROCEDURE 04/20/2011 MARIBEL AMBROSIOSNANCY 998.51 INFECTED POSTOPERATIVE SEROMA 06/07/2011 Ot 172.5 [...] 789.01 ABDOMINAL PAIN RIGHT UPPER QUADRANT 02/10/2012 MARIBEL AMBROSIOS, NANCY Romero 789.01 ABDOMINAL PAIN RIGHT UPPER QUADRANT 04/07/2012 [...] DISEASES OF CONJUNCTIVA DUE TO VIRUSES 07/26/2012 NANCY LÓPEZ DDS 077.99 UNSPECIFIED DISEASES OF CONJUNCTIVA DUE TO [...] 300.00 ANXIETY UNSPEC 08/22/2012 [facility] DO K 300.00 ANXIETY UNSPEC 08/22/2012 CRISSY GUEVARA MD 300.00 ANXIETY UNSPEC 08/22/2012 JOSH KEITH MD 300.00 ANXIETY UNSPEC 08/22/2012 LUCAS PERALTA [...] DDS 709.9 SKIN LESIONS 11/15/2012 BJ TERRY [employer]TERATION TAILOR Ot 070.70 UNSPECIFIED VIRAL HEPATITIS C WITHOUT HE 11/15/2012 BJ TERRY [employer]TERATION TAILOR Ot 172.5 MALIG MELANOMA TRUNK 11/15/2012 BJ TERRY [employer] ALTERATION TAILOR Ot 278.00 OBESITY, NOS 11/15/2012 BJ TERRY [employer] ALTERATION TAILOR Ot 401.9 HYPERTENSION NOS 11/15/2012 BJ TERRY [employer] ALTERATION TAILOR Ot V15.3 HX OF IRRADIATION 11/15/2012 BJ TERRY [employer] ALTERATION TAILOR Ot V58.69 OTH MED,LT,CURRENT USE 11/16/2012 INNA BAZAN, JOSH De Anda Ot 216.7 BENIGN SHAE SKIN LEG 12/23/2012 LIUDMILA WIGGINS MD Ot 274.9 GOUT NOS 12/23/2012 LIUDMILA WIGGINS MD Ot 729.81 SWELLING OF LIMB 02/22/2013 CRISSY GUEVARA MD 462 PHARYNGITIS ACUTE 02/22/2013 INNA BAZAN, JOSH De Anda 462 PHARYNGITIS ACUTE 02/22/2013 LUCAS PERALTA APRN 462 PHARYNGITIS ACUTE 02/22/2013 [facility] DO 462 PHARYNGITIS ACUTE 02/22/2013 LUCAS PERALTA APRN 462 PHARYNGITIS ACUTE 02/22/2013 MARIBEL DDS, NANCY Romero 462 PHARYNGITIS ACUTE 02/22/2013 INNA BAZAN, JOSH M Ot 216.5 BENIGN SHAE SKIN TRUNK 02/22/2013 INNA BAZAN, JOSH M Ot 216.7 BENIGN SHAE SKIN LEG 02/22/2013 INNA BAZAN, JOSH De Anda Ot V10.82 HX-MALIG SKIN MELANOMA 02/22/2013 INNA BAZAN, JOSH De Anda Ot V74.8 SCREEN-BACTERIAL DIS NEC 05/09/2013 IVA CRUZ Ot 070.70 UNSPECIFIED VIRAL HEPATITIS C WITHOUT HE 05/09/2013 IVA CRUZ Ot 172.5 MALIG MELANOMA TRUNK 05/09/2013 IVA CRUZ Ot 278.00 OBESITY, NOS 05/09/2013 IVA CRUZ N Ot 401.9 HYPERTENSION NOS 05/09/2013 IVA CRUZ [...] Ot 729.81 SWELLING OF LIMB 05/29/2013 TOMAS AUGUSTIN Ot V10.82 HX-MALIG SKIN MELANOMA 06/01/2013 JAZMYNE BAZAN, JAQUELINE Barclay Ot 172.7 MALIG MELANOMA LEG 06/01/2013 JAQUELINE SAMANO MD Ot 216.5 BENIGN SHAE SKIN TRUNK 06/01/2013 JAQUELINE SAMANO MD Ot 702.19 OTHER SEBORRHEIC KERATOSIS 06/01/2013 JAQUELINE SAMANO MD Ot 709.8 SKIN DISORDERS NEC 06/01/2013 JAQUELINE SAMANO MD Ot 785.6 ENLARGEMENT LYMPH NODES 06/03/2013 LUCAS PERALTA APRN T 274.9 GOUT 06/03/2013 [facility] DO 274.9 GOUT 06/03/2013 LUCAS PERALTA APRN T 274.9 GOUT 06/03/2013 WHITE DDS, NANCY Romero 274.9 GOUT 06/15/2013 RILEY ROSALBA ENCINAS Ot 172.7 MALIG MELANOMA LEG 07/21/2013 MELQUIADES GRAYSON APRN Ot 327.23 OBSTRUCTIVE SLEEP APNEA (ADULT) (PEDIATR 10/27/2013 JAQUELINE SAMANO MD Ot 327.23 OBSTRUCTIVE SLEEP APNEA (ADULT) (PEDIATR 01/18/2014 KISHOR BAZAN, PRESTON Dai Ot 364.3 IRIDOCYCLITIS NOS 01/18/2014 KISHOR BAZAN, PRESTON Dai Ot 930.0 CORNEAL FOREIGN BODY 01/18/2014 KISHOR BAZAN, PRESTON Dai Ot E000.8 OTHER EXTERNAL CAUSE STATUS 01/18/2014 KISHOR BAZAN, PRESTON Dai Ot E849.0 ACCIDENT IN HOME 01/18/2014 KISHOR BAZAN, PRESTON Dai Ot E914 FB ENTERING EYE 01/29/2014 ESA LOPEZ APRN Ot 550.90 UNILAT INGUINAL HERNIA 02/10/2014 WESLY BAZAN, RY Romero Ot 550.90 UNILAT INGUINAL HERNIA 03/08/2014 RILEY ROSALBA ENCINAS Ot 550.90 UNILAT INGUINAL HERNIA 03/16/2014 STEVENS ROSALBA ENCINAS Ot 550.90 03/16/2014 STEVENSROSALBA CASTRO DO Ot V72.84 03/16/2014 RILEY ROSALBA ENCINAS Ot 550.90 03/16/2014 RILEY ROSALBA ENCINAS Ot V72.84 03/17/2014 Ot 172.5 [...] 03/17/2014 Ot 172.5 03/17/2014 Ot 172.9 03/17/2014 MARABJ [employer] ALTERATION TAILOR Ot 070.70 03/17/2014 MARA BJ Loza [employer] ALTERATION TAILOR Ot 172.5 03/17/2014 MARA BJ Loza [employer] ALTERATION TAILOR Ot 401.9 03/17/2014 TERRYBJ SH[employer] AND ALTERATION TAILOR Ot V15.3 03/17/2014 BJ TERRY [employer] ALTERATION TAILOR Ot V58.69 03/17/2014 Ot 603.9 03/17/2014 Ot 709.9 03/17/2014 Ot V10.82 03/17/2014 Ot V72.81 03/17/2014 Ot V74.8 03/17/2014 TERRYBJ Loza [employer] ALTERATION TAILOR Ot 172.5 03/17/2014 MARA BJ Loza [employer] ALTERATION TAILOR Ot 780.4 03/17/2014 MARA BJ Loza [employer] AND ALTERATION TAILOR Ot 784.0 03/17/2014 TERRYBJ Loza [employer] AND ALTERATION TAILOR Ot 780.4 03/17/2014 TERRYBJ Loza SH[employer] ALTERATION TAILOR Ot 784.0 03/17/2014 INNA BAZAN, JOSH M Ot 709.9 03/17/2014 INNA BAZAN, JOSH M Ot V72.84 03/17/2014 INNA BAZAN, JOSH M Ot V74.8 03/17/2014 INNA BAZAN, JOSH M Ot 709.9 03/17/2014 INNA BAZAN, JOSH M Ot V72.84 03/17/2014 IVA CRUZ N Ot 172.9 03/17/2014 ANTHONY, BOBAN N Ot 070.70 03/17/2014 ANTHONY, BOBAN N Ot 172.5 03/17/2014 ANTHONY, BOBAN N Ot 278.00 03/17/2014 ANTHONY, BOBAN N Ot 401.9 03/17/2014 ANTHONY, BOBAN N Ot V15.3 03/17/2014 ANTHONY, BOBAN N Ot V58.69 03/17/2014 JAZMYNE BAZAN, JAQUELINE P Ot 709.9 03/17/2014 JAZMYNE BAZAN, JAQUELINE P Ot V10.82 03/17/2014 JAZMYNE BAZAN, JAQUELINE P Ot V72.83 03/17/2014 JAQUELINE SAMANO MD P Ot V74.8 03/17/2014 RILEY ROSALBA ENCINAS Ot 172.7 03/17/2014 STEVENS ROSALBA ENCINAS Ot V72.84 03/17/2014 BJ TERRY S [employer] TAILOR Ot 172.7 03/17/2014 BJ TERRY S [employer]TERATION TAILOR Ot 070.70 03/17/2014 BJ TERRY S [employer]TERATION TAILOR Ot 172.5 03/17/2014 BJ TERRY S [employer]TERATION TAILOR Ot 278.00 03/17/2014 BJ TERRY S [employer]TERATION TAILOR Ot 401.9 03/17/2014 BJ TERRY S [employer] ALTERATION TAILOR Ot V58.69 03/17/2014 BJ TERRY S SH[employer] ALTERATION TAILOR Ot V85.35 03/17/2014 BJ TERRY S [employer] ALTERATION TAILOR Ot 172.9 03/17/2014 BJ TERRY S [employer] ALTERATION TAILOR Ot 592.0 03/17/2014 ANTHONY, BOBAN N Ot 070.70 03/17/2014 ANTHONY, BOBAN N Ot 172.5 03/17/2014 ANTHONY, BOBAN N Ot 278.00 03/17/2014 ANTHONY, BOBAN N Ot 401.9 03/17/2014 ANTHONY, BOBAN N Ot V58.69 03/17/2014 ANTHONY, BOBAN N Ot V85.35 03/17/2014 BJ TERRY S [employer]ATION TAILOR Ot 070.70 03/17/2014 BJ TERRY S [employer] ALTERATION TAILOR Ot 172.5 03/17/2014 BJ TERRY S SH[employer] ALTERATION TAILOR Ot 401.9 03/17/2014 BJ TERRY S [employer] ALTERATION TAILOR Ot V58.69 03/17/2014 BJ TERRY [employer] ALTERATION TAILOR Ot 172.9 03/17/2014 ROSALBA STEVENS DO Heather Ot 550.90 03/17/2014 ROSALBA STEVENS DO Heather Ot V72.84 03/17/2014 KAYLYNN HOOKER DO Ot 401.9 HYPERTENSION NOS 03/17/2014 KAYLYNN HOOKER DO Ot 729.5 PAIN IN LIMB 03/17/2014 KAYLYNN HOOKER DO Ot 729.81 SWELLING OF LIMB 03/17/2014 KAYLYNN HOOKER DO Ot V45.89 POSTSURGICAL STATES NEC 03/17/2014 KAYLYNN HOOKER DO Ot V58.69 OTH MED,LT,CURRENT USE 03/26/2014 BJ TERRY [employer] TAILOR Ot 070.70 03/26/2014 BJ TERRY [employer] ALTERATION TAILOR Ot 172.5 03/26/2014 BJ TERRY [employer] ALTERATION TAILOR Ot 401.9 03/26/2014 BJ TERRY [employer] ALTERATION TAILOR Ot V58.69 04/04/2014 BJ TERRY [employer] AL[employer]ATION TAILOR Ot 172.9 05/30/2014 LUCAS PERALTA APRN 314.00 ADHD INATTENTIVE 05/30/2014 NANCY LÓPEZ DDS 314.00 ADHD INATTENTIVE 07/02/2014 IVA CRUZ Ot 274.9 07/02/2014 ANTHONYIVA VARELA Ot 401.9 [...] 172.5 07/23/2014 Ot 172.9 07/23/2014 BJ TERRY [employer] TAILOR Ot 070.70 07/23/2014 BJ TERRY [employer] ALTERATION TAILOR Ot 172.5 07/23/2014 BJ TERRY [employer] ALTERATION TAILOR Ot 401.9 07/23/2014 BJ TERRY [employer] ALTERATION TAILOR Ot V15.3 07/23/2014 BJ TERRY [employer] ALTERATION TAILOR Ot V58.69 07/23/2014 Ot 603.9 07/23/2014 Ot 709.9 07/23/2014 Ot V10.82 07/23/2014 Ot V72.81 07/23/2014 Ot V74.8 07/23/2014 BJ TERRY [employer] TAILOR Ot 172.5 07/23/2014 BJ TERRY [employer] ALTERATION TAILOR Ot 780.4 07/23/2014 BJ TERRY SH[employer] AND ALTERATION TAILOR Ot 784.0 07/23/2014 BJ TERRY [employer] ALTERATION TAILOR Ot 780.4 07/23/2014 BJ TERRY [employer] AND ALTERATION TAILOR Ot 784.0 07/23/2014 INNA BAZAN, JOSH M Ot 709.9 07/23/2014 INNA BAZAN, JOSH De Anda Ot V72.84 07/23/2014 INNA BAZAN, JOSH M Ot V74.8 07/23/2014 INNA BZAAN, JOSH M Ot 709.9 07/23/2014 INNA BAZAN, JOSH M Ot V72.84 07/23/2014 ANTHONYKELSEY VARELAAN N Ot 172.9 07/23/2014 ANTHONY BOBAN N Ot 070.70 07/23/2014 ANTHONY, BOBAN N Ot 172.5 07/23/2014 ANTHONYIVA N Ot 278.00 07/23/2014 ANTHONY BOBAN N Ot 401.9 07/23/2014 IVA CRUZ N Ot V15.3 07/23/2014 ANTHONY, BOBDWAIN N Ot V58.69 07/23/2014 JAZMYNE BAZAN, JAQUELINE P Ot 709.9 07/23/2014 JAZMYNE BAZAN, JAQUELINE P Ot V10.82 07/23/2014 JAZMYNE BAZAN, JAQUELINE P Ot V72.83 07/23/2014 JAZMYNE BAZAN, JAQUELINE P Ot V74.8 07/23/2014 RILEY ROSALBA ENCINAS Ot 172.7 07/23/2014 RILEY ROSALBA ENCINAS Ot V72.84 07/23/2014 MARA BJ S [employer]ATION TAILOR Ot 172.7 07/23/2014 TERRY, HILAH S [employer] ALTERATION TAILOR Ot 070.70 07/23/2014 TERRY HILAH S [employer] ALTERATION TAILOR Ot 172.5 07/23/2014 TERRY HILAH S [employer] ALTERATION TAILOR Ot 278.00 07/23/2014 TERRY, ELHAMAH S SH[employer] AND ALTERATION TAILOR Ot 401.9 07/23/2014 MARA ELHAMAH S SH[employer] AND ALTERATION TAILOR Ot V58.69 07/23/2014 TERRY ELHAMAH S SH[employer] AND ALTERATION TAILOR Ot V85.35 07/23/2014 TERRY ELHAMAH S SH[employer] AND ALTERATION TAILOR Ot 172.9 07/23/2014 TERRY HILAH S [employer] ALTERATION TAILOR Ot 592.0 07/23/2014 ANTHONY, BOBAN N Ot 070.70 07/23/2014 ANTHONY, BOBAN N Ot 172.5 07/23/2014 ANTHONY, BOBAN N Ot 278.00 07/23/2014 ANTHONY, BOBAN N Ot 401.9 07/23/2014 ANTHONY, BOBAN N Ot V58.69 07/23/2014 ANTHONY, BOBAN N Ot V85.35 07/23/2014 TERRY BJ S [employer]TERATION TAILOR Ot 070.70 07/23/2014 TERRY HILAH S [employer] ALTERATION TAILOR Ot 172.5 07/23/2014 TERRY HILAH S SH[employer] ALTERATION TAILOR Ot 401.9 07/23/2014 TERRY HILAH S [employer] ALTERATION TAILOR Ot V58.69 07/23/2014 TERRY ELHAMAH S SH[employer] AND ALTERATION TAILOR Ot 172.9 07/23/2014 RILEY ROSALBA ENCINAS Ot 550.90 07/23/2014 RILEY ROSALBA ENCINAS Ot V72.84 07/23/2014 ANTHONY, BOBAN N Ot 274.9 07/23/2014 IVA CRUZ N Ot 401.9 07/23/2014 IVA CRUZ N Ot V10.82 07/23/2014 IVA CRUZ N Ot V12.09 07/23/2014 IVA CRUZ N Ot V58.69 07/23/2014 IVA CRUZ N Ot V67.2 07/23/2014 TOMAS AUGUSTIN Ot 521.00 UNSPEC DENTAL CARIES 07/23/2014 TOMAS AUGUSTIN Ot 522.5 PERIAPICAL ABSCESS 07/23/2014 TOMAS AUGUSTIN Ot 525.9 DENTAL DISORDER NOS 08/10/2014 BJ TERRY [employer]TER[employer] TAILOR Ot 172.9 08/10/2014 IVA CRUZ N Ot 274.9 08/10/2014 IVA CRUZ N Ot 401.9 08/10/2014 IVA CRUZ N Ot V10.82 08/10/2014 IVA CRUZ N Ot V12.09 08/10/2014 IVA CRUZ N Ot V58.69 08/10/2014 IVA CRUZ N Ot V67.2 08/29/2014 IVA CRUZ N Ot 274.9 GOUT NOS 08/29/2014 IVA CRUZ N Ot 401.9 HYPERTENSION NOS 08/29/2014 IVA CRUZ N Ot V10.82 HX-MALIG SKIN MELANOMA 08/29/2014 IVA CRUZ N Ot V12.09 PERSONAL HISTORY OTH SPEC INFECT SHAE 08/29/2014 IVA CRUZ N Ot V58.69 OTH MED,LT,CURRENT USE 08/29/2014 IVA CRUZ N Ot V67.2 CHEMOTHERAPY FOLLOW-UP 09/26/2014 BJ TERRY [employer] TAILOR Ot 274.9 09/26/2014 BJ TERRY [employer] ALTERATION TAILOR Ot 401.9 09/26/2014 BJ TERRY [employer] ALTERATION TAILOR Ot V10.82 09/26/2014 BJ TERRY [employer] ALTERATION TAILOR Ot V12.09 09/26/2014 BJ TERRY [employer] ALTERATION TAILOR Ot V58.69 09/26/2014 BJ TERRY [employer] AND ALTERATION TAILOR Ot V67.2 10/18/2014 BJ TERRY SH[employer] ALTERATION TAILOR Ot 709.9 10/18/2014 TERRYBJ Loza SH[employer] ALTERATION TAILOR Ot 788.1 10/18/2014 MARA BJ Loza SH[employer] AND ALTERATION TAILOR Ot 788.30 10/18/2014 MARABJ SH[employer] AND ALTERATION TAILOR Ot 788.41 10/18/2014 MARABJ SH[employer] AND ALTERATION TAILOR Ot V10.82 10/18/2014 MARA BJ Loza SH[employer] AND ALTERATION TAILOR Ot V12.09 10/18/2014 MARA BJ Loza SH[employer] AND ALTERATION TAILOR Ot V58.69 10/18/2014 TERRYBJ Loza SH[employer] AND ALTERATION TAILOR Ot V67.2 10/26/2014 ROSALBA STEVENS DO Ot 709.9 SKIN DISORDER NOS 10/26/2014 ROSALBA STEVENS DO Ot V64.3 NO PROC FOR REASONS NEC 10/31/2014 MARABJ [employer] ALTERATION TAILOR Ot 274.9 10/31/2014 MARA BJ Loza SH[employer] AND ALTERATION TAILOR Ot 401.9 10/31/2014 MARA BJ Loza SH[employer] AND ALTERATION TAILOR Ot V10.82 10/31/2014 MARA BJ Loza SH[employer] AND ALTERATION TAILOR Ot V12.09 10/31/2014 MARAJB SHOP AND ALTERATION TAILOR Ot V58.69 10/31/2014 MARABJ SH[employer] AND ALTERATION TAILOR Ot V67.2 11/01/2014 MARA BJ Loza SH[employer] AND ALTERATION TAILOR Ot 709.9 11/01/2014 MARABJ SH[employer] AND ALTERATION TAILOR Ot 788.1 11/01/2014 MARA BJ Loza SH[employer] AND ALTERATION TAILOR Ot 788.30 11/01/2014 MARA BJ Loza SH[employer] AND ALTERATION TAILOR Ot 788.41 11/01/2014 MARA BJ S SH[employer] AND ALTERATION TAILOR Ot V10.82 11/01/2014 MARA BJ S SH[employer] AND ALTERATION TAILOR Ot V12.09 11/01/2014 MARA BJ Loza SH[employer] AND ALTERATION TAILOR Ot V58.69 11/01/2014 MARA BJ S SH[employer] AND ALTERATION TAILOR Ot V67.2 11/01/2014 MARA BJ S SH[employer] AND ALTERATION TAILOR Ot 709.9 11/01/2014 MARA BJ S SH[employer] AND ALTERATION TAILOR Ot 788.1 11/01/2014 MARA BJ S SH[employer] AND ALTERATION TAILOR Ot 788.30 11/01/2014 MARA BJ S SH[employer] AND ALTERATION TAILOR Ot 788.41 11/01/2014 TERRYBJ Loza SH[employer] AND ALTERATION TAILOR Ot V10.82 11/01/2014 MARABJ SH[employer] AND ALTERATION TAILOR Ot V12.09 11/01/2014 TERRYBJ Loza SH[employer] AND ALTERATION TAILOR Ot V58.69 11/01/2014 TERRYBJ Loza SH[employer] AND ALTERATION TAILOR Ot V67.2 11/20/2014 Ot 172.5 11/20/2014 Ot [...] 11/20/2014 Ot 172.5 11/20/2014 Ot 172.9 11/20/2014 MARABJ SH[employer] AND ALTERATION TAILOR Ot 070.70 11/20/2014 MARABJ SH[employer] AND ALTERATION TAILOR Ot 172.5 11/20/2014 TERRYBJ Loza SH[employer] AND ALTERATION TAILOR Ot 401.9 11/20/2014 TERRYBJ Loza SH[employer] AND ALTERATION TAILOR Ot V15.3 11/20/2014 TERRYBJ Loza SH[employer] AND ALTERATION TAILOR Ot V58.69 11/20/2014 Ot 603.9 11/20/2014 Ot 709.9 11/20/2014 Ot V10.82 11/20/2014 Ot V72.81 11/20/2014 Ot V74.8 11/20/2014 MARABJ SH[employer] ALTERATION TAILOR Ot 172.5 11/20/2014 MARABJ SH[employer] AND ALTERATION TAILOR Ot 780.4 11/20/2014 MARABJ SH[employer] AND ALTERATION TAILOR Ot 784.0 11/20/2014 MARA BJ Dago SH[employer] AND ALTERATION TAILOR Ot 780.4 11/20/2014 MARA BJ S SH[employer] AND ALTERATION TAILOR Ot 784.0 11/20/2014 INNA BAZAN, JOSH M [...] JAZMYNE BAZAN, JAQUELINE P Ot V74.8 11/20/2014 STEVENSROSALBA CASTRO DO Ot 172.7 11/20/2014 STEVENSROSALBA CASTRO DO Ot V72.84 11/20/2014 BJ TERRY [employer]TERATION TAILOR Ot 172.7 11/20/2014 BJ TERRY [employer] ALTERATION TAILOR Ot 070.70 11/20/2014 BJ TERRY S [employer] ALTERATION TAILOR Ot 172.5 11/20/2014 BJ TERRY S [employer] ALTERATION TAILOR Ot 278.00 11/20/2014 BJ TERRY S [employer] ALTERATION TAILOR Ot 401.9 11/20/2014 BJ TERRY S [employer] AND ALTERATION TAILOR Ot V58.69 11/20/2014 BJ TERRY SH[employer] AND ALTERATION TAILOR Ot V85.35 11/20/2014 BJ TERRY S [employer] ALTERATION TAILOR Ot 172.9 11/20/2014 JB TERRY S [employer] ALTERATION TAILOR Ot 592.0 11/20/2014 ANTHONY, BOBAN N Ot 070.70 11/20/2014 ANTHONY, BOBAN N Ot 172.5 11/20/2014 ANTHONY, KELSEYAN N Ot 278.00 11/20/2014 ANTHONY, KELSEYAN N Ot 401.9 11/20/2014 ANTHONYIVA VARELA N Ot V58.69 11/20/2014 ANTHONYIVA VARELA N Ot V85.35 11/20/2014 MARABJ S [employer]ATION TAILOR Ot 070.70 11/20/2014 MARA BJ S [employer] ALTERATION TAILOR Ot 172.5 11/20/2014 MARA BJ S [employer] ALTERATION TAILOR Ot 401.9 11/20/2014 MARA BJ S [employer] ALTERATION TAILOR Ot V58.69 11/20/2014 MARA BJ S [employer] ALTERATION TAILOR Ot 172.9 11/20/2014 RILEY ROSALBA ENCINAS Ot 550.90 11/20/2014 RILEY ROSALBA ENCINAS Ot V72.84 11/20/2014 MARA BJ S [employer] ALTERATION TAILOR Ot 274.9 11/20/2014 MARA BJ S SH[employer] AND ALTERATION TAILOR Ot 401.9 11/20/2014 MARA BJ S SH[employer] AND ALTERATION TAILOR Ot V10.82 11/20/2014 MARA BJ S SH[employer] ALTERATION TAILOR Ot V12.09 11/20/2014 MARA BJ S [employer] ALTERATION TAILOR Ot V58.69 11/20/2014 MARA JB S SH[employer] ALTERATION TAILOR Ot V67.2 11/20/2014 IVA CRUZ N Ot 274.9 11/20/2014 ANTHONYIVA VARELA N Ot 401.9 11/20/2014 ANTHONYKELSEY VARELAAN N Ot V10.82 11/20/2014 ANTHONYKELSEY VARELAAN N Ot V12.09 11/20/2014 ANTHONYKELSEY VARELAAN N Ot V58.69 11/20/2014 ANTHONYKELSEY VARELAAN N Ot V67.2 11/20/2014 TERRYBJ S [employer] TAILOR Ot 709.9 11/20/2014 MARA BJ S [employer] ALTERATION TAILOR Ot 788.1 11/20/2014 MARA ELHAMAH S [employer] ALTERATION TAILOR Ot 788.30 11/20/2014 MARA BJ S [employer] ALTERATION TAILOR Ot 788.41 11/20/2014 MARA ELHAMAH S [employer] ALTERATION TAILOR Ot V10.82 11/20/2014 MARA HILAH S SH[employer] ALTERATION TAILOR Ot V12.09 11/20/2014 ELHAM TERRYAH S [employer] ALTERATION TAILOR Ot V58.69 11/20/2014 TERRYBJ Loza S SH[employer] AND ALTERATION TAILOR Ot V67.2 11/20/2014 [facility] ROSALBA D Ot 709.9 11/20/2014 [facility] ROSALBA D Ot V72.84 11/22/2014 ANTOHNY, BOBAN N Ot 274.9 11/22/2014 ANTHONY, BOBAN [...] 11/30/2014 ANTHONY, BOBAN N Ot V67.2 12/12/2014 TERRYBJ Loza S [employer] TAILOR Ot 172.9 12/29/2014 TERRYBJ Loza S [employer] TAILOR Ot 172.9 12/31/2014 TERRYBJ S [employer] TAILOR Ot 172.9 01/02/2015 ANTHONY, BOBAN N Ot 274.9 GOUT NOS 01/02/2015 IVA CRUZ [...] 172.5 04/01/2015 Ot 172.9 04/01/2015 BJ TERRY [employer]ATION TAILOR Ot 070.70 04/01/2015 BJ TERRY [employer]TERATION TAILOR Ot 172.5 04/01/2015 BJ TERRY SH[employer] ALTERATION TAILOR Ot 401.9 04/01/2015 BJ TERRY SH[employer] ALTERATION TAILOR Ot V15.3 04/01/2015 BJ TERRY SH[employer] ALTERATION TAILOR Ot V58.69 04/01/2015 Ot 603.9 04/01/2015 Ot 709.9 04/01/2015 Ot V10.82 04/01/2015 Ot V72.81 04/01/2015 Ot V74.8 04/01/2015 MARA BJ S [employer] TAILOR Ot 172.5 04/01/2015 MARA BJ S [employer] ALTERATION TAILOR Ot 780.4 04/01/2015 MARA BJ S SH[employer] ALTERATION TAILOR Ot 784.0 04/01/2015 TERRY, BJ S [employer]ATION TAILOR Ot 780.4 04/01/2015 MARA BJ S [employer] ALTERATION TAILOR Ot 784.0 04/01/2015 INNA BAZAN, JOSH M [...] STEVENS DO Ot V72.84 04/01/2015 BJ TERRY S [employer] TAILOR Ot 172.7 04/01/2015 BJ TERRY S [employer] ALTERATION TAILOR Ot 070.70 04/01/2015 BJ TERRY S [employer] ALTERATION TAILOR Ot 172.5 04/01/2015 BJ TERRY S [employer] ALTERATION TAILOR Ot 278.00 04/01/2015 TERRYBJ Loza S [employer]TERATION TAILOR Ot 401.9 04/01/2015 BJ TERRY S [employer] ALTERATION TAILOR Ot V58.69 04/01/2015 BJ TERRY S [employer] ALTERATION TAILOR Ot V85.35 04/01/2015 BJ TERRY S [employer] ALTERATION TAILOR Ot 172.9 04/01/2015 BJ TERRY S [employer] ALTERATION TAILOR Ot 592.0 04/01/2015 IVA CRUZ N Ot 070.70 04/01/2015 IVA CRUZ N Ot 172.5 04/01/2015 IVA CRUZ N Ot 278.00 04/01/2015 IVA CRUZ N Ot 401.9 04/01/2015 IVA CRUZ N Ot V58.69 04/01/2015 IVA CRUZ N Ot V85.35 04/01/2015 BJ TERRY S [employer] TAILOR Ot 070.70 04/01/2015 TERRYBJ Loza S [employer]TERATION TAILOR Ot 172.5 04/01/2015 TERRYBJ S SH[employer] ALTERATION TAILOR Ot 401.9 04/01/2015 TERRYBJ S [employer] ALTERATION TAILOR Ot V58.69 04/01/2015 TERRYBJ S [employer]ATION TAILOR Ot 172.9 04/01/2015 RILEY ROSALBA ENCINAS Ot 550.90 04/01/2015 RILEY ROSALBA ENCINAS Ot V72.84 04/01/2015 TERRYBJ Loza S [employer] TAILOR Ot 274.9 04/01/2015 TERRYBJ S [employer] ALTERATION TAILOR Ot 401.9 04/01/2015 MARA BJ S [employer] ALTERATION TAILOR Ot V10.82 04/01/2015 MARA BJ S [employer] ALTERATION TAILOR Ot V12.09 04/01/2015 MARA BJ S [employer] ALTERATION TAILOR Ot V58.69 04/01/2015 MARA BJ S [employer] ALTERATION TAILOR Ot V67.2 04/01/2015 MARA BJ S [employer] ALTERATION TAILOR Ot 172.9 04/01/2015 TERRY BJ S [employer] ALTERATION TAILOR Ot 709.9 04/01/2015 TERRY BJ S [employer] ALTERATION TAILOR Ot 788.1 04/01/2015 TERRY BJ S [employer] ALTERATION TAILOR Ot 788.30 04/01/2015 TERRY ELHAMAH S SH[employer] ALTERATION TAILOR Ot 788.41 04/01/2015 TERRY BJ S SHOP AND ALTERATION TAILOR Ot V10.82 04/01/2015 TERRY BJ S SH[employer] AND ALTERATION TAILOR Ot V12.09 04/01/2015 TERRY BJ S SH[employer] AND ALTERATION TAILOR Ot V58.69 04/01/2015 BJ TERRY [employer] AND ALTERATION TAILOR Ot V67.2 04/01/2015 STEVENS ROSALBA ENCINAS Heather Ot 709.9 04/01/2015 STEVENS ROSALBA Heather Ot V72.84 04/01/2015 BJ TERRY [employer] ALTERATION TAILOR Ot F32.9 04/01/2015 BJ TERRY [employer] AND ALTERATION TAILOR Ot N45.2 04/01/2015 BJ TERRY [employer] AND ALTERATION TAILOR Ot Z08 04/01/2015 BJ TERRY SH[employer] AND ALTERATION TAILOR Ot Z79.899 04/01/2015 BJ TERRY SH[employer] AND ALTERATION TAILOR Ot Z85.820 04/01/2015 BJ TERRY SH[employer] AND ALTERATION TAILOR Ot Z92.3 04/03/2015 Ot 172.5 04/03/2015 Ot [...] 172.5 04/03/2015 Ot 172.9 04/03/2015 TERRYBJ Loza SHOP AND ALTERATION TAILOR Ot 070.70 04/03/2015 TERRYBJ Loza SH[employer] AND ALTERATION TAILOR Ot 172.5 04/03/2015 TERRYBJ Loza SH[employer] AND ALTERATION TAILOR Ot 401.9 04/03/2015 TERRYBJ Loza SH[employer] AND ALTERATION TAILOR Ot V15.3 04/03/2015 MARABJ SHOP AND ALTERATION TAILOR Ot V58.69 04/03/2015 Ot 603.9 04/03/2015 Ot 709.9 04/03/2015 Ot V10.82 04/03/2015 Ot V72.81 04/03/2015 Ot V74.8 04/03/2015 BJ TERRY S [employer] AND ALTERATION TAILOR Ot 172.5 04/03/2015 MARA BJ S SHOP AND ALTERATION TAILOR Ot 780.4 04/03/2015 MARA BJ S SH[employer] AND ALTERATION TAILOR Ot 784.0 04/03/2015 BJ TERRY S SH[employer] AND ALTERATION TAILOR Ot 780.4 04/03/2015 ELHAM TERRYJOSE LUIS S SHOP AND ALTERATION TAILOR Ot 784.0 04/03/2015 INNA BAZAN, JOSH M [...] DO Ot V72.84 04/03/2015 BJ TERRY S SH[employer] AND ALTERATION TAILOR Ot 172.7 04/03/2015 BJ TERRY SH[employer] AND ALTERATION TAILOR Ot 070.70 04/03/2015 BJ TERRY S SH[employer] AND ALTERATION TAILOR Ot 172.5 04/03/2015 BJ TERRY S SH[employer] AND ALTERATION TAILOR Ot 278.00 04/03/2015 BJ TERRY S SHOP AND ALTERATION TAILOR Ot 401.9 04/03/2015 BJ TERRY SH[employer] AND ALTERATION TAILOR Ot V58.69 04/03/2015 BJ TERRY SH[employer] AND ALTERATION TAILOR Ot V85.35 04/03/2015 BJ TERRY S SHOP AND ALTERATION TAILOR Ot 172.9 04/03/2015 BJ TERRY S SH[employer] AND ALTERATION TAILOR Ot 592.0 04/03/2015 IVA CRUZ N Ot 070.70 04/03/2015 ANTHONY, BOBDWAIN N Ot 172.5 04/03/2015 ANTHONY BOBDWAIN N Ot 278.00 04/03/2015 ANTHONY, KELSEYAN N Ot 401.9 04/03/2015 IVA CRUZ N Ot V58.69 04/03/2015 IVA CRUZ N Ot V85.35 04/03/2015 BJ TERRY S [employer] AND ALTERATION TAILOR Ot 070.70 04/03/2015 BJ TERRY S SHOP AND ALTERATION TAILOR Ot 172.5 04/03/2015 BJ TERRY S SHOP AND ALTERATION TAILOR Ot 401.9 04/03/2015 TERRYBJ Loza S SHOP AND ALTERATION TAILOR Ot V58.69 04/03/2015 BJ TERRY S SHOP AND ALTERATION TAILOR Ot 172.9 04/03/2015 [facility] 550.90 04/03/2015 [facility] Ot V72.84 04/03/2015 TERRYBJ Loza S SHOP AND ALTERATION TAILOR Ot 274.9 04/03/2015 TERRYBJ Loza S SHOP AND ALTERATION TAILOR Ot 401.9 04/03/2015 TERRYBJ Loza S SHOP AND ALTERATION TAILOR Ot V10.82 04/03/2015 TERRYBJ S SHOP AND ALTERATION TAILOR Ot V12.09 04/03/2015 TERRYBJ Loza S SHOP AND ALTERATION TAILOR Ot V58.69 04/03/2015 TERRYBJ Loza S SHOP AND ALTERATION TAILOR Ot V67.2 04/03/2015 TERRYBJ Loza S SHOP AND ALTERATION TAILOR Ot 172.9 04/03/2015 TERRYBJ S SHOP AND ALTERATION TAILOR Ot 709.9 04/03/2015 TERRYBJ S SHOP AND ALTERATION TAILOR Ot 788.1 04/03/2015 TERRYBJ S SHOP AND ALTERATION TAILOR Ot 788.30 04/03/2015 TERRY, BJ S SH[employer] AND ALTERATION TAILOR Ot 788.41 04/03/2015 MARA BJ S SHOP AND ALTERATION TAILOR Ot V10.82 04/03/2015 TERRY, HILAH S SHOP AND ALTERATION TAILOR Ot V12.09 04/03/2015 TERRYBJ Loza SH[employer] AND ALTERATION TAILOR Ot V58.69 04/03/2015 BJ TERRY SHOP AND ALTERATION TAILOR Ot V67.2 04/03/2015 RILEY ROSALBA ENCINAS D Ot 709.9 04/03/2015 RILEY ROSALBA ENCINAS Ot V72.84 04/03/2015 TERRYBJ Loza SH[employer] AND ALTERATION TAILOR Ot F32.9 04/03/2015 TERRYBJ Loza SHOP AND ALTERATION TAILOR Ot N45.2 04/03/2015 TERRYBJ Loza SHOP AND ALTERATION TAILOR Ot Z08 04/03/2015 TERRYJB Loza SHOP AND ALTERATION TAILOR Ot Z79.899 04/03/2015 TERRYBJ Loza SHOP AND ALTERATION TAILOR Ot Z85.820 04/03/2015 TERRYBJ Loza SHOP AND ALTERATION TAILOR Ot Z92.3 04/03/2015 TERRYBJ Loza SHOP AND ALTERATION TAILOR Ot N50.8 04/11/2015 TERRYBJ Loza SHOP AND ALTERATION TAILOR Ot F32.9 04/11/2015 TERRYBJ Loza SHOP AND ALTERATION TAILOR Ot N45.2 04/11/2015 TERRYBJ Loza SHOP AND ALTERATION TAILOR Ot Z08 04/11/2015 TERRYBJ Loza SHOP AND ALTERATION TAILOR Ot Z79.899 04/11/2015 TERRYBJ Loza S SHOP AND ALTERATION TAILOR Ot Z85.820 04/11/2015 TERRYBJ Loza SHOP AND ALTERATION TAILOR Ot Z92.3 04/16/2015 ALICJA BAZAN, ERIC Pina Ot N43.3 HYDROCELE, UNSPECIFIED 04/19/2015 TERRYBJ Loza SH[employer] AND ALTERATION TAILOR Ot F32.9 04/19/2015 TERRYBJ Loza SHOP AND ALTERATION TAILOR Ot N45.2 04/19/2015 TERRYBJ Loza SHOP AND ALTERATION TAILOR Ot Z08 04/19/2015 TERRYBJ Loza S SHOP AND ALTERATION TAILOR Ot Z79.899 04/19/2015 TERRYBJ Loza S SHOP AND ALTERATION TAILOR Ot Z85.820 04/19/2015 MARABJ SHOP AND ALTERATION TAILOR Ot Z92.3 04/25/2015 MARABJ SHOP AND ALTERATION TAILOR Ot N50.8 04/28/2015 KAYLYNN HOOKER DO Ot M79.661 PAIN IN RIGHT LOWER LEG 04/28/2015 KAYLYNN HOOKER DO Ot M79.89 OTHER SPECIFIED SOFT TISSUE DISORDERS 05/03/2015 MARABJ SH[employer] AND ALTERATION TAILOR Ot N50.8 05/03/2015 MARA BJ Loza SH[employer] AND ALTERATION TAILOR Ot N50.8 06/13/2015 Ot 172.5 06/13/2015 Ot [...] 06/13/2015 Ot 172.5 06/13/2015 Ot 172.9 06/13/2015 MARA BJ Loza SH[employer] AND ALTERATION TAILOR Ot 070.70 06/13/2015 MARA BJ Loza SH[employer] AND ALTERATION TAILOR Ot 172.5 06/13/2015 MARA BJ Dago SHOP AND ALTERATION TAILOR Ot 401.9 06/13/2015 MARA BJ Loza SH[employer] AND ALTERATION TAILOR Ot V15.3 06/13/2015 MARA BJ Loza SH[employer] AND ALTERATION TAILOR Ot V58.69 06/13/2015 Ot 603.9 06/13/2015 Ot 709.9 06/13/2015 Ot V10.82 06/13/2015 Ot V72.81 06/13/2015 Ot V74.8 06/13/2015 MARA BJ Dago SH[employer] AND ALTERATION TAILOR Ot 172.5 06/13/2015 MARA ELHAMJOSE LUIS Loza SHOP AND ALTERATION TAILOR Ot 780.4 06/13/2015 MARA BJ Dago SHOP AND ALTERATION TAILOR Ot 784.0 06/13/2015 MARA BJ Loza SH[employer] AND ALTERATION TAILOR Ot 780.4 06/13/2015 BJ TERRY SHOP AND ALTERATION TAILOR Ot 784.0 06/13/2015 INNA BAZAN, JOSH M [...] JAZMYNE BAZAN, JAQUELINE P Ot V74.8 06/13/2015 STEVENSROSALBA CASTRO DO Ot 172.7 06/13/2015 STEVENSROSALBA CASTRO DO Ot V72.84 06/13/2015 BJ TERRY SH[employer] AND ALTERATION TAILOR Ot 172.7 06/13/2015 BJ TERRY SHOP AND ALTERATION TAILOR Ot 070.70 06/13/2015 BJ TERRY S SH[employer] AND ALTERATION TAILOR Ot 172.5 06/13/2015 BJ TERRY S SHOP AND ALTERATION TAILOR Ot 278.00 06/13/2015 BJ TERRY S SH[employer] AND ALTERATION TAILOR Ot 401.9 06/13/2015 TERRYBJ Loza S SHOP AND ALTERATION TAILOR Ot V58.69 06/13/2015 BJ TERRY S SH[employer] AND ALTERATION TAILOR Ot V85.35 06/13/2015 BJ TERRY S SH[employer] AND ALTERATION TAILOR Ot 172.9 06/13/2015 BJ TERRY S SH[employer] AND ALTERATION TAILOR Ot 592.0 06/13/2015 ANTHONY, BOBAN N Ot 070.70 06/13/2015 ANTHONY, BOBAN N Ot 172.5 06/13/2015 ANTHONY, BOBAN N Ot 278.00 06/13/2015 IVA CRUZ N Ot 401.9 06/13/2015 IVA CRUZ N Ot V58.69 06/13/2015 IVA CRUZ N Ot V85.35 06/13/2015 TERRYBJ Loza S SH[employer] AND ALTERATION TAILOR Ot 070.70 06/13/2015 BJ TERRY S SH[employer] AND ALTERATION TAILOR Ot 172.5 06/13/2015 TERRYBJ Loza S SHOP AND ALTERATION TAILOR Ot 401.9 06/13/2015 TERRYBJ Loza S SHOP AND ALTERATION TAILOR Ot V58.69 06/13/2015 TERRYBJ Loza S SHOP AND ALTERATION TAILOR Ot 172.9 06/13/2015 [facility] 550.90 06/13/2015 [facility] Ot V72.84 06/13/2015 TERRYBJ Loza S SHOP AND ALTERATION TAILOR Ot 274.9 06/13/2015 TERRYBJ Loza S SHOP AND ALTERATION TAILOR Ot 401.9 06/13/2015 MARA BJ S SHOP AND ALTERATION TAILOR Ot V10.82 06/13/2015 TERRYBJ S SHOP AND ALTERATION TAILOR Ot V12.09 06/13/2015 TERRYBJ Loza S SHOP AND ALTERATION TAILOR Ot V58.69 06/13/2015 TERRYBJ Loza S SHOP AND ALTERATION TAILOR Ot V67.2 06/13/2015 TERRYBJ Loza S SH[employer] AND ALTERATION TAILOR Ot 172.9 06/13/2015 TERRYBJ Loza S SHOP AND ALTERATION TAILOR Ot 709.9 06/13/2015 TERRYBJ Loza S SHOP AND ALTERATION TAILOR Ot 788.1 06/13/2015 TERRYBJ S SHOP AND ALTERATION TAILOR Ot 788.30 06/13/2015 TERRYBJ S SHOP AND ALTERATION TAILOR Ot 788.41 06/13/2015 TERRYBJ Loza S SHOP AND ALTERATION TAILOR Ot V10.82 06/13/2015 TERRYBJ S SHOP AND ALTERATION TAILOR Ot V12.09 06/13/2015 TERRYBJ S SHOP AND ALTERATION TAILOR Ot V58.69 06/13/2015 TERRYBJ S SHOP AND ALTERATION TAILOR Ot V67.2 06/13/2015 [facility] Ot 709.9 06/13/2015 [facility] D Ot V72.84 06/13/2015 TERRY, BJ S SH[employer] AND ALTERATION TAILOR Ot F32.9 06/13/2015 TERRY BJ S SH[employer] AND ALTERATION TAILOR Ot N45.2 06/13/2015 BJ TERRY SH[employer] AND ALTERATION TAILOR Ot Z08 06/13/2015 BJ TERRY SH[employer] AND ALTERATION TAILOR Ot Z79.899 06/13/2015 BJ TERRY SH[employer] AND ALTERATION TAILOR Ot Z85.820 06/13/2015 BJ TERRY SH[employer] AND ALTERATION TAILOR Ot Z92.3 06/13/2015 BJ TERRY SH[employer] AND ALTERATION TAILOR Ot N50.8 06/13/2015 ALICJA BAZAN, ERIC Pina Ot N43.3 07/22/2015 Ot 172.5 MALIG MELANOMA [...] MALIG MELANOMA SKIN NOS 07/22/2015 BJ TERRY [employer] ALTERATION TAILOR Ot 070.70 UNSPECIFIED VIRAL HEPATITIS C WITHOUT HE 07/22/2015 BJ TERRY [employer] ALTERATION TAILOR Ot 172.5 MALIG MELANOMA TRUNK 07/22/2015 BJ TERRY SH[employer] ALTERATION TAILOR Ot 401.9 HYPERTENSION NOS 07/22/2015 BJ TERRY SH[employer] AND ALTERATION TAILOR Ot V15.3 HX OF IRRADIATION 07/22/2015 BJ TERRY SH[employer] ALTERATION TAILOR Ot V58.69 OTH MED,LT,CURRENT USE 07/22/2015 Ot 603.9 HYDROCELE NOS 07/22/2015 Ot 709.9 SKIN DISORDER NOS 07/22/2015 Ot V10.82 HX-MALIG SKIN MELANOMA 07/22/2015 Ot V72.81 [id number] CARDIOVASCULAR 07/22/2015 Ot V74.8 SCREEN-BACTERIAL DIS NEC 07/22/2015 BJ TERRY [employer] ALTERATION TAILOR Ot 172.5 MALIG MELANOMA TRUNK 07/22/2015 BJ TERRY [employer] ALTERATION TAILOR Ot 780.4 DIZZINESS AND GIDDINESS 07/22/2015 TERRYBJ Loza SH[employer] AND ALTERATION TAILOR Ot 784.0 HEADACHE 07/22/2015 TERRYBJ Loza SH[employer] AND ALTERATION TAILOR Ot 780.4 DIZZINESS AND GIDDINESS 07/22/2015 TERRYBJ Loza SH[employer] AND ALTERATION TAILOR Ot 784.0 HEADACHE 07/22/2015 INNA BAZAN, JOSH [...] MALIG MELANOMA SKIN NOS 07/22/2015 IVA CRUZ N Ot 070.70 UNSPECIFIED VIRAL HEPATITIS C WITHOUT HE 07/22/2015 IVA CRUZ N Ot 172.5 MALIG MELANOMA TRUNK 07/22/2015 IVA CRUZ N Ot 278.00 OBESITY, NOS 07/22/2015 IVA CRUZ N Ot 401.9 HYPERTENSION NOS 07/22/2015 IVA CRUZ Ot V15.3 HX OF IRRADIATION 07/22/2015 IVA CRUZ Ot V58.69 OTH MED,LT,CURRENT USE 07/22/2015 JAQUELINE SAMANO MD Ot 709.9 SKIN DISORDER NOS 07/22/2015 JAQUELINE SAMANO MD Ot V10.82 HX-MALIG SKIN MELANOMA 07/22/2015 JAQUELINE SAMANO MD Ot V72.83 EXAM PRE-OPERATIVE NEC 07/22/2015 JAQUELINE SAMANO MD Ot V74.8 SCREEN-BACTERIAL DIS NEC 07/22/2015 STEVENS DO, ROSALBA D Ot 172.7 MALIG MELANOMA LEG 07/22/2015 STEVENS DOROSALBA D Ot V72.84 EXAM PRE-OPERATIVE NOS 07/22/2015 BJ TERRY S [employer] ALTERATION TAILOR Ot 172.7 MALIG MELANOMA LEG 07/22/2015 ELHAM TERRYAH S SH[employer] AND ALTERATION TAILOR Ot 070.70 UNSPECIFIED VIRAL HEPATITIS C WITHOUT HE 07/22/2015 TERRY HILAH S SH[employer] AND ALTERATION TAILOR Ot 172.5 MALIG MELANOMA TRUNK 07/22/2015 [place] TERRYAH S SH[employer] AND ALTERATION TAILOR Ot 278.00 OBESITY, NOS 07/22/2015 [place]AM TERRYAH S SH[employer] AND ALTERATION TAILOR Ot 401.9 HYPERTENSION NOS 07/22/2015 BJ TERRY S SH[employer] AND ALTERATION TAILOR Ot V58.69 OTH MED,LT,CURRENT USE 07/22/2015 TERRYELHAMAH S SH[employer] AND ALTERATION TAILOR Ot V85.35 BODY MASS INDEX 35.0-35.9, ADULT 07/22/2015 TERRYBJ S SH[employer] AND ALTERATION TAILOR Ot 172.9 MALIG MELANOMA SKIN NOS 07/22/2015 BJ TERRY S SH[employer] AND ALTERATION TAILOR Ot 592.0 CALCULUS OF KIDNEY 07/22/2015 IVA CRUZ N Ot 070.70 UNSPECIFIED VIRAL HEPATITIS C WITHOUT HE 07/22/2015 IVA CRUZ N Ot 172.5 MALIG MELANOMA TRUNK 07/22/2015 IVA CRUZ N Ot 278.00 OBESITY, NOS 07/22/2015 KELSEY CRUZAN N Ot 401.9 HYPERTENSION NOS 07/22/2015 IVA CRUZ N Ot V58.69 OTH MED,LT,CURRENT USE 07/22/2015 IVA CRUZ N Ot V85.35 BODY MASS INDEX 35.0-35.9, ADULT 07/22/2015 TERRYELHAMAH S SHOP AND ALTERATION TAILOR Ot 070.70 UNSPECIFIED VIRAL HEPATITIS C WITHOUT HE 07/22/2015 TERRYELHAMAH S SH[employer] AND ALTERATION TAILOR Ot 172.5 MALIG MELANOMA TRUNK 07/22/2015 BJ TERRY [employer] ALTERATION TAILOR Ot 401.9 HYPERTENSION NOS 07/22/2015 BJ TERRY [employer] ALTERATION TAILOR Ot V58.69 OTH MED,LT,CURRENT USE 07/22/2015 TERRYBJ S SH[employer] AND ALTERATION TAILOR Ot 172.9 MALIG MELANOMA SKIN NOS 07/22/2015 STEVENS DO, ROSALBA D Ot 550.90 UNILAT INGUINAL HERNIA 07/22/2015 RODNEY ENCINAS, ROSALBA D Ot V72.84 EXAM PRE-OPERATIVE NOS 07/22/2015 BJ TERRY [employer] TAILOR Ot 274.9 GOUT NOS 07/22/2015 BJ TERRY SH[employer] AND ALTERATION TAILOR Ot 401.9 HYPERTENSION NOS 07/22/2015 BJ TERRY SH[employer] ALTERATION TAILOR Ot V10.82 HX-MALIG SKIN MELANOMA 07/22/2015 BJ TERRY [employer] ALTERATION TAILOR Ot V12.09 PERSONAL HISTORY OTH SPEC INFECT SHAE 07/22/2015 BJ TERRY [employer]ATION TAILOR Ot V58.69 OTH MED,LT,CURRENT USE 07/22/2015 BJ TERRY SH[employer] ALTERATION TAILOR Ot V67.2 CHEMOTHERAPY FOLLOW-UP 07/22/2015 BJ TERRY [employer] ALTERATION TAILOR Ot 172.9 MALIG MELANOMA SKIN NOS 07/22/2015 BJ TERRY [employer] ALTERATION TAILOR Ot 709.9 SKIN DISORDER NOS 07/22/2015 BJ TERRY [employer] ALTERATION TAILOR Ot 788.1 DYSURIA 07/22/2015 BJ TERRY [employer] ALTERATION TAILOR Ot 788.30 UNSPECIFIED URINARY INCONTINENCE 07/22/2015 BJ TERRY [employer] ALTERATION TAILOR Ot 788.41 URINARY FREQUENCY 07/22/2015 BJ TERRY [employer] ALTERATION TAILOR Ot V10.82 HX-MALIG SKIN MELANOMA 07/22/2015 BJ TERRY [employer] AND ALTERATION TAILOR Ot V12.09 PERSONAL HISTORY OTH SPEC INFECT SHAE 07/22/2015 BJ TERRY [employer] ALTERATION TAILOR Ot V58.69 OTH MED,LT,CURRENT USE 07/22/2015 BJ TERRY [employer] ALTERATION TAILOR Ot V67.2 CHEMOTHERAPY FOLLOW-UP 07/22/2015 RODNEY ENCINAS, ROSALBA D Ot 709.9 SKIN DISORDER NOS 07/22/2015 ROSALBA STEVENS DO D Ot V72.84 EXAM PRE-OPERATIVE NOS 07/22/2015 BJ TERRY [employer] TAILOR Ot F32.9 MAJOR DEPRESSIVE DISORDER, SINGLE EPISOD 07/22/2015 MARA BJ Loza [employer] ALTERATION TAILOR Ot N45.2 ORCHITIS 07/22/2015 MARA BJ Loza [employer] ALTERATION TAILOR Ot Z08 ENCNTR FOR FOLLOW-UP EXAM AFTER TRTMT FO 07/22/2015 TERRYBJ [employer] AND ALTERATION TAILOR Ot Z79.899 OTHER DETENTION (CURRENT) DRUG THERAPY 07/22/2015 MARA BJ Loza [employer] ALTERATION TAILOR Ot Z85.820 PERSONAL HISTORY OF MALIGNANT MELANOMA O 07/22/2015 [place] TERRYJOSE LUIS Loza [employer] AND ALTERATION TAILOR Ot Z92.3 PERSONAL HISTORY OF IRRADIATION 07/22/2015 MARA BJ Loza [employer] ALTERATION TAILOR Ot N50.8 OTHER SPECIFIED DISORDERS OF MALE GENITA 07/22/2015 ALICJA BAZAN, ERIC Pina Ot N43.3 HYDROCELE, UNSPECIFIED 07/23/2015 [place] TERRYJOSE LUIS Loza [employer] ALTERATION TAILOR Ot F32.9 MAJOR DEPRESSIVE DISORDER, SINGLE EPISOD 07/23/2015 [place] TERRYJOSE LUIS Loza [employer] ALTERATION TAILOR Ot Z08 ENCNTR FOR FOLLOW-UP EXAM AFTER TRTMT FO 07/23/2015 MARA BJ Loza [employer] ALTERATION TAILOR Ot Z79.899 OTHER MEDICAL RECORDS SECRETARY (CURRENT) DRUG THERAPY 07/23/2015 [place] TERRYJOSE LUIS Loza [employer] AND ALTERATION TAILOR Ot Z85.820 PERSONAL HISTORY OF MALIGNANT MELANOMA O 07/23/2015 MARA BJ Loza [employer] AND ALTERATION TAILOR Ot Z92.3 PERSONAL HISTORY OF IRRADIATION 07/30/2015 [...] MALIG MELANOMA SKIN NOS 07/30/2015 BJ TERRY S [employer] ALTERATION TAILOR Ot 070.70 UNSPECIFIED VIRAL HEPATITIS C WITHOUT HE 07/30/2015 BJ TERRY S [employer] AND ALTERATION TAILOR Ot 172.5 MALIG MELANOMA TRUNK 07/30/2015 BJ TERRY [employer] ALTERATION TAILOR Ot 401.9 HYPERTENSION NOS 07/30/2015 BJ TERRY S SH[employer] AND ALTERATION TAILOR Ot V15.3 HX OF IRRADIATION 07/30/2015 BJ TERRY S SH[employer] AND ALTERATION TAILOR Ot V58.69 OTH MED,LT,CURRENT USE 07/30/2015 Ot 603.9 HYDROCELE NOS 07/30/2015 Ot 709.9 SKIN DISORDER NOS 07/30/2015 Ot V10.82 HX-MALIG SKIN MELANOMA 07/30/2015 Ot V72.81 [id number] CARDIOVASCULAR 07/30/2015 Ot V74.8 SCREEN-BACTERIAL DIS NEC 07/30/2015 BJ TERRY [employer]TER[employer] TAILOR Ot 172.5 MALIG MELANOMA TRUNK 07/30/2015 BJ TERRY [employer] ALTERATION TAILOR Ot 780.4 DIZZINESS AND GIDDINESS 07/30/2015 BJ TERRY S [employer] AND ALTERATION TAILOR Ot 784.0 HEADACHE 07/30/2015 BJ TERRY S [employer] AND ALTERATION TAILOR Ot 780.4 DIZZINESS AND GIDDINESS 07/30/2015 BJ TERRY S [employer] AND ALTERATION TAILOR Ot 784.0 HEADACHE 07/30/2015 INNA BAZAN, JOSH De Anda Ot 709.9 SKIN DISORDER NOS 07/30/2015 JOSH KEITH MD Ot V72.84 EXAM PRE-OPERATIVE NOS 07/30/2015 INNA [...] CRUZ N Ot 278.00 OBESITY, NOS 07/30/2015 IVA CRUZ [...] V72.84 EXAM PRE-OPERATIVE NOS 07/30/2015 BJ TERRY [employer]TER[employer] TAILOR Ot 172.7 MALIG MELANOMA LEG 07/30/2015 BJ TERRY [employer] ALTERATION TAILOR Ot 070.70 UNSPECIFIED VIRAL HEPATITIS C WITHOUT HE 07/30/2015 BJ TERRY [employer] ALTERATION TAILOR Ot 172.5 MALIG MELANOMA TRUNK 07/30/2015 BJ TERRY [employer] ALTERATION TAILOR Ot 278.00 OBESITY, NOS 07/30/2015 BJ TERRY S SH[employer] AND ALTERATION TAILOR Ot 401.9 HYPERTENSION NOS 07/30/2015 BJ TERRY [employer] ALTERATION TAILOR Ot V58.69 OTH MED,LT,CURRENT USE 07/30/2015 BJ TERRY S SH[employer] AND ALTERATION TAILOR Ot V85.35 BODY MASS INDEX 35.0-35.9, ADULT 07/30/2015 BJ TERRY [employer] ALTERATION TAILOR Ot 172.9 MALIG MELANOMA SKIN NOS 07/30/2015 BJ TERRY [employer] ALTERATION TAILOR Ot 592.0 CALCULUS OF KIDNEY 07/30/2015 IVA CRUZ Ot 070.70 UNSPECIFIED VIRAL HEPATITIS C WITHOUT HE 07/30/2015 IVA CRUZ N Ot 172.5 MALIG MELANOMA TRUNK 07/30/2015 IVA CRUZ N Ot 278.00 OBESITY, NOS 07/30/2015 IVA CRUZ N Ot 401.9 HYPERTENSION NOS 07/30/2015 IVA CRUZ Ot V58.69 OTH MED,LT,CURRENT USE 07/30/2015 IVA CRUZ Ot V85.35 BODY MASS INDEX 35.0-35.9, ADULT 07/30/2015 BJ TERRY [employer] ALTERATION TAILOR Ot 070.70 UNSPECIFIED VIRAL HEPATITIS C WITHOUT HE 07/30/2015 BJ TERRY [employer] ALTERATION TAILOR Ot 172.5 MALIG MELANOMA TRUNK 07/30/2015 BJ TERRY [employer] ALTERATION TAILOR Ot 401.9 HYPERTENSION NOS 07/30/2015 BJ TERRY [employer] ALTERATION TAILOR Ot V58.69 OTH MED,LT,CURRENT USE 07/30/2015 BJ TERRY [employer] ALTERATION TAILOR Ot 172.9 MALIG MELANOMA SKIN NOS 07/30/2015 ROSALBA STEVENS DO D Ot 550.90 UNILAT INGUINAL HERNIA 07/30/2015 ROSALBA STEVENS DO Ot V72.84 EXAM PRE-OPERATIVE NOS 07/30/2015 BJ TERRY [employer]TER[employer] TAILOR Ot 274.9 GOUT NOS 07/30/2015 BJ TERRY SH[employer] AND ALTERATION TAILOR Ot 401.9 HYPERTENSION NOS 07/30/2015 BJ TERRY [employer] ALTERATION TAILOR Ot V10.82 HX-MALIG SKIN MELANOMA 07/30/2015 BJ TERRY [employer] AND ALTERATION TAILOR Ot V12.09 PERSONAL HISTORY OTH SPEC INFECT SHAE 07/30/2015 BJ TERRY [employer]TERATION TAILOR Ot V58.69 OTH MED,LT,CURRENT USE 07/30/2015 BJ TERRY SH[employer] ALTERATION TAILOR Ot V67.2 CHEMOTHERAPY FOLLOW-UP 07/30/2015 BJ TERRY [employer] ALTERATION TAILOR Ot 172.9 MALIG MELANOMA SKIN NOS 07/30/2015 BJ TERRY [employer] ALTERATION TAILOR Ot 709.9 SKIN DISORDER NOS 07/30/2015 [place] TERRYJOSE LUIS Dago SH[employer] AND ALTERATION TAILOR Ot 788.1 DYSURIA 07/30/2015 [place] TERRYJOSE LUIS Dago SH[employer] AND ALTERATION TAILOR Ot 788.30 UNSPECIFIED URINARY INCONTINENCE 07/30/2015 BJ TERRY [employer] ALTERATION TAILOR Ot 788.41 URINARY FREQUENCY 07/30/2015 BJ TERRY [employer] ALTERATION TAILOR Ot V10.82 HX-MALIG SKIN MELANOMA 07/30/2015 BJ TERRY [employer] AND ALTERATION TAILOR Ot V12.09 PERSONAL HISTORY OTH SPEC INFECT SHAE 07/30/2015 BJ TERRY [employer] ALTERATION TAILOR Ot V58.69 OTH MED,LT,CURRENT USE 07/30/2015 ELHAM TERRYJOSE LUIS Dago [employer]TERATION TAILOR Ot V67.2 CHEMOTHERAPY FOLLOW-UP 07/30/2015 ROSALBA STEVENS DO Ot 709.9 SKIN DISORDER NOS 07/30/2015 ROSALBA STEVENS DO Ot V72.84 EXAM PRE-OPERATIVE NOS 07/30/2015 BJ TERRY [employer] TAILOR Ot F32.9 MAJOR DEPRESSIVE DISORDER, SINGLE EPISOD 07/30/2015 BJ TERRY [employer] TAILOR Ot N45.2 ORCHITIS 07/30/2015 BJ TERRY [employer]TER[employer] TAILOR Ot Z08 ENCNTR FOR FOLLOW-UP EXAM AFTER TRTMT FO 07/30/2015 BJ TERRY [employer] TAILOR Ot Z79.899 OTHER MEDICAL RECORDS SECRETARY (CURRENT) DRUG THERAPY 07/30/2015 BJ TERRY [employer] TAILOR Ot Z85.820 PERSONAL HISTORY OF MALIGNANT MELANOMA O 07/30/2015 BJ TERRY [employer] TAILOR Ot Z92.3 PERSONAL HISTORY OF IRRADIATION 07/30/2015 BJ TERRY [employer]TER[employer] TAILOR Ot N50.8 OTHER SPECIFIED DISORDERS OF MALE GENITA 07/30/2015 ALICJA BAZAN, ERIC Pina Ot N43.3 HYDROCELE, UNSPECIFIED 07/30/2015 BJ TERRY [employer] TAILOR Ot F32.9 MAJOR DEPRESSIVE DISORDER, SINGLE EPISOD 07/30/2015 BJ TERRY [employer] TAILOR Ot Z08 ENCNTR FOR FOLLOW-UP EXAM AFTER TRTMT FO 07/30/2015 BJ TERRY [employer] TAILOR Ot Z79.899 OTHER MEDICAL RECORDS SECRETARY (CURRENT) DRUG THERAPY 07/30/2015 BJ TERRY [employer]TER[employer] TAILOR Ot Z85.820 PERSONAL HISTORY OF MALIGNANT MELANOMA O 07/30/2015 MARA ELHAMJOSE LUIS Dago [employer]TER[employer] TAILOR Ot Z92.3 PERSONAL HISTORY OF IRRADIATION 07/31/2015 TERRYBJ Loza [employer] ALTERATION TAILOR Ot C43.72 MALIGNANT MELANOMA OF LEFT LOWER LIMB, I 08/05/2015 BJ TERRY [employer] TAILOR Ot C43.72 MALIGNANT MELANOMA OF LEFT LOWER LIMB, I 08/12/2015 ROSALBA STEVENS DO Ot L98.9 DISORDER OF THE SKIN AND SUBCUTANEOUS TI 08/12/2015 ROSALBA STEVENS DO Ot Z01.818 ENCOUNTER FOR OTHER PREPROCEDURAL EXAMIN 08/12/2015 ROSALBA STEVENS DO Ot Z85.820 PERSONAL HISTORY OF MALIGNANT MELANOMA O 08/13/2015 BJ TERRYP Ot F32.9 MAJOR DEPRESSIVE DISORDER, SINGLE EPISOD 08/13/2015 BJ TERRY Ot Z08 ENCNTR FOR FOLLOW-UP EXAM AFTER TRTMT FO 08/13/2015 BJ TERRYP Ot Z79.899 OTHER MEDICAL RECORDS SECRETARY (CURRENT) DRUG THERAPY 08/13/2015 ELHAM TERRYJOSE LUIS Dago LIMP Ot Z85.820 PERSONAL HISTORY OF MALIGNANT MELANOMA O 08/13/2015 TERRYBJ Loza Dago [employer] TAILOR Ot Z92.3 PERSONAL HISTORY OF IRRADIATION 08/15/2015 ROSALBA STEVENS DO Ot L98.9 DISORDER OF THE SKIN AND SUBCUTANEOUS TI 08/15/2015 STEVENS DOROSALBA Ot Z53.20 PROC/TRTMT NOT CRD OUT BEC PT DECISION F 08/15/2015 STEVENS ROSALBA ENCINSA Ot Z85.820 PERSONAL HISTORY OF MALIGNANT MELANOMA O 08/16/2015 ROSALBA STEVENS DO Ot L98.9 DISORDER OF THE SKIN AND SUBCUTANEOUS TI 08/16/2015 RODNEY ENCINASROSALBA Ot Z53.20 PROC/TRTMT NOT CRD OUT BEC PT DECISION F 08/16/2015 STEVENS DOROSALBA Ot Z85.820 PERSONAL HISTORY OF MALIGNANT MELANOMA O 08/23/2015 ELHAM TERRYJOSE LUIS Dago [employer] TAILOR Ot F32.9 MAJOR DEPRESSIVE DISORDER, SINGLE EPISOD 08/23/2015 BJ TERRY [employer] TAILOR Ot Z08 ENCNTR FOR FOLLOW-UP EXAM AFTER TRTMT FO 08/23/2015 BJ TERRYP Ot Z79.899 OTHER MEDICAL RECORDS SECRETARY (CURRENT) DRUG THERAPY 08/23/2015 BJ TERRY Ot [...] HEPATITIS C WITHOUT HE 11/06/2015 BJ TERRY [employer] TAILOR Ot 172.5 MALIG MELANOMA TRUNK 11/06/2015 TERRYBJ Loza [employer]TERATION TAILOR Ot 401.9 HYPERTENSION NOS 11/06/2015 BJ TERRY [employer]TER[employer] TAILOR Ot V15.3 HX OF IRRADIATION 11/06/2015 BJ TERRY [employer] TAILOR Ot V58.69 OTH MED,LT,CURRENT USE 11/06/2015 Ot 603.9 HYDROCELE NOS 11/06/2015 Ot 709.9 SKIN DISORDER NOS 11/06/2015 Ot V10.82 HX-MALIG SKIN MELANOMA 11/06/2015 Ot V72.81 [id number] CARDIOVASCULAR 11/06/2015 Ot V74.8 SCREEN-BACTERIAL DIS NEC 11/06/2015 BJ TERRY [employer] TAILOR Ot 172.5 MALIG MELANOMA TRUNK 11/06/2015 BJ TERRY [employer]TER[employer] TAILOR Ot 780.4 DIZZINESS AND GIDDINESS 11/06/2015 TERRYBJ Loza S [employer]TERATION TAILOR Ot 784.0 HEADACHE 11/06/2015 TERRYBJ Loza [employer]TERATION TAILOR Ot 780.4 DIZZINESS AND GIDDINESS 11/06/2015 TERRYBJ Loza [employer] ALTERATION TAILOR Ot 784.0 HEADACHE 11/06/2015 INNA BAZAN, JOSH De Anda Ot 709.9 SKIN DISORDER NOS 11/06/2015 INNA BAZAN, JOSH De Anda Ot V72.84 EXAM PRE-OPERATIVE NOS 11/06/2015 INNA BAZAN, JOSH De Anda Ot V74.8 SCREEN-BACTERIAL DIS NEC 11/06/2015 INNA BAZAN, JOSH De Anda Ot 709.9 SKIN DISORDER NOS 11/06/2015 INNA BAZAN, JOSH De Anda Ot V72.84 EXAM PRE-OPERATIVE NOS 11/06/2015 IVA CRUZ N Ot 172.9 MALIG MELANOMA SKIN NOS 11/06/2015 IVA CRUZ N Ot 070.70 UNSPECIFIED VIRAL HEPATITIS C WITHOUT HE 11/06/2015 IVA CRUZ N Ot 172.5 MALIG MELANOMA TRUNK 11/06/2015 IVA CRUZ N Ot 278.00 OBESITY, NOS 11/06/2015 IVA CRUZ N Ot 401.9 HYPERTENSION NOS 11/06/2015 IVA CRUZ Ot V15.3 HX OF IRRADIATION 11/06/2015 IVA CRUZ Ot V58.69 OTH MED,LT,CURRENT USE 11/06/2015 JAZMYNE BAZAN, JAQUELINE Barclay Ot 709.9 SKIN DISORDER NOS 11/06/2015 JAZMYNE BAZAN, JAQUELINE Barclay Ot V10.82 HX-MALIG SKIN MELANOMA 11/06/2015 JAQUELINE SAMANO MD Ot V72.83 EXAM PRE-OPERATIVE NEC 11/06/2015 JAQUELINE SAMANO MD Ot V74.8 SCREEN-BACTERIAL DIS NEC 11/06/2015 STEVENSROSALBA CASTRO DO D Ot 172.7 MALIG MELANOMA LEG 11/06/2015 STEVENS DOROSALBA D Ot V72.84 EXAM PRE-OPERATIVE NOS 11/06/2015 TERRY HILAH S [employer]TERATION TAILOR Ot 172.7 MALIG MELANOMA LEG 11/06/2015 TERRY HILAH S [employer]TERATION TAILOR Ot 070.70 UNSPECIFIED VIRAL HEPATITIS C WITHOUT HE 11/06/2015 TERRY, HILAH S [employer] TAILOR Ot 172.5 MALIG MELANOMA TRUNK 11/06/2015 TERRY HILAH S [employer]TERATION TAILOR Ot 278.00 OBESITY, NOS 11/06/2015 TERRY HILAH S [employer]TERATION TAILOR Ot 401.9 HYPERTENSION NOS 11/06/2015 TERRY HILAH S [employer] TAILOR Ot V58.69 OTH MED,LT,CURRENT USE 11/06/2015 TERRY, HILAH S [employer]ATION TAILOR Ot V85.35 BODY MASS INDEX 35.0-35.9, ADULT 11/06/2015 TERRY HILAH S [employer]TERATION TAILOR Ot 172.9 MALIG MELANOMA SKIN NOS 11/06/2015 TERRYELHAMAH S [employer] ALTERATION TAILOR Ot 592.0 CALCULUS OF KIDNEY 11/06/2015 IVA CRUZ N Ot 070.70 UNSPECIFIED VIRAL HEPATITIS C WITHOUT HE 11/06/2015 KELSEY CRUZAN N Ot 172.5 MALIG MELANOMA TRUNK 11/06/2015 KELSEY CRUZAN N Ot 278.00 OBESITY, NOS 11/06/2015 ANTHONY, BOBAN N Ot 401.9 HYPERTENSION NOS 11/06/2015 KELSEY CRUZAN N Ot V58.69 OTH MED,LT,CURRENT USE 11/06/2015 ANTHONY BOBAN N Ot V85.35 BODY MASS INDEX 35.0-35.9, ADULT 11/06/2015 TERRYLEHAMAH S [employer]TERATION TAILOR Ot 070.70 UNSPECIFIED VIRAL HEPATITIS C WITHOUT HE 11/06/2015 TERRY HILAH S [employer]TERATION TAILOR Ot 172.5 MALIG MELANOMA TRUNK 11/06/2015 TERRYBJ Loza [employer]TERATION TAILOR Ot 401.9 HYPERTENSION NOS 11/06/2015 TERRYBJ Loza [employer] TAILOR Ot V58.69 OTH MED,LT,CURRENT USE 11/06/2015 BJ TERRY S [employer] TAILOR Ot 172.9 MALIG MELANOMA SKIN NOS 11/06/2015 STEVENS DO, ROSALBA D Ot 550.90 UNILAT INGUINAL HERNIA 11/06/2015 ROSALBA STEVENS DO D Ot V72.84 EXAM PRE-OPERATIVE NOS 11/06/2015 TERRYBJ Loza [employer] TAILOR Ot 274.9 GOUT NOS 11/06/2015 TERRY BJ S [employer]TERATION TAILOR Ot 401.9 HYPERTENSION NOS 11/06/2015 MARA BJ Loza [employer] TAILOR Ot V10.82 HX-MALIG SKIN MELANOMA 11/06/2015 TERRYBJ Loza [employer]TERATION TAILOR Ot V12.09 PERSONAL HISTORY OTH SPEC INFECT SHAE 11/06/2015 ELHAM TERRYJOSE LUIS Loza [employer] TAILOR Ot V58.69 OTH MED,LT,CURRENT USE 11/06/2015 MARA BJ Loza [employer] TAILOR Ot V67.2 CHEMOTHERAPY FOLLOW-UP 11/06/2015 TERRY BJ Loza [employer] TAILOR Ot 172.9 MALIG MELANOMA SKIN NOS 11/06/2015 TERRY BJ S [employer]TERATION TAILOR Ot 709.9 SKIN DISORDER NOS 11/06/2015 MARA BJ Loza [employer] TAILOR Ot 788.1 DYSURIA 11/06/2015 MARA BJ S [employer] TAILOR Ot 788.30 UNSPECIFIED URINARY INCONTINENCE 11/06/2015 MARA BJ S [employer] TAILOR Ot 788.41 URINARY FREQUENCY 11/06/2015 MARA BJ S [employer] ALTERATION TAILOR Ot V10.82 HX-MALIG SKIN MELANOMA 11/06/2015 MARA BJ S [employer]TERATION TAILOR Ot V12.09 PERSONAL HISTORY OTH SPEC INFECT SHAE 11/06/2015 MARA BJ Loza [employer] TAILOR Ot V58.69 OTH MED,LT,CURRENT USE 11/06/2015 TERRYBJ S [employer]TERATION TAILOR Ot V67.2 CHEMOTHERAPY FOLLOW-UP 11/06/2015 ROSALBA STEVNES DO D Ot 709.9 SKIN DISORDER NOS 11/06/2015 ROSALBA STEVENS DO Ot V72.84 EXAM PRE-OPERATIVE NOS 11/06/2015 ELHAM TERRYAH S [employer] TAILOR Ot F32.9 MAJOR DEPRESSIVE DISORDER, SINGLE EPISOD 11/06/2015 TERRYBJ Loza [employer] TAILOR Ot N45.2 ORCHITIS 11/06/2015 BJ TERRY [employer] TAILOR Ot Z08 ENCNTR FOR FOLLOW-UP EXAM AFTER TRTMT FO 11/06/2015 BJ TERRY [employer] TAILOR Ot Z79.899 OTHER MEDICAL RECORDS SECRETARY (CURRENT) DRUG THERAPY 11/06/2015 ELHAM TERRYJOSE LUIS Loza [employer]ATION TAILOR Ot Z85.820 PERSONAL HISTORY OF MALIGNANT MELANOMA O 11/06/2015 EL[place] TERRYJOSE LUIS Loza [employer]ATION TAILOR Ot Z92.3 PERSONAL HISTORY OF IRRADIATION 11/06/2015 EL[place]AM TERRYJOSE LUIS Loza [employer]TERATION TAILOR Ot N50.8 OTHER SPECIFIED DISORDERS OF MALE GENITA 11/06/2015 ALICJA BAZAN, ERIC Pina Ot N43.3 HYDROCELE, UNSPECIFIED 11/06/2015 MARA BJ Loza [employer] TAILOR Ot F32.9 MAJOR DEPRESSIVE DISORDER, SINGLE EPISOD 11/06/2015 TERRY BJ Loza [employer] TAILOR Ot Z08 ENCNTR FOR FOLLOW-UP EXAM AFTER TRTMT FO 11/06/2015 TERRY BJ Loza [employer] TAILOR Ot Z79.899 OTHER DETENTION (CURRENT) DRUG THERAPY 11/06/2015 TERRY BJ Loza [employer] TAILOR Ot Z85.820 PERSONAL HISTORY OF MALIGNANT MELANOMA O 11/06/2015 TERRYBJ Loza [employer]ATION TAILOR Ot Z92.3 PERSONAL HISTORY OF IRRADIATION 11/06/2015 EL[place]AM TERRYJOSE LUIS Loza [employer] ALTERATION TAILOR Ot C43.72 MALIGNANT MELANOMA OF LEFT LOWER LIMB, I 11/25/2015 [place] TERRYJOSE LUIS Dago [employer]TERATION TAILOR Ot F32.9 MAJOR DEPRESSIVE DISORDER, SINGLE EPISOD 11/25/2015 TERRYBJ Loza [employer] TAILOR Ot Z08 ENCNTR FOR FOLLOW-UP EXAM AFTER TRTMT FO 11/25/2015 [place] TERRYJOSE LUIS Loza [employer]ATION TAILOR Ot Z79.899 OTHER DETENTION (CURRENT) DRUG THERAPY 11/25/2015 TERRYBJ Loza [employer] TAILOR Ot Z85.820 PERSONAL HISTORY OF MALIGNANT MELANOMA O 11/25/2015 MARA BJ Loza [employer] TAILOR Ot Z92.3 PERSONAL HISTORY OF IRRADIATION 12/12/2015 [...] VIRAL HEPATITIS C WITHOUT HE 12/13/2015 BJ TERRYP Ot 172.5 MALIG MELANOMA TRUNK 12/13/2015 TERRY, HILAH S [employer]ATION TAILOR Ot 401.9 HYPERTENSION NOS 12/13/2015 TERRYBJ Loza [employer] TAILOR Ot V15.3 HX OF IRRADIATION 12/13/2015 BJ TERRY [employer] TAILOR Ot V58.69 OTH MED,LT,CURRENT USE 12/13/2015 Ot 603.9 HYDROCELE NOS 12/13/2015 Ot 709.9 SKIN DISORDER NOS 12/13/2015 Ot V10.82 HX-MALIG SKIN MELANOMA 12/13/2015 Ot V72.81 [id number] CARDIOVASCULAR 12/13/2015 Ot V74.8 SCREEN-BACTERIAL DIS NEC 12/13/2015 BJ TERRY [employer] TAILOR Ot 172.5 MALIG MELANOMA TRUNK 12/13/2015 BJ TERRY [employer] TAILOR Ot 780.4 DIZZINESS AND GIDDINESS 12/13/2015 TERRYBJ Loza [employer] TAILOR Ot 784.0 HEADACHE 12/13/2015 BJ TERRY [employer] TAILOR Ot 780.4 DIZZINESS AND GIDDINESS 12/13/2015 TERRYBJ Loza [employer] TAILOR Ot 784.0 HEADACHE 12/13/2015 INNA BAZAN, JOSH De Anda Ot 709.9 SKIN DISORDER NOS 12/13/2015 INNA BAZAN, JOSH De Anda Ot V72.84 EXAM PRE-OPERATIVE NOS 12/13/2015 INNA BAZAN, JOSH De Anda Ot V74.8 SCREEN-BACTERIAL DIS NEC 12/13/2015 INNA BAZAN, JOSH De Anda Ot 709.9 SKIN DISORDER NOS 12/13/2015 INNA BAZAN, JOSH De Anda Ot V72.84 EXAM PRE-OPERATIVE NOS 12/13/2015 ANTHONY IVA N Ot 172.9 MALIG MELANOMA SKIN NOS 12/13/2015 ANTHONYIVA Ot 070.70 UNSPECIFIED VIRAL HEPATITIS C WITHOUT HE 12/13/2015 IVA CRUZ N Ot 172.5 MALIG MELANOMA TRUNK 12/13/2015 IVA CRUZ N Ot 278.00 OBESITY, NOS 12/13/2015 IVA CRUZ N Ot 401.9 HYPERTENSION NOS 12/13/2015 IVA CRUZ N Ot V15.3 HX OF IRRADIATION 12/13/2015 IVA CRUZ N Ot V58.69 OTH MED,LT,CURRENT USE 12/13/2015 JAZMYNE BAZAN, JAQUELINE Barclay Ot 709.9 SKIN DISORDER NOS 12/13/2015 JAQUELINE SAMANO MD Ot V10.82 HX-MALIG SKIN MELANOMA 12/13/2015 JAQUELINE SAMANO MD Ot V72.83 EXAM PRE-OPERATIVE NEC 12/13/2015 JAQUELINE SAMANO MD Ot V74.8 SCREEN-BACTERIAL DIS NEC 12/13/2015 STEVENSBONNIE ENCINAS ROSALBA D Ot 172.7 MALIG MELANOMA LEG 12/13/2015 ROSALBA STEVENS DO D Ot V72.84 EXAM PRE-OPERATIVE NOS 12/13/2015 TERRY HILAH S [employer] TAILOR Ot 172.7 MALIG MELANOMA LEG 12/13/2015 TERRY HILAH S [employer] TAILOR Ot 070.70 UNSPECIFIED VIRAL HEPATITIS C WITHOUT HE 12/13/2015 TERRY, HILAH S [employer] TAILOR Ot 172.5 MALIG MELANOMA TRUNK 12/13/2015 TERRY, HILAH S [employer] TAILOR Ot 278.00 OBESITY, NOS 12/13/2015 TERRY, HILAH S [employer] TAILOR Ot 401.9 HYPERTENSION NOS 12/13/2015 TERRY HILAH S [employer] TAILOR Ot V58.69 OTH MED,LT,CURRENT USE 12/13/2015 TERRY HILAH S [employer] TAILOR Ot V85.35 BODY MASS INDEX 35.0-35.9, ADULT 12/13/2015 TERRY, HILAH S [employer] TAILOR Ot 172.9 MALIG MELANOMA SKIN NOS 12/13/2015 TERRY HILAH S [employer] ALTERATION TAILOR Ot 592.0 CALCULUS OF KIDNEY 12/13/2015 IVA CRUZ N Ot 070.70 UNSPECIFIED VIRAL HEPATITIS C WITHOUT HE 12/13/2015 IVA CRUZ N Ot 172.5 MALIG MELANOMA TRUNK 12/13/2015 IVA CRUZ N Ot 278.00 OBESITY, NOS 12/13/2015 KELSEY CRUZAN N Ot 401.9 HYPERTENSION NOS 12/13/2015 IVA CRUZ N Ot V58.69 OTH MED,LT,CURRENT USE 12/13/2015 KELSEY CRUZAN N Ot V85.35 BODY MASS INDEX 35.0-35.9, ADULT 12/13/2015 TERRY, HILAH S [employer] TAILOR Ot 070.70 UNSPECIFIED VIRAL HEPATITIS C WITHOUT HE 12/13/2015 TERRY HILAH S [employer] TAILOR Ot 172.5 MALIG MELANOMA TRUNK 12/13/2015 TERRY HILAH S [employer]TERATION TAILOR Ot 401.9 HYPERTENSION NOS 12/13/2015 BJ TERRY [employer] TAILOR Ot V58.69 OTH MED,LT,CURRENT USE 12/13/2015 BJ TERRY [employer] TAILOR Ot 172.9 MALIG MELANOMA SKIN NOS 12/13/2015 STEVENS ROSALBA ENCINAS Ot 550.90 UNILAT INGUINAL HERNIA 12/13/2015 ROSALBA STEVENS DO Ot V72.84 EXAM PRE-OPERATIVE NOS 12/13/2015 BJ TERRY [employer] TAILOR Ot 274.9 GOUT NOS 12/13/2015 BJ TERRY [employer] TAILOR Ot 401.9 HYPERTENSION NOS 12/13/2015 BJ TERRY [employer] TAILOR Ot V10.82 HX-MALIG SKIN MELANOMA 12/13/2015 BJ TERRY [employer] TAILOR Ot V12.09 PERSONAL HISTORY OTH SPEC INFECT SHAE 12/13/2015 BJ TERRY [employer] TAILOR Ot V58.69 OTH MED,LT,CURRENT USE 12/13/2015 BJ TERRY [employer] TAILOR Ot V67.2 CHEMOTHERAPY FOLLOW-UP 12/13/2015 BJ TERRY [employer] TAILOR Ot 172.9 MALIG MELANOMA SKIN NOS 12/13/2015 BJ TERRY [employer] TAILOR Ot 709.9 SKIN DISORDER NOS 12/13/2015 BJ TERRY [employer]TER[employer] TAILOR Ot 788.1 DYSURIA 12/13/2015 BJ TERRY [employer] TAILOR Ot 788.30 UNSPECIFIED URINARY INCONTINENCE 12/13/2015 BJ TERRY [employer] TAILOR Ot 788.41 URINARY FREQUENCY 12/13/2015 BJ TERRY [employer] TAILOR Ot V10.82 HX-MALIG SKIN MELANOMA 12/13/2015 BJ TERRY [employer] TAILOR Ot V12.09 PERSONAL HISTORY OTH SPEC INFECT SHAE 12/13/2015 BJ TERRY [employer] TAILOR Ot V58.69 OTH MED,LT,CURRENT USE 12/13/2015 BJ TERRY [employer] TAILOR Ot V67.2 CHEMOTHERAPY FOLLOW-UP 12/13/2015 ROSALBA STEVENS DO Ot 709.9 SKIN DISORDER NOS 12/13/2015 ROSALBA STEVENS DO Ot V72.84 EXAM PRE-OPERATIVE NOS 12/13/2015 BJ TERRY [employer] TAILOR Ot F32.9 MAJOR DEPRESSIVE DISORDER, SINGLE EPISOD 12/13/2015 BJ TERRY [employer] TAILOR Ot N45.2 ORCHITIS 12/13/2015 TERRYBJ Loza [employer]TER[employer] TAILOR Ot Z08 ENCNTR FOR FOLLOW-UP EXAM AFTER TRTMT FO 12/13/2015 MARA BJ Loza [employer] TAILOR Ot Z79.899 OTHER MEDICAL RECORDS SECRETARY (CURRENT) DRUG THERAPY 12/13/2015 MARA BJ Loza [employer] TAILOR Ot Z85.820 PERSONAL HISTORY OF MALIGNANT MELANOMA O 12/13/2015 [place] TERRYJOSE LUIS Dago [employer]TERATION TAILOR Ot Z92.3 PERSONAL HISTORY OF IRRADIATION 12/13/2015 [place] TERRYJOSE LUIS Loza [employer]ATION TAILOR Ot N50.8 OTHER SPECIFIED DISORDERS OF MALE GENITA 12/13/2015 ALICJA BAZAN, ERIC Pina Ot N43.3 HYDROCELE, UNSPECIFIED 12/13/2015 [place] TERRYJOSE LUIS Dago [employer] TAILOR Ot F32.9 MAJOR DEPRESSIVE DISORDER, SINGLE EPISOD 12/13/2015 TERRY BJ LIMP Ot Z08 ENCNTR FOR FOLLOW-UP EXAM AFTER TRTMT FO 12/13/2015 [place] TERRYJOSE LUIS Loza [employer] TAILOR Ot Z79.899 OTHER DETENTION (CURRENT) DRUG THERAPY 12/13/2015 MARA BJ Loza [employer] TAILOR Ot Z85.820 PERSONAL HISTORY OF MALIGNANT MELANOMA O 12/13/2015 [place] TERRYJOSE LUIS Loza [employer] ALTERATION TAILOR Ot Z92.3 PERSONAL HISTORY OF IRRADIATION 12/13/2015 [place] TERRYJOSE LUIS Loza [employer] ALTERATION TAILOR Ot C43.72 MALIGNANT MELANOMA OF LEFT LOWER LIMB, I 12/13/2015 MARA BJ Loza [employer] TAILOR Ot F32.9 MAJOR DEPRESSIVE DISORDER, SINGLE EPISOD 12/13/2015 [place] TERRYJOSE LUIS Loza [employer]TERATION TAILOR Ot Z08 ENCNTR FOR FOLLOW-UP EXAM AFTER TRTMT FO 12/13/2015 MARA BJ Loza [employer] TAILOR Ot Z79.899 OTHER DETENTION (CURRENT) DRUG THERAPY 12/13/2015 [place] TERRYJOSE LUIS Loza [employer]TERATION TAILOR Ot Z85.820 PERSONAL HISTORY OF MALIGNANT MELANOMA O 12/13/2015 BJ TERRY Dago [employer] TAILOR Ot Z92.3 PERSONAL HISTORY OF IRRADIATION 12/13/2015 [...] OF MALIGNANT MELANOMA O 12/13/2015 BJ TERRY [employer] TAILOR Ot F32.9 MAJOR DEPRESSIVE DISORDER, SINGLE EPISOD 12/13/2015 BJ TERRY S [employer]TER[employer] TAILOR Ot Z08 ENCNTR FOR FOLLOW-UP EXAM AFTER TRTMT FO 12/13/2015 BJ TERRY [employer] TAILOR Ot Z79.899 OTHER DETENTION (CURRENT) DRUG THERAPY 12/13/2015 BJ TERRY S [employer] TAILOR Ot Z85.820 PERSONAL HISTORY OF MALIGNANT MELANOMA O 12/13/2015 BJ TERRY [employer] TAILOR Ot Z92.3 PERSONAL HISTORY OF IRRADIATION 12/18/2015 INNA BAZAN, JOSH De Anda Ot 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 12/18/2015 INNA BAZAN, JOSH De Anda Ot Z85.820 PERSONAL HISTORY OF MALIGNANT MELANOMA O 12/24/2015 BJ TERRY [employer] TAILOR Ot F32.9 MAJOR DEPRESSIVE DISORDER, SINGLE EPISOD 12/24/2015 BJ TERRY S [employer]TER[employer] TAILOR Ot Z08 ENCNTR FOR FOLLOW-UP EXAM AFTER TRTMT FO 12/24/2015 BJ TERRY [employer] TAILOR Ot Z79.899 OTHER DETENTION (CURRENT) DRUG THERAPY 12/24/2015 BJ TERRY S [employer] TAILOR Ot Z85.820 PERSONAL HISTORY OF MALIGNANT MELANOMA O 12/24/2015 BJ TERRY S [employer] TAILOR Ot Z92.3 PERSONAL HISTORY OF IRRADIATION 12/30/2015 INNA BAZAN, JOSH De Anda Ot 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 12/30/2015 INNA BAZAN, JOSH De Anda Ot Z01.818 ENCOUNTER FOR OTHER PREPROCEDURAL EXAMIN 12/31/2015 INNA BAZAN, JOSH De Anda Ot 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 12/31/2015 [...] CRD OUT BEC PT DECISION F 01/15/2016 CHELSEY BAZAN, JASEN Pina Ot 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 01/15/2016 CHELSEY BAZAN, JASEN Pina Ot G47.30 SLEEP APNEA, UNSPECIFIED 01/15/2016 JASEN BARBOSA MD Ot I10 ESSENTIAL (PRIMARY) HYPERTENSION 01/15/2016 JASEN BARBOSA MD Ot K21.9 GASTRO-ESOPHAGEAL REFLUX DISEASE WITHOUT 01/15/2016 JASEN BARBOSA MD Ot N45.3 EPIDIDYMO-ORCHITIS 01/15/2016 JASEN BARBOSA MD, Ot Z85.820 PERSONAL HISTORY OF MALIGNANT MELANOMA O 03/16/2016 IVA CRUZ Ot F32.9 MAJOR DEPRESSIVE DISORDER, SINGLE EPISOD 03/16/2016 IVA CRUZ Ot Z08 ENCNTR FOR FOLLOW-UP EXAM AFTER TRTMT FO 03/16/2016 IVA CRUZ Ot Z79.899 OTHER MEDICAL RECORDS SECRETARY (CURRENT) DRUG THERAPY 03/16/2016 IVA CRUZ Ot Z85.820 PERSONAL HISTORY OF MALIGNANT MELANOMA O 03/16/2016 IVA CRUZ Ot Z92.3 PERSONAL HISTORY OF IRRADIATION 05/17/2016 IVA CRUZ Ot F32.9 MAJOR DEPRESSIVE DISORDER, SINGLE EPISOD 05/17/2016 ANTHONYIVA Ot Z08 ENCNTR FOR FOLLOW-UP EXAM AFTER TRTMT FO 05/17/2016 IVA CRUZ Ot Z79.899 OTHER MEDICAL RECORDS SECRETARY (CURRENT) DRUG THERAPY 05/17/2016 IVA CRUZ Ot Z85.820 PERSONAL HISTORY OF MALIGNANT MELANOMA O 05/17/2016 IVA CRUZ Ot Z92.3 PERSONAL HISTORY OF IRRADIATION 07/09/2016 IVA CRUZ Ot F32.9 MAJOR DEPRESSIVE DISORDER, SINGLE EPISOD 07/09/2016 IVA CRUZ Ot Z08 ENCNTR FOR FOLLOW-UP EXAM AFTER TRTMT FO 07/09/2016 IVA CRUZ Ot Z79.899 OTHER DETENTION (CURRENT) DRUG THERAPY 07/09/2016 IVA CRUZ N Ot Z85.820 PERSONAL HISTORY OF MALIGNANT MELANOMA O 07/09/2016 IVA CRUZ N Ot Z92.3 PERSONAL HISTORY OF IRRADIATION 08/21/2016 IVA CRUZ Ot F32.9 MAJOR DEPRESSIVE DISORDER, SINGLE EPISOD 08/21/2016 IVA CRUZ N Ot Z08 ENCNTR FOR FOLLOW-UP EXAM AFTER TRTMT FO 08/21/2016 IVA CRUZ Ot Z79.899 OTHER DETENTION (CURRENT) DRUG THERAPY 08/21/2016 IVA CRUZ N Ot Z85.820 PERSONAL HISTORY OF MALIGNANT MELANOMA O 08/21/2016 IVA CRUZ N Ot Z92.3 PERSONAL HISTORY OF IRRADIATION 09/16/2016 IVA CRUZ Ot F32.9 MAJOR DEPRESSIVE DISORDER, SINGLE EPISOD 09/16/2016 IVA CRUZ N Ot Z08 ENCNTR FOR FOLLOW-UP EXAM AFTER TRTMT FO 09/16/2016 IVA CRUZ Ot Z79.899 OTHER DETENTION (CURRENT) DRUG THERAPY 09/16/2016 IVA CRUZ Ot Z85.820 PERSONAL HISTORY OF [...] UNSPECIFIED VIRAL HEPATITIS C WITHOUT HE 09/17/2016 BJ TERRYP Ot 172.5 MALIG MELANOMA TRUNK 09/17/2016 TERRYBJ Loza [employer] TAILOR Ot 401.9 HYPERTENSION NOS 09/17/2016 TERRYBJ Loza [employer] TAILOR Ot V15.3 HX OF IRRADIATION 09/17/2016 BJ TERRY [employer] TAILOR Ot V58.69 OTH MED,LT,CURRENT USE 09/17/2016 Ot 603.9 HYDROCELE NOS 09/17/2016 Ot 709.9 SKIN DISORDER NOS 09/17/2016 Ot V10.82 HX-MALIG SKIN MELANOMA 09/17/2016 Ot V72.81 [id number] CARDIOVASCULAR 09/17/2016 Ot V74.8 SCREEN-BACTERIAL DIS NEC 09/17/2016 BJ TERRY [employer] TAILOR Ot 172.5 MALIG MELANOMA TRUNK 09/17/2016 BJ TERRY [employer] TAILOR Ot 780.4 DIZZINESS AND GIDDINESS 09/17/2016 TERRYBJ Loza [employer] TAILOR Ot 784.0 HEADACHE 09/17/2016 TERRYBJ Loza [employer] TAILOR Ot 780.4 DIZZINESS AND GIDDINESS 09/17/2016 TERRYBJ Loza [employer] TAILOR Ot 784.0 HEADACHE 09/17/2016 INNA BAZAN, JOSH [...] CRUZ Ot V58.69 OTH MED,LT,CURRENT USE 09/17/2016 JAZMYNE BAZAN, JAQUELINE Barclay Ot 709.9 SKIN DISORDER NOS 09/17/2016 JAZMYNE BAZAN, JAQUELINE Barclay Ot V10.82 HX-MALIG SKIN MELANOMA 09/17/2016 JAZMYNE BAZAN, JAQUELINE Barclay Ot V72.83 EXAM PRE-OPERATIVE NEC 09/17/2016 JAQUELINE SAMANO MD Ot V74.8 SCREEN-BACTERIAL DIS NEC 09/17/2016 STEVENS DO, ROSALBA D Ot 172.7 MALIG MELANOMA LEG 09/17/2016 STEVENS DO, ROSALBA D Ot V72.84 EXAM PRE-OPERATIVE NOS 09/17/2016 TERRY, HILAH S [employer] TAILOR Ot 172.7 MALIG MELANOMA LEG 09/17/2016 TERRY HILAH S [employer] TAILOR Ot 070.70 UNSPECIFIED VIRAL HEPATITIS C WITHOUT HE 09/17/2016 TERRY, HILAH S [employer] TAILOR Ot 172.5 MALIG MELANOMA TRUNK 09/17/2016 TERRY, HILAH S [employer] TAILOR Ot 278.00 OBESITY, NOS 09/17/2016 TERRY, HILAH S [employer] TAILOR Ot 401.9 HYPERTENSION NOS 09/17/2016 TERRY HILAH S [employer] TAILOR Ot V58.69 OTH MED,LT,CURRENT USE 09/17/2016 TERRY, HILAH S [employer] TAILOR Ot V85.35 BODY MASS INDEX 35.0-35.9, ADULT 09/17/2016 TERRY HILAH S [employer] TAILOR Ot 172.9 MALIG MELANOMA SKIN NOS 09/17/2016 TERRY HILAH S [employer] TAILOR Ot 592.0 CALCULUS OF KIDNEY 09/17/2016 IVA CRUZ N Ot 070.70 UNSPECIFIED VIRAL HEPATITIS C WITHOUT HE 09/17/2016 KELSEY CRUZAN N Ot 172.5 MALIG MELANOMA TRUNK 09/17/2016 KELSEY CRUZAN N Ot 278.00 OBESITY, NOS 09/17/2016 ANTHONY BOBAN N Ot 401.9 HYPERTENSION NOS 09/17/2016 ANTHONY BOBAN N Ot V58.69 OTH MED,LT,CURRENT USE 09/17/2016 ANTHONY BOBAN N Ot V85.35 BODY MASS INDEX 35.0-35.9, ADULT 09/17/2016 TERRY HILAH S [employer] TAILOR Ot 070.70 UNSPECIFIED VIRAL HEPATITIS C WITHOUT HE 09/17/2016 TERRY HILAH S [employer] TAILOR Ot 172.5 MALIG MELANOMA TRUNK 09/17/2016 TERRY, HILAH S [employer] TAILOR Ot 401.9 HYPERTENSION NOS 09/17/2016 BJ TERRY [employer] TAILOR Ot V58.69 OTH MED,LT,CURRENT USE 09/17/2016 BJ TERRY [employer] TAILOR Ot 172.9 MALIG MELANOMA SKIN NOS 09/17/2016 STEVENS DO, ROSALBA D Ot 550.90 UNILAT INGUINAL HERNIA 09/17/2016 STEVENS DO, ROSALBA D Ot V72.84 EXAM PRE-OPERATIVE NOS 09/17/2016 TERRYBJ Loza [employer] TAILOR Ot 274.9 GOUT NOS 09/17/2016 BJ TERRY [employer] TAILOR Ot 401.9 HYPERTENSION NOS 09/17/2016 TERRYBJ Loza [employer] TAILOR Ot V10.82 HX-MALIG SKIN MELANOMA 09/17/2016 BJ TERRY [employer] TAILOR Ot V12.09 PERSONAL HISTORY OTH SPEC INFECT SHAE 09/17/2016 BJ TERRY [employer] TAILOR Ot V58.69 OTH MED,LT,CURRENT USE 09/17/2016 TERRYBJ Loza [employer] AND ALTERATION TAILOR Ot V67.2 CHEMOTHERAPY FOLLOW-UP 09/17/2016 BJ TERRY [employer] AND ALTERATION TAILOR Ot 172.9 MALIG MELANOMA SKIN NOS 09/17/2016 BJ TERRY SH[employer] AND ALTERATION TAILOR Ot 709.9 SKIN DISORDER NOS 09/17/2016 TERRYBJ Loza SH[employer] AND ALTERATION TAILOR Ot 788.1 DYSURIA 09/17/2016 BJ TERRY [employer] AND ALTERATION TAILOR Ot 788.30 UNSPECIFIED URINARY INCONTINENCE 09/17/2016 TERRYBJ Loza [employer] AND ALTERATION TAILOR Ot 788.41 URINARY FREQUENCY 09/17/2016 TERRYBJ Loza [employer] AND ALTERATION TAILOR Ot V10.82 HX-MALIG SKIN MELANOMA 09/17/2016 BJ TERRY SH[employer] AND ALTERATION TAILOR Ot V12.09 PERSONAL HISTORY OTH SPEC INFECT SHAE 09/17/2016 TERRYBJ Loza SH[employer] AND ALTERATION TAILOR Ot V58.69 OTH MED,LT,CURRENT USE 09/17/2016 TERRYBJ Loza [employer] AND ALTERATION TAILOR Ot V67.2 CHEMOTHERAPY FOLLOW-UP 09/17/2016 STEVENS DO, ROSALBA D Ot 709.9 SKIN DISORDER NOS 09/17/2016 STEVENS DO, ROSALBA D Ot V72.84 EXAM PRE-OPERATIVE NOS 09/17/2016 MARA BJ Loza [employer] AND ALTERATION TAILOR Ot F32.9 MAJOR DEPRESSIVE DISORDER, SINGLE EPISOD 09/17/2016 BJ TERRY [employer] ALTERATION TAILOR Ot N45.2 ORCHITIS 09/17/2016 BJ TERRY [employer] AND ALTERATION TAILOR Ot Z08 ENCNTR FOR FOLLOW-UP EXAM AFTER TRTMT FO 09/17/2016 BJ TERRY [employer] AND ALTERATION TAILOR Ot Z79.899 OTHER MEDICAL RECORDS SECRETARY (CURRENT) DRUG THERAPY 09/17/2016 BJ TERRY SH[employer] AND ALTERATION TAILOR Ot Z85.820 PERSONAL HISTORY OF MALIGNANT MELANOMA O 09/17/2016 TERRYBJ Loza SH[employer] AND ALTERATION TAILOR Ot Z92.3 PERSONAL HISTORY OF IRRADIATION 09/17/2016 TERRYBJ Loza SH[employer] AND ALTERATION TAILOR Ot N50.8 OTHER SPECIFIED DISORDERS OF MALE GENITA 09/17/2016 ALICJA BAZAN, ERIC Pina Ot N43.3 HYDROCELE, UNSPECIFIED 09/17/2016 BJ TERRY SH[employer] AND ALTERATION TAILOR Ot F32.9 MAJOR DEPRESSIVE DISORDER, SINGLE EPISOD 09/17/2016 TERRYBJ Loza [employer] AND ALTERATION TAILOR Ot Z08 ENCNTR FOR FOLLOW-UP EXAM AFTER TRTMT FO 09/17/2016 BJ TERRY SH[employer] AND ALTERATION TAILOR Ot Z79.899 OTHER DETENTION (CURRENT) DRUG THERAPY 09/17/2016 TERRYBJ Loza SH[employer] AND ALTERATION TAILOR Ot Z85.820 PERSONAL HISTORY OF MALIGNANT MELANOMA O 09/17/2016 TERRYBJ Loza [employer] AND ALTERATION TAILOR Ot Z92.3 PERSONAL HISTORY OF IRRADIATION 09/17/2016 BJ TERRY SH[employer] AND ALTERATION TAILOR Ot C43.72 MALIGNANT MELANOMA OF LEFT LOWER LIMB, I 09/17/2016 TERRYBJ Loza SH[employer] AND ALTERATION TAILOR Ot F32.9 MAJOR DEPRESSIVE DISORDER, SINGLE EPISOD 09/17/2016 BJ TERRY [employer] AND ALTERATION TAILOR Ot Z08 ENCNTR FOR FOLLOW-UP EXAM AFTER TRTMT FO 09/17/2016 BJ TERRY SH[employer] AND ALTERATION TAILOR Ot Z79.899 OTHER MEDICAL RECORDS SECRETARY (CURRENT) DRUG THERAPY 09/17/2016 TERRYBJ Loza [employer] AND ALTERATION TAILOR Ot Z85.820 PERSONAL HISTORY OF MALIGNANT MELANOMA O 09/17/2016 TERRYBJ Loza [employer] AND ALTERATION TAILOR Ot Z92.3 PERSONAL HISTORY OF IRRADIATION 09/17/2016 Ot L98.9 DISORDER OF THE SKIN AND SUBCUTANEOUS TI 09/17/2016 Ot Z01.818 ENCOUNTER FOR OTHER PREPROCEDURAL EXAMIN 09/17/2016 Ot Z85.820 PERSONAL HISTORY OF MALIGNANT MELANOMA O 09/17/2016 INNA BAZAN, JOSH De Anda Ot L98.9 DISORDER OF THE SKIN AND SUBCUTANEOUS TI 09/17/2016 INNA BAZAN, JSOH De Anda Ot Z53.29 PROC/TRTMT NOT CRD OUT BEC PT DECISION F 09/17/2016 IVA CRUZ Ot F32.9 MAJOR DEPRESSIVE DISORDER, SINGLE EPISOD 09/17/2016 IVA CRUZ Ot Z08 ENCNTR FOR FOLLOW-UP EXAM AFTER TRTMT FO 09/17/2016 IVA CRUZ Ot Z79.899 OTHER DETENTION (CURRENT) DRUG THERAPY 09/17/2016 IVA CRUZ Ot Z85.820 PERSONAL HISTORY OF MALIGNANT MELANOMA O 09/17/2016 IVA CRUZ Ot Z92.3 PERSONAL HISTORY OF IRRADIATION 09/17/2016 ESA LOPEZ SHIPMASTER Ot I10 ESSENTIAL (PRIMARY) HYPERTENSION 09/17/2016 ESA LOPEZ SHIPMASTER Ot N20.1 CALCULUS OF URETER 09/17/2016 ESA LOPEZ SHIPMASTER Ot R10.31 RIGHT LOWER QUADRANT PAIN 09/17/2016 ESA LOPEZ SHIPMASTER Ot Z85.820 PERSONAL HISTORY OF MALIGNANT MELANOMA O 09/22/2016 ERIC HELM MD Ot N20.1 CALCULUS OF URETER 09/22/2016 ERIC HELM MD Ot Z01.818 ENCOUNTER FOR OTHER PREPROCEDURAL EXAMIN 09/23/2016 ESA LOPEZ SHIPMASTER Ot I10 ESSENTIAL (PRIMARY) HYPERTENSION 09/23/2016 ESA LOPEZ SHIPMASTER Ot N20.1 CALCULUS OF URETER 09/23/2016 ESA LOPEZ SHIPMASTER Ot R10.31 RIGHT LOWER QUADRANT PAIN 09/23/2016 ESA LOPEZ SHIPMASTER Ot Z85.820 PERSONAL HISTORY OF MALIGNANT MELANOMA O 09/23/2016 ALICJA BAZAN, ERIC Pina Ot F32.9 MAJOR DEPRESSIVE DISORDER, SINGLE EPISOD 09/23/2016 ERIC HELM MD Ot F41.9 ANXIETY DISORDER, UNSPECIFIED 09/23/2016 ERIC HELM MD Ot G43.909 MIGRAINE, UNSP, NOT INTRACTABLE, WITHOUT 09/23/2016 ERIC HELM MD Ot G47.33 OBSTRUCTIVE SLEEP APNEA (ADULT) (PEDIATR 09/23/2016 ERIC HELM MD Ot I10 ESSENTIAL (PRIMARY) HYPERTENSION 09/23/2016 ERIC HELM MD Ot K21.9 GASTRO-ESOPHAGEAL REFLUX DISEASE WITHOUT 09/23/2016 ERIC HELM MD Ot N20.1 CALCULUS OF URETER 09/23/2016 ERIC HELM MD Ot Z11.2 ENCOUNTER FOR SCREENING FOR OTHER BACTER 09/23/2016 ERIC HELM MD Ot Z85.820 PERSONAL HISTORY OF MALIGNANT MELANOMA O 09/24/2016 ERIC HELM MD Ot F32.9 MAJOR DEPRESSIVE DISORDER, SINGLE EPISOD 09/24/2016 ERIC HELM MD Ot F41.9 ANXIETY DISORDER, UNSPECIFIED 09/24/2016 ERIC HELM MD Ot G43.909 MIGRAINE, UNSP, NOT INTRACTABLE, WITHOUT 09/24/2016 ERIC HELM MD Ot G47.33 OBSTRUCTIVE SLEEP APNEA (ADULT) (PEDIATR 09/24/2016 ERIC HELM MD Ot I10 ESSENTIAL (PRIMARY) HYPERTENSION 09/24/2016 ERIC HELM MD, Ot K21.9 GASTRO-ESOPHAGEAL REFLUX DISEASE WITHOUT 09/24/2016 ERIC HELM MD Ot N20.1 CALCULUS OF URETER 09/24/2016 ERIC HELM MD Ot Z11.2 ENCOUNTER FOR SCREENING FOR OTHER BACTER 09/24/2016 ERIC HELM MD Ot Z85.820 PERSONAL HISTORY OF MALIGNANT MELANOMA O 09/25/2016 IVA CRUZ Ot F32.9 MAJOR DEPRESSIVE DISORDER, SINGLE EPISOD 09/25/2016 IVA CRUZ Ot Z08 ENCNTR FOR FOLLOW-UP EXAM AFTER TRTMT FO 09/25/2016 IVA CRUZ Ot Z79.899 OTHER DETENTION (CURRENT) DRUG THERAPY 09/25/2016 IVA CRUZ Ot Z85.820 PERSONAL HISTORY OF MALIGNANT MELANOMA O 09/25/2016 IVA CRUZ Ot Z92.3 PERSONAL HISTORY OF IRRADIATION 09/27/2016 IVA CRUZ Ot F32.9 MAJOR DEPRESSIVE DISORDER, SINGLE EPISOD 09/27/2016 VIA CRUZ Ot Z08 ENCNTR FOR FOLLOW-UP EXAM AFTER TRTMT FO 09/27/2016 IVA CRUZ Ot Z79.899 OTHER DETENTION (CURRENT) DRUG THERAPY 09/27/2016 IVA CRUZ Ot Z85.820 PERSONAL HISTORY OF MALIGNANT MELANOMA O 09/27/2016 IVA CRUZ Ot Z92.3 PERSONAL HISTORY OF IRRADIATION 10/01/2016 ERIC HELM MD Ot F32.9 MAJOR DEPRESSIVE DISORDER, SINGLE EPISOD 10/01/2016 ERIC HELM MD Ot F41.9 ANXIETY DISORDER, UNSPECIFIED 10/01/2016 ERIC HELM MD, Ot G43.909 MIGRAINE, UNSP, NOT INTRACTABLE, WITHOUT 10/01/2016 ERIC HELM MD, Ot G47.33 OBSTRUCTIVE SLEEP APNEA (ADULT) (PEDIATR 10/01/2016 ERIC HELM MD, Ot I10 ESSENTIAL (PRIMARY) HYPERTENSION 10/01/2016 ERIC HELM MD, Ot K21.9 GASTRO-ESOPHAGEAL REFLUX DISEASE WITHOUT 10/01/2016 ERIC HELM MD Ot N20.1 CALCULUS OF URETER 10/01/2016 ERIC HELM MD Ot Z11.2 ENCOUNTER FOR SCREENING FOR OTHER BACTER 10/01/2016 ERIC HELM MD, Ot Z85.820 PERSONAL HISTORY OF MALIGNANT MELANOMA O 10/13/2016 Ot 172.9 MALIG MELANOMA SKIN NOS 10/13/2016 Ot 784.0 HEADACHE 10/13/2016 Ot 172.5 MALIG MELANOMA TRUNK 10/13/2016 Ot 172.5 MALIG MELANOMA TRUNK 10/13/2016 Ot 172.9 MALIG MELANOMA SKIN NOS 10/13/2016 BJ TERRY [employer]TERATION TAILOR Ot 070.70 UNSPECIFIED VIRAL HEPATITIS C WITHOUT HE 10/13/2016 BJ TERRY [employer] ALTERATION TAILOR Ot 172.5 MALIG MELANOMA TRUNK 10/13/2016 BJ TERRY [employer] ALTERATION TAILOR Ot 401.9 HYPERTENSION NOS 10/13/2016 BJ TERRY [employer] ALTERATION TAILOR Ot V15.3 HX OF IRRADIATION 10/13/2016 BJ TERRYP Ot V58.69 OTH MED,LT,CURRENT USE 10/13/2016 Ot 603.9 HYDROCELE NOS 10/13/2016 Ot 709.9 SKIN DISORDER NOS 10/13/2016 Ot V10.82 HX-MALIG SKIN MELANOMA 10/13/2016 Ot V72.81 [id number]-[id number] CARDIOVASCULAR 10/13/2016 Ot V74.8 SCREEN-BACTERIAL DIS NEC 10/13/2016 TERRY BJ Dago [employer]TERATION TAILOR Ot 172.5 MALIG MELANOMA TRUNK 10/13/2016 TERRY BJ Dago [employer] ALTERATION TAILOR Ot 780.4 DIZZINESS AND GIDDINESS 10/13/2016 TERRY, ELHAMJOSE LUIS Loza [employer] ALTERATION TAILOR Ot 784.0 HEADACHE 10/13/2016 TERRYBJ Loza S [employer] ALTERATION TAILOR Ot 780.4 DIZZINESS AND GIDDINESS 10/13/2016 TERRY, ELHAMJOSE LUIS Loza [employer] ALTERATION TAILOR Ot 784.0 HEADACHE 10/13/2016 INNA BAZAN, JOSH De Anda Ot 709.9 SKIN DISORDER NOS 10/13/2016 INNA BAZAN, JOSH De Anda Ot V72.84 EXAM PRE-OPERATIVE NOS 10/13/2016 INNA BAZAN, JOSH De Anda Ot V74.8 SCREEN-BACTERIAL DIS NEC 10/13/2016 INNA BAZAN, JOSH De Anda Ot 709.9 SKIN DISORDER NOS 10/13/2016 INNA BAZAN, JOSH De Anda Ot V72.84 EXAM PRE-OPERATIVE NOS 10/13/2016 IVA CRUZ Ot 172.9 MALIG MELANOMA SKIN NOS 10/13/2016 IVA CRUZ Ot 070.70 UNSPECIFIED VIRAL HEPATITIS C WITHOUT HE 10/13/2016 IVA CRUZ Ot 172.5 MALIG MELANOMA TRUNK 10/13/2016 IVA CRUZ Ot 278.00 OBESITY, NOS 10/13/2016 IVA CRUZ N Ot 401.9 HYPERTENSION NOS 10/13/2016 IVA CRUZ Ot V15.3 HX OF IRRADIATION 10/13/2016 IVA CRUZ Ot V58.69 OTH MED,LT,CURRENT USE 10/13/2016 JAZMYNE BAZAN, JAQUELINE Barclay Ot 709.9 SKIN DISORDER NOS 10/13/2016 JAZMYNE BAZAN, JAQUELINE Barclay Ot V10.82 HX-MALIG SKIN MELANOMA 10/13/2016 JAZMYNE BAZAN, JAQUELINE Barclay Ot V72.83 EXAM PRE-OPERATIVE NEC 10/13/2016 JAZMYNE BAZAN, JAQUELINE Barclay Ot V74.8 SCREEN-BACTERIAL DIS NEC 10/13/2016 ROSALBA STEVENS DO Ot 172.7 MALIG MELANOMA LEG 10/13/2016 ROSALBA STEVENS DO Ot V72.84 EXAM PRE-OPERATIVE NOS 10/13/2016 TERRY ELHAMAH S [employer]TERATION TAILOR Ot 172.7 MALIG MELANOMA LEG 10/13/2016 TERRY, HILAH S [employer] ALTERATION TAILOR Ot 070.70 UNSPECIFIED VIRAL HEPATITIS C WITHOUT HE 10/13/2016 TERRY, HILAH S [employer]TERATION TAILOR Ot 172.5 MALIG MELANOMA TRUNK 10/13/2016 TERRY, HILAH S [employer] ALTERATION TAILOR Ot 278.00 OBESITY, NOS 10/13/2016 TERRY, HILAH S [employer] ALTERATION TAILOR Ot 401.9 HYPERTENSION NOS 10/13/2016 TERRY, HILAH S [employer] ALTERATION TAILOR Ot V58.69 OTH MED,LT,CURRENT USE 10/13/2016 TERRY, HILAH S [employer] ALTERATION TAILOR Ot V85.35 BODY MASS INDEX 35.0-35.9, ADULT 10/13/2016 TERRY, HILAH S [employer]TERATION TAILOR Ot 172.9 MALIG MELANOMA SKIN NOS 10/13/2016 TERRYELHAMAH S [employer] ALTERATION TAILOR Ot 592.0 CALCULUS OF KIDNEY 10/13/2016 IVA CRUZ N Ot 070.70 UNSPECIFIED VIRAL HEPATITIS C WITHOUT HE 10/13/2016 ANTHONY, BOBAN N Ot 172.5 MALIG MELANOMA TRUNK 10/13/2016 ANTHONY BOBAN N Ot 278.00 OBESITY, NOS 10/13/2016 ANTHONY BOBAN N Ot 401.9 HYPERTENSION NOS 10/13/2016 IVA CRUZ N Ot V58.69 OTH MED,LT,CURRENT USE 10/13/2016 ANTHONYKELSEY VARELAAN N Ot V85.35 BODY MASS INDEX 35.0-35.9, ADULT 10/13/2016 TERRYELHAMAH S [employer]TERATION TAILOR Ot 070.70 UNSPECIFIED VIRAL HEPATITIS C WITHOUT HE 10/13/2016 TERRY ELHAMAH S [employer] ALTERATION TAILOR Ot 172.5 MALIG MELANOMA TRUNK 10/13/2016 TERRY HILAH S [employer] ALTERATION TAILOR Ot 401.9 HYPERTENSION NOS 10/13/2016 TERRY HILAH S [employer] ALTERATION TAILOR Ot V58.69 OTH MED,LT,CURRENT USE 10/13/2016 TERRY, HILAH S [employer]TERATION TAILOR Ot 172.9 MALIG MELANOMA SKIN NOS 10/13/2016 ROSALBA STEVENS DO Ot 550.90 UNILAT INGUINAL HERNIA 10/13/2016 ROSALBA STEVENS DO Ot V72.84 EXAM PRE-OPERATIVE NOS 10/13/2016 BJ TERRY [employer] TAILOR Ot 274.9 GOUT NOS 10/13/2016 BJ TERRY [employer]TERATION TAILOR Ot 401.9 HYPERTENSION NOS 10/13/2016 BJ TERRY [employer]TERATION TAILOR Ot V10.82 HX-MALIG SKIN MELANOMA 10/13/2016 BJ TERRY [employer]TER[employer] TAILOR Ot V12.09 PERSONAL HISTORY OTH SPEC INFECT SHAE 10/13/2016 BJ TERRY [employer] TAILOR Ot V58.69 OTH MED,LT,CURRENT USE 10/13/2016 ELHAM TERRYJOSE LUIS Dago [employer] ALTERATION TAILOR Ot V67.2 CHEMOTHERAPY FOLLOW-UP 10/13/2016 BJ TERRY [employer]TERATION TAILOR Ot 172.9 MALIG MELANOMA SKIN NOS 10/13/2016 BJ TERRY [employer]TERATION TAILOR Ot 709.9 SKIN DISORDER NOS 10/13/2016 BJ TERRY [employer] ALTERATION TAILOR Ot 788.1 DYSURIA 10/13/2016 BJ TERRY [employer] ALTERATION TAILOR Ot 788.30 UNSPECIFIED URINARY INCONTINENCE 10/13/2016 BJ TERRY [employer] ALTERATION TAILOR Ot 788.41 URINARY FREQUENCY 10/13/2016 BJ TERRY [employer]TERATION TAILOR Ot V10.82 HX-MALIG SKIN MELANOMA 10/13/2016 BJ TERRY [employer]TERATION TAILOR Ot V12.09 PERSONAL HISTORY OTH SPEC INFECT SHAE 10/13/2016 BJ TERRY [employer]TERATION TAILOR Ot V58.69 OTH MED,LT,CURRENT USE 10/13/2016 BJ TERRY [employer] ALTERATION TAILOR Ot V67.2 CHEMOTHERAPY FOLLOW-UP 10/13/2016 ROSALBA STEVENS DO Ot 709.9 SKIN DISORDER NOS 10/13/2016 ROSALBA STEVENS DO Ot V72.84 EXAM PRE-OPERATIVE NOS 10/13/2016 BJ TERRY [employer] TAILOR Ot F32.9 MAJOR DEPRESSIVE DISORDER, SINGLE EPISOD 10/13/2016 BJ TERRY [employer] TAILOR Ot N45.2 ORCHITIS 10/13/2016 BJ TERRY [employer]TER[employer] TAILOR Ot Z08 ENCNTR FOR FOLLOW-UP EXAM AFTER TRTMT FO 10/13/2016 BJ TERRY [employer] TAILOR Ot Z79.899 OTHER DETENTION (CURRENT) DRUG THERAPY 10/13/2016 BJ TERRY [employer]TER[employer] TAILOR Ot Z85.820 PERSONAL HISTORY OF MALIGNANT MELANOMA O 10/13/2016 BJ TERRY [employer]TERATION TAILOR Ot Z92.3 PERSONAL HISTORY OF IRRADIATION 10/13/2016 BJ TERRY [employer]TERATION TAILOR Ot N50.8 OTHER SPECIFIED DISORDERS OF MALE GENITA 10/13/2016 ALICJA BAZAN, ERIC Pina Ot N43.3 HYDROCELE, UNSPECIFIED 10/13/2016 TERRYBJ Loza [employer]TERATION TAILOR Ot F32.9 MAJOR DEPRESSIVE DISORDER, SINGLE EPISOD 10/13/2016 BJ TERRY [employer]TER[employer] TAILOR Ot Z08 ENCNTR FOR FOLLOW-UP EXAM AFTER TRTMT FO 10/13/2016 BJ TERRY [employer]TER[employer] TAILOR Ot Z79.899 OTHER MEDICAL RECORDS SECRETARY (CURRENT) DRUG THERAPY 10/13/2016 BJ TERRY [employer]TER[employer] TAILOR Ot Z85.820 PERSONAL HISTORY OF MALIGNANT MELANOMA O 10/13/2016 BJ TERRY [employer]TERATION TAILOR Ot Z92.3 PERSONAL HISTORY OF IRRADIATION 10/13/2016 BJ TERRY [employer] ALTERATION TAILOR Ot C43.72 MALIGNANT MELANOMA OF LEFT LOWER LIMB, I 10/13/2016 BJ TERRY [employer]TERATION TAILOR Ot F32.9 MAJOR DEPRESSIVE DISORDER, SINGLE EPISOD 10/13/2016 BJ TERRY [employer]TER[employer] TAILOR Ot Z08 ENCNTR FOR FOLLOW-UP EXAM AFTER TRTMT FO 10/13/2016 BJ TERRY [employer]TER[employer] TAILOR Ot Z79.899 OTHER DETENTION (CURRENT) DRUG THERAPY 10/13/2016 BJ TERRY [employer]TER[employer] TAILOR Ot Z85.820 PERSONAL HISTORY OF MALIGNANT MELANOMA O 10/13/2016 TERRYBJ Loza [employer] ALTERATION TAILOR Ot Z92.3 PERSONAL HISTORY OF IRRADIATION 10/13/2016 Ot L98.9 DISORDER OF THE SKIN AND SUBCUTANEOUS TI 10/13/2016 Ot Z01.818 ENCOUNTER FOR OTHER PREPROCEDURAL EXAMIN 10/13/2016 Ot Z85.820 PERSONAL HISTORY OF MALIGNANT MELANOMA O 10/13/2016 INNA BAZAN, JOSH De Anda Ot L98.9 DISORDER OF THE SKIN AND SUBCUTANEOUS TI 10/13/2016 INNA BAZAN, JOSH De Anda Ot Z53.29 PROC/TRTMT NOT CRD OUT BEC PT DECISION F 10/13/2016 ALICJA BAZAN, ERIC Pina Ot N20.1 CALCULUS OF URETER 10/13/2016 ISABELLE BAZANBRENT Ot F32.9 MAJOR DEPRESSIVE DISORDER, SINGLE EPISOD 10/13/2016 BRENT WALTON MD Ot Z08 ENCNTR FOR FOLLOW-UP EXAM AFTER TRTMT FO 10/13/2016 BRENT WALTON MD Ot Z79.899 OTHER DETENTION (CURRENT) DRUG THERAPY 10/13/2016 BRENT WALTON MD Ot Z85.820 PERSONAL HISTORY OF MALIGNANT MELANOMA O 10/13/2016 BRENT WALTON MD Ot Z92.3 PERSONAL HISTORY OF IRRADIATION 10/13/2016 ERIC HELM MD Ot N20.1 CALCULUS OF URETER 10/13/2016 ERIC HELM MD Ot N20.1 CALCULUS OF URETER 10/13/2016 ALICJA BAZAN, ERIC Pina Ot N20.1 CALCULUS OF URETER 10/13/2016 ERIC HELM MD Ot Z01.818 ENCOUNTER FOR OTHER PREPROCEDURAL EXAMIN 10/22/2016 ERIC HELM MD Ot N20.1 CALCULUS OF URETER 12/08/2016 ERIC HELM MD Ot F32.9 MAJOR DEPRESSIVE DISORDER, SINGLE EPISOD 12/08/2016 ERIC HELM MD, Ot F41.9 ANXIETY DISORDER, UNSPECIFIED 12/08/2016 ERIC HELM MD Ot G43.909 MIGRAINE, UNSP, NOT INTRACTABLE, WITHOUT 12/08/2016 ERIC HELM MD Ot G47.33 OBSTRUCTIVE SLEEP APNEA (ADULT) (PEDIATR 12/08/2016 ERIC HELM MD Ot I10 ESSENTIAL (PRIMARY) HYPERTENSION 12/08/2016 ERIC HELM MD Ot K21.9 GASTRO-ESOPHAGEAL REFLUX DISEASE WITHOUT 12/08/2016 ERIC HELM MD Ot N20.1 CALCULUS OF URETER 12/08/2016 ERIC HELM MD Ot Z11.2 ENCOUNTER FOR SCREENING FOR OTHER BACTER 12/08/2016 ERIC HELM MD, Ot Z85.820 PERSONAL HISTORY OF MALIGNANT MELANOMA O 12/22/2016 ERIC HELM MD Ot F32.9 MAJOR DEPRESSIVE DISORDER, SINGLE EPISOD 12/22/2016 ERIC HELM MD Ot F41.9 ANXIETY DISORDER, UNSPECIFIED 12/22/2016 ERIC HELM MD, Ot G43.909 MIGRAINE, UNSP, NOT INTRACTABLE, WITHOUT 12/22/2016 ERIC HELM MD Ot G47.33 OBSTRUCTIVE SLEEP APNEA (ADULT) (PEDIATR 12/22/2016 ERIC HELM MD Ot I10 ESSENTIAL (PRIMARY) HYPERTENSION 12/22/2016 ERIC HELM MD Ot K21.9 GASTRO-ESOPHAGEAL REFLUX DISEASE WITHOUT 12/22/2016 ERIC HELM MD Ot N20.1 CALCULUS OF URETER 12/22/2016 ERIC HELM MD Ot Z11.2 ENCOUNTER FOR SCREENING FOR OTHER BACTER 12/22/2016 ERIC HELM MD Ot Z85.820 PERSONAL HISTORY OF MALIGNANT MELANOMA O 01/14/2017 ERIC HELM MD Ot N20.1 CALCULUS OF URETER 01/15/2017 ESA LOPEZ APRN Ot I10 ESSENTIAL (PRIMARY) HYPERTENSION 01/15/2017 ESA LOPEZ APRN Ot N20.1 CALCULUS OF URETER 01/15/2017 ESA LOPEZ APRN Ot R10.31 RIGHT LOWER QUADRANT PAIN 01/15/2017 ESA LOPEZ APRN Ot Z85.820 PERSONAL HISTORY OF MALIGNANT MELANOMA O 04/26/2017 BRENT WALTON MD Ot F32.9 MAJOR DEPRESSIVE DISORDER, SINGLE EPISOD 04/26/2017 BRENT WALTON MD Ot Z08 ENCNTR FOR FOLLOW-UP EXAM AFTER TRTMT FO 04/26/2017 BRENT WALTON MD Ot Z79.899 OTHER DETENTION (CURRENT) DRUG THERAPY 04/26/2017 BRENT WALTON MD Ot Z85.820 PERSONAL HISTORY OF MALIGNANT MELANOMA O 04/26/2017 BRENT WALTON MD Ot Z92.3 PERSONAL HISTORY OF IRRADIATION 04/28/2017 Ot 172.9 MALIG MELANOMA SKIN NOS 04/28/2017 BJ TERRY [employer]TER[employer] TAILOR Ot 070.70 UNSPECIFIED VIRAL HEPATITIS C WITHOUT HE 04/28/2017 BJ TERRY [employer]TERATION TAILOR Ot 172.5 MALIG MELANOMA TRUNK 04/28/2017 BJ TERRY [employer]TERATION TAILOR Ot 401.9 HYPERTENSION NOS 04/28/2017 BJ TERRY [employer]TERATION TAILOR Ot V15.3 HX OF IRRADIATION 04/28/2017 BJ TERRY [employer] TAILOR Ot V58.69 OTH MED,LT,CURRENT USE 04/28/2017 Ot 603.9 HYDROCELE NOS 04/28/2017 Ot 709.9 SKIN DISORDER NOS 04/28/2017 Ot V10.82 HX-MALIG SKIN MELANOMA 04/28/2017 Ot V72.81 [id number] CARDIOVASCULAR 04/28/2017 Ot V74.8 SCREEN-BACTERIAL DIS NEC 04/28/2017 TERRY BJ S [employer]TER[employer] TAILOR Ot 172.5 MALIG MELANOMA TRUNK 04/28/2017 TERRY, ELHAMAH S [employer] ALTERATION TAILOR Ot 780.4 DIZZINESS AND GIDDINESS 04/28/2017 TERRY, HILAH S [employer] ALTERATION TAILOR Ot 784.0 HEADACHE 04/28/2017 TERRY, BJ S [employer]TERATION TAILOR Ot 780.4 DIZZINESS AND GIDDINESS 04/28/2017 TERRY, HILAH S [employer] ALTERATION TAILOR Ot 784.0 HEADACHE 04/28/2017 INNA BAZAN, JOSH De Anda Ot 709.9 SKIN DISORDER NOS 04/28/2017 INNA BAZAN, JOSH De Anda Ot V72.84 EXAM PRE-OPERATIVE NOS 04/28/2017 INNA BAZAN, JOSH De Anda Ot V74.8 SCREEN-BACTERIAL DIS NEC 04/28/2017 INNA BAZAN, JOSH M Ot 709.9 SKIN DISORDER NOS 04/28/2017 INNA BAZAN, JOSH M Ot V72.84 EXAM PRE-OPERATIVE NOS 04/28/2017 IVA CRUZ N Ot 172.9 MALIG MELANOMA SKIN NOS 04/28/2017 IVA CRUZ N Ot 070.70 UNSPECIFIED VIRAL HEPATITIS C WITHOUT HE 04/28/2017 IVA CRUZ N Ot 172.5 MALIG MELANOMA TRUNK 04/28/2017 IVA CRUZ Ot 278.00 OBESITY, NOS 04/28/2017 IVA CRUZ N Ot 401.9 HYPERTENSION NOS 04/28/2017 IVA CRUZ Ot V15.3 HX OF IRRADIATION 04/28/2017 IVA CRUZ Ot V58.69 OTH MED,LT,CURRENT USE 04/28/2017 JAZMYNE BAZAN, JAQUELINE P Ot 709.9 SKIN DISORDER NOS 04/28/2017 JAZMYNE BAZAN, JAQUELINE Barclay Ot V10.82 HX-MALIG SKIN MELANOMA 04/28/2017 JAZMYNE BAZAN, JAQUELINE Barclay Ot V72.83 EXAM PRE-OPERATIVE NEC 04/28/2017 JAZMYNE BAZAN, JAQUELINE Barclay Ot V74.8 SCREEN-BACTERIAL DIS NEC 04/28/2017 ROSALBA STEVENS DO D Ot 172.7 MALIG MELANOMA LEG 04/28/2017 ROSALBA STEVENS DO D Ot V72.84 EXAM PRE-OPERATIVE NOS 04/28/2017 TERRYBJ Loza S [employer]TERATION TAILOR Ot 172.7 MALIG MELANOMA LEG 04/28/2017 TERRYBJ Loza S [employer] ALTERATION TAILOR Ot 070.70 UNSPECIFIED VIRAL HEPATITIS C WITHOUT HE 04/28/2017 TERRY, HILAH S [employer] ALTERATION TAILOR Ot 172.5 MALIG MELANOMA TRUNK 04/28/2017 TERRY, HILAH S [employer] ALTERATION TAILOR Ot 278.00 OBESITY, NOS 04/28/2017 TERRY HILAH S [employer] ALTERATION TAILOR Ot 401.9 HYPERTENSION NOS 04/28/2017 TERRY, HILAH S [employer] ALTERATION TAILOR Ot V58.69 OTH MED,LT,CURRENT USE 04/28/2017 TERRY HILAH S [employer] ALTERATION TAILOR Ot V85.35 BODY MASS INDEX 35.0-35.9, ADULT 04/28/2017 TERRY, HILAH S [employer] ALTERATION TAILOR Ot 172.9 MALIG MELANOMA SKIN NOS 04/28/2017 BJ TERRY S [employer] ALTERATION TAILOR Ot 592.0 CALCULUS OF KIDNEY 04/28/2017 ANTHONY, IVA N Ot 070.70 UNSPECIFIED VIRAL HEPATITIS C WITHOUT HE 04/28/2017 ANTHONYIVA N Ot 172.5 MALIG MELANOMA TRUNK 04/28/2017 IVA CRUZ N Ot 278.00 OBESITY, NOS 04/28/2017 ANTHONYIVA N Ot 401.9 HYPERTENSION NOS 04/28/2017 ANTHONY, IVA Renteria Ot V58.69 OTH MED,LT,CURRENT USE 04/28/2017 ANTHONYIVA N Ot V85.35 BODY MASS INDEX 35.0-35.9, ADULT 04/28/2017 TERRYELHAMAH S [employer] ALTERATION TAILOR Ot 070.70 UNSPECIFIED VIRAL HEPATITIS C WITHOUT HE 04/28/2017 TERRY, HILAH S [employer] ALTERATION TAILOR Ot 172.5 MALIG MELANOMA TRUNK 04/28/2017 TERRYELHAMAH S SH[employer] ALTERATION TAILOR Ot 401.9 HYPERTENSION NOS 04/28/2017 TERRYBJ S [employer] ALTERATION TAILOR Ot V58.69 OTH MED,LT,CURRENT USE 04/28/2017 TERRY, HILAH S [employer] ALTERATION TAILOR Ot 172.9 MALIG MELANOMA SKIN NOS 04/28/2017 ROSALBA STEVENS DO D Ot 550.90 UNILAT INGUINAL HERNIA 04/28/2017 STEVENS , ROSALBA D Ot V72.84 EXAM PRE-OPERATIVE NOS 04/28/2017 BJ TERYR [employer]TER[employer] TAILOR Ot 274.9 GOUT NOS 04/28/2017 JB TERRY [employer]TERATION TAILOR Ot 401.9 HYPERTENSION NOS 04/28/2017 BJ TERRY [employer]TER[employer] TAILOR Ot V10.82 HX-MALIG SKIN MELANOMA 04/28/2017 BJ TERRY [employer]TER[employer] TAILOR Ot V12.09 PERSONAL HISTORY OTH SPEC INFECT SHAE 04/28/2017 BJ TERRY [employer] TAILOR Ot V58.69 OTH MED,LT,CURRENT USE 04/28/2017 BJ TERRY [employer]TER[employer] TAILOR Ot V67.2 CHEMOTHERAPY FOLLOW-UP 04/28/2017 BJ TERRY [employer]TER[employer] TAILOR Ot 172.9 MALIG MELANOMA SKIN NOS 04/28/2017 BJ TERRY [employer]TERATION TAILOR Ot 709.9 SKIN DISORDER NOS 04/28/2017 BJ TERRY [employer] ALTERATION TAILOR Ot 788.1 DYSURIA 04/28/2017 BJ TERRY [employer]TER[employer] TAILOR Ot 788.30 UNSPECIFIED URINARY INCONTINENCE 04/28/2017 BJ TERRY [employer]TER[employer] TAILOR Ot 788.41 URINARY FREQUENCY 04/28/2017 BJ TERRY [employer]TER[employer] TAILOR Ot V10.82 HX-MALIG SKIN MELANOMA 04/28/2017 BJ TERRY [employer] ALTERATION TAILOR Ot V12.09 PERSONAL HISTORY OTH SPEC INFECT SHAE 04/28/2017 BJ TERRY [employer]TER[employer] TAILOR Ot V58.69 OTH MED,LT,CURRENT USE 04/28/2017 BJ TERRY [employer]TERATION TAILOR Ot V67.2 CHEMOTHERAPY FOLLOW-UP 04/28/2017 ROSALBA STEVENS DO D Ot 709.9 SKIN DISORDER NOS 04/28/2017 STEVENS ROSALBA ENCINAS D Ot V72.84 EXAM PRE-OPERATIVE NOS 04/28/2017 BJ TERRY [employer] TAILOR Ot F32.9 MAJOR DEPRESSIVE DISORDER, SINGLE EPISOD 04/28/2017 BJ TERRY [employer] TAILOR Ot N45.2 ORCHITIS 04/28/2017 BJ TERRY [employer] TAILOR Ot Z08 ENCNTR FOR FOLLOW-UP EXAM AFTER TRTMT FO 04/28/2017 BJ TERRY [employer] TAILOR Ot Z79.899 OTHER MEDICAL RECORDS SECRETARY (CURRENT) DRUG THERAPY 04/28/2017 BJ TERRY [employer] TAILOR Ot Z85.820 PERSONAL HISTORY OF MALIGNANT MELANOMA O 04/28/2017 BJ TERRY [employer]TERATION TAILOR Ot Z92.3 PERSONAL HISTORY OF IRRADIATION 04/28/2017 BJ TERRY [employer]TERATION TAILOR Ot N50.8 OTHER SPECIFIED DISORDERS OF MALE GENITA 04/28/2017 ALICJA BAZAN, ERIC Pina Ot N43.3 HYDROCELE, UNSPECIFIED 04/28/2017 BJ TERRY [employer] TAILOR Ot F32.9 MAJOR DEPRESSIVE DISORDER, SINGLE EPISOD 04/28/2017 BJ TERRY [employer] TAILOR Ot Z08 ENCNTR FOR FOLLOW-UP EXAM AFTER TRTMT FO 04/28/2017 BJ TERRY [employer]TER[employer] TAILOR Ot Z79.899 OTHER DETENTION (CURRENT) DRUG THERAPY 04/28/2017 BJ TERRY [employer]TER[employer] TAILOR Ot Z85.820 PERSONAL HISTORY OF MALIGNANT MELANOMA O 04/28/2017 BJ TERRY [employer] ALTERATION TAILOR Ot Z92.3 PERSONAL HISTORY OF IRRADIATION 04/28/2017 BJ TERRY [employer]TERATION TAILOR Ot C43.72 MALIGNANT MELANOMA OF LEFT LOWER LIMB, I 04/28/2017 BJ TERRY [employer]TER[employer] TAILOR Ot F32.9 MAJOR DEPRESSIVE DISORDER, SINGLE EPISOD 04/28/2017 BJ TERRY [employer]TER[employer] TAILOR Ot Z08 ENCNTR FOR FOLLOW-UP EXAM AFTER TRTMT FO 04/28/2017 BJ TERRY [employer]TER[employer] TAILOR Ot Z79.899 OTHER DETENTION (CURRENT) DRUG THERAPY 04/28/2017 BJ TERRY [employer] TAILOR Ot Z85.820 PERSONAL HISTORY OF MALIGNANT MELANOMA O 04/28/2017 BJ TERRY [employer] TAILOR Ot Z92.3 PERSONAL HISTORY OF IRRADIATION 04/28/2017 Ot L98.9 DISORDER OF THE SKIN AND SUBCUTANEOUS TI 04/28/2017 Ot Z01.818 ENCOUNTER FOR OTHER PREPROCEDURAL EXAMIN 04/28/2017 Ot Z85.820 PERSONAL HISTORY OF MALIGNANT MELANOMA O 04/28/2017 INNA BAZAN, JOSH De Anda Ot L98.9 DISORDER OF THE SKIN AND SUBCUTANEOUS TI 04/28/2017 INNA BAZAN, JOSH De Anda Ot Z53.29 PROC/TRTMT NOT CRD OUT BEC PT DECISION F 04/28/2017 ERIC HELM MD Ot N20.1 CALCULUS OF URETER 04/28/2017 ERIC HELM MD Ot N20.1 CALCULUS OF URETER 04/29/2017 BRENT WALTON MD Ot F32.9 MAJOR DEPRESSIVE DISORDER, SINGLE EPISOD 04/29/2017 BRENT WALTON MD Ot I10 ESSENTIAL (PRIMARY) HYPERTENSION 04/29/2017 BRENT WALTON MD Ot R19.7 DIARRHEA, UNSPECIFIED 04/29/2017 BRENT WALTON MD Ot Z08 ENCNTR FOR FOLLOW-UP EXAM AFTER TRTMT FO 04/29/2017 BRENT WALTON MD Ot Z79.899 OTHER DETENTION (CURRENT) DRUG THERAPY 04/29/2017 BRENT WALTON MD Ot Z85.820 PERSONAL HISTORY OF MALIGNANT MELANOMA O 04/29/2017 BRENT WALTON MD Ot Z86.19 PERSONAL HISTORY OF OTHER INFECTIOUS AND 04/29/2017 BRENT WALTON MD Ot F32.9 MAJOR DEPRESSIVE DISORDER, SINGLE EPISOD 04/29/2017 BRENT WALTON MD Ot I10 ESSENTIAL (PRIMARY) HYPERTENSION 04/29/2017 BRENT WALTON MD Ot R19.7 DIARRHEA, UNSPECIFIED 04/29/2017 BRENT WALTON MD Ot Z08 ENCNTR FOR FOLLOW-UP EXAM AFTER TRTMT FO 04/29/2017 BRENT WALTON MD Ot Z79.899 OTHER DETENTION (CURRENT) DRUG THERAPY 04/29/2017 BRENT WALTON MD Ot Z85.820 PERSONAL HISTORY OF MALIGNANT MELANOMA O 04/29/2017 BRENT WALTON MD Ot Z86.19 PERSONAL HISTORY OF OTHER INFECTIOUS AND 05/04/2017 BRENT WALTON MD Ot F32.9 MAJOR DEPRESSIVE DISORDER, SINGLE EPISOD 05/04/2017 BRENT WALTON MD Ot I10 ESSENTIAL (PRIMARY) HYPERTENSION 05/04/2017 BRENT WALTON MD Ot R19.7 DIARRHEA, UNSPECIFIED 05/04/2017 BRENT WALTON MD Ot Z08 ENCNTR FOR FOLLOW-UP EXAM AFTER TRTMT FO 05/04/2017 BRENT WALTON MD Ot Z79.899 OTHER MEDICAL RECORDS SECRETARY (CURRENT) DRUG THERAPY 05/04/2017 BRENT WALTON MD Ot Z85.820 PERSONAL HISTORY OF MALIGNANT MELANOMA O 05/04/2017 BRENT WALTON MD Ot Z86.19 PERSONAL HISTORY OF OTHER INFECTIOUS AND 05/19/2017 BRENT WALTON MD Ot F32.9 MAJOR DEPRESSIVE DISORDER, SINGLE EPISOD 05/19/2017 BRENT WALTON MD Ot I10 ESSENTIAL (PRIMARY) HYPERTENSION 05/19/2017 BRENT WALTON MD Ot R19.7 DIARRHEA, UNSPECIFIED 05/19/2017 BRENT WALTON MD Ot Z08 ENCNTR FOR FOLLOW-UP EXAM AFTER TRTMT FO 05/19/2017 BRENT WALTON MD Ot Z79.899 OTHER DETENTION (CURRENT) DRUG THERAPY 05/19/2017 BRENT WALTON MD Ot Z85.820 PERSONAL HISTORY OF MALIGNANT MELANOMA O 05/19/2017 BRENT WALTON MD Ot Z86.19 PERSONAL HISTORY OF OTHER INFECTIOUS AND 12/06/2017 ANTHONY, BOBAN N Ot F32.9 MAJOR DEPRESSIVE DISORDER, SINGLE EPISOD 12/06/2017 ANTHONY, BOBAN N Ot I10 ESSENTIAL (PRIMARY) HYPERTENSION 12/06/2017 ANTHONY, BOBAN N Ot R19.7 DIARRHEA, UNSPECIFIED 12/06/2017 ANTHONY, BOBAN N Ot Z08 ENCNTR FOR FOLLOW-UP EXAM AFTER TRTMT FO 12/06/2017 ANTHONY, BOBAN N Ot Z79.899 OTHER DETENTION (CURRENT) DRUG THERAPY 12/06/2017 ANTHONY, BOBAN N Ot Z85.820 PERSONAL HISTORY OF MALIGNANT MELANOMA O 12/06/2017 ANTHONY, BOBAN N Ot Z86.19 PERSONAL HISTORY OF OTHER INFECTIOUS AND 12/07/2017 ANTHONY, BOBAN N Ot F32.9 MAJOR DEPRESSIVE DISORDER, SINGLE EPISOD 12/07/2017 ANTHONY, BOBAN N Ot I10 ESSENTIAL (PRIMARY) HYPERTENSION 12/07/2017 ANTHONY, BOBAN N Ot R19.7 DIARRHEA, UNSPECIFIED 12/07/2017 ANTHONY, BOBAN N Ot Z08 ENCNTR FOR FOLLOW-UP EXAM AFTER TRTMT FO 12/07/2017 ANTHONY, BOBAN N Ot Z79.899 OTHER DETENTION (CURRENT) DRUG THERAPY 12/07/2017 ANTHONY, BOBAN N Ot Z85.820 PERSONAL HISTORY OF MALIGNANT MELANOMA O 12/07/2017 ANTHONY, BOBAN N Ot Z86.19 PERSONAL HISTORY OF OTHER INFECTIOUS AND 12/07/2017 ANTHONY, BOBAN N Ot F32.9 MAJOR DEPRESSIVE DISORDER, SINGLE EPISOD 12/07/2017 ANTHONY, BOBAN N Ot I10 ESSENTIAL (PRIMARY) HYPERTENSION 12/07/2017 IVA CRUZ Ot R19.7 DIARRHEA, UNSPECIFIED 12/07/2017 IVA CRUZ Ot Z08 ENCNTR FOR FOLLOW-UP EXAM AFTER TRTMT FO 12/07/2017 IVA CRUZ Ot Z79.899 OTHER MEDICAL RECORDS SECRETARY (CURRENT) DRUG THERAPY 12/07/2017 IVA CRUZ Ot Z85.820 PERSONAL HISTORY OF MALIGNANT MELANOMA O 12/07/2017 IVA CRUZ Ot Z86.19 PERSONAL HISTORY OF OTHER INFECTIOUS AND 04/01/2018 BJ TERRY S SHOP AND ALTERATION TAILOR Ot C43.59 MALIGNANT MELANOMA OF OTHER PART OF TRUN 04/01/2018 BJ TERRY S SHOP AND ALTERATION TAILOR Ot H53.9 UNSPECIFIED VISUAL DISTURBANCE 04/01/2018 BJ TERRY S SHOP AND ALTERATION TAILOR Ot I67.82 CEREBRAL ISCHEMIA 04/01/2018 BJ TERRY SHOP AND ALTERATION TAILOR Ot L98.9 DISORDER OF THE SKIN AND SUBCUTANEOUS TI 04/01/2018 BJ TERRY S SHOP AND ALTERATION TAILOR Ot R59.0 LOCALIZED ENLARGED LYMPH NODES 04/06/2018 BJ TERRY SH[employer] AND ALTERATION TAILOR Ot C43.59 MALIGNANT MELANOMA OF OTHER PART OF TRUN 04/06/2018 BJ TERRY SHOP AND ALTERATION TAILOR Ot H53.9 UNSPECIFIED VISUAL DISTURBANCE 04/06/2018 BJ TERRY SHOP AND ALTERATION TAILOR Ot I67.82 CEREBRAL ISCHEMIA 04/06/2018 BJ TERRY SHOP AND ALTERATION TAILOR Ot L98.9 DISORDER OF THE SKIN AND SUBCUTANEOUS TI 04/06/2018 BJ TERRY SH[employer] AND ALTERATION TAILOR Ot R59.0 LOCALIZED ENLARGED LYMPH NODES 04/12/2018 BRENT WALTON MD Ot F32.9 MAJOR DEPRESSIVE DISORDER, SINGLE EPISOD 04/12/2018 BRENT WALTON MD Ot I10 ESSENTIAL (PRIMARY) HYPERTENSION 04/12/2018 BRENT WALTON MD Ot R19.7 DIARRHEA, UNSPECIFIED 04/12/2018 BRENT WALTON MD Ot Z08 ENCNTR FOR FOLLOW-UP EXAM AFTER TRTMT FO 04/12/2018 BRENT WALTON MD Ot Z79.899 OTHER DETENTION (CURRENT) DRUG THERAPY 04/12/2018 BRENT WALTON MD Ot Z85.820 PERSONAL HISTORY OF MALIGNANT MELANOMA O 04/12/2018 ISABELLE MD, KENNEDY Ot Z86.19 PERSONAL HISTORY OF OTHER INFECTIOUS AND 04/12/2018 ALICJA BAZAN, ERIC A Ot N20.1 CALCULUS OF URETER 04/12/2018 IVA CRUZ Ot F32.9 MAJOR DEPRESSIVE DISORDER, SINGLE EPISOD 04/12/2018 IVA CRUZ Ot I10 ESSENTIAL (PRIMARY) HYPERTENSION 04/12/2018 IVA CRUZ Ot Z08 ENCNTR FOR FOLLOW-UP EXAM AFTER TRTMT FO 04/12/2018 IVA CRUZ Ot Z79.899 OTHER DETENTION (CURRENT) DRUG THERAPY 04/12/2018 IVA CRUZ Ot Z85.820 PERSONAL HISTORY OF MALIGNANT MELANOMA O 04/12/2018 IVA CRUZ Ot Z86.19 PERSONAL HISTORY OF OTHER INFECTIOUS AND 04/12/2018 BJ TERRY S [employer] Ot C43.59 MALIGNANT MELANOMA OF OTHER PART OF TRUN 04/12/2018 BJ TERRY [employer] Ot C77.3 SEC AND UNSP MALIG NEOPLASM OF AXILLA AN 04/12/2018 BJ TERRY S [employer] Ot C43.59 MALIGNANT MELANOMA OF OTHER PART OF TRUN 04/12/2018 BJ TERRY [employer] Ot H53.9 UNSPECIFIED VISUAL DISTURBANCE 04/12/2018 BJ TERRY S [employer] Ot I67.82 CEREBRAL ISCHEMIA 04/12/2018 BJ TERRY S [employer] Ot L98.9 DISORDER OF THE SKIN AND SUBCUTANEOUS TI 04/12/2018 BJ TERRY S [employer] Ot R59.0 LOCALIZED ENLARGED LYMPH NODES 04/20/2018 INNA BAZAN, JOSH De Anda Ot Z01.818 ENCOUNTER FOR OTHER PREPROCEDURAL EXAMIN 04/20/2018 BJ TERRY [employer] Ot C43.59 MALIGNANT MELANOMA OF OTHER PART OF TRUN 04/20/2018 BJ TERRY S [employer] Ot H53.9 UNSPECIFIED VISUAL DISTURBANCE 04/20/2018 BJ TERRY S [employer] Ot I67.82 CEREBRAL ISCHEMIA 04/20/2018 BJ TERRY S [employer] Ot L98.9 DISORDER OF THE SKIN AND SUBCUTANEOUS TI 04/20/2018 BJ TERRY S [employer] Ot R59.0 LOCALIZED ENLARGED LYMPH NODES 04/22/2018 INNA BAZAN, JOSH De Anda Ot C43.59 MALIGNANT MELANOMA OF OTHER PART OF TRUN 04/22/2018 JOSH KEITH MD Ot G47.33 OBSTRUCTIVE SLEEP APNEA (ADULT) (PEDIATR 04/22/2018 JOSH KEITH MD Ot I10 ESSENTIAL (PRIMARY) HYPERTENSION 04/22/2018 JOSH KEITH MD Ot R22.1 LOCALIZED SWELLING, MASS AND LUMP, NECK 04/22/2018 JOSH KEITH MD Ot Z79.899 OTHER MEDICAL RECORDS SECRETARY (CURRENT) DRUG THERAPY 04/22/2018 JOSH KEITH MD Ot Z85.820 PERSONAL HISTORY OF MALIGNANT MELANOMA O 04/28/2018 BJ TERRY [employer] Ot C43.59 MALIGNANT MELANOMA OF OTHER PART OF TRUN 04/28/2018 TERRYELHAMAH S [employer] TAILOR Ot C77.3 SEC AND UNSP MALIG NEOPLASM OF AXILLA AN 04/29/2018 TERRY, HILAH S [employer] TAIL[employer] Ot C43.59 MALIGNANT MELANOMA OF OTHER PART OF TRUN 04/29/2018 TERRY HILAH S [employer] TA[employer] Ot C77.3 SEC AND UNSP MALIG NEOPLASM OF AXILLA AN 04/29/2018 TERRY HILAH S [employer] TAIL[employer] Ot R59.0 LOCALIZED ENLARGED LYMPH NODES 04/29/2018 TERRY HILAH S [employer] TAIL[employer] Ot C43.59 MALIGNANT MELANOMA OF OTHER PART OF TRUN 04/29/2018 TERRYELHAMAH S [employer] TAILOR Ot C77.3 SEC AND UNSP MALIG NEOPLASM OF AXILLA AN 04/29/2018 TERRY, HILAH S [employer] TAIL[employer] Ot R59.0 LOCALIZED ENLARGED LYMPH NODES 04/29/2018 JOSH KEITH MD Ot C43.59 MALIGNANT MELANOMA OF OTHER PART OF TRUN 04/29/2018 JOSH KEITH MD Ot G47.33 OBSTRUCTIVE SLEEP APNEA (ADULT) (PEDIATR 04/29/2018 JOSH KEITH MD Ot I10 ESSENTIAL (PRIMARY) HYPERTENSION 04/29/2018 JOSH KEITH MD Ot R22.1 LOCALIZED SWELLING, MASS AND LUMP, NECK 04/29/2018 JOSH KEITH MD Ot Z79.899 OTHER MEDICAL RECORDS SECRETARY (CURRENT) DRUG THERAPY 04/29/2018 JOSH KEITH MD Ot Z85.820 PERSONAL HISTORY OF MALIGNANT MELANOMA O 05/02/2018 IVA CRUZ Ot F32.9 MAJOR DEPRESSIVE DISORDER, SINGLE EPISOD 05/02/2018 KELSEY CRUZDWAIN N Ot I10 ESSENTIAL (PRIMARY) HYPERTENSION 05/02/2018 ANTHONY IVA Renteria Ot Z08 ENCNTR FOR FOLLOW-UP EXAM AFTER TRTMT FO 05/02/2018 ANTHONY IVA N Ot Z79.899 OTHER MEDICAL RECORDS SECRETARY (CURRENT) DRUG THERAPY 05/02/2018 ANTHONY, IVA N Ot Z85.820 PERSONAL HISTORY OF MALIGNANT MELANOMA O 05/02/2018 ANTHONYIVA Ot Z86.19 PERSONAL HISTORY OF OTHER INFECTIOUS AND 05/16/2018 BJ TERRY [employer] Ot C43.59 MALIGNANT MELANOMA OF OTHER PART OF TRUN 05/16/2018 BJ TERRY [employer] Ot C77.3 SEC AND UNSP MALIG NEOPLASM OF AXILLA AN 05/16/2018 BJ TERRY [employer] Ot R59.0 LOCALIZED ENLARGED LYMPH NODES 06/08/2018 IVA CRUZ Ot F32.9 MAJOR DEPRESSIVE DISORDER, SINGLE EPISOD 06/08/2018 ANTHONY IVA Renteria Ot I10 ESSENTIAL (PRIMARY) HYPERTENSION 06/08/2018 ANTHONY IVA Renteria Ot Z08 ENCNTR FOR FOLLOW-UP EXAM AFTER TRTMT FO 06/08/2018 KELSEY CRUZDWAIN Renteria Ot Z79.899 OTHER DETENTION (CURRENT) DRUG THERAPY 06/08/2018 ANTHONYIVA Ot Z85.820 PERSONAL HISTORY OF MALIGNANT MELANOMA O 06/08/2018 ANTHONYIVA N Ot Z86.19 PERSONAL HISTORY OF OTHER INFECTIOUS AND 06/13/2018 ANTHONYIVA Ot F32.9 MAJOR DEPRESSIVE DISORDER, SINGLE EPISOD 06/13/2018 ANTHONY IVA N Ot I10 ESSENTIAL (PRIMARY) HYPERTENSION 06/13/2018 ANTHONY IVA N Ot Z08 ENCNTR FOR FOLLOW-UP EXAM AFTER TRTMT FO 06/13/2018 ANTHONY IVA N Ot Z79.899 OTHER DETENTION (CURRENT) DRUG THERAPY 06/13/2018 ANTHONYIVA N Ot Z85.820 PERSONAL HISTORY OF MALIGNANT MELANOMA O 06/13/2018 ANTHONYIVA N Ot Z86.19 PERSONAL HISTORY OF OTHER INFECTIOUS AND 06/15/2018 IVA CRUZ Ot F32.9 MAJOR DEPRESSIVE DISORDER, SINGLE EPISOD 06/15/2018 IVA CRUZ Ot H53.9 UNSPECIFIED VISUAL DISTURBANCE 06/15/2018 IVA CRUZ Ot I10 ESSENTIAL (PRIMARY) HYPERTENSION 06/15/2018 IVA CRUZ Ot R39.15 URGENCY OF URINATION 06/15/2018 IVA CRUZ Dexter Ot R42 DIZZINESS AND GIDDINESS 06/15/2018 IVA CRUZ Dexter Ot R59.0 LOCALIZED ENLARGED LYMPH NODES 06/15/2018 IVA CRUZ Ot Z08 ENCNTR FOR FOLLOW-UP EXAM AFTER TRTMT FO 06/15/2018 IVA CRUZ Ot Z79.899 OTHER DETENTION (CURRENT) DRUG THERAPY 06/15/2018 IVA CRUZ Dexter Ot Z85.820 PERSONAL HISTORY OF MALIGNANT MELANOMA O 06/15/2018 IVA CRUZ Dexter Ot Z86.19 PERSONAL HISTORY OF OTHER INFECTIOUS AND 06/15/2018 IVA CRUZ Dexter Ot Z92.3 PERSONAL HISTORY OF IRRADIATION 08/23/2018 RHETT GUILLEN MD Ot F32.9 MAJOR DEPRESSIVE DISORDER, SINGLE EPISOD 08/23/2018 RHETT GUILLEN MD Ot F41.9 ANXIETY DISORDER, UNSPECIFIED 08/23/2018 RHETT GUILLEN MD Ot G43.909 MIGRAINE, UNSP, NOT INTRACTABLE, WITHOUT 08/23/2018 RHETT GUILLEN MD Ot G47.30 SLEEP APNEA, UNSPECIFIED 08/23/2018 RHETT GUILLEN MD Ot K21.9 GASTRO-ESOPHAGEAL REFLUX DISEASE WITHOUT 08/23/2018 RHETT GUILLEN MD Ot M10.9 GOUT, UNSPECIFIED 08/23/2018 RHETT GUILLEN MD Ot M11.29 OTHER CHONDROCALCINOSIS, MULTIPLE SITES 08/23/2018 RHETT GUILLEN MD Ot M79.604 PAIN IN RIGHT LEG 08/23/2018 RHETT GUILLEN MD Ot Z80.0 FAMILY HISTORY OF MALIGNANT NEOPLASM OF 08/23/2018 RHETT GUILLEN MD Ot Z82.49 FAMILY HX OF ISCHEM HEART DIS AND OTH DI 08/23/2018 RHETT GUILLEN MD Ot Z85.820 PERSONAL HISTORY OF MALIGNANT MELANOMA O 08/23/2018 RHETT GUILLEN MD Ot Z87.19 PERSONAL HISTORY OF OTHER DISEASES OF 08/23/2018 RHETT GUILLEN MD Ot Z87.442 PERSONAL HISTORY OF URINARY CALCULI 08/23/2018 RHETT GUILLEN MD Ot Z90.49 ACQUIRED ABSENCE OF OTHER SPECIFIED PART 08/23/2018 RHETT GUILLEN MD Ot Z90.89 ACQUIRED ABSENCE OF OTHER ORGANS 08/23/2018 RHETT GUILLEN MD Ot Z98.890 OTHER SPECIFIED POSTPROCEDURAL STATES 08/25/2018 RHETT GUILLEN MD Ot F32.9 MAJOR DEPRESSIVE DISORDER, SINGLE EPISOD 08/25/2018 RHETT GUILLEN MD Ot F41.9 ANXIETY DISORDER, UNSPECIFIED 08/25/2018 RHETT GUILLEN MD Ot G43.909 MIGRAINE, UNSP, NOT INTRACTABLE, WITHOUT 08/25/2018 RHETT GUILLEN MD Ot G47.30 SLEEP APNEA, UNSPECIFIED 08/25/2018 RHETT GUILLEN MD Ot K21.9 GASTRO-ESOPHAGEAL REFLUX DISEASE WITHOUT 08/25/2018 RHETT GUILLEN MD Ot M10.9 GOUT, UNSPECIFIED 08/25/2018 RHETT GUILLEN MD Ot M11.29 OTHER CHONDROCALCINOSIS, MULTIPLE SITES 08/25/2018 RHETT GUILLEN MD Ot M79.604 PAIN IN RIGHT LEG 08/25/2018 RHETT GUILLEN MD Ot Z80.0 FAMILY HISTORY OF MALIGNANT NEOPLASM OF 08/25/2018 RHETT GUILLEN MD Ot Z82.49 FAMILY HX OF ISCHEM HEART DIS AND OTH DI 08/25/2018 RHETT GUILLEN MD Ot Z85.820 PERSONAL HISTORY OF MALIGNANT MELANOMA O 08/25/2018 RHETT GUILLEN MD Ot Z87.19 PERSONAL HISTORY OF OTHER DISEASES OF 08/25/2018 RHETT GUILLEN MD Ot Z87.442 PERSONAL HISTORY OF URINARY CALCULI 08/25/2018 RHETT GUILLEN MD Ot Z90.49 ACQUIRED ABSENCE OF OTHER SPECIFIED PART 08/25/2018 RHETT GUILLEN MD Ot Z90.89 ACQUIRED ABSENCE OF OTHER ORGANS 08/25/2018 RHETT GUILLEN MD Ot Z98.890 OTHER SPECIFIED POSTPROCEDURAL STATES 09/01/2018 RHETT GUILLEN MD Ot F32.9 MAJOR DEPRESSIVE DISORDER, SINGLE EPISOD 09/01/2018 RHETT GUILLEN MD Ot F41.9 ANXIETY DISORDER, UNSPECIFIED 09/01/2018 RHETT GUILLEN MD Ot G43.909 MIGRAINE, UNSP, NOT INTRACTABLE, WITHOUT 09/01/2018 RHETT GUILLEN MD Ot G47.30 SLEEP APNEA, UNSPECIFIED 09/01/2018 RHETT GUILLEN MD Ot K21.9 GASTRO-ESOPHAGEAL REFLUX DISEASE WITHOUT 09/01/2018 RHETT GUILLEN MD Ot M10.9 GOUT, UNSPECIFIED 09/01/2018 RHETT GUILLEN MD Ot M11.29 OTHER CHONDROCALCINOSIS, MULTIPLE SITES 09/01/2018 RHETT GUILLEN MD Ot M79.604 PAIN IN RIGHT LEG 09/01/2018 RHETT GUILLEN MD Ot Z80.0 FAMILY HISTORY OF MALIGNANT NEOPLASM OF 09/01/2018 RHETT GUILLEN MD Ot Z82.49 FAMILY HX OF ISCHEM HEART DIS AND OTH DI 09/01/2018 RHETT GUILLEN MD Ot Z85.820 PERSONAL HISTORY OF MALIGNANT MELANOMA O 09/01/2018 RHETT GUILLEN MD Ot Z87.19 PERSONAL HISTORY OF OTHER DISEASES OF TH 09/01/2018 RHETT GUILLEN MD Ot Z87.442 PERSONAL HISTORY OF URINARY CALCULI 09/01/2018 RHETT GUILLEN MD Ot Z90.49 ACQUIRED ABSENCE OF OTHER SPECIFIED PART 09/01/2018 RHETT GUILLEN MD Ot Z90.89 ACQUIRED ABSENCE OF OTHER ORGANS 09/01/2018 RHETT GUILLEN MD Ot Z98.890 OTHER SPECIFIED POSTPROCEDURAL STATES Procedures Code Description Performed By Performed On 86.04 OTHER SKIN SUBQ I D 11/08/2010 81.92 INJECTION INTO JOINT 11/11/2010 86.01 02/18/2011 86.05 02/20/2011 86.01 ASPIRATION SKIN SUBQ 04/08/2011 42341 ROUTINE VENIPUNCTURE 02/10/2012 47429 HIDA SCAN 02/10/2012 27234 CMP 02/10/2012 91112 AMYLASE 02/10/2012 78464 LIPASE 02/10/2012 53685 CBC 02/10/2012 18089 HEP C PCR QUANT W/STAN 02/10/2012 11389 UA LONG DIP 08/22/2012 71628 URINE DRUG SCREEN (IN-HOUSE) 08/22/2012 97925 CMP 08/23/2012 68277 TSH 08/23/2012 46676 CBC 08/23/2012 S StevensKamaljit castrott 02/23/2013 [id number] EXCISION OF ABDOMEN SKIN, EXTERNAL APPRO 01/15/2016 [...] resistant Staphylococcus aureus (MRSA) screening culture - 12/13/15 08:35 Methicillin resistant Staphylococcus aureus (MRSA) screening culture NEG NRG Complete blood count (CBC) with automated white blood cell (WBC) differential - 01/11/16 01:25 Blood leukocytes automated count (number/volume) 10.4 10*3/uL 4.3-11.0 Blood erythrocytes automated count (number/volume) 4.19 10*6/uL 4.35-5.85 Venous blood hemoglobin measurement (mass/volume) 12.7 g/dL 13.3-17.7 Blood hematocrit (volume fraction) 38 % 40-54 Automated erythrocyte mean corpuscular volume 91 [foz_us] 80-99 Automated erythrocyte mean corpuscular hemoglobin (mass per erythrocyte) 30 pg 25-34 Automated erythrocyte mean corpuscular hemoglobin concentration measurement (mass/volume) 33 g/dL 32-36 Automated erythrocyte distribution width ratio 12.3 % 10.0- 14.5 Automated blood platelet count (count/volume) 216 10*3/uL 130-400 Automated blood platelet mean volume measurement 10.6 [foz_us] 7.4-10.4 Automated blood neutrophils/100 leukocytes 79 % 42-75 Automated blood lymphocytes/100 leukocytes 8 % 12-44 Blood monocytes/100 leukocytes 11 % 0-12 Automated blood eosinophils/100 leukocytes 1 % 0-10 Automated blood basophils/100 leukocytes 0 % 0-10 Blood neutrophils automated count (number/volume) 8.3 10*3 1.8-7.8 Blood lymphocytes automated count (number/volume) 0.9 10*3 1.0-4.0 Blood monocytes automated count (number/volume) 1.2 10*3 0.0- 1.0 Automated eosinophil count 0.1 10*3/uL 0.0-0.3 Automated blood basophil count (count/volume) 0.0 10*3/uL 0.0-0.1 Blood lactic acid measurement (moles/volume) - 01/11/16 01:25 Blood lactic acid measurement (moles/volume) 1.3 mmol/L 0.5- 2.0 Comprehensive metabolic panel - 01/11/16 01:25 Serum or plasma sodium measurement (moles/volume) 140 mmol/L 135-145 Serum or plasma potassium measurement (moles/volume) 3.7 mmol/L 3.6-5.0 Serum or plasma chloride measurement (moles/volume) 106 mmol/L 98-107 Carbon dioxide 21 mmol/L 21-32 Serum or plasma anion gap determination (moles/volume) 13 mmol/L 5-14 Serum or plasma urea nitrogen measurement (mass/volume) 11 mg/dL 7-18 Serum or plasma creatinine measurement (mass/volume) 0.97 mg/dL 0.60-1.30 Serum or plasma urea nitrogen/creatinine mass [...] Serum or plasma aspartate aminotransferase measurement (enzymatic activity/volume) 16 U/L 5-34 Serum or plasma alanine aminotransferase measurement (enzymatic activity/volume) 19 U/L 0-55 Serum or plasma protein [...] Urine pH measurement by test strip 7 5-9 Specific gravity of urine by test strip [...] sediment leukocyte count by microscopy (number/high power field) [HPF] NRG Bacteria detection in urine sediment [...] 10:07 Blood leukocytes automated count (number/volume) 11.4 10*3/uL 4.3-11.0 Blood erythrocytes automated count (number/volume) 4.00 10*6/uL 4.35-5.85 Venous blood hemoglobin measurement (mass/volume) 12.2 g/dL 13.3-17.7 Blood hematocrit (volume fraction) 37 % 40-54 Automated erythrocyte mean corpuscular volume 92 [foz_us] 80-99 Automated erythrocyte mean corpuscular hemoglobin (mass per erythrocyte) 31 pg 25-34 Automated erythrocyte mean corpuscular hemoglobin concentration measurement (mass/volume) 33 g/dL 32-36 Automated erythrocyte distribution width ratio 12.3 % 10.0- 14.5 Automated blood platelet count (count/volume) 207 10*3/uL 130-400 Automated blood platelet mean volume measurement 10.6 [foz_us] 7.4-10.4 Automated blood neutrophils/100 leukocytes 83 % 42-75 Automated blood lymphocytes/100 leukocytes 7 % 12-44 Blood monocytes/100 leukocytes 9 % 0-12 Automated blood eosinophils/100 leukocytes 1 % 0-10 Automated blood basophils/100 leukocytes 0 % 0-10 Blood neutrophils automated count (number/volume) 9.5 10*3 1.8-7.8 Blood lymphocytes automated count (number/volume) 0.8 10*3 1.0-4.0 Blood monocytes automated count (number/volume) 1.1 10*3 0.0- 1.0 Automated eosinophil count 0.1 10*3/uL 0.0-0.3 Automated blood basophil count (count/volume) 0.0 10*3/uL 0.0-0.1 Complete blood count (CBC) with automated white blood cell (WBC) differential - 01/13/16 04:45 Blood leukocytes automated count (number/volume) 10.4 10*3/uL 4.3-11.0 Blood erythrocytes automated count (number/volume) 3.88 10*6/uL 4.35-5.85 Venous blood hemoglobin measurement (mass/volume) 11.8 g/dL 13.3-17.7 Blood hematocrit (volume fraction) 35 % 40-54 Automated erythrocyte mean corpuscular volume 91 [foz_us] 80-99 Automated erythrocyte mean corpuscular hemoglobin (mass per erythrocyte) 30 pg 25-34 Automated erythrocyte mean corpuscular hemoglobin concentration measurement (mass/volume) 33 g/dL 32-36 Automated erythrocyte distribution width ratio 12.0 % 10.0- 14.5 Automated blood platelet count (count/volume) 211 10*3/uL 130-400 Automated blood platelet mean volume measurement 10.6 [foz_us] 7.4-10.4 Automated blood neutrophils/100 leukocytes 76 % 42-75 Automated blood lymphocytes/100 leukocytes 12 % 12-44 Blood monocytes/100 leukocytes 10 % 0-12 Automated blood eosinophils/100 leukocytes 1 % 0-10 Automated blood basophils/100 leukocytes 0 % 0-10 Blood neutrophils automated count (number/volume) 7.9 10*3 1.8-7.8 Blood lymphocytes automated count (number/volume) 1.2 10*3 1.0-4.0 Blood monocytes automated count (number/volume) 1.1 10*3 0.0- 1.0 Automated eosinophil count 0.1 10*3/uL 0.0-0.3 Automated blood basophil count (count/volume) 0.0 10*3/uL 0.0-0.1 Whole blood basic metabolic panel - 01/13/16 04:45 Serum or plasma sodium measurement (moles/volume) 139 mmol/L 135-145 Serum or plasma potassium measurement (moles/volume) 4.2 mmol/L 3.6-5.0 Serum or plasma chloride measurement (moles/volume) 108 mmol/L 98-107 Carbon dioxide 20 mmol/L 21-32 Serum or plasma anion gap determination (moles/volume) 11 mmol/L 5-14 Serum or plasma urea nitrogen measurement (mass/volume) 15 mg/dL 7-18 Serum or plasma creatinine measurement (mass/volume) 0.80 mg/dL 0.60-1.30 Serum or plasma urea nitrogen/creatinine mass ratio 19 NRG Serum or plasma creatinine measurement with calculation of estimated glomerular filtration rate > NRG Serum or plasma glucose measurement (mass/volume) 93 mg/dL 70-105 Serum or plasma calcium measurement (mass/volume) 8.9 mg/dL 8.5-10.1 Complete blood count (CBC) with automated white blood cell (WBC) differential - 01/14/16 04:50 Blood leukocytes automated count (number/volume) 8.8 10*3/uL 4.3-11.0 Blood erythrocytes automated count (number/volume) 3.89 10*6/uL 4.35-5.85 Venous blood hemoglobin measurement (mass/volume) 11.8 g/dL 13.3-17.7 Blood hematocrit (volume fraction) 35 % 40-54 Automated erythrocyte mean corpuscular volume 91 [foz_us] 80-99 Automated erythrocyte mean corpuscular hemoglobin (mass per erythrocyte) 30 pg 25-34 Automated erythrocyte mean corpuscular hemoglobin concentration measurement (mass/volume) 33 g/dL 32-36 Automated erythrocyte distribution width ratio 12.0 % 10.0- 14.5 Automated blood platelet count (count/volume) 233 10*3/uL 130-400 Automated blood platelet mean volume measurement 10.3 [foz_us] 7.4-10.4 Automated blood neutrophils/100 leukocytes 70 % 42-75 Automated blood lymphocytes/100 leukocytes 16 % 12-44 Blood monocytes/100 leukocytes 11 % 0-12 Automated blood eosinophils/100 leukocytes 2 % 0-10 Automated blood basophils/100 leukocytes 0 % 0-10 Blood neutrophils automated count (number/volume) 6.2 10*3 1.8-7.8 Blood lymphocytes automated count (number/volume) 1.4 10*3 1.0-4.0 Blood monocytes automated count (number/volume) 1.0 10*3 0.0- 1.0 Automated eosinophil count 0.2 10*3/uL 0.0-0.3 Automated blood basophil count (count/volume) 0.0 10*3/uL 0.0-0.1 Whole blood basic metabolic panel - 01/14/16 04:50 Serum or plasma sodium measurement (moles/volume) 140 mmol/L 135-145 Serum or plasma potassium measurement (moles/volume) 4.2 mmol/L 3.6-5.0 Serum or plasma chloride measurement (moles/volume) 108 mmol/L 98-107 Carbon dioxide 19 mmol/L 21-32 Serum or plasma anion gap determination (moles/volume) 13 mmol/L 5-14 Serum or plasma urea nitrogen measurement (mass/volume) 15 mg/dL 7-18 Serum or plasma creatinine measurement (mass/volume) 0.77 mg/dL 0.60-1.30 Serum or plasma urea nitrogen/creatinine mass ratio 19 NRG Serum or plasma creatinine measurement with calculation of estimated glomerular filtration rate > NRG Serum or plasma glucose measurement (mass/volume) 92 mg/dL 70-105 Serum or plasma calcium measurement (mass/volume) 8.9 mg/dL 8.5-10.1 Complete blood count (CBC) with automated white blood cell (WBC) differential - 01/15/16 07:23 Blood leukocytes automated count (number/volume) 6.5 10*3/uL 4.3-11.0 Blood erythrocytes automated count (number/volume) 3.94 10*6/uL 4.35-5.85 Venous blood hemoglobin measurement (mass/volume) 11.7 g/dL 13.3-17.7 Blood hematocrit (volume fraction) 36 % 40-54 Automated erythrocyte mean corpuscular volume 91 [foz_us] 80-99 Automated erythrocyte mean corpuscular hemoglobin (mass per erythrocyte) 30 pg 25-34 Automated erythrocyte mean corpuscular hemoglobin concentration measurement (mass/volume) 33 g/dL 32-36 Automated erythrocyte distribution width ratio 11.9 % 10.0- 14.5 Automated blood platelet count (count/volume) 240 10*3/uL 130-400 Automated blood platelet mean volume measurement 10.2 [foz_us] 7.4-10.4 Automated blood neutrophils/100 leukocytes 65 % 42-75 Automated blood lymphocytes/100 leukocytes 21 % 12-44 Blood monocytes/100 leukocytes 10 % 0-12 Automated blood eosinophils/100 leukocytes 4 % 0-10 Automated blood basophils/100 leukocytes 0 % 0-10 Blood neutrophils automated count (number/volume) 4.2 10*3 1.8-7.8 Blood lymphocytes automated count (number/volume) 1.3 10*3 1.0-4.0 Blood monocytes automated count (number/volume) 0.7 10*3 0.0- 1.0 Automated eosinophil count 0.3 10*3/uL 0.0-0.3 Automated blood basophil count (count/volume) 0.0 10*3/uL 0.0-0.1 Whole blood basic metabolic panel - 01/15/16 07:23 Serum or plasma sodium measurement (moles/volume) 139 mmol/L 135-145 Serum or plasma potassium measurement (moles/volume) 4.4 mmol/L 3.6-5.0 Serum or plasma chloride measurement (moles/volume) 105 mmol/L 98-107 Carbon dioxide 21 mmol/L 21-32 Serum or plasma anion gap determination (moles/volume) 13 mmol/L 5-14 Serum or plasma urea nitrogen measurement (mass/volume) 16 mg/dL 7-18 Serum or plasma creatinine measurement (mass/volume) 0.79 mg/dL 0.60-1.30 Serum or plasma urea nitrogen/creatinine mass ratio 20 NRG Serum or plasma creatinine measurement with calculation of estimated glomerular filtration rate > NRG Serum or plasma glucose measurement (mass/volume) 89 mg/dL 70-105 Serum or plasma calcium measurement (mass/volume) 9.2 mg/dL 8.5-10.1 Complete blood count (CBC) with automated white blood cell (WBC) differential - 09/17/16 18:17 Blood leukocytes automated count (number/volume) 9.3 10*3/uL 4.3-11.0 Blood erythrocytes automated count (number/volume) 4.46 10*6/uL 4.35-5.85 Venous blood hemoglobin measurement (mass/volume) 13.2 g/dL 13.3-17.7 Blood hematocrit (volume fraction) 40 % 40-54 Automated erythrocyte mean corpuscular volume 89 [foz_us] 80-99 Automated erythrocyte mean corpuscular hemoglobin (mass per erythrocyte) 30 pg 25-34 Automated erythrocyte mean corpuscular hemoglobin concentration measurement (mass/volume) 33 g/dL 32-36 Automated erythrocyte distribution width ratio 12.1 % 10.0- 14.5 Automated blood platelet count (count/volume) 238 10*3/uL 130-400 Automated blood platelet mean volume measurement 10.5 [foz_us] 7.4-10.4 Automated blood neutrophils/100 leukocytes 70 % 42-75 Automated blood lymphocytes/100 leukocytes 15 % 12-44 Blood monocytes/100 leukocytes 13 % 0-12 Automated blood eosinophils/100 leukocytes 2 % 0-10 Automated blood basophils/100 leukocytes 0 % 0-10 Blood neutrophils automated count (number/volume) 6.5 10*3 1.8-7.8 Blood lymphocytes automated count (number/volume) 1.4 10*3 1.0-4.0 Blood monocytes automated count (number/volume) 1.2 10*3 0.0- 1.0 Automated eosinophil count 0.2 10*3/uL 0.0-0.3 Automated blood basophil count (count/volume) 0.0 10*3/uL 0.0-0.1 Comprehensive metabolic panel - 09/17/16 18:17 Serum or plasma sodium measurement (moles/volume) 136 mmol/L 135-145 Serum or plasma potassium measurement (moles/volume) 3.9 mmol/L 3.6-5.0 Serum or plasma chloride measurement (moles/volume) 102 mmol/L 98-107 Carbon dioxide 22 mmol/L 21-32 Serum or plasma anion gap determination (moles/volume) 12 mmol/L 5-14 Serum or plasma urea nitrogen measurement (mass/volume) 15 mg/dL 7-18 Serum or plasma creatinine measurement (mass/volume) 1.54 mg/dL 0.60-1.30 Serum or plasma urea nitrogen/creatinine mass ratio 10 0- 20 Serum or plasma creatinine measurement with calculation of estimated glomerular filtration rate 51 NRG Serum or plasma glucose measurement (mass/volume) 98 mg/dL 70-105 Serum or plasma calcium measurement (mass/volume) 9.4 mg/dL 8.5-10.1 Serum or plasma total bilirubin measurement (mass/volume) 0.7 mg/dL 0.1-1.0 Serum or plasma alkaline phosphatase measurement (enzymatic activity/volume) 65 U/L 40-136 Serum or plasma aspartate aminotransferase measurement (enzymatic activity/volume) 12 U/L 5-34 Serum or plasma alanine aminotransferase measurement (enzymatic activity/volume) 19 U/L 0-55 Serum or plasma protein measurement (mass/volume) 6.2 g/dL 6.4-8.2 Serum or plasma albumin measurement (mass/volume) 3.8 g/dL 3.2-4.5 Methicillin resistant Staphylococcus aureus (MRSA) screening culture - 09/23/16 07:15 Methicillin resistant Staphylococcus aureus (MRSA) screening culture NEG NRG Complete blood count (CBC) with automated white blood cell (WBC) differential - 03/15/18 14:22 Blood leukocytes automated count (number/volume) 5.7 10*3/uL 4.3-11.0 Blood erythrocytes automated count (number/volume) 4.76 10*6/uL 4.35-5.85 Venous blood hemoglobin measurement (mass/volume) 13.9 g/dL 13.3-17.7 Blood hematocrit (volume fraction) 43 % 40-54 Automated erythrocyte mean corpuscular volume 91 [foz_us] 80-99 Automated erythrocyte mean corpuscular hemoglobin (mass per erythrocyte) 29 pg 25-34 Automated erythrocyte mean corpuscular hemoglobin concentration measurement (mass/volume) 32 g/dL 32-36 Automated erythrocyte distribution width ratio 13.1 % 10.0- 14.5 Automated blood platelet count (count/volume) 263 10*3/uL 130-400 Automated blood platelet mean volume measurement 10.4 [foz_us] 7.4-10.4 Automated blood neutrophils/100 leukocytes 53 % 42-75 Automated blood lymphocytes/100 leukocytes 34 % 12-44 Blood monocytes/100 leukocytes 8 % 0-12 Automated blood eosinophils/100 leukocytes 4 % 0-10 Automated blood basophils/100 leukocytes 0 % 0-10 Blood neutrophils automated count (number/volume) 3.0 10*3 1.8-7.8 Blood lymphocytes automated count (number/volume) 2.0 10*3 1.0-4.0 Blood monocytes automated count (number/volume) 0.4 10*3 0.0- 1.0 Automated eosinophil count 0.2 10*3/uL 0.0-0.3 Automated blood basophil count (count/volume) 0.0 10*3/uL 0.0-0.1 Comprehensive metabolic panel - 03/15/18 14:22 Serum or plasma sodium measurement (moles/volume) 142 mmol/L 135-145 Serum or plasma potassium measurement (moles/volume) 4.2 mmol/L 3.6-5.0 Serum or plasma chloride measurement (moles/volume) 108 mmol/L 98-107 Carbon dioxide 25 mmol/L 21-32 Serum or plasma anion gap determination (moles/volume) 9 mmol/L 5-14 Serum or plasma urea nitrogen measurement (mass/volume) 20 mg/dL 7-18 Serum or plasma creatinine measurement (mass/volume) 1.12 mg/dL 0.60-1.30 Serum or plasma urea nitrogen/creatinine mass ratio 18 NRG Serum or plasma creatinine measurement with calculation of estimated glomerular filtration rate > NRG Serum or plasma glucose measurement (mass/volume) 109 mg/dL 70-105 Serum or plasma calcium measurement (mass/volume) 9.4 mg/dL 8.5-10.1 Serum or plasma total bilirubin measurement (mass/volume) 0.4 mg/dL 0.1-1.0 Serum or plasma alkaline phosphatase measurement (enzymatic activity/volume) 81 U/L 40-136 Serum or plasma aspartate aminotransferase measurement (enzymatic activity/volume) 18 U/L 5-34 Serum or plasma alanine aminotransferase measurement (enzymatic activity/volume) 21 U/L 0-55 Serum or plasma protein measurement (mass/volume) 7.4 g/dL 6.4-8.2 Serum or plasma albumin measurement (mass/volume) 4.0 g/dL 3.2-4.5 CALCIUM CORRECTED 9.4 mg/dL 8.5-10.1 Lactate dehydrogenase 1 [enzymatic activity/volume] in serum or plasma - 03/15/18 14:22 Lactate dehydrogenase 1 [enzymatic activity/volume] in serum or plasma 215 U/L 125-220 Methicillin resistant Staphylococcus aureus (MRSA) screening culture - 04/22/18 08:55 Methicillin resistant Staphylococcus aureus (MRSA) screening culture NEG NRG Urine drug screening test - 04/22/18 09:10 Urine phencyclidine detection by screening method NEGATIVE NEGATIVE Urine benzodiazepines detection by screening method NEGATIVE NEGATIVE Urine cocaine detection NEGATIVE NEGATIVE Urine amphetamines detection by screening method POSITIVE NEGATIVE Urine methamphetamine detection by screening method POSITIVE NEGATIVE Urine cannabinoids detection by screening method NEGATIVE NEGATIVE Urine opiates detection by screening method NEGATIVE NEGATIVE Urine barbiturates detection NEGATIVE NEGATIVE Screening urine tricyclic antidepressants detection NEGATIVE NEGATIVE Urine methadone detection by screening method NEGATIVE NEGATIVE Urine oxycodone detection NEGATIVE NEGATIVE Urine propoxyphene detection NEGATIVE NEGATIVE [facility] SPOTTED FEVER, IgG, IgM - 08/15/18 13:34 RMSF IGG NOT DETECTED NRG RMSF IGM NOT DETECTED NRG [place] DISEASE, ANTIBODY PANEL - 08/15/18 13:34 LYME AB SCREEN <0.90 INDEX NRG INTERPRETATION NRG A. PHAGOCYTOPHILUM AB (IGG) <1:64 NRG A. PHAGOCYTOPHILUM AB (IGM) <1:20 NRG INTERPRETATION NRG BABESIA DUNCANI (WA1) ANTIBODY (IGG), IFA <1:256 NRG BABESIA MICROTI AB (IGG) <1:64 titer NRG BABESIA MICROTI AB (IGM) <1:20 titer NRG INTERPRETATION NRG E. CHAFFEENSIS AB IGG <1:64 NRG E. CHAFFEENSIS AB IGM <1:20 NRG Complete blood count (CBC) with automated white blood cell (WBC) differential - 08/23/18 06:25 Blood leukocytes automated count (number/volume) 12.9 10*3/uL 4.3-11.0 Blood erythrocytes automated count (number/volume) 4.20 10*6/uL 4.35-5.85 Venous blood hemoglobin measurement (mass/volume) 12.3 g/dL 13.3-17.7 Blood hematocrit (volume fraction) 36 % 40-54 Automated erythrocyte mean corpuscular volume 86 [foz_us] 80-99 Automated erythrocyte mean corpuscular hemoglobin (mass per erythrocyte) 29 pg 25-34 Automated erythrocyte mean corpuscular hemoglobin concentration measurement (mass/volume) 34 g/dL 32-36 Automated erythrocyte distribution width ratio 12.7 % 10.0- 14.5 Automated blood platelet count (count/volume) 283 10*3/uL 130-400 Automated blood platelet mean volume measurement 10.2 [foz_us] 7.4-10.4 Automated blood neutrophils/100 leukocytes 77 % 42-75 Automated blood lymphocytes/100 leukocytes 13 % 12-44 Blood monocytes/100 leukocytes 10 % 0-12 Automated blood eosinophils/100 leukocytes 0 % 0-10 Automated blood basophils/100 leukocytes 0 % 0-10 Blood neutrophils automated count (number/volume) 9.9 10*3 1.8-7.8 Blood lymphocytes automated count (number/volume) 1.6 10*3 1.0-4.0 Blood monocytes automated count (number/volume) 1.3 10*3 0.0- 1.0 Automated eosinophil count 0.0 10*3/uL 0.0-0.3 Automated blood basophil count (count/volume) 0.0 10*3/uL 0.0-0.1 Blood lactic acid measurement (moles/volume) - 08/23/18 06:25 Blood lactic acid measurement (moles/volume) 1.82 mmol/L 0.50- 2.00 Comprehensive metabolic panel - 08/23/18 06:25 Serum or plasma sodium measurement (moles/volume) 137 mmol/L 135-145 Serum or plasma potassium measurement (moles/volume) 4.0 mmol/L 3.6-5.0 Serum or plasma chloride measurement (moles/volume) 104 mmol/L 98-107 Carbon dioxide 20 mmol/L 21-32 Serum or plasma anion gap determination (moles/volume) 13 mmol/L 5-14 Serum or plasma urea nitrogen measurement (mass/volume) 10 mg/dL 7-18 Serum or plasma creatinine measurement (mass/volume) 0.84 mg/dL 0.60-1.30 Serum or plasma urea nitrogen/creatinine mass ratio 12 NRG Serum or plasma creatinine measurement with calculation of estimated glomerular filtration rate > NRG Serum or plasma glucose measurement (mass/volume) 102 mg/dL 70-105 Serum or plasma calcium measurement (mass/volume) 9.4 mg/dL 8.5-10.1 Serum or plasma total bilirubin measurement (mass/volume) 0.7 mg/dL 0.1-1.0 Serum or plasma alkaline phosphatase measurement (enzymatic activity/volume) 67 U/L 40-136 Serum or plasma aspartate aminotransferase measurement (enzymatic activity/volume) 12 U/L 5-34 Serum or plasma alanine aminotransferase measurement (enzymatic activity/volume) 16 U/L 0-55 Serum or plasma protein measurement (mass/volume) 6.9 g/dL 6.4-8.2 Serum or plasma albumin measurement (mass/volume) 3.8 g/dL 3.2-4.5 CALCIUM CORRECTED 9.6 mg/dL 8.5-10.1 Serum or plasma C reactive protein measurement (mass/volume) - 08/23/18 06:25 Serum or plasma C reactive protein measurement (mass/volume) 9.20 mg/dL 0.00-0.50 Erythrocyte sedimentation rate by westergren method - 08/23/18 06:25 Erythrocyte sedimentation rate by westergren method 48 mm 0-15 Bacterial blood culture - 08/23/18 06:25 Bacterial blood culture NG NRG Serum or plasma uric acid measurement (mass/volume) - 08/23/18 06:50 Serum or plasma uric acid measurement (mass/volume) 6.6 mg/dL 2.6-7.2 Bacterial blood culture - 08/23/18 06:53 Bacterial blood culture NG NRG AFB CULT T STAIN TISSUE/FLUID - 08/23/18 08:01 Body fluid cell count - 08/23/18 08:15 Specimen source identification of body fluid SYNOVIAL NRG Evaluation of color of body fluid PALE YELLOW NRG Determination of appearance of body fluid MKD CLDY NRG Body fluid leukocytes count (number/volume) 45372 /uL NRG Body fluid erythrocytes count (number/volume) 150 /uL NRG Manual body fluid polymorphonuclear cells/100 leukocytes 97 % NRG Manual body fluid mononuclear cells/100 leukocytes 0 % NRG Manual body fluid lymphocytes/100 leukocytes 3 % NRG Other cells/100 leukocytes in body fluid by manual count 0 % NRG * Body fluid crystals type by light microscopy - 08/23/18 08:15 * Body fluid crystals type by light microscopy CA PYROPHOSPHATE NRG Bacteria identification in isolate by anaerobe culture - 08/23/18 08:15 Bacteria identification in isolate by anaerobe culture NOANA NRG Gram stain microscopy - 08/23/18 08:15 Gram stain microscopy No bacteria seen NRG Bacterial body fluid culture - 08/23/18 08:15 Bacterial body fluid culture NG NRG TESTOSTERONE, TOTAL - 08/25/18 09:43 TESTOSTERONE, TOTAL, MALES (ADULT), IA 69 ng/dL 250-827 BNP - 08/25/18 09:46 B TYPE NATRIURETIC PEPTIDE (BNP) 34 pg/mL <100 Complete blood count (CBC) with automated white blood cell (WBC) differential - 10/14/18 14:08 Blood leukocytes automated count (number/volume) 9.2 10*3/uL 4.3-11.0 Blood erythrocytes automated count (number/volume) 4.22 10*6/uL 4.35-5.85 Venous blood hemoglobin measurement (mass/volume) 12.2 g/dL 13.3-17.7 Blood hematocrit (volume fraction) 38 % 40-54 Automated erythrocyte mean corpuscular volume 90 [foz_us] 80-99 Automated erythrocyte mean corpuscular hemoglobin (mass per erythrocyte) 29 pg 25-34 Automated erythrocyte mean corpuscular hemoglobin concentration measurement (mass/volume) 32 g/dL 32-36 Automated erythrocyte distribution width ratio 13.2 % 10.0- 14.5 Automated blood platelet count (count/volume) 247 10*3/uL 130-400 Automated blood platelet mean volume measurement 10.1 [foz_us] 7.4-10.4 Automated blood neutrophils/100 leukocytes 75 % 42-75 Automated blood lymphocytes/100 leukocytes 13 % 12-44 Blood monocytes/100 leukocytes 10 % 0-12 Automated blood eosinophils/100 leukocytes 3 % 0-10 Automated blood basophils/100 leukocytes 0 % 0-10 Blood neutrophils automated count (number/volume) 6.8 10*3 1.8-7.8 Blood lymphocytes automated count (number/volume) 1.2 10*3 1.0-4.0 Blood monocytes automated count (number/volume) 0.9 10*3 0.0- 1.0 Automated eosinophil count 0.2 10*3/uL 0.0-0.3 Automated blood basophil count (count/volume) 0.0 10*3/uL 0.0-0.1 Comprehensive metabolic panel - 10/14/18 14:08 Serum or plasma sodium measurement (moles/volume) 140 mmol/L 135-145 Serum or plasma potassium measurement (moles/volume) 4.2 mmol/L 3.6-5.0 Serum or plasma chloride measurement (moles/volume) 105 mmol/L 98-107 Carbon dioxide 27 mmol/L 21-32 Serum or plasma anion gap determination (moles/volume) 8 mmol/L 5-14 Serum or plasma urea nitrogen measurement (mass/volume) 14 mg/dL 7-18 Serum or plasma creatinine measurement (mass/volume) 1.02 mg/dL 0.60-1.30 Serum or plasma urea nitrogen/creatinine mass ratio 14 NRG Serum or plasma creatinine measurement with calculation of estimated glomerular filtration rate > NRG Serum or plasma glucose measurement (mass/volume) 116 mg/dL 70-105 Serum or plasma calcium measurement (mass/volume) 9.3 mg/dL 8.5-10.1 Serum or plasma total bilirubin measurement (mass/volume) 0.3 mg/dL 0.1-1.0 Serum or plasma alkaline phosphatase measurement (enzymatic activity/volume) 84 U/L 40-136 Serum or plasma aspartate aminotransferase measurement (enzymatic activity/volume) 14 U/L 5-34 Serum or plasma alanine aminotransferase measurement (enzymatic activity/volume) 22 U/L 0-55 Serum or plasma protein measurement (mass/volume) 7.1 g/dL 6.4-8.2 Serum or plasma albumin measurement (mass/volume) 3.8 g/dL 3.2-4.5 CALCIUM CORRECTED 9.5 mg/dL 8.5-10.1 Serum or plasma C reactive protein measurement (mass/volume) - 10/14/18 14:08 Serum or plasma C reactive protein measurement (mass/volume) 2.55 mg/dL 0.00-0.50 Erythrocyte sedimentation rate by westergren method - 10/14/18 14:08 Erythrocyte sedimentation rate by westergren method 33 mm 0-15 Encounters ACCT No. Visit Date/Time Discharge Status Pt. Type Provider Facility Loc./Unit Complaint [id number] 07/24/2014 15:00:00 07/24/2014 23:59:59 CLS Outpatient NANCY LÓPEZ DDS [id number] 05/30/2014 11:10:00 05/30/2014 23:59:59 CLS Outpatient LUCAS PERALTA APRN [id number] 04/20/2014 16:16:00 04/20/2014 23:59:59 CLS Outpatient SINAI JOSEPH DO [id number] 06/03/2013 09:33:00 06/03/2013 23:59:59 CLS Outpatient LUCAS PERALTA APRN [id number] 04/18/2013 07:47:00 04/18/2013 23:59:59 CLS Outpatient JOSH KEITH MD [id number] 02/22/2013 18:11:00 02/22/2013 23:59:59 CLS Outpatient ISMAEL BAZAN, CRISSY [id number] 02/13/2013 14:12:00 02/13/2013 23:59:59 CLS Outpatient SINAI JOSEPH DO [id number] 04/20/2011 08:17:00 04/20/2011 23:59:59 CLS Outpatient KATHRYN HANSONLUCAS [id number] 12/12/2012 16:09:00 Document Registration [id number] 08/22/2012 14:15:00 Document Registration [id number] 08/22/2012 14:15:00 Document Registration [id number] 07/26/2012 16:04:00 Document Registration [id number] 10/14/2018 13:15:00 10/14/2018 15:20:00 DIS Emergency ESA LOPEZ APRN Via [facility] ER FOOT SWELLING [id number] 09/13/2018 13:20:00 09/13/2018 23:59:59 CLS Outpatient IVA CRUZ [facility] ONC [id number] 08/23/2018 06:09:00 08/23/2018 11:53:00 DIS Emergency RHETT GUILLEN MD [facility] ER LEG PAIN [id number] 03/24/2018 14:05:00 06/13/2018 00:01:00 DIS Outpatient IVA CRUZ [facility] ONC [id number] 04/22/2018 08:46:00 04/22/2018 12:07:00 DIS Outpatient JOSH KEITH MD [facility] SDC LUMP LEFT NECK [id number] 04/19/2018 05:31:00 04/19/2018 10:43:00 DIS Outpatient JOSH KEITH MD Via [facility] PREOP EXCISION LUMP LEFT NECK [id number] 04/13/2018 08:25:00 04/13/2018 23:59:59 CLS Outpatient BJ TERRY [facility] RAD ENLARGED LYMPH NODE IN NECK [id number] 04/11/2018 10:48:00 04/11/2018 23:59:59 CLS Preadmit BJ TERRY [employer] Via [facility] RAD ENLARGED LYMPH NODE IN NECK [id number] 03/31/2018 12:13:00 03/31/2018 23:59:59 CLS Outpatient BJ TERRY [employer] [facility] RAD LESION OF NECK [id number] 03/22/2018 09:35:00 03/22/2018 23:59:59 CLS Outpatient BJ TERRY [employer] [facility] RAD MALIGNANT MELANOMA OF FLANK [id number] 09/07/2017 08:17:00 12/06/2017 00:01:00 DIS Outpatient IVA CRUZ [facility] ONC [id number] 09/01/2017 08:04:00 09/01/2017 23:59:59 CLS Preadmit IVA CRUZ [facility] ONC [id number] 04/28/2017 10:55:00 04/28/2017 23:59:59 CLS Outpatient BRENT WALTON MD [facility] ONC [id number] 10/14/2016 09:15:00 10/14/2016 23:59:59 CLS Preadmit ERIC HELM MD [facility] RIGHT URETERAL STONE [id number] 10/13/2016 11:34:00 10/13/2016 14:54:00 DIS Outpatient ERIC HELM MD [facility] PREOP RIGHT URETERAL STONE [id number] 10/07/2016 14:32:00 10/07/2016 23:59:59 CLS Outpatient ERIC HELM MD [facility] RAD RT URETERAL STONE [id number] 06/29/2016 13:31:00 09/27/2016 00:01:00 DIS Outpatient IVA CRUZ [facility] ONC [id number] 09/23/2016 06:57:00 09/23/2016 12:25:00 DIS Outpatient ERIC HELM MD [facility] RIGHT STONE [id number] 09/22/2016 10:47:00 09/22/2016 11:24:00 DIS Outpatient ERIC HELM MD [facility] PREOP STONES [id number] 09/21/2016 12:19:00 09/21/2016 23:59:59 CLS Outpatient ERIC HELM MD [facility] RAD RT URETERAL STONE [id number] 09/17/2016 17:05:00 09/17/2016 21:01:00 DIS Emergency ESA LOPEZ SHIP[employer] [facility] ER RIGHT LOWER BACK PAIN/RLQ ABD PAIN [id number] 02/17/2016 13:46:00 05/17/2016 00:01:00 DIS Outpatient IVA CRUZ [facility] ONC [id number] 01/13/2016 14:12:00 01/15/2016 14:00:00 DIS Inpatient JASEN BARBOSA MD Via [facility] 4TH EPIDIDYMITIS [id number] 01/01/2016 10:52:00 01/01/2016 23:59:59 CLS Outpatient JOSH KEITH MD [facility] NEVIS LEFT GROIN, LESION LEFT HAND [id number] 12/30/2015 14:01:00 12/30/2015 14:12:00 DIS Outpatient JOSH KEITH MD [facility] PREOP NEVIS LEFT GROIN, LESION LEFT HAND [id number] 12/13/2015 07:55:00 12/13/2015 12:35:00 DIS Outpatient JOSH KEITH MD [facility] HISTORY OF MELANOMA [id number] 11/22/2015 12:56:00 11/22/2015 23:59:59 CLS Outpatient BJ TERRY [facility] ONC [id number] 08/15/2015 07:49:00 08/15/2015 08:13:00 DIS Outpatient ROSALBA STEVENS DO Via [facility] HISTORY OF MELANOMA [id number] 08/12/2015 12:39:00 08/12/2015 12:54:00 DIS Outpatient ROSALBA STEVENS DO [facility] PREOP HISTORY OF MELANOMA [id number] 07/30/2015 08:47:00 07/30/2015 23:59:59 CLS Outpatient BJ TERRYP [facility] RAD MALIGNANT MELANOMA [id number] 07/22/2015 10:43:00 07/22/2015 23:59:59 CLS Outpatient BJ TERRY [employer] [facility] ONC [id number] 04/28/2015 00:22:00 04/28/2015 02:01:00 DIS Emergency KAYLYNN HOOKER DO Via [facility] ER RT KNEE PAIN [id number] 04/16/2015 06:22:00 04/16/2015 15:47:00 DIS Outpatient ERIC HELM MD [facility] SDC LEFT HYDROCELE [id number] 04/12/2015 05:37:00 04/12/2015 23:59:59 CLS Outpatient ERIC HELM MD [facility] PREOP LEFT HYDROCELE [id number] 04/01/2015 09:59:00 04/01/2015 23:59:59 CLS Outpatient BJ TERRY [facility] RAD TESTICULAR PAIN [id number] 03/21/2015 13:04:00 03/21/2015 23:59:59 CLS Outpatient BJ TERRYP [facility] ONC [id number] 11/29/2014 09:35:00 01/02/2015 00:01:00 DIS Outpatient IVA CRUZ [facility] ONC [id number] 11/20/2014 10:00:00 11/20/2014 23:59:59 CLS Outpatient BJ TERRY [employer] [facility] RAD MALIGNANT MELANOMA [id number] 10/26/2014 05:56:00 10/26/2014 07:50:00 DIS Outpatient ROSALBA STEVENS DO [facility] SDC LESION LEFT GROIN [id number] 10/24/2014 10:54:00 10/24/2014 23:59:59 CLS Outpatient ROSALBA STEVENS DO [facility] PREOP LESION LEFT GROING [id number] 09/25/2014 10:05:00 09/25/2014 23:59:59 CLS Outpatient BJ TERRYP [facility] ONC [id number] 08/30/2014 12:55:00 08/30/2014 23:59:59 CLS Outpatient BJ TERRY [employer] [facility] ONC [id number] 05/31/2014 10:12:00 08/29/2014 00:01:00 DIS Outpatient IVA CRUZ [facility] ONC [id number] 07/23/2014 13:06:00 07/23/2014 14:14:00 DIS Emergency TOMAS AUGUSTIN [facility] ER DENTAL PAIN [id number] 03/17/2014 19:09:00 03/17/2014 20:49:00 DIS Emergency KAYLYNN HOOKER DO K [facility] ER ABD PAIN POST HERNIA REPAIR, L LOWER LEG PAIN [id number] 03/08/2014 07:20:00 03/08/2014 15:40:00 DIS Outpatient ROSALBA STEVENS DO [facility] SDC LEFT INGUINAL HERNIA [id number] 03/06/2014 14:30:00 03/06/2014 23:59:59 CLS Outpatient ROSALBA STEVENS DO [facility] PREOP LEFT INGUINAL HERNIA [id number] 03/05/2014 09:19:00 03/05/2014 23:59:59 CLS Outpatient BJ TERRY [facility] RAD MALIGNANT MELANOMA [id number] 02/26/2014 10:23:00 02/26/2014 23:59:59 CLS Outpatient BJ TERRYP [facility] ONC [id number] 02/10/2014 15:40:00 02/10/2014 17:50:00 DIS Emergency RY JARRELL MD Via [facility] ER HERNIA [id number] 01/29/2014 20:53:00 01/29/2014 23:37:00 DIS Emergency ESA LOPEZ APRN Via [facility] ER HERNIA [id number] 01/18/2014 01:08:00 01/18/2014 02:15:00 DIS Emergency PRESTON IVERSON MD [facility] ER METAL IN RT EYE [id number] 11/27/2013 12:42:00 11/27/2013 23:59:59 CLS Outpatient IVA CRUZ [facility] ONC [id number] 11/07/2013 09:31:00 11/07/2013 23:59:59 CLS Outpatient BJ TERRY [employer] Via [facility] RAD MELANOMA [id number] 10/26/2013 20:08:00 10/27/2013 06:20:00 DIS Outpatient JAQUELINE SAMANO MD Via [facility] SLEEP OBSERVED APNEAS [id number] 09/13/2013 14:21:00 09/13/2013 23:59:59 CLS Outpatient BJ TERRY [employer] Via [facility] ONC [id number] 07/25/2013 13:14:00 07/25/2013 23:59:59 CLS Outpatient BJ TERRY [employer] Via [facility] ONC [id number] 07/20/2013 19:43:00 07/21/2013 06:40:00 DIS Outpatient MELQUIADES GRAYSON APRN Via [facility] SLEEP SLEEP APENA [id number] 06/15/2013 06:43:00 06/15/2013 10:40:00 DIS Outpatient ROSALBA STEVENS DO Via [facility] SDC MELANOMA LEFT LOWER LEG [id number] 06/13/2013 07:18:00 06/13/2013 23:59:59 CLS Outpatient ROSALBA STEVENS DO [facility] PREOP MELANOMA LEFT LOWER LEG [id number] 06/01/2013 06:42:00 06/01/2013 13:06:00 DIS Outpatient JAQUELINE SAMANO MD Via [facility] SDC SKIN LESIONS [id number] 05/29/2013 10:51:00 05/29/2013 16:07:00 DIS Emergency TOMAS AUGUSTIN Via [facility] ER LEFT FOOT KNOT/PAIN [id number] 05/28/2013 10:54:00 05/28/2013 13:13:00 DIS Emergency TOMAS AUGUSTIN Via [facility] ER LEFT FOOT PAIN [id number] 05/25/2013 09:02:00 05/25/2013 23:59:59 CLS Outpatient JAQUELINE SAMANO MD Via [facility] PREOP SKIN LESIONS [id number] 05/17/2013 10:29:00 05/17/2013 23:59:59 CLS Outpatient IVA CRUZ Via [facility] ONC [id number] 05/09/2013 12:45:00 05/09/2013 23:59:59 CLS Outpatient IVA CRUZ Via [facility] RAD MELANOMA [id number] 02/09/2013 15:47:00 05/09/2013 13:38:00 DIS Outpatient IVA CRUZ Via [facility] ONC OV [id number] 02/22/2013 07:27:00 02/22/2013 11:35:00 DIS Outpatient JOSH KEITH MD Via [facility] SDC SKIN LESION ON RIGHT BUTTOCK AND THIGH;LEFT FLANK [id number] 02/17/2013 08:15:00 02/17/2013 23:59:59 CLS Outpatient JOSH KEITH MD Via [facility] PREOP SKIN LESIONS RIGHT BUTTOCKS AND THIGH; LEFT FLANK [id number] 12/23/2012 09:25:00 12/23/2012 11:39:00 DIS Emergency LIUDMILA WIGGINS MD Via [facility] ER R FOOT SWELLING [id number] 11/16/2012 07:33:00 11/16/2012 12:50:00 DIS Outpatient JOSH KEITH MD Via [facility] SDC SKIN LESION LEFT MIDDLE TOE [id number] 08/17/2012 10:48:00 11/15/2012 00:01:00 DIS Outpatient BJ TERRY Via [facility] ONC OV [id number] 11/09/2012 13:05:00 11/09/2012 23:59:59 CLS Outpatient BJ TERRY Via [facility] ONC [id number] 11/09/2012 12:47:00 11/09/2012 23:59:59 CLS Outpatient INNA BAZAN, JOSH De Anda Via [facility] PREOP SKIN LESION LEFT MIDDLE TOE [id number] 08/25/2012 08:26:00 08/25/2012 23:59:59 CLS Outpatient BJ TERRY [employer] Via [facility] RAD DIZZINESS,HEADACHES [id number] 08/23/2012 08:14:00 08/23/2012 23:59:59 CLS Outpatient BJ TERRY [employer] Via [facility] RAD MELANOMA,DIZZINESS,HEADACHES [id number] 05/18/2012 09:13:00 08/10/2012 13:42:00 DIS Outpatient IVA CRUZ Dexter [facility] ONC OV [id number] 12/11/2015 05:34:00 Document Registration [id number] 03/17/2014 19:09:00 Document Registration [id number] 03/17/2014 19:09:00 Document Registration [id number] 06/08/2012 08:43:00 Document Registration [id number] 06/06/2012 11:50:00 Document Registration [id number] 03/04/2012 13:36:00 Document Registration [id number] 02/18/2012 08:57:00 Document Registration [id number] 02/09/2012 09:47:00 Document Registration [id number] 11/20/2011 10:43:00 Document Registration [id number] 11/16/2011 14:14:00 Document Registration [id number] 10/22/2011 09:58:00 Document Registration [id number] 07/28/2011 13:34:00 Document Registration [id number] 06/25/2011 08:42:00 Document Registration [id number] 06/05/2011 07:56:00 Document Registration [id number] 04/30/2011 12:23:00 Document Registration [id number] 04/22/2011 11:25:00 Document Registration [id number] 04/07/2011 19:07:00 Document Registration [id number] 03/13/2011 11:15:00 Document Registration [id number] 03/10/2011 08:04:00 Document Registration [id number] 03/05/2011 09:23:00 Document Registration [id number] 02/17/2011 16:48:00 Document Registration [id number] 02/11/2011 13:54:00 Document Registration [id number] 02/07/2011 23:20:00 Document Registration [id number] 12/12/2010 10:26:00 Document Registration [id number] 2010 10:06:00 Document Registration [id number] 12/03/2010 15:11:00 Document Registration [id number] 11/24/2010 11:30:00 Document Registration [id number] 11/20/2010 17:00:00 Document Registration [id number] 11/20/2010 14:50:00 Document Registration [id number] 11/14/2010 18:57:00 Document Registration [id number] 11/07/2010 09:59:00 Document Registration [id number] 10/29/2010 10:29:00 Document Registration [id number] 10/23/2010 08:00:00 Document Registration [id number] 10/21/2010 14:09:00 Document Registration [id number] 10/14/2010 13:36:00 Document Registration [id number] 10/08/2010 05:36:00 Document Registration [id number] 09/29/2010 11:15:00 Document Registration [id number] 12/15/2009 12:54:00 Document Registration [id number] 12/12/2009 17:01:00 Document Registration [id number] 11/09/2009 12:51:00 Document Registration [id number] 08/25/2018 09:20:00 08/25/2018 23:59:59 [facility] Outpatient LUCAS PERALTA APRN [facility] [id number] 08/25/2018 09:20:00 Document Registration [id number] 08/15/2018 11:35:00 Document Registration
== END 2018-10-14 15:20 | disposition home or self-care (01) ==
LOC: EDUNIT# 13:14 → ER 13:15
DX: M11.272 Other chondrocalcinosis, left ankle and foot (principal); G47.30 Sleep apnea, unspecified; G43.909 Migraine, unspecified, not intractable, without status migrainosus; K21.9 Gastro-esophageal reflux disease without esophagitis; F41.9 Anxiety disorder, unspecified; F32.9 Major depressive disorder, single episode, unspecified; Z85.820 Personal history of malignant melanoma of skin; Z87.442 Personal history of urinary calculi; Z90.89 Acquired absence of other organs; Z90.49 Acquired absence of other specified parts of digestive tract; Z82.49 Family history of ischemic heart disease and other diseases of the circulatory system; Z80.0 Family history of malignant neoplasm of digestive organs
CPT/HCPCS: 36415; 80053; 85025; 85652; 86141; 86618; 86666; 86668; 86757; 96374; 96375; 99283

== ENCOUNTER → 2019-09-26 | Outpatient (CLI) | payer MEDICARE ==
[~2019-09-26] MED LIST changes: -AMPH20CA PO; +DEXT20CA4 PO; -INDO50CA11 PO; +INDO50CA82 PO; -TAMS0.4C98 PO; +TMSL.4C PO
[2019-09-26 10:53] LABS: BASOPHILS % (AUTO) 0 % (0-10); EOSINOPHILS # (AUTO) 0.5 10^3/uL (0.0-0.3); EOSINOPHILS % (AUTO) 6 % (0-10); HEMATOCRIT 41 % (40-54); HEMOGLOBIN 12.9 G/DL (13.3-17.7); LYMPHOCYTES # (AUTO) 1.7 X 10^3 (1.0-4.0); LYMPHOCYTES % (AUTO) 19 % (12-44); MEAN CORPUSCULAR HEMOGLOBIN 29 PG (25-34); MEAN CORPUSCULAR HGB CONC 32 G/DL (32-36); MEAN CORPUSCULAR VOLUME 91 FL (80-99); MEAN PLATELET VOLUME 10.1 FL (7.4-10.4); MONOCYTES # (AUTO) 0.7 X 10^3 (0.0-1.0); MONOCYTES % (AUTO) 8 % (0-12); NEUTROPHILS # (AUTO) 6.2 X 10^3 (1.8-7.8); NEUTROPHILS % (AUTO) 67 % (42-75); PLATELET COUNT 266 10^3/uL (130-400); RED CELL DISTRIBUTION WIDTH 13.6 % (10.0-14.5); WHITE BLOOD COUNT 9.2 10^3/uL (4.3-11.0)
[2019-09-26 11:15] LABS: ALBUMIN 3.9 GM/DL (3.2-4.5); BILIRUBIN,TOTAL 0.3 MG/DL (0.1-1.0); CALCIUM 9.1 MG/DL (8.5-10.1); CREATININE SERUM 1.31 MG/DL (0.60-1.30); TOTAL PROTEIN 7.4 GM/DL (6.4-8.2)
== END ==
LOC: EDSTATUS 12-13 10:29 → ONC 10:46
PROVIDERS: ATTEND Internal Medicine Hematology & Oncology
DX: C43.59 Malignant melanoma of other part of trunk (principal); C77.3 Secondary and unspecified malignant neoplasm of axilla and upper limb lymph nodes
CPT/HCPCS: 80053; 83615; 85025; G0463; 99213

== ENCOUNTER 2020-04-02 18:55 | Emergency (ER) | payer MEDICARE ==
[~2020-04-02] VITALS: Ht 190 cm; Wt 136.0 kg
[~2020-04-02 18:55] MED LIST changes: -HYDR-3876 PO; +HYDR-3920 PO
[2020-04-02] MEDS ORDERED: ACETAMINOPHEN 500 MG TAB (TYLENOL) PO ONE (19:15)
[2020-04-02] MEDS ORDERED: KETOROLAC 30 MG/ML VIAL IVP ONE (19:15)
[2020-04-02] MEDS ORDERED: LACTATED RINGERS 1,000 ML IV ONE ×2 (19:15→20:15)
--- NOTE | 2020-04-02 19:26 | ED General ---
General Chief Complaint: Skin/Wound Problems Stated Complaint: LOWER EXT. PAIN Nursing Triage Note: patient reports 'bite' to R knee. states 3 days ago his lower extremities 'locked up' and it is painful to move. Nursing Sepsis Screen: No Definite Risk Source of Information: Patient (VERY DIFFICULT HISTORIAN--SPEECH RAPID AND ERRATIC) History of Present Illness Date Seen by Provider: Apr 02, 2020 Time Seen by Provider: 18:58 Initial Comments PT ARRIVES VIA EMS FROM HOME STATES "MY LEGS LOCKED UP 2 NIGHTS AGO" --"BECAUSE OF THE PAIN" C/O PAIN TO BILATERAL KNEES, BILATERAL ANKLES AND BILATERAL FEET THIS IS A CHRONIC PROBLEM FOR MANY YEARS STATES HE HAS GOUT AND IS ON "PERMANENT DISABILITY FOR GOUT" . STATES HE "GOT 3 CRYSTAL PILLS" TODAY FOR THE GOUT, BUT HAS NOT TAKEN ANY. STATES HE TAKES 2 OTC IBUPROFEN THREE TIMES A DAY--LAST DOSE WAS AT 1500 TODAY ALSO C/O "SPIDER BITE" TO RIGHT KNEE--NOTICED A "PIMPLE" ON RIGHT KNEE ABOUT 3 DAYS AGO--DID NOT SEE OR FEEL ANYTHING BITE / STING HIM. NO DRAINAGE FROM THE AREA NO PARESTHESIAS OR MOTOR DEFICITS--STATES IT HURTS TO WALK, BUT IS ABLE TO, JUST DOESN'T WANT TO BECAUSE IT HURTS HIS KNEES, ANKLES AND FEET--NO PAIN TO THIGHS OR TIB-FIB -CALF AREAS DENIES FEVER--BUT TEMP IS 100.4 F /38 C DEGREES ON ARRIVAL. NO COUGH OR URI SYMPTOMS NO SHORTNESS OF BREATH NO SORE THROAT NO LOSS OF TASTE OR SMELL NO CHEST PAIN NO GI SYMPTOMS NO HEADACHE NO MUSCLE PAIN--ONLY JOINT PAIN NOTED ABOVE NO CHEST PAIN NO KNOWN EXPOSURE TO COVID-19 OR SICK CONTACTS PCP: [facility], KATIE PERALTA Allergies and Home Medications Allergies Coded Allergies: No Known Drug Allergies (Unverified , 03/10/11) Home Medications Colchicine 0.6 Mg Capsule, 0.6 MG PO BID PRN for GOUT PAIN Prescribed by: RHETT GUILLEN on 08/23/18 1144 Colchicine 0.6 Mg Tablet, 0.6 MG PO UD 1.2 MG AT ONSET OF GOUT FLARE, THEN MAY TAKE 0.6 MG BID Prescribed by: KAYLYNN HOOKER on 04/02/202010 Mupirocin 22 Gm Oint...g., 22 GM TP BID Prescribed by: KAYLYNN HOOKER on 04/02/202010 Naproxen 500 Mg Tablet, 500 MG PO BID Prescribed by: RHETT GUILLEN on 08/23/18 1144 Oxycodone HCl/Acetaminophen 1 Each Tablet, 1-2 TAB PO Q6H PRN for BREAKTHROUGH PAIN Prescribed by: RHETT GUILLEN on 08/23/18 1144 Oxycodone HCl/Acetaminophen 1 Each Tablet, 1 TAB PO Q4H Prescribed by: ESA LOPEZ on 10/14/18 1507 Prednisone 20 Mg Tab, 20 MG PO BID Prescribed by: RHETT GUILLEN on 08/23/18 1144 Prednisone 20 Mg Tab, 40 MG PO DAILY Prescribed by: ESA LOPEZ on 10/14/18 1507 Prednisone 20 Mg Tab, 40 MG PO DAILY Prescribed by: KAYLYNN HOOKER on 04/02/202010 Sulfamethoxazole/Trimethoprim 1 Each Tablet, 1 EACH PO BID Prescribed by: KAYLYNN HOOKER on 04/02/202010 Tramadol HCl 50 Mg Tablet, 50 MG PO Q4H Prescribed by: KAYLYNN HOOKER on 04/02/202010 Patient Home Medication List Home Medication List Reviewed: Yes Review of Systems Review of Systems Constitutional: see HPI EENTM: no symptoms reported; No nose congestion, No throat pain Respiratory: no symptoms reported; No cough, No short of breath Cardiovascular: no symptoms reported; No chest pain Gastrointestinal: no symptoms reported; No abdominal pain, No nausea, No vomiting Genitourinary: no symptoms reported Musculoskeletal: see HPI, gout, joint pain; No muscle pain Skin: see HPI Psychiatric/Neurological: No Symptoms Reported; Denies Headache, Denies Numbness, Denies Paresthesia, Denies Seizure, Denies Tingling, Denies Weakness Hematologic/Lymphatic: No Symptoms Reported Immunological/Allergic: no symptoms reported Past Lqmuhpv-Bfgqtr-Vvtzsa Hx Past Med/Social Hx: Reviewed and Corrections made Patient Social History Alcohol Use: Denies Use Number of Drinks Today: AA Recreational Drug Use: Yes (THC) Drug of Choice: THC Smoking Status: Former Smoker (QUIT AROUND 2009) Type Used: Smokeless Tobacco 2nd Hand Smoke Exposure: No Recent Foreign Travel: No Contact w/Someone Who Travel: No Recent Infectious Disease Expo: No Recent Hopitalizations: No Immunizations Up To Date Tetanus Booster (TDap): Less than 5yrs Date of Pneumonia Vaccine: Mar 16, 2014 Seasonal Allergies Seasonal Allergies: No Past Medical History Surgeries: Yes (removal of 2 lesions to right and left groin, L sh oulder;ESWL;HIATAL HERNIA) Abdominal, Adenoidectomy, Appendectomy, Orthopedic, Renal, Tonsillectomy Respiratory: Yes Sleep Apnea Currently Using CPAP: Yes ("sometimes") Currently Using BIPAP: No Cardiac: Yes Heart Murmur Neurological: Yes Headaches /Migraines Reproductive Disorders: No Sexually Transmitted Disease: No HIV/AIDS: No Genitourinary: Yes Kidney Stones Gastrointestinal: Yes (HEP C-TX WITH INTERFERON) Gastroesophageal Reflux, Hepatitis, Hiatal Hernia Musculoskeletal: Yes (CHRONIC PAIN; PSUEDOGOUT--CALCIUM PYROPHOSPHATE FOUND IN SYNOVIAL FLUID) Gout Endocrine: Yes (BOESITY) HEENT: No Loss of Vision: Denies Hearing Impairment: Denies Cancer: Yes (stage 4 melanoma skin cancer) Melanoma Did You Recieve Any Treatments: Yes What Type of Treatment Did You: Chemotherapy, Surgical Intervention MULTIPLE SURGERIES FOR MELANOMA--REMOVAL OF SKIN LESIONS FROM BACK AND SIDE OF BODY WELL LYMPH NODES ALSO TREATED WITH INTERFERON Psychosocial: Yes Anxiety, Depression Integumentary: Yes (multiple lesion removals for melanoma,stage 4 melanoma) Blood Disorders: No Adverse Reaction/Blood Tranf: No Family Medical History FH: coronary artery disease 19 MOTHER FH: liver cancer 19 FATHER No Pertinent Family Hx SOCIAL HISTORY: -ETOH--DENIES USE -DRUGS--ADMITS TO [place] USE ONLY, BUT HAS TESTED + FOR METHAMPHETAMINES MULTIPLE TIMES, IN ADDITION TO OPIATES AND TRICYCLICS -TOBACCO--CLAIMS HE QUIT CHEWING TOBACCO AROUND 2009 PAST SURGICAL HISTORY: -MULTIPLE SURGERIES FOR MELANOMA, AND LYMPH NODE EXCISIONS -LEFT NECK -REMOVAL OF BENIGN SKIN LESION 04/2018 -LITHOTRIPSY -LEFT SHOULDER SURGERY -APPENDECTOMY -TONSILLECTOMY -HIATAL HERNIA REPAIR Physical Exam Vital Signs Vital Signs - First Documented 04/02/20 04/02/20 19:01 21:10 Temp 38.0 Pulse 103 Resp 18 B/P (MAP) 181/98 (125) Pulse Ox 94 O2 Delivery Room Air Capillary Refill : Less Than 3 Seconds Height, Weight, BMI Height: 6'4.00" Weight: 275lbs. 0.0oz. 124.753455lj; 37.00 BMI Method:Stated General Appearance: No Apparent Distress, WD/WN, Obese, Other (ANXIOUS, TALKS RAPIDLY NON-STOP, SPEECH ERRATIC. EXTREMELY DRAMATIC, AND MARKEDLY EXAGGERATED PAIN RESPONSE. ) HEENT: PERRL/EOMI Neck: Normal Inspection Respiratory: Normal Breath Sounds, No Accessory Muscle Use, No Respiratory Distress Cardiovascular: No JVD, Tachycardia Gastrointestinal: Non Tender, Soft Extremity: Normal Capillary Refill, No Calf Tenderness, Other (FEET PINK/WARM/DRY. TENDERNESS AND SWELLING TO BOTH KNEES, BOTH ANKLES AND FEET/TOES. 2+ EDEMA TO FEET/ANKLES; UNABLE TO PALPATE PULSES DUE TO SWELLING. RIGHT KNEE WITH QUARTER-SIZED AREA OF ERYTHEMA, SKIN EXCORIATION AND SHALLOW ULCERATION. NO DRAINAGE, NO STREAKS, AREA IS VERY FIRM, AND NO FLUCTUANCE. LIMITED ROM OF KNEES, FEET AND ANKLES DUE TO PAIN. ) Neurologic/Psychiatric: Alert, Oriented x3, No Motor/Sensory Deficits, vegetable grower II- XII Norm as Tested Skin: Normal Color, Warm/Dry, Tattoos/Piercings (MULTIPLE TATTOOS), Other (WOUND TO RIGHT KNEE NOTED ABOVE. EXTENSIVE SCARRING AND BRUISING OF VARIOUS AGES TO BILATERAL AC SPACES--PT CLAIMS "FROM DONATING PLASMA" ) Focused Exam Lactate Level 04/02/20 19:10: Lactic Acid Level 1.27 Lactic Acid Level Progress/Results/Core Measures Suspected Sepsis Recent Fever Within 48 Hours: No Infection Criteria Present: None New/Unexplained Altered Menta: No Sepsis Screen: No Definite Risk SIRS Temperature: Pulse: 103 Respiratory Rate: 18 Laboratory Tests 04/02/20 19:10: White Blood Count 11.2H Blood Pressure 181 /98 Mean: 125 04/02/20 19:10: Lactic Acid Level 1.27 Laboratory Tests 04/02/20 19:10: Creatinine 1.06, Platelet Count 264, Total Bilirubin 0.7 Results/Orders Lab Results Laboratory Tests Test 04/02/20 19:10 04/02/20 20:25 Range/Units White Blood Count 11.2 H 4.3-11.0 10^3/uL Red Blood Count 4.55 4.30-5.52 10^6/uL Hemoglobin 13.1 L 13.3-17.7 g/dL Hematocrit 41 40-54 % Mean Corpuscular Volume 91 80-99 fL Mean Corpuscular Hemoglobin 29 25-34 pg Mean Corpuscular Hemoglobin Concent 32 32-36 g/dL Red Cell Distribution Width 13.3 10.0-14.5 % Platelet Count 264 130-400 10^3/uL Mean Platelet Volume 10.2 9.0-12.2 fL Immature Granulocyte % (Auto) 0 % Neutrophils (%) (Auto) 78 H 42-75 % Lymphocytes (%) (Auto) 9 L 12-44 % Monocytes (%) (Auto) 11 0-12 % Eosinophils (%) (Auto) 1 0-10 % Basophils (%) (Auto) 0 0-10 % Neutrophils # (Auto) 8.8 H 1.8-7.8 10^3/uL Lymphocytes # (Auto) 1.0 1.0-4.0 10^3/uL Monocytes # (Auto) 1.3 H 0.0-1.0 10^3/uL Eosinophils # (Auto) 0.1 0.0-0.3 10^3/uL Basophils # (Auto) 0.0 0.0-0.1 10^3/uL Immature Granulocyte # (Auto) 0.1 0.0-0.1 10^3/uL Erythrocyte Sedimentation Rate 48 H 0-15 MM/HR Sodium Level 136 135-145 MMOL/L Potassium Level 4.0 3.6-5.0 MMOL/L Chloride Level 101 98-107 MMOL/L Carbon Dioxide Level 25 21-32 MMOL/L Anion Gap 10 5-14 MMOL/L Blood Urea Nitrogen 17 7-18 MG/DL Creatinine 1.06 0.60-1.30 MG/DL Estimat Glomerular Filtration Rate > 60 BUN/Creatinine Ratio 16 Glucose Level 87 70-105 MG/DL Lactic Acid Level 1.27 0.50-2.00 MMOL/L Uric Acid 6.1 2.6-7.2 MG/DL Calcium Level 9.6 8.5-10.1 MG/DL Corrected Calcium 9.5 8.5-10.1 MG/DL Magnesium Level 2.1 1.6-2.4 MG/DL Total Bilirubin 0.7 0.1-1.0 MG/DL Aspartate Amino Transf (AST/SGOT) 18 5-34 U/L Alanine Aminotransferase (ALT/SGPT) 23 0-55 U/L Alkaline Phosphatase 85 40-136 U/L Lactate Dehydrogenase 223 H 125-220 U/L C-Reactive Protein High Sensitivity 19.98 H 0.00-0.50 MG/DL Total Protein 8.6 H 6.4-8.2 GM/DL Albumin 4.1 3.2-4.5 GM/DL Procalcitonin 0.30 H <0.10 NG/ML Coronavirus 2019 (PEIFANIO) Negative Negative Urine Color YELLOW Urine Clarity CLEAR Urine pH 6.0 5-9 Urine Specific [place] 1.025 H 1.016-1.022 Urine Protein NEGATIVE NEGATIVE Urine Glucose (UA) NEGATIVE NEGATIVE Urine Ketones NEGATIVE NEGATIVE Urine Nitrite NEGATIVE NEGATIVE Urine Bilirubin NEGATIVE NEGATIVE Urine Urobilinogen 0.2 < = 1.0 MG/DL Urine Leukocyte Esterase NEGATIVE NEGATIVE Urine RBC (Auto) NEGATIVE NEGATIVE Urine RBC NONE /HPF Urine WBC RARE /HPF Urine Squamous Epithelial Cells RARE /HPF Urine Crystals NONE /LPF Urine Bacteria TRACE /HPF Urine Casts NONE /LPF Urine Mucus SMALL H /LPF Urine Culture Indicated NO Urine Opiates Screen POSITIVE H NEGATIVE Urine Oxycodone Screen NEGATIVE NEGATIVE Urine Methadone Screen NEGATIVE NEGATIVE Urine Propoxyphene Screen NEGATIVE NEGATIVE Urine Barbiturates Screen NEGATIVE NEGATIVE Ur Tricyclic Antidepressants Screen POSITIVE H NEGATIVE Urine Phencyclidine Screen NEGATIVE NEGATIVE Urine Amphetamines Screen POSITIVE H NEGATIVE Urine Methamphetamines Screen POSITIVE H NEGATIVE Urine Benzodiazepines Screen NEGATIVE NEGATIVE Urine Cocaine Screen NEGATIVE NEGATIVE Urine Cannabinoids Screen NEGATIVE NEGATIVE My Orders Orders - KAYLYNN HOOKER DO Ed Iv/Invasive Line Start (04/02/20 19:06) Monitor-Rhythm Ecg Trace Only (04/02/20 19:06) Cbc With Automated Diff (04/02/20 19:06) Comprehensive Metabolic Panel (04/02/20 19:06) Hs C Reactive Protein (04/02/20 19:06) Drug Screen Stat (Urine) (04/02/20 19:06) Lactic Acid Analyzer (04/02/20 19:06) Magnesium (04/02/20 19:06) Procalcitonin (Pct) (04/02/20 19:06) Ua Culture If Indicated (04/02/20 19:06) Blood Culture (04/02/20 19:06) Erythrocyte Sedimentation Rate (04/02/20 19:06) LDH (04/02/20 19:10) Covid 19 Inhouse Test (04/02/20 19:10) Acetaminophen Tablet (Tylenol Tablet) (04/02/20 19:15) Ketorolac Injection (Toradol Injection) (04/02/20 19:15) Ed Iv/Invasive Line Start (04/02/20 19:13) Lactated Ringers (Lr 1000 Ml Iv Solution (04/02/20 19:15) Chest 1 View, Ap/Pa Only (04/02/20 19:13) Uric Acid (04/02/20 19:49) Dipht,Pertuss(Acell),Tet Adult (Boostrix (04/02/20 20:00) Clindamycin 600 Mg/50 Ml Ivpb (Cleocin P (04/02/20 20:00) Methylprednisolone Sod Succ (Solu-Medrol (04/02/20 20:15) Ed Iv/Invasive Line Start (04/02/20 20:14) Lactated Ringers (Lr 1000 Ml Iv Solution (04/02/20 20:15) Rx-Tramadol Hcl (Rx-Ultram) (04/02/20 20:46) Medications Given in ED Current Medications Medications Dose Ordered Sig/Tra Route Start Time Stop Time Status Last Admin Dose Admin Acetaminophen 1,000 mg ONCE ONCE PO 04/02/20 19:15 04/02/20 19:16 DC 04/02/20 19:21 1,000 MG Clindamycin Phosphate/Dextrose 50 ml @ 100 mls/hr ONCE ONCE IV 04/02/20 20:00 04/02/20 20:29 DC 04/02/20 20:18 100 MLS/HR Diphtheria/ Tetanus/Acell Pertussis 0.5 ml ONCE ONCE IM 04/02/20 20:00 04/02/20 20:04 DC 04/02/20 20:18 0.5 ML Ketorolac Tromethamine 30 mg ONCE ONCE IVP 04/02/20 19:15 04/02/20 19:16 DC 04/02/20 19:41 30 MG Lactated Ringer's 1,000 ml @ 0 mls/hr Q0M ONCE IV 04/02/20 19:15 04/02/20 19:16 DC 04/02/20 19:34 0 MLS/HR Methylprednisolone Sodium Succinate 125 mg ONCE ONCE IVP 04/02/20 20:15 04/02/20 20:16 DC 04/02/20 20:18 125 MG Vital Signs/I&O 04/02/20 04/02/20 04/02/20 19:01 19:41 21:10 Temp 38.0 38.0 37.3 Pulse 103 94 Resp 18 18 B/P (MAP) 181/98 (125) 147/94 (125) Pulse Ox 94 97 O2 Delivery Room Air Capillary Refill : Less Than 3 Seconds Blood Pressure Mean: 125 Progress Note : Progress Note GIVEN IV FLUIDS, TORADOL, SOLU-MEDROL AND CLINDAMYCIN WITH IMPROVEMENT IN SYMPTOMS PT CLAIMS "NEVER" USING ANY DRUGS OTHER THAN THC "YEARS AGO" --PT HAS REPEATEDLY TESTED + FOR METHAMPHETAMINES, INCLUDING TODAY, TESTED + FOR OPIATES TODAY ALSO ( CONTINUES TO DENY USE) AND TRICYCLICS TODAY( DENIES USE) . PT ALSO WITH MULTIPLE SCARS AND BRUISES OF VARIOUS AGES IN BILATERAL AC SPACES-WHICH PT CLAIMS IS FROM "DONATING PLASMA" Diagnostic Imaging Comments CXR--PER RADIOLOGIST REPORT AT 1954 FINDINGS: The lungs are clear without edema or pneumonia. No pleural effusion or pneumothorax. Heart size is normal. There are surgical clips in the left chest wall. IMPRESSION: 1. Clear lungs. Reviewed: Reviewed by Me Departure Impression Primary Impression: Pseudogout involving multiple joints Additional Impressions: WOUND OF RIGHT KNEE Eqstccihtn-zuqydgvmz-wpplifv (DPT) vaccination administered at current visit Illicit drug use Disposition: HOME, SELF-CARE Condition: Stable Departure-Patient Inst. Referrals: [facility] JOSEPH DO (PCP) Primary Care Physician LUCAS PERALTA (Family) Primary Care Physician Patient Instructions: Calcium Pyrophosphate Deposition Disease, Cellulitis (Skin Infection), Adult (DC), Diphtheria and Tetanus Toxoids, and Acellular Pertussis Vaccine, Drug Abuse and Drug Addiction (DC), Wound Care (DC) Add. Discharge Instructions: INCREASE YOUR FLUID INTAKE--ESPECIALLY WATER, CLEAR LIQUIDS CLEAN WOUND TWICE A DAY WITH ANTIBACTERIAL SOAP AND WATER, APPLY PRESCRIPTION ANTIBIOTIC OINTMENT AND FRESH DRESSING TWICE A DAY WARM EPSOM SALTS SOAKS TO FEET NEEDED FOR COMFORT ICE TO SORE JOINTS AT 20 MINUTE INTERVALS NEEDED FOR COMFORT TYLENOL NEEDED FOR PAIN FOLLOW UP WITH [facility] IN 2-3 DAYS FOR FURTHER CARE All discharge instructions reviewed with patient and/or family. Voiced understanding. Scripts Tramadol HCl (Ultram) 50 Mg Tablet 50 MG PO Q4H for Pain, #10 TAB Prov: KAYLYNN HOOKER DO 04/02/20 Colchicine (Colchicine) 0.6 Mg Tablet 0.6 MG PO UD, #6 TAB 1.2 MG AT ONSET OF GOUT FLARE, THEN MAY TAKE 0.6 MG BID Prov: KAYLYNN HOOKER DO 04/02/20 Prednisone (Prednisone) 20 Mg Tab 40 MG PO DAILY, #6 TAB 0 Refills Prov: KAYLYNN HOOKER DO 04/02/20 Mupirocin (Mupirocin) 22 Gm Oint...g. 22 GM TP BID, #1 TUBE Prov: KAYLYNN HOOKER DO 04/02/20 Sulfamethoxazole/Trimethoprim (Bactrim Ds Tablet) 1 Each Tablet 1 EACH PO BID, #20 TAB Prov: KAYLYNN HOOKER DO 04/02/20 KAYLYNN HOOKER DO Apr 02, 2020 19:26
[2020-04-02 19:38] LABS: BASOPHILS % (AUTO) 0 % (0-10); EOSINOPHILS # (AUTO) 0.1 10^3/uL (0.0-0.3); EOSINOPHILS % (AUTO) 1 % (0-10); HEMATOCRIT 41 % (40-54); HEMOGLOBIN 13.1 g/dL (13.3-17.7); LYMPHOCYTES % (AUTO) 9 % (12-44); MEAN CORPUSCULAR HEMOGLOBIN 29 pg (25-34); MEAN CORPUSCULAR HGB CONC 32 g/dL (32-36); MEAN CORPUSCULAR VOLUME 91 fL (80-99); MEAN PLATELET VOLUME 10.2 fL (9.0-12.2); MONOCYTES # (AUTO) 1.3 10^3/uL (0.0-1.0); MONOCYTES % (AUTO) 11 % (0-12); NEUTROPHILS # (AUTO) 8.8 10^3/uL (1.8-7.8); NEUTROPHILS % (AUTO) 78 % (42-75); PLATELET COUNT 264 10^3/uL (130-400); WHITE BLOOD COUNT 11.2 10^3/uL (4.3-11.0)
--- NOTE | 2020-04-02 19:54 | Diagnostic Imaging Report ---
EXAMINATION: Chest 1 view HISTORY: Fever COMPARISON: 12/12/2010 FINDINGS: The lungs are clear without edema or pneumonia. No pleural effusion or pneumothorax. Heart size is normal. There are surgical clips in the left chest wall. IMPRESSION: 1. Clear lungs. Dictated by: Dictated on workstation # [id number]
[2020-04-02 19:55] LABS: ERYTHROCYTE SEDIMENTATION RATE 48 MM/HR (0-15)
[2020-04-02] MEDS ORDERED: TETANUS,DIPTH,PERTUSS P/F (BOOSTRIX) 0.5 ML VIAL IM ONE (20:00)
[2020-04-02] MEDS ORDERED: CLINDAMYCIN 600 MG/50 ML IVPB 50 ML IV ONE (20:00)
[2020-04-02 20:06] LABS: ALANINE AMINOTRANSFERASE 23 U/L (0-55); ALBUMIN 4.1 GM/DL (3.2-4.5); ALKALINE PHOSPHATASE 85 U/L (40-136); BILIRUBIN,TOTAL 0.7 MG/DL (0.1-1.0); BUN/CREATININE RATIO 16; CALCIUM 9.6 MG/DL (8.5-10.1); CARBON DIOXIDE 25 MMOL/L (21-32); CHLORIDE 101 MMOL/L (98-107); CREATININE SERUM 1.06 MG/DL (0.60-1.30); GFR ESTIMATED > 60; GLUCOSE 87 MG/DL (70-105); MAGNESIUM 2.1 MG/DL (1.6-2.4); SODIUM 136 MMOL/L (135-145); TOTAL PROTEIN 8.6 GM/DL (6.4-8.2)
[2020-04-02] MEDS ORDERED: COLC0.6T59 PO (20:11)
[2020-04-02] MEDS ORDERED: SULF1TAB35 PO (20:11)
[2020-04-02] MEDS ORDERED: PRD20T PO (20:11)
[2020-04-02] MEDS ORDERED: MUPI22OI2 TP (20:11)
[2020-04-02] MEDS ORDERED: TRAM-42 PO (20:11)
[2020-04-02] MEDS ORDERED: methylPREDNISolone 125 MG (Solu-MEDROL) VIAL IVP ONE (20:15)
[2020-04-02 20:32] LABS: BILIRUBIN,URINE NEGATIVE (NEGATIVE); CLARITY,URINE CLEAR; COLOR,URINE YELLOW; GLUCOSE, URINE (UA) NEGATIVE (NEGATIVE); KETONES,URINE NEGATIVE (NEGATIVE); LEUKOCYTE ESTERASE ,URINE NEGATIVE (NEGATIVE); NITRITE,URINE NEGATIVE (NEGATIVE); PROTEIN,URINE NEGATIVE (NEGATIVE)
[2020-04-02 20:38] LABS: BACTERIA,URINE TRACE /HPF; SQUAMOUS EPITHELIAL CELL,UR RARE /HPF; WBC,URINE RARE /HPF
[2020-04-02] MEDS ORDERED: RX-TRAMADOL 50 MG (ULTRAM) TAB PPK#4 PO STA (20:46)
[2020-04-02 20:48] LABS: AMPHETAMINE SCREEN, URINE POSITIVE (NEGATIVE); BARBITURATE SCREEN URINE NEGATIVE (NEGATIVE); BENZODIAZEPINES SCREEN URINE NEGATIVE (NEGATIVE); CANNABINOID SCREEN, URINE NEGATIVE (NEGATIVE); COCAINE SCREEN URINE NEGATIVE (NEGATIVE); METHADONE STAT NEGATIVE (NEGATIVE); METHAMPHETAMINE SCREEN URINE S POSITIVE (NEGATIVE); OPIATE SCREEN URINE POSITIVE (NEGATIVE); OXYCODONE STAT NEGATIVE (NEGATIVE); PROPOXYPHENE STAT NEGATIVE (NEGATIVE); TRICYCLIC ANTIDEPRESSANTS SCRE POSITIVE (NEGATIVE)
[2020-04-02 21:10] VITALS: BP 147/94
== END 2020-04-02 21:15 | disposition home or self-care (01) ==
LOC: EDUNIT# 18:55 → ER 18:56
DX: M10.9 Gout, unspecified (principal); F19.90 Other psychoactive substance use, unspecified, uncomplicated; S81.001A Unspecified open wound, right knee, initial encounter; F41.9 Anxiety disorder, unspecified; E66.9 Obesity, unspecified; Z23 Encounter for immunization; Z20.828 Contact with and (suspected) exposure to other viral communicable diseases; Z68.37 Body mass index [BMI] 37.0-37.9, adult; Z82.49 Family history of ischemic heart disease and other diseases of the circulatory system; Z80.0 Family history of malignant neoplasm of digestive organs; Z85.820 Personal history of malignant melanoma of skin; Z87.891 Personal history of nicotine dependence; Z79.52 Long term (current) use of systemic steroids; X58.XXXA Exposure to other specified factors, initial encounter
CPT/HCPCS: 71045; 80053; 80306; 81000; 83605; 83615; 83735; 84145; 84550; 85025; 85652; 86141; 87040; 93041; 99284; U0002; 36415; 87635; 90715

== ENCOUNTER 2020-09-18 16:59 | Emergency (ER) | payer MEDICARE ==
[~2020-09-18] VITALS: Ht 190.5 cm; Wt 140.9 kg
[~2020-09-18 16:59] MED LIST changes: +COLC0.6T59 PO; -LISI-552 PO; +LISI20TA26 PO; +MUPI22OI2 TP; +TRAM-42 PO
[2020-09-18] MEDS ORDERED: KETOROLAC 30 MG/ML VIAL IVP STA (17:35)
[2020-09-18] MEDS ORDERED: fentaNYL INJ 100 MCG/2 ML AMP IVP STA (17:35)
[2020-09-18 17:41] LABS: BASOPHILS % (AUTO) 0 % (0-10); EOSINOPHILS # (AUTO) 0.2 10^3/uL (0.0-0.3); EOSINOPHILS % (AUTO) 3 % (0-10); HEMATOCRIT 41 % (40-54); HEMOGLOBIN 13.4 g/dL (13.3-17.7); LYMPHOCYTES # (AUTO) 1.2 10^3/uL (1.0-4.0); LYMPHOCYTES % (AUTO) 13 % (12-44); MEAN CORPUSCULAR HEMOGLOBIN 29 pg (25-34); MEAN CORPUSCULAR HGB CONC 32 g/dL (32-36); MEAN CORPUSCULAR VOLUME 88 fL (80-99); MONOCYTES # (AUTO) 0.9 10^3/uL (0.0-1.0); MONOCYTES % (AUTO) 10 % (0-12); NEUTROPHILS # (AUTO) 6.7 10^3/uL (1.8-7.8); NEUTROPHILS % (AUTO) 73 % (42-75); PLATELET COUNT 352 10^3/uL (130-400); WHITE BLOOD COUNT 9.1 10^3/uL (4.3-11.0)
[2020-09-18 17:43] LABS: CHLORIDE 102 MMOL/L (98-107); POTASSIUM 4.6 MMOL/L (3.6-5.0); SODIUM 141 MMOL/L (135-145)
[2020-09-18 17:44] LABS: CALCIUM 10.3 MG/DL (8.5-10.1)
[2020-09-18 17:46] LABS: GLUCOSE 97 MG/DL (70-105); TOTAL PROTEIN 8.5 GM/DL (6.4-8.2)
[2020-09-18 17:47] LABS: BILIRUBIN,TOTAL 0.4 MG/DL (0.1-1.0); CARBON DIOXIDE 24 MMOL/L (21-32)
[2020-09-18 17:49] LABS: ALKALINE PHOSPHATASE 105 U/L (40-136); CREATININE SERUM 1.05 MG/DL (0.60-1.30); GFR ESTIMATED > 60
--- NOTE | 2020-09-18 17:49 | ED General ---
General Chief Complaint: General Problems/Pain Stated Complaint: BILAT KNEE AND ANKLE SWELLING AND PAIN Nursing Triage Note: TO ED PER W/C WAS SENT BY [facility] . PATIENT REPORTS THAT HAS HAS DARÍO LEG PAIN AND SWELLING FOR 6 DAYS HAS BEEN LYING ON FLOOR TO GET COMFORTABLE. SWELLING TO LEGS NOTED. Nursing Sepsis Screen: No Definite Risk Source of Information: Patient Exam Limitations: No Limitations (RY JARRELL MD) History of Present Illness Date Seen by Provider: Sep 18, 2020 Time Seen by Provider: 17:23 Initial Comments Here with report of bilateral leg pain at the ankles and knees. Started in the right leg and then moved to the left. He has been unable to walk for the last 5 to 7 days. Swelling noted to both legs. Has history of gout and/or reactive arthritis. He has been treated with steroids, colchicine and antibiotics in the past. It has been a little while since he has had a flare, at least several months per the patient. Denies fever, nausea, vomiting or diarrhea or other symptoms. He has tried the typical xaep-aiq-[id number] therapies for gout and that has not helped and states that he is not encountered any foods that would typically flare his gout recently. Timing/Duration: 1 Week Severity: Moderate Modifying Factors: improves with Immobilization; worse with Movement Associated Systoms: No Fever/Chills, No Weakness (RY JARRELL MD) Allergies and Home Medications Allergies Coded Allergies: No Known Drug Allergies (Unverified , 03/10/11) Home Medications Colchicine 0.6 Mg Capsule, 0.6 MG PO BID PRN for GOUT PAIN Prescribed by: RHETT GUILLEN on 08/23/18 1144 Colchicine 0.6 Mg Tablet, 0.6 MG PO UD 1.2 MG AT ONSET OF GOUT FLARE, THEN MAY TAKE 0.6 MG BID Prescribed by: KAYLYNN HOOKER on 04/02/202010 Colchicine 0.6 Mg Tablet, 0.6 MG PO UD 1.2 MG AT ONSET OF GOUT FLARE, THEN MAY TAKE 0.6 MG BID Prescribed by: KAYLYNN HOOKER on 09/18/20 183 Hydrocodone Bit/Acetaminophen 1 Ea Tablet, 1 EA PO Q4-6 PRN for PAIN Prescribed by: KAYLYNN HOOKER on 09/18/20 183 Mupirocin 22 Gm Oint...g., 22 GM TP BID Prescribed by: KAYLYNN HOOKER on 04/02/202010 Naproxen 500 Mg Tablet, 500 MG PO BID Prescribed by: RHETT GUILLEN on 08/23/18 1144 Oxycodone HCl/Acetaminophen 1 Each Tablet, 1-2 TAB PO Q6H PRN for BREAKTHROUGH PAIN Prescribed by: RHETT GUILLEN on 08/23/18 1144 Oxycodone HCl/Acetaminophen 1 Each Tablet, 1 TAB PO Q4H Prescribed by: ESA LOPEZ on 10/14/18 1507 Prednisone 20 Mg Tab, 20 MG PO BID Prescribed by: RHETT GUILLEN on 08/23/18 1144 Prednisone 20 Mg Tab, 40 MG PO DAILY Prescribed by: ESA LOPEZ on 10/14/18 1507 Prednisone 20 Mg Tab, 40 MG PO DAILY Prescribed by: KAYLYNN HOOKER on 04/02/202010 Prednisone 20 Mg Tab, 40 MG PO DAILY Prescribed by: KAYLYNN HOOKER on 09/18/20 1834 Sulfamethoxazole/Trimethoprim 1 Each Tablet, 1 EACH PO BID Prescribed by: KAYLYNN HOOKER on 04/02/202010 Tramadol HCl 50 Mg Tablet, 50 MG PO Q4H Prescribed by: KAYLYNN HOOKER on 04/02/202010 Patient Home Medication List Home Medication List Reviewed: Yes (RY JARRELL MD) Review of Systems Review of Systems Constitutional: see HPI; No chills, No fever EENTM: no symptoms reported Respiratory: no symptoms reported Cardiovascular: No chest pain; edema Gastrointestinal: No nausea, No vomiting Genitourinary: No dysuria, No frequency Musculoskeletal: joint pain, joint swelling, muscle pain Skin: change in color; No pruritus Psychiatric/Neurological: No Symptoms Reported (RY JARRELL MD) All Other Systems Reviewed Negative Unless Noted: Yes (RY JARRELL MD) Past Jazeqfh-Dqcojh-Vrnqzq Hx Past Med/Social Hx: Reviewed Nursing Past Med/Soc Hx (RY JARRELL MD) Patient Social History Alcohol Use: Denies Use Number of Drinks Today: AA Alcohol Beverage of Choice: Beer Drug of Choice: THC Smoking Status: Never a Smoker Type Used: Smokeless Tobacco 2nd Hand Smoke Exposure: No Recent Infectious Disease Expo: No Recent Hopitalizations: No (RY JARRELL MD) Immunizations Up To Date Tetanus Booster (TDap): Less than 5yrs Date of Pneumonia Vaccine: Mar 16, 2014 (RY JARRELL MD) Seasonal Allergies Seasonal Allergies: No (RY JARRELL MD) Past Medical History Surgeries: Yes (removal of 2 lesions to right and left groin, L shoulder;ESWL;HIATAL HERNIA) Abdominal, Adenoidectomy, Appendectomy, Orthopedic, Renal, Tonsillectomy Respiratory: Yes Sleep Apnea Currently Using CPAP: Yes ("sometimes") Currently Using BIPAP: No Cardiac: Yes Heart Murmur Neurological: Yes Headaches /Migraines Reproductive Disorders: No Sexually Transmitted Disease: No HIV/AIDS: No Genitourinary: Yes Kidney Stones Gastrointestinal: Yes (HEP C-TX WITH INTERFERON) Gastroesophageal Reflux, Hepatitis, Hiatal Hernia Musculoskeletal: Yes (CHRONIC PAIN; PSUEDOGOUT--CALCIUM PYROPHOSPHATE FOUND IN SYNOVIAL FLUID) Gout Endocrine: Yes (BOESITY) HEENT: No Loss of Vision: Denies Hearing Impairment: Denies Cancer: Yes (stage 4 melanoma skin cancer) Melanoma Did You Recieve Any Treatments: Yes What Type of Treatment Did You: Chemotherapy, Surgical Intervention Psychosocial: Yes Anxiety, Depression Integumentary: Yes (multiple lesion removals for melanoma,stage 4 melanoma) Blood Disorders: No Adverse Reaction/Blood Tranf: No (RY JARRELL MD) Family Medical History Reviewed Nursing Family Hx (RY JARRELL MD) FH: coronary artery disease 19 MOTHER FH: liver cancer 19 FATHER No Pertinent Family Hx PAST SURGICAL HISTORY: -MULTIPLE SURGERIES FOR MELANOMA, AND LYMPH NODE EXCISIONS -LEFT NECK -REMOVAL OF BENIGN SKIN LESION 04/2018 -LITHOTRIPSY -LEFT SHOULDER SURGERY -APPENDECTOMY -TONSILLECTOMY -HIATAL HERNIA REPAIR (RY JARRELL MD) Physical Exam Vital Signs Vital Signs - First Documented 09/18/20 17:05 Temp 36.5 Pulse 102 Resp 18 B/P (MAP) 170/112 (131) Pulse Ox 98 O2 Delivery Room Air (MORROKAYLYNN K DO) Vital Signs Capillary Refill : Less Than 3 Seconds (RY JARRELL MD) Height, Weight, BMI Height: 6'4.00" Weight: 275lbs. 0.0oz. 124.184230ad; 38.00 BMI Method:Stated General Appearance: Mild Distress, Obese HEENT: PERRL/EOMI, Pharynx Normal Neck: Non Tender, Supple Respiratory: Lungs Clear, Normal Breath Sounds Cardiovascular: Regular Rate, Rhythm, No Murmur Gastrointestinal: Non Tender, Soft Back: Normal Inspection, No CVA Tenderness, No Vertebral Tenderness Extremity: Swelling (Bilateral knees and ankles), Other (Tenderness to bilateral knees and ankles with left greater than right. Tender with range of motion) Neurologic/Psychiatric: Alert, Oriented x3 Skin: Warm/Dry, Other (Does have several small sores of bilateral lower extremities below the knee. Blush of erythema at the ankles and knees.) (RY JARRELL MD) Focused Exam Lactate Level 09/18/20 17:38: Lactic Acid Level 1.57 (KAYLYNN HOOKER DO) Lactic Acid Level Laboratory Tests Test 09/18/20 17:38 Lactic Acid Level 1.57 MMOL/L (0.50-2.00) (KAYLYNN HOOKER DO) Progress/Results/Core Measures Suspected Sepsis Recent Fever Within 48 Hours: No Infection Criteria Present: None New/Unexplained Altered Menta: No Sepsis Screen: No Definite Risk SIRS Temperature: Pulse: 102 Respiratory Rate: 18 Laboratory Tests 09/18/20 17:21: Blood Pressure 170 /112 Mean: 131 09/18/20 17:38: Laboratory Tests 09/18/20 17:21: (RY JARRELL MD) Results/Orders Lab Results Laboratory Tests Test 09/18/20 17:21 09/18/20 17:38 Range/Units White Blood Count 9.1 4.3-11.0 10^3/uL Red Blood Count 4.71 4.30-5.52 10^6/uL Hemoglobin 13.4 13.3-17.7 g/dL Hematocrit 41 40-54 % Mean Corpuscular Volume 88 80-99 fL Mean Corpuscular Hemoglobin 29 25-34 pg Mean Corpuscular Hemoglobin Concent 32 32-36 g/dL Red Cell Distribution Width 13.1 10.0-14.5 % Platelet Count 352 130-400 10^3/uL Mean Platelet Volume 10.0 9.0-12.2 fL Immature Granulocyte % (Auto) 1 % Neutrophils (%) (Auto) 73 42-75 % Lymphocytes (%) (Auto) 13 12-44 % Monocytes (%) (Auto) 10 0-12 % Eosinophils (%) (Auto) 3 0-10 % Basophils (%) (Auto) 0 0-10 % Neutrophils # (Auto) 6.7 1.8-7.8 10^3/uL Lymphocytes # (Auto) 1.2 1.0-4.0 10^3/uL Monocytes # (Auto) 0.9 0.0-1.0 10^3/uL Eosinophils # (Auto) 0.2 0.0-0.3 10^3/uL Basophils # (Auto) 0.0 0.0-0.1 10^3/uL Immature Granulocyte # (Auto) 0.1 0.0-0.1 10^3/uL Erythrocyte Sedimentation Rate 88 H 0-15 MM/HR Sodium Level 141 135-145 MMOL/L Potassium Level 4.6 3.6-5.0 MMOL/L Chloride Level 102 98-107 MMOL/L Carbon Dioxide Level 24 21-32 MMOL/L Anion Gap 15 H 5-14 MMOL/L Blood Urea Nitrogen 20 H 7-18 MG/DL Creatinine 1.05 0.60-1.30 MG/DL Estimat Glomerular Filtration Rate > 60 BUN/Creatinine Ratio 19 Glucose Level 97 70-105 MG/DL Uric Acid 7.7 H 2.6-7.2 MG/DL Calcium Level 10.3 H 8.5-10.1 MG/DL Corrected Calcium 10.3 H 8.5-10.1 MG/DL Total Bilirubin 0.4 0.1-1.0 MG/DL Aspartate Amino Transf (AST/SGOT) 28 5-34 U/L Alanine Aminotransferase (ALT/SGPT) 56 H 0-55 U/L Alkaline Phosphatase 105 40-136 U/L C-Reactive Protein High Sensitivity 8.48 H 0.00-0.50 MG/DL B-Type Natriuretic Peptide 13.3 <100.0 PG/ML Total Protein 8.5 H 6.4-8.2 GM/DL Albumin 4.0 3.2-4.5 GM/DL Lactic Acid Level 1.57 0.50-2.00 MMOL/L (MORRO,KAYLYNN K DO) My Orders Orders - MORRO,KAYLYNN K DO Methylprednisolone Sod Succ (Solu-Medrol (09/18/20 18:45) Colchicine Tablet (Colcrys Tablet) (09/18/20 18:45) Walker (09/18/20 18:31) (KAYLYNN HOOKER DO) Medications Given in ED Current Medications Medications Dose Ordered Sig/Tra Route Start Time Stop Time Status Last Admin Dose Admin Colchicine 1.2 mg ONCE ONCE PO 09/18/20 18:45 09/18/20 18:46 DC 09/18/20 18:40 1.2 MG Methylprednisolone Sodium Succinate 125 mg ONCE ONCE IVP 09/18/20 18:45 09/18/20 18:46 DC 09/18/20 18:40 125 MG (KAYLYNN HOOKER DO) Vital Signs/I&O 09/18/20 17:05 Temp 36.5 Pulse 102 Resp 18 B/P (MAP) 170/112 (131) Pulse Ox 98 O2 Delivery Room Air (KAYLYNN HOOKER DO) Vital Signs/I&O Capillary Refill : Less Than 3 Seconds (RY JARRELL MD) Blood Pressure Mean: 131 Progress Note : Progress Note Seen and evaluated. IV, labs, blood cultures and lactic acid ordered. We will get CRP, sed rate and uric acid. Toradol 30 mg IV, fentanyl 75 mcg IV ordered. Monitor patient. (RY JARRELL MD) Progress Note : Progress Note 1800--ASSUMED CARE FROM DR. JARRELL, ALL LAB PENDING. PT WITH MUCH IMPROVEMENT IN PAIN AT DISMISSAL PT SENT HOME WITH A WALKER AND IS ABLE TO AMBULATE OUT OF ER WITH A WALKER WITHOUT DIFFICULTY AT DISMISSAL. (KAYLYNN HOOKER DO) Departure Impression Primary Impression: Gout flare Disposition: 01 HOME, SELF-CARE Condition: Improved Departure-Patient Inst. Referrals: [facility] (PCP/Family) Primary Care Physician Patient Instructions: Getting In and Out of a Tub or Shower With Walker, Going Up and Down Curbs or Stairs With a Walker or Crutches, Gout ED, How to Use a Walker, Lifestyle Changes to Manage Gout, Low Purine Diet Add. Discharge Instructions: USE WALKER AT ALL TIMES ICE TO SORE AREAS AT 20 MINUTE INTERVALS LOTS OF WATER FOLLOW UP WITH [facility] IN 2-3 DAYS IF NO BETTER All discharge instructions reviewed with patient and/or family. Voiced understanding. Scripts Hydrocodone Bit/Acetaminophen (HYDROcodone/APAP 7.5/325 TAB) 1 Ea Tablet 1 EA PO Q4-6 PRN for PAIN, #20 TAB Prov: KAYLYNN HOOKER DO 09/18/20 Prednisone (Prednisone) 20 Mg Tab 40 MG PO DAILY, #6 TAB 0 Refills Prov: KAYLYNN HOOKER DO 09/18/20 Colchicine (Colchicine) 0.6 Mg Tablet 0.6 MG PO UD, #6 TAB 1.2 MG AT ONSET OF GOUT FLARE, THEN MAY TAKE 0.6 MG BID Prov: KAYLYNN HOOKER DO 09/18/20 RY JARRELL MD Sep 18, 2020 17:49 KAYLYNN HOOKER DO Sep 18, 2020 18:35
[2020-09-18 17:50] LABS: BUN/CREATININE RATIO 19
[2020-09-18 17:52] LABS: ALANINE AMINOTRANSFERASE 56 U/L (0-55); URIC ACID 7.7 MG/DL (2.6-7.2)
[2020-09-18 18:05] LABS: ERYTHROCYTE SEDIMENTATION RATE 88 MM/HR (0-15)
[2020-09-18] MEDS ORDERED: PRD20T PO (18:34)
[2020-09-18] MEDS ORDERED: HYDR-34 PO (18:34)
[2020-09-18] MEDS ORDERED: COLC0.6T59 PO (18:34)
[2020-09-18] MEDS ORDERED: methylPREDNISolone 125 MG (Solu-MEDROL) VIAL IVP ONE (18:45)
[2020-09-18] MEDS ORDERED: COLCHICINE 0.6 MG (COLCRYS) TABLET PO ONE (18:45)
[2020-09-18 19:24] VITALS: BP 144/82
== END 2020-09-18 19:25 | disposition home or self-care (01) ==
LOC: EDUNIT# 16:59 → ER 17:00
DX: M1A.9XX0 Chronic gout, unspecified, without tophus (tophi) (principal); G47.30 Sleep apnea, unspecified; E66.9 Obesity, unspecified; Z68.38 Body mass index [BMI] 38.0-38.9, adult; Z99.89 Dependence on other enabling machines and devices; Z79.899 Other long term (current) drug therapy
CPT/HCPCS: 36415; 80053; 83605; 83880; 84550; 85025; 85652; 86141; 87040

== ENCOUNTER → 2020-10-01 | Outpatient (CLI) | payer MEDICARE ==
[2020-10-01 14:41] LABS: BASOPHILS # (AUTO) 0.1 10^3/uL (0.0-0.1); BASOPHILS % (AUTO) 1 % (0-10); EOSINOPHILS # (AUTO) 0.3 10^3/uL (0.0-0.3); EOSINOPHILS % (AUTO) 3 % (0-10); HEMATOCRIT 39 % (40-54); HEMOGLOBIN 12.2 g/dL (13.3-17.7); LYMPHOCYTES # (AUTO) 1.7 X 10^3 (1.0-4.0); LYMPHOCYTES % (AUTO) 20 % (12-44); MEAN CORPUSCULAR HEMOGLOBIN 28 pg (25-34); MEAN CORPUSCULAR HGB CONC 32 g/dL (32-36); MEAN CORPUSCULAR VOLUME 90 fL (80-99); MONOCYTES # (AUTO) 0.6 X 10^3 (0.0-1.0); MONOCYTES % (AUTO) 6 % (0-12); NEUTROPHILS # (AUTO) 6.1 X 10^3 (1.8-7.8); NEUTROPHILS % (AUTO) 70 % (42-75); PLATELET COUNT 307 10^3/uL (130-400); WHITE BLOOD COUNT 8.8 10^3/uL (4.3-11.0)
[2020-10-01 15:01] LABS: ALANINE AMINOTRANSFERASE 29 U/L (0-55); ALBUMIN 3.8 GM/DL (3.2-4.5); ALKALINE PHOSPHATASE 74 U/L (40-136); BILIRUBIN,TOTAL 0.4 MG/DL (0.1-1.0); BUN/CREATININE RATIO 11; CALCIUM 9.6 MG/DL (8.5-10.1); CARBON DIOXIDE 29 MMOL/L (21-32); CHLORIDE 107 MMOL/L (98-107); GFR ESTIMATED > 60; GLUCOSE 98 MG/DL (70-105); POTASSIUM 3.8 MMOL/L (3.6-5.0); SODIUM 142 MMOL/L (135-145); TOTAL PROTEIN 7.1 GM/DL (6.4-8.2)
== END ==
LOC: ONC 14:30
PROVIDERS: ATTEND Internal Medicine Hematology & Oncology
DX: C43.59 Malignant melanoma of other part of trunk (principal); I10 Essential (primary) hypertension; E66.9 Obesity, unspecified
CPT/HCPCS: 80053; 83615; 85025; G0463; 99213

== ENCOUNTER 2021-04-01 18:49 | Emergency (ER) | payer MEDICARE ==
[~2021-04-01] VITALS: Ht 190.5 cm; Wt 140.6 kg
[2021-04-01] MEDS ORDERED: LIDOCAINE 1% INJ 20 ML 20 ML VIAL INJ ONE (20:00)
[2021-04-01] MEDS ORDERED: DOXYCYCLINE 100 MG (VIBRAMYCIN) TABLET PO SCH (20:00)
[2021-04-01] MEDS ORDERED: cefTRIAXone 1,000 MG VIAL IM ONE (20:00)
[2021-04-01] MEDS ORDERED: DOXY100T2 PO (20:02)
[2021-04-01] MEDS ORDERED: ACHD5005 PO (20:02)
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
[2021-04-01 20:57] VITALS: BP 170/105
== END 2021-04-01 20:57 | disposition home or self-care (01) ==
LOC: EDUNIT# 18:49 → ER 18:51
DX: T81.40XA Infection following a procedure, unspecified, initial encounter (principal); G47.30 Sleep apnea, unspecified; E66.9 Obesity, unspecified; M10.9 Gout, unspecified; G89.29 Other chronic pain; Z79.899 Other long term (current) drug therapy; Z79.891 Long term (current) use of opiate analgesic
CPT/HCPCS: 73130

== ENCOUNTER 2021-05-20 07:50 | Emergency (ER) | payer MEDICARE ==
[~2021-05-20] VITALS: Ht 190 cm; Wt 140.0 kg
[~2021-05-20 07:50] MED LIST changes: +DOXY100T2 PO
[2021-05-20] MEDS ORDERED: morphine INJ 10 MG/ML 1ML (SYR OR VIAL) IVP STA ×2 (07:59→10:44)
[2021-05-20] MEDS ORDERED: KETOROLAC 30 MG/ML VIAL IVP ONE (08:00)
[2021-05-20] MEDS ORDERED: COLCHICINE 0.6 MG (COLCRYS) TABLET PO ONE ×2 (08:00→10:15)
[2021-05-20 08:12] LABS: BASOPHILS % (AUTO) 0 % (0-10); EOSINOPHILS # (AUTO) 0.1 10^3/uL (0.0-0.3); EOSINOPHILS % (AUTO) 1 % (0-10); HEMATOCRIT 44 % (40-54); HEMOGLOBIN 14.2 g/dL (13.3-17.7); LYMPHOCYTES # (AUTO) 1.4 10^3/uL (1.0-4.0); LYMPHOCYTES % (AUTO) 10 % (12-44); MEAN CORPUSCULAR HEMOGLOBIN 29 pg (25-34); MEAN CORPUSCULAR HGB CONC 33 g/dL (32-36); MEAN CORPUSCULAR VOLUME 89 fL (80-99); MEAN PLATELET VOLUME 10.4 fL (9.0-12.2); MONOCYTES # (AUTO) 1.3 10^3/uL (0.0-1.0); MONOCYTES % (AUTO) 9 % (0-12); NEUTROPHILS # (AUTO) 10.9 10^3/uL (1.8-7.8); NEUTROPHILS % (AUTO) 79 % (42-75); PLATELET COUNT 299 10^3/uL (130-400); WHITE BLOOD COUNT 13.8 10^3/uL (4.3-11.0)
--- NOTE | 2021-05-20 08:15 | ED Lower Extremity ---
General Chief Complaint: Lower Extremity Stated Complaint: LOWER LEG PAIN Nursing Triage Note: pt presents to ed with complaints of r ankle and r toe pain and l knee pain/swelling. pt reports he had l knee scope wednesday. Source: patient, EMS Exam Limitations: no limitations History of Present Illness Date Seen by Provider: May 20, 2021 Time Seen by Provider: 07:53 Initial Comments This 45-year-old gentleman presents to the emergency room with complaints of severe left knee pain after having an arthroscopic surgery by Dr. DELAROSA on May 16. He also complains of gouty arthritis in the right foot. He has not been ambulatory this morning secondary to the pain. He has been taking ibuprofen and hydrocodone at home without sufficient relief. He lives in the basement and has not been able to get up the stairs. He has not taken his blood pressure medication this morning because he could not get to it. He denies any fever or chills. There has been no drainage from the knee. He has significant swelling despite icing it. Allergies and Home Medications Allergies Coded Allergies: fentanyl (Verified Allergy, Unknown, 05/20/21) Patient Home Medication List Home Medication List Reviewed: Yes Colchicine (Colchicine) 0.6 Mg Capsule, 0.6 MG PO BID PRN for GOUT PAIN Prescribed by: RHETT GUILLEN on 08/23/18 1144 Colchicine (Colchicine) 0.6 Mg Tablet, 0.6 MG PO UD Prescribed by: KAYLYNN HOOKER on 04/02/202010 Colchicine (Colchicine) 0.6 Mg Tablet, 0.6 MG PO UD Prescribed by: KAYLYNN HOOKER on 09/18/201833 Doxycycline Hyclate (Doxycycline Hyclate) 100 Mg Tablet, 100 MG PO BID Prescribed by: ESA LOPEZ on 04/01/212001 Hydrocodone Bit/Acetaminophen (HYDROcodone/APAP 7.5/325 TAB) 1 Ea Tablet, 1 EA PO Q4-6 PRN for PAIN Prescribed by: KAYLYNN HOOKER on 09/18/201833 Hydrocodone/Acetaminophen (Hydrocodone-Acetamin 5-325 mg) 1 Each Tablet, 1 TAB PO Q4H PRN for PAIN-MODERATE (5-7) Prescribed by: ESA LOPEZ on 04/01/212001 Mupirocin (Mupirocin) 22 Gm Oint...g., 22 GM TP BID Prescribed by: KAYLYNN HOOKER on 04/02/202010 Naproxen (Naprosyn) 500 Mg Tablet, 500 MG PO BID Prescribed by: RHETT GUILLEN on 08/23/18 1144 Oxycodone HCl/Acetaminophen (Percocet 5-325 mg Tablet) 1 Each Tablet, 1-2 TAB PO Q6H PRN for BREAKTHROUGH PAIN Prescribed by: RHETT GUILLEN on 08/23/18 1144 Oxycodone HCl/Acetaminophen (Percocet 5-325 mg Tablet) 1 Each Tablet, 1 TAB PO Q4H Prescribed by: ESA LOPEZ on 10/14/18 1507 Oxycodone HCl/Acetaminophen (Percocet 5-325 mg Tablet) 1 Each Tablet, 1-2 TAB PO Q4H PRN for PAIN-SEVERE (8-10) Prescribed by: PRESTON PATE on 05/20/21 1019 Prednisone (Prednisone) 20 Mg Tab, 20 MG PO BID Prescribed by: RHETT GUILLEN on 08/23/18 1144 Prednisone (Prednisone) 20 Mg Tab, 40 MG PO DAILY Prescribed by: ESA LOPEZ on 10/14/18 1507 Prednisone (Prednisone) 20 Mg Tab, 40 MG PO DAILY Prescribed by: KAYLYNN HOOKER on 04/02/202010 Prednisone (Prednisone) 20 Mg Tab, 40 MG PO DAILY Prescribed by: KAYLYNN HOOKER on 09/18/20 1834 Sulfamethoxazole/Trimethoprim (Bactrim Ds Tablet) 1 Each Tablet, 1 EACH PO BID Prescribed by: KAYLYNN HOOKER on 04/02/202010 Tramadol HCl (Ultram) 50 Mg Tablet, 50 MG PO Q4H Prescribed by: KAYLYNN HOOKER on 04/02/202010 Review of Systems Constitutional: no symptoms reported EENTM: no symptoms reported Respiratory: no symptoms reported Cardiovascular: no symptoms reported Gastrointestinal: no symptoms reported Genitourinary: no symptoms reported Musculoskeletal: see HPI Skin: no symptoms reported Psychiatric/Neurological: No Symptoms Reported Past Aryuwjv-Xukbdw-Pifxlm Hx Patient Social History Tobacco Use?: No Substance use?: No Alcohol Use?: No Pt feels they are or have been: No Immunizations Up To Date Tetanus Booster (TDap): Less than 5yrs First/Initial COVID19 Vaccinat: NO Second COVID19 Vaccination Cory: NO Third COVID19 Vaccination Date: NO Seasonal Allergies Seasonal Allergies: No Past Medical History Surgery/Hospitalization HX: skin ca and gout and htn Surgeries: Yes (removal of 2 lesions to right and left groin, L shoulder;ESWL;HIATAL HERNIA) Abdominal, Adenoidectomy, Appendectomy, Orthopedic, Renal, Tonsillectomy Respiratory: Yes Sleep Apnea Currently Using CPAP: Yes ("sometimes") Currently Using BIPAP: No Cardiac: Yes Heart Murmur, Hypertension Neurological: Yes Headaches /Migraines Reproductive Disorders: No Sexually Transmitted Disease: No HIV/AIDS: No Genitourinary: Yes Kidney Stones Gastrointestinal: Yes (HEP C-TX WITH INTERFERON) Gastroesophageal Reflux, Hepatitis, Hiatal Hernia Musculoskeletal: Yes (CHRONIC PAIN; PSUEDOGOUT--CALCIUM PYROPHOSPHATE FOUND IN SYNOVIAL FLUID) Gout Endocrine: Yes (BOESITY) HEENT: No Loss of Vision: Denies Hearing Impairment: Denies Cancer: Yes (stage 4 melanoma skin cancer) Melanoma Did You Recieve Any Treatments: Yes What Type of Treatment Did You: Chemotherapy, Surgical Intervention Psychosocial: Yes Anxiety, Depression Integumentary: Yes (multiple lesion removals for melanoma,stage 4 melanoma) Blood Disorders: No Adverse Reaction/Blood Tranf: No Family Medical History Reviewed Nursing Family Hx FH: coronary artery disease 19 MOTHER FH: liver cancer 19 FATHER No Pertinent Family Hx PAST SURGICAL HISTORY: -MULTIPLE SURGERIES FOR MELANOMA, AND LYMPH NODE EXCISIONS -LEFT NECK -REMOVAL OF BENIGN SKIN LESION 04/2018 -LITHOTRIPSY -LEFT SHOULDER SURGERY -APPENDECTOMY -TONSILLECTOMY -HIATAL HERNIA REPAIR Physical Exam Vital Signs Vital Signs - First Documented 05/20/21 07:52 Temp 36.0 Pulse 118 Resp 20 B/P (MAP) 168/108 (128) Pulse Ox 97 Capillary Refill : Less Than 3 Seconds Height, Weight, BMI Height: 6'4.00" Weight: 275lbs. 0.0oz. [id number]; 38.00 BMI Method:Stated General Appearance: WD/WN, moderate distress, obese HEENT: PERRL/EOMI, normal ENT inspection Neck: normal inspection Cardiovascular: no edema, no murmur, tachycardia Respiratory: lungs clear, normal breath sounds, no respiratory distress, no accessory muscle use Legs: bilateral leg non-tender, bilateral leg normal inspection, bilateral leg no evidence of injury Knees: right knee joint effusion, right knee pain, right knee soft tissue tenderness, right knee swelling, right knee other (Mild warmth of the left knee without drainage from the incisions or erythema) Ankles: bilateral ankle normal inspection, bilateral ankle no evidence of injury Feet: bilateral foot normal inspection Neurologic/Psychiatric: no motor/sensory deficits, alert, normal mood/affect, oriented x 3 Skin: normal color, warm/dry Progress/Results/Core Measures Results/Orders Lab Results Laboratory Tests Test 05/20/21 08:05 Range/Units White Blood Count 13.8 H 4.3-11.0 10^3/uL Red Blood Count 4.91 4.30-5.52 10^6/uL Hemoglobin 14.2 13.3-17.7 g/dL Hematocrit 44 40-54 % Mean Corpuscular Volume 89 80-99 fL Mean Corpuscular Hemoglobin 29 25-34 pg Mean Corpuscular Hemoglobin Concent 33 32-36 g/dL Red Cell Distribution Width 13.4 10.0-14.5 % Platelet Count 299 130-400 10^3/uL Mean Platelet Volume 10.4 9.0-12.2 fL Immature Granulocyte % (Auto) 1 % Neutrophils (%) (Auto) 79 H 42-75 % Lymphocytes (%) (Auto) 10 L 12-44 % Monocytes (%) (Auto) 9 0-12 % Eosinophils (%) (Auto) 1 0-10 % Basophils (%) (Auto) 0 0-10 % Neutrophils # (Auto) 10.9 H 1.8-7.8 10^3/uL Lymphocytes # (Auto) 1.4 1.0-4.0 10^3/uL Monocytes # (Auto) 1.3 H 0.0-1.0 10^3/uL Eosinophils # (Auto) 0.1 0.0-0.3 10^3/uL Basophils # (Auto) 0.0 0.0-0.1 10^3/uL Immature Granulocyte # (Auto) 0.1 0.0-0.1 10^3/uL Sodium Level 135 135-145 MMOL/L Potassium Level 4.8 3.6-5.0 MMOL/L Chloride Level 100 98-107 MMOL/L Carbon Dioxide Level 24 21-32 MMOL/L Anion Gap 11 5-14 MMOL/L Blood Urea Nitrogen 14 7-18 MG/DL Creatinine 0.99 0.60-1.30 MG/DL Estimat Glomerular Filtration Rate 97 BUN/Creatinine Ratio 14 Glucose Level 111 H 70-105 MG/DL Uric Acid 7.1 2.6-7.2 MG/DL Calcium Level 9.7 8.5-10.1 MG/DL C-Reactive Protein High Sensitivity 23.37 H 0.00-0.50 MG/DL My Orders Orders - PRESTON IVERSON MD Basic Metabolic Panel (05/20/21 07:59) Cbc With Automated Diff (05/20/21 07:59) Hs C Reactive Protein (05/20/21 07:59) Ed Iv/Invasive Line Start (05/20/21 07:59) Ketorolac Injection (Toradol Injection) (05/20/21 08:00) Morphine Injection (Morphine Injection (05/20/21 07:59) Colchicine Tablet (Colcrys Tablet) (05/20/21 08:00) Uric Acid (05/20/21 07:59) Knee, Left, 2 Views (Ap & Lat) (05/20/21 09:13) Colchicine Tablet (Colcrys Tablet) (05/20/21 10:15) Medications Given in ED Current Medications Medications Dose Ordered Sig/Tra Route Start Time Stop Time Status Last Admin Dose Admin Colchicine 1.2 mg ONCE ONCE PO 05/20/21 08:00 05/20/21 08:01 DC 05/20/21 08:40 1.2 MG Ketorolac Tromethamine 30 mg ONCE ONCE IVP 05/20/21 08:00 05/20/21 08:01 DC 05/20/21 08:09 30 MG Vital Signs/I&O 05/20/21 07:52 Temp 36.0 Pulse 118 Resp 20 B/P (MAP) 168/108 (128) Pulse Ox 97 Blood Pressure Mean: 128 Progress Progress Note #1: Time: 08:17 Progress Note Patient was seen and examined. Pain is being treated with morphine, Toradol, and colchicine. Labs are being assessed. Progress Note #2: Time: 10:20 Progress Note Patient's pain was much improved. X-ray was unremarkable. Patient was reexamined. He was not found to have any significant erythema or warmth to the knee. There was no significant pain in the joint line. I discussed the situation with Dr. Delarosa. He was not concerned about any infectious etiology at this time and request that the patient follow-up closely in the clinic. Patient did require high doses of anesthesia for surgery and may be a high metabolizer of medications. We will provide him with a short course of Percocet for the more severe pain while he recovers. He is being given an additional dose of colchicine before discharge. Uric acid was not elevated, but patient states his blood levels usually are not elevated. He reports colchicine usually does help his pain. See discharge instructions for further discussion. Diagnostic Imaging Diagonstic Imaging: Xray Plain Films/CT/US/NM/MRI: knee Comments Left knee x-rays viewed by me and report reviewed. See report below: NAME: LINDSAY BUTLER MED REC#: [id number] PT STATUS: REG ER : 1975 PHYSICIAN: PRESTON IVERSON MD ADMIT DATE: 05/20/21/ER Draft Date of Exam:05/20/21 KNEE, LEFT, 2 VIEWS (AP & LAT) INDICATION: Pain, recent surgery. FINDINGS: Fullness in the suprapatellar bursa is presumed a large joint effusion. No opaque loose body. No bony destruction. No gas. No fracture. IMPRESSION: Likely large joint effusion. No acute bony pathology, foreign body, or malalignment. Dictated on workstation # [id number] Dict: 05/20/21 0940 Trans: 05/20/21 0945 [id number] Interpreted by: TAMIE FRASER Departure Impression Primary Impression: Postoperative pain Additional Impression: Gouty arthritis Disposition: 01 HOME, SELF-CARE Condition: Improved Departure-Patient Inst. Decision time for Depature: 10:16 Referrals: [facility] (PCP/Family) Primary Care Physician Patient Instructions: Gout ED, Postoperative Pain (DC) Add. Discharge Instructions: Continue postoperative instructions as previously provided by Dr. DELAROSA. Follow-up with Dr. Delarosa soon as possible. You may use ibuprofen up to 600 mg every 6 hours as needed for primary pain control. For more severe breakthrough pain use Percocet (oxycodone) as prescribed from the ER. For more moderate pain you may add the hydrocodone as previously prescribed. Call with questions or concerns. Return to care if you have worsening symptoms. All discharge instructions reviewed with patient and/or family. Voiced understanding. Scripts Oxycodone HCl/Acetaminophen (Percocet 5-325 mg Tablet) 1 Each Tablet 1-2 TAB PO Q4H PRN for PAIN-SEVERE (8-10) MDD 6 TABS, #20 TAB Prov: PRESTON IVERSON MD 05/20/21 Copy Copies To 1: JAQUELINE DELAROSA MD Copies To 2: SINAI JOSEPH JOSHUA T MD May 20, 2021 08:15
[2021-05-20 08:43] LABS: POTASSIUM 4.8 MMOL/L (3.6-5.0)
[2021-05-20 08:44] LABS: CALCIUM 9.7 MG/DL (8.5-10.1)
[2021-05-20 08:49] LABS: CREATININE SERUM 0.99 MG/DL (0.60-1.30)
[2021-05-20 08:51] LABS: URIC ACID 7.1 MG/DL (2.6-7.2)
--- NOTE | 2021-05-20 09:46 | Diagnostic Imaging Report ---
INDICATION: Pain, recent surgery. FINDINGS: Fullness in the suprapatellar bursa is presumed a large joint effusion. No opaque loose body. No bony destruction. No gas. No fracture. IMPRESSION: Likely large joint effusion. No acute bony pathology, foreign body, or malalignment. Dictated by: Dictated on workstation # [id number]
[2021-05-20] MEDS ORDERED: OXYC1TAB87 PO (10:18)
[2021-05-20 11:12] VITALS: BP 162/101
== END 2021-05-20 11:12 | disposition home or self-care (01) ==
LOC: ER 07:50
DX: G89.18 Other acute postprocedural pain (principal); M25.561 Pain in right knee; M10.9 Gout, unspecified; I10 Essential (primary) hypertension; G43.909 Migraine, unspecified, not intractable, without status migrainosus; G89.29 Other chronic pain; G47.30 Sleep apnea, unspecified; E66.9 Obesity, unspecified; Z98.890 Other specified postprocedural states; Z68.38 Body mass index [BMI] 38.0-38.9, adult; Z99.89 Dependence on other enabling machines and devices; Z79.891 Long term (current) use of opiate analgesic; Z79.1 Long term (current) use of non-steroidal anti-inflammatories (NSAID); Z79.899 Other long term (current) drug therapy
CPT/HCPCS: 36415; 73560; 80048; 84550; 85025; 86141

== ENCOUNTER 2021-09-29 09:22 | Outpatient (RCR) | payer MEDICARE | END 2021-10-02 | disposition home or self-care (01) | LOC: ONC 09:22 | PROVIDERS: ATTEND Internal Medicine Hematology & Oncology | DX: Z08 Encounter for follow-up examination after completed treatment for malignant neoplasm (principal); Z85.820 Personal history of malignant melanoma of skin ==

== ENCOUNTER 2022-07-05 12:53 | Inpatient (IN) | payer MEDICARE, MEDICAID ==
[~2022-07-05] VITALS: Ht 190 cm; Wt 149.6 kg
[2022-07-05] MEDS ORDERED: KETOROLAC 30 MG/ML VIAL IVP STA (13:23)
[2022-07-05] MEDS ORDERED: NS IV 1000 ML 1,000 ML IV STA (13:23)
--- NOTE | 2022-07-05 13:25 | ED Abdominal Pain ---
General Chief Complaint: Abdominal/GI Problems Stated Complaint: ABD PAIN - VOMITING - DIARRHEA Nursing Triage Note: pt has bilateral inguinal hernias, surgery scheduled for 07/15/22. yesterday, pt developed severe pain in region of left hernia with the pain radiating up the left side of his abdomen, n/v, diarrhea, and chills. Source of Information: Patient, Family Exam Limitations: No Limitations History of Present Illness Date Seen by Provider: Jul 05, 2022 Time Seen by Provider: 13:10 Initial Comments Here with report of bilateral inguinal hernia but left hernia is worse than previous with pain in the left side of his abdomen. He does report nausea, vomiting and diarrhea. Does report fever and chills. States that he has had quite a bit of diarrhea today. He has seen Dr. Smith and has surgery scheduled for 07/15/2022 for repair. He was instructed to come to the emergency department if things worsen. He states he is here today because they have. He is not vaccinated for COVID or influenza. Denies dysuria. Timing/Duration: 12-24 Hours Severity/Quality: Moderate, Severe Location: LLQ, Other (Left inguinal area) Radiation: LUQ, LLQ Activities at Onset: None Modifying Factors: Improves With Resting Associated Symptoms: No Back Pain, No Chest Pain, No Fever/Chills; Nausea/Vomiting; No Shortness of Air; Swelling/Mass in Abdomen (Left inguinal area and scrotum); No Weakness Allergies and Home Medications Allergies Coded Allergies: fentanyl (Verified Allergy, Unknown, 05/20/21) iodine (Verified Allergy, Unknown, 07/05/22) Patient Home Medication List Home Medication List Reviewed: Yes Colchicine (Colchicine) 0.6 Mg Capsule, 0.6 MG PO BID PRN for GOUT PAIN Prescribed by: RHETT GUILLEN on 08/23/18 1144 Colchicine (Colchicine) 0.6 Mg Tablet, 0.6 MG PO UD Prescribed by: KAYLYNN HOOKER on 04/02/202010 Colchicine (Colchicine) 0.6 Mg Tablet, 0.6 MG PO UD Prescribed by: KAYLYNN HOOKER on 09/18/20 1834 Doxycycline Hyclate (Doxycycline Hyclate) 100 Mg Tablet, 100 MG PO BID Prescribed by: ESA LOPEZ on 04/01/212001 Hydrocodone Bit/Acetaminophen (HYDROcodone/APAP 7.5/325 TAB) 1 Ea Tablet, 1 EA PO Q4-6 PRN for PAIN Prescribed by: KAYLYNN HOOKER on 09/18/20 1834 Hydrocodone/Acetaminophen (Hydrocodone-Acetamin 5-325 mg) 1 Each Tablet, 1 TAB PO Q4H PRN for PAIN-MODERATE (5-7) Prescribed by: ESA LOPEZ on 04/01/212001 Mupirocin (Mupirocin) 22 Gm Oint...g., 22 GM TP BID Prescribed by: KAYLYNN HOOKER on 04/02/202010 Naproxen (Naprosyn) 500 Mg Tablet, 500 MG PO BID Prescribed by: RHTET GUILLEN on 08/23/18 1144 Oxycodone HCl/Acetaminophen (Percocet 5-325 mg Tablet) 1 Each Tablet, 1-2 TAB PO Q6H PRN for BREAKTHROUGH PAIN Prescribed by: RHETT GUILLEN on 08/23/18 1144 Oxycodone HCl/Acetaminophen (Percocet 5-325 mg Tablet) 1 Each Tablet, 1 TAB PO Q4H Prescribed by: ESA LOPEZ on 10/14/18 1507 Oxycodone HCl/Acetaminophen (Percocet 5-325 mg Tablet) 1 Each Tablet, 1-2 TAB PO Q4H PRN for PAIN-SEVERE (8-10) Prescribed by: PRESTON PATE on 05/20/21 1019 Prednisone (Prednisone) 20 Mg Tab, 20 MG PO BID Prescribed by: RHETT GUILLEN on 08/23/18 1144 Prednisone (Prednisone) 20 Mg Tab, 40 MG PO DAILY Prescribed by: ESA LOPEZ on 10/14/18 1507 Prednisone (Prednisone) 20 Mg Tab, 40 MG PO DAILY Prescribed by: KAYLYNN HOOKER on 04/02/202010 Prednisone (Prednisone) 20 Mg Tab, 40 MG PO DAILY Prescribed by: KAYLYNN HOOKER on 09/18/20 1834 Sulfamethoxazole/Trimethoprim (Bactrim Ds Tablet) 1 Each Tablet, 1 EACH PO BID Prescribed by: KAYLYNN HOOKER on 04/02/202010 Tramadol HCl (Ultram) 50 Mg Tablet, 50 MG PO Q4H Prescribed by: KAYLYNN HOOKER on 04/02/202010 Review of Systems Review of Systems Constitutional: chills, fever, weakness EENTM: No Nose Congestion, No Throat Pain Respiratory: Cough; Denies Shortness of Air Cardiovascular: No Symptoms Reported Gastrointestinal: See HPI, Abdominal Pain Genitourinary: See HPI Musculoskeletal: no symptoms reported Skin: no symptoms reported Past Bmzihlv-Yizjsb-Nkdrvl Hx Patient Social History Tobacco Use?: No Substance use?: No Alcohol Use?: No Immunizations Up To Date Tetanus Booster (TDap): Less than 5yrs Influenza Vaccine Up-to-Date: No; Not Current First/Initial COVID19 Vaccinat: NO Second COVID19 Vaccination Cory: NO Third COVID19 Vaccination Date: NO Seasonal Allergies Seasonal Allergies: No Past Medical History Surgery/Hospitalization HX: skin ca and gout and htn Surgeries: Yes (removal of 2 lesions to right and left groin, L shoulder;ESWL;HIATAL HERNIA) Abdominal, Adenoidectomy, Appendectomy, Orthopedic, Renal, Tonsillectomy Respiratory: Yes Sleep Apnea Currently Using CPAP: Yes ("sometimes") Currently Using BIPAP: No Cardiac: Yes Heart Murmur, Hypertension Neurological: Yes Headaches /Migraines Reproductive Disorders: No Sexually Transmitted Disease: No HIV/AIDS: No Genitourinary: Yes Kidney Stones Gastrointestinal: Yes (HEP C-TX WITH INTERFERON) Gastroesophageal Reflux, Hepatitis, Hiatal Hernia Musculoskeletal: Yes (CHRONIC PAIN; PSUEDOGOUT--CALCIUM PYROPHOSPHATE FOUND IN SYNOVIAL FLUID) Gout Endocrine: Yes (BOESITY) HEENT: No Loss of Vision: Denies Hearing Impairment: Denies Cancer: Yes (stage 4 melanoma skin cancer) Melanoma Did You Recieve Any Treatments: Yes What Type of Treatment Did You: Chemotherapy, Surgical Intervention Psychosocial: Yes Anxiety, Depression Integumentary: Yes (multiple lesion removals for melanoma,stage 4 melanoma) Blood Disorders: No Adverse Reaction/Blood Tranf: No Family Medical History Reviewed Nursing Family Hx FH: coronary artery disease 19 MOTHER FH: liver cancer 19 FATHER No Pertinent Family Hx PAST SURGICAL HISTORY: -MULTIPLE SURGERIES FOR MELANOMA, AND LYMPH NODE EXCISIONS -LEFT NECK -REMOVAL OF BENIGN SKIN LESION 04/2018 -LITHOTRIPSY -LEFT SHOULDER SURGERY -APPENDECTOMY -TONSILLECTOMY -HIATAL HERNIA REPAIR Physical Exam Vital Signs Vital Signs - First Documented 07/05/22 07/05/22 12:59 13:50 Temp 38.1 Pulse 101 Resp 25 B/P (MAP) 145/103 (117) Pulse Ox 95 O2 Delivery Room Air O2 Flow Rate 2.00 Capillary Refill : Less Than 3 Seconds Height/Weight/BMI Height: 6'4.00" Weight: 275lbs. 0.0oz. 124.726230qv; 41.00 BMI Method:Stated General Appearance: WD/WN, no apparent distress HEENT: PERRL/EOMI, pharynx normal Neck: full range of motion, supple Respiratory: lungs clear, normal breath sounds Cardiovascular: no murmur, tachycardia Gastrointestinal: soft, other (Inguinal hernia left canal noted. He has a large portion of bowel down into the scrotum. I am unable to reduce this despite different positioning and direct pressure. There are bowel sounds within the hernia.) Extremities: non-tender, normal inspection Back: normal inspection, no CVA tenderness, no vertebral tenderness Neurologic/Psychiatric: alert, oriented x 3 Skin: normal color, warm/dry Focused Exam Lactate Level 07/05/22 13:20: Lactic Acid Level 1.29 Lactic Acid Level Laboratory Tests Test 07/05/22 13:20 Lactic Acid Level 1.29 MMOL/L (0.50-2.00) Progress/Results/Core Measures Results/Orders Lab Results Laboratory Tests Test 07/05/22 13:20 07/05/22 13:25 Range/Units White Blood Count 6.8 4.3-11.0 10^3/uL Red Blood Count 4.92 4.30-5.52 10^6/uL Hemoglobin 14.4 13.3-17.7 g/dL Hematocrit 45 40-54 % Mean Corpuscular Volume 92 80-99 fL Mean Corpuscular Hemoglobin 29 25-34 pg Mean Corpuscular Hemoglobin Concent 32 32-36 g/dL Red Cell Distribution Width 13.4 10.0-14.5 % Platelet Count 190 130-400 10^3/uL Mean Platelet Volume 10.3 9.0-12.2 fL Immature Granulocyte % (Auto) 0 % Neutrophils (%) (Auto) 85 H 42-75 % Lymphocytes (%) (Auto) 6 L 12-44 % Monocytes (%) (Auto) 6 0-12 % Eosinophils (%) (Auto) 2 0-10 % Basophils (%) (Auto) 0 0-10 % Neutrophils # (Auto) 5.8 1.8-7.8 10^3/uL Lymphocytes # (Auto) 0.4 L 1.0-4.0 10^3/uL Monocytes # (Auto) 0.4 0.0-1.0 10^3/uL Eosinophils # (Auto) 0.2 0.0-0.3 10^3/uL Basophils # (Auto) 0.0 0.0-0.1 10^3/uL Immature Granulocyte # (Auto) 0.0 0.0-0.1 10^3/uL Neutrophils % (Manual) 90 % Lymphocytes % (Manual) 8 % Monocytes % (Manual) 2 % Eosinophils % (Manual) 0 % Basophils % (Manual) 0 % Band Neutrophils 0 % Blood Morphology Comment NORMAL Sodium Level 139 135-145 MMOL/L Potassium Level 4.1 3.6-5.0 MMOL/L Chloride Level 106 98-107 MMOL/L Carbon Dioxide Level 23 21-32 MMOL/L Anion Gap 10 5-14 MMOL/L Blood Urea Nitrogen 14 7-18 MG/DL Creatinine 1.15 0.60-1.30 MG/DL Estimat Glomerular Filtration Rate 80 BUN/Creatinine Ratio 12 Glucose Level 94 70-105 MG/DL Lactic Acid Level 1.29 0.50-2.00 MMOL/L Calcium Level 8.6 8.5-10.1 MG/DL Corrected Calcium 8.8 8.5-10.1 MG/DL Total Bilirubin 0.4 0.1-1.0 MG/DL Aspartate Amino Transf (AST/SGOT) 29 5-34 U/L Alanine Aminotransferase (ALT/SGPT) 37 0-55 U/L Alkaline Phosphatase 78 40-136 U/L C-Reactive Protein High Sensitivity 3.81 H 0.00-0.50 MG/DL Total Protein 7.2 6.4-8.2 GM/DL Albumin 3.8 3.2-4.5 GM/DL Influenza Type A (RT-PCR) Not Detected Not Detecte Influenza Type B (RT-PCR) Not Detected Not Detecte SARS-CoV-2 RNA (RT-PCR) Not Detected Not Detecte My Orders Orders - RY JARRELL MD Cbc With Automated Diff (07/05/22 13:23) Comprehensive Metabolic Panel (07/05/22 13:23) Hs C Reactive Protein (07/05/22 13:23) Lactic Acid Analyzer (07/05/22 13:23) Blood Culture (07/05/22 13:23) Influenza A And B By Pcr (07/05/22 13:23) Ondansetron Injection (Zofran Injectio (07/05/22 13:30) Ns Iv 1000 Ml (Sodium Chloride 0.9%) (07/05/22 13:23) Ed Iv/Invasive Line Start (07/05/22 13:23) Ketorolac Injection (Toradol Injection) (07/05/22 13:23) Morphine Injection (Morphine Injection (07/05/22 13:30) Covid 19 Inhouse Test (07/05/22 13:23) Ct Abdomen/Pelvis Wo (07/05/22 13:23) Manual Differential (07/05/22 13:20) Ceftriaxone 1 Gm Pre-Mix (Rocephin 1 Gm (07/05/22 15:23) Metronidazole 500mg/100ml Ivpb (Flagyl 5 (07/05/22 15:30) Medications Given in ED Current Medications Medications Dose Ordered Sig/Tra Route Start Time Stop Time Status Last Admin Dose Admin Morphine Sulfate 5 mg ONCE ONCE IVP 07/05/22 13:30 07/05/22 13:31 DC 07/05/22 13:36 5 MG Ondansetron HCl 4 mg ONCE ONCE IVP 07/05/22 13:30 07/05/22 13:31 DC 07/05/22 13:36 4 MG Vital Signs/I&O 07/05/22 07/05/22 12:59 13:50 Temp 38.1 Pulse 101 Resp 25 B/P (MAP) 145/103 (117) Pulse Ox 95 O2 Delivery Room Air Nasal Cannula O2 Flow Rate 2.00 Blood Pressure Mean: 117 Progress Progress Note : Progress Note Seen and evaluated. IV, labs including CBC, CMP, CRP, blood culture, lactic acid, COVID swab and influenza screen ordered. Ondansetron 4 mg IV, morphine 5 mg IV and normal saline 1 L bolus ordered. Toradol 15 mg IV ordered. We will do CT abdomen and pelvis without contrast as he has contrast allergy per the spouse although not listed on our paperwork. Monitor patient. Differential diagnosis includes incarcerated left inguinal hernia, nonincarcerated hernia, electrolyte abnormality, colitis, other infective including viral gastroenteritis 1420: Patient has was gone to CT. I have reviewed the CT report and do see obvious left inguinal hernia that encompasses large bowel. There is air within the bowel but not outside of the bowel. Question inflammation of the descending colon all on my interpretation. Pending CT report. Labs reviewed and show negative for COVID or flu. White count is normal and CBC is grossly normal overall. Chemistry is grossly normal with slightly elevated CRP at 3.81. Lactic acid is negative at 1.29. Monitor patient. 1509: CT report noted. I did discuss the case with Dr. Dillon, on-call for surgery service. He is recommending admission and and clear liquid diet as well as pain control and requested that we initiate antibiotics. I will go ahead and initiate Rocephin and Flagyl with first dose now. He is asked that I write orders which I have written bridge orders. 1515: All findings and concerns discussed with patient and family who agreed to admission and plan. We will go ahead and give him some Tylenol now for fever and continue IV fluids. Diagnostic Imaging Diagonstic Imaging: CT Plain Films/CT/US/NM/MRI: abdomen, pelvis Comments [facility], [place] NAME: [facility] REC#: [id number] PT STATUS: REG ER : 1975 PHYSICIAN: RY JARRELL MD ADMIT DATE: 07/05/22/ER Draft Date of Exam:07/05/22 CT ABDOMEN/PELVIS WO PROCEDURE: CT abdomen and pelvis without contrast. TECHNIQUE: Multiple contiguous axial images were obtained through the abdomen and pelvis without the use of intravenous contrast. Auto Exposure Controls were utilized during the CT exam to meet ALARA standards for radiation dose reduction. INDICATION: Left inguinal pain. Evaluate for incarcerated inguinal hernia. COMPARISON: Transmission CT from a PET scan performed on 03/22/2018. FINDINGS: The lung bases demonstrate no findings of pneumonia or evidence of edema. There is no pleural or pericardial effusion. Hepatomegaly and hepatic steatosis are present. The gallbladder is nondistended. There is no radiodense stone or evidence of biliary dilatation. The pancreas is normal. The spleen is normal in size. There is no adrenal mass. The kidneys demonstrate no hydronephrosis. There are punctate 1 to 2 mm nonobstructing calculi within each kidney. No stone is evident within the collecting system or within the urinary bladder. There are bilateral inguinal hernias. The larger on the left contains a loop of the sigmoid colon and there is mild induration and fat stranding demonstrated within the hernia sac that could relate to early incarceration. There is no significant thickening of the sigmoid colon or evidence of upstream dilatation to suggest obstruction. The right sided inguinal hernia is unremarkable. There are no findings of free air, free fluid, or intraperitoneal abscess. The aorta is normal in caliber. There are no pathologically enlarged lymph nodes. Alignment of the spine is normal. No acute osseous abnormality is identified. IMPRESSION: 1. Large left-sided inguinal hernia now contains a loop of the sigmoid colon. There is some fat stranding about the hernia sac that could relate to early incarceration. There is no thickening of the loop of colon within the hernia or evidence of upstream dilatation or high-grade obstruction. 2. No acute intraperitoneal process evident. 3. Hepatic steatosis. 4. Tiny nonobstructing renal calculi bilaterally. Dictated on workstation # [id number] Dict: 07/05/22 1415 Trans: 07/05/22 1431 [id number] Interpreted by: BARRON CLARK MD Electronically signed by: Reviewed: Reviewed by Me Departure Communication (Admissions) Time/Spoke to Admitting Phy: 15:09 Impression Primary Impression: Incarcerated left inguinal hernia Disposition: ADMITTED INPATIENT Condition: Stable Admissions Decision to Admit Reason: Admit from ER (General) Decision to Admit/Date: Jul 05, 2022 Time/Decision to Admit Time: 15:09 Departure-Patient Inst. Referrals: [facility] (PCP/Family) Primary Care Physician RY JARRELL MD Jul 05, 2022 13:25
[2022-07-05] MEDS ORDERED: morphine INJ 10 MG/ML 1ML (SYR OR VIAL) IVP ONE (13:30)
[2022-07-05] MEDS ORDERED: ONDANSETRON 4 MG/2 ML (SDV) Z0FRAN IVP ONE (13:30)
[2022-07-05 13:34] LABS: BASOPHILS % (AUTO) 0 % (0-10); EOSINOPHILS # (AUTO) 0.2 10^3/uL (0.0-0.3); EOSINOPHILS % (AUTO) 2 % (0-10); HEMATOCRIT 45 % (40-54); HEMOGLOBIN 14.4 g/dL (13.3-17.7); LYMPHOCYTES # (AUTO) 0.4 10^3/uL (1.0-4.0); LYMPHOCYTES % (AUTO) 6 % (12-44); MEAN CORPUSCULAR HEMOGLOBIN 29 pg (25-34); MEAN CORPUSCULAR HGB CONC 32 g/dL (32-36); MEAN CORPUSCULAR VOLUME 92 fL (80-99); MEAN PLATELET VOLUME 10.3 fL (9.0-12.2); MONOCYTES # (AUTO) 0.4 10^3/uL (0.0-1.0); MONOCYTES % (AUTO) 6 % (0-12); NEUTROPHILS # (AUTO) 5.8 10^3/uL (1.8-7.8); NEUTROPHILS % (AUTO) 85 % (42-75); PLATELET COUNT 190 10^3/uL (130-400); WHITE BLOOD COUNT 6.8 10^3/uL (4.3-11.0)
[2022-07-05 13:44] LABS: ALBUMIN 3.8 GM/DL (3.2-4.5); POTASSIUM 4.1 MMOL/L (3.6-5.0)
[2022-07-05 13:45] LABS: CALCIUM 8.6 MG/DL (8.5-10.1)
[2022-07-05 13:46] LABS: TOTAL PROTEIN 7.2 GM/DL (6.4-8.2)
[2022-07-05 13:48] LABS: BILIRUBIN,TOTAL 0.4 MG/DL (0.1-1.0)
[2022-07-05 13:50] LABS: CREATININE SERUM 1.15 MG/DL (0.60-1.30)
[2022-07-05 14:03] LABS: BAND NEUTROPHILS 0 %; EOSINOPHILS % (MANUAL) 0 %; LYMPHOCYTES % (MANUAL) 8 %; MONOCYTES % (MANUAL) 2 %; NEUTROPHILS % (MANUAL) 90 %
[2022-07-05 14:04] LABS: BASOPHILS % (MANUAL) 0 %; RBC MORPH NORMAL
--- NOTE | 2022-07-05 14:33 | Diagnostic Imaging Report ---
PROCEDURE: CT abdomen and pelvis without contrast. TECHNIQUE: Multiple contiguous axial images were obtained through the abdomen and pelvis without the use of intravenous contrast. Auto Exposure Controls were utilized during the CT exam to meet ALARA standards for radiation dose reduction. INDICATION: Left inguinal pain. Evaluate for incarcerated inguinal hernia. COMPARISON: Transmission CT from a PET scan performed on 03/22/2018. FINDINGS: The lung bases demonstrate no findings of pneumonia or evidence of edema. There is no pleural or pericardial effusion. Hepatomegaly and hepatic steatosis are present. The gallbladder is nondistended. There is no radiodense stone or evidence of biliary dilatation. The pancreas is normal. The spleen is normal in size. There is no adrenal mass. The kidneys demonstrate no hydronephrosis. There are punctate 1 to 2 mm nonobstructing calculi within each kidney. No stone is evident within the collecting system or within the urinary bladder. There are bilateral inguinal hernias. The larger on the left contains a loop of the sigmoid colon and there is mild induration and fat stranding demonstrated within the hernia sac that could relate to early incarceration. There is no significant thickening of the sigmoid colon or evidence of upstream dilatation to suggest obstruction. The right sided inguinal hernia is unremarkable. There are no findings of free air, free fluid, or intraperitoneal abscess. The aorta is normal in caliber. There are no pathologically enlarged lymph nodes. Alignment of the spine is normal. No acute osseous abnormality is identified. IMPRESSION: 1. Large left-sided inguinal hernia now contains a loop of the sigmoid colon. There is some fat stranding about the hernia sac that could relate to early incarceration. There is no thickening of the loop of colon within the hernia or evidence of upstream dilatation or high-grade obstruction. 2. No acute intraperitoneal process evident. 3. Hepatic steatosis. 4. Tiny nonobstructing renal calculi bilaterally. Dictated by: Dictated on workstation # [id number]
[2022-07-05] MEDS ORDERED: cefTRIAXone 1 GM PRE-MIX 50 ML IV STA (15:23)
[2022-07-05] MEDS ORDERED: metroNIDAZOLE 500MG/100ML IVPB 100 ML IV ONE (15:30)
[2022-07-05] MEDS ORDERED: ACETAMINOPHEN 500 MG TAB (TYLENOL) PO STA (15:36)
[2022-07-05 16:00] VITALS: BP 126/75
[2022-07-05] MEDS ORDERED: ONDANSETRON 4 MG/2 ML (SDV) Z0FRAN IVP PRN (16:15)
[2022-07-05] MEDS: NS IV 1000 ML 1,000 ML IV SCH (17:07)
--- NOTE | 2022-07-05 17:22 | Progress Note ---
Standard Progress Note Progress Notes/Assess & Plan Date Seen by a Provider: Jul 05, 2022 Time Seen by a Provider: 17:30 Progress/Assessment & Plan Patient currently being worked up and treated by dr. Smith. Known hx left inguinal hernia and scheduled for repair on 07/15/22. Presented to ED with worse pain in the region. CT shows sigmoid colon likely indicating a sliding inguinal hernia. WBC normal, patient able to eat and having loose BM's. A/P: -will admit and observe and give abx and proper pain control. -will defer definitive management to Luis on wednesday(07/06). Focused Exam Lactate Level 07/05/22 13:20: Lactic Acid Level 1.29 Lactic Acid Level Laboratory Tests Test 07/05/22 13:20 Lactic Acid Level 1.29 MMOL/L (0.50-2.00) FERDINAND MONTES MD Jul 05, 2022 17:22
[2022-07-05 19:25] VITALS: BP 145/90
[2022-07-05] MEDS: metroNIDAZOLE 500MG/100ML IVPB 100 ML IV SCH (22:28)
[2022-07-05] MEDS: morphine INJ 4 MG/ML 1 ML (VIAL/SYRINGE) IVP PRN (22:30)
[2022-07-05 23:46] VITALS: BP 116/73
[2022-07-06] VITALS (13 sets, daily range): BP systolic 121–142; BP diastolic 64–87
[2022-07-06] MEDS: NS IV 1000 ML 1,000 ML IV SCH ×3 (03:05→17:48)
[2022-07-06 05:21] LABS: BASOPHILS % (AUTO) 1 % (0-10); EOSINOPHILS # (AUTO) 0.2 10^3/uL (0.0-0.3); EOSINOPHILS % (AUTO) 4 % (0-10); HEMATOCRIT 40 % (40-54); HEMOGLOBIN 12.5 g/dL (13.3-17.7); LYMPHOCYTES # (AUTO) 0.7 10^3/uL (1.0-4.0); LYMPHOCYTES % (AUTO) 17 % (12-44); MEAN CORPUSCULAR HEMOGLOBIN 29 pg (25-34); MEAN CORPUSCULAR HGB CONC 32 g/dL (32-36); MEAN CORPUSCULAR VOLUME 92 fL (80-99); MEAN PLATELET VOLUME 10.4 fL (9.0-12.2); MONOCYTES # (AUTO) 0.5 10^3/uL (0.0-1.0); MONOCYTES % (AUTO) 14 % (0-12); NEUTROPHILS # (AUTO) 2.5 10^3/uL (1.8-7.8); NEUTROPHILS % (AUTO) 64 % (42-75); PLATELET COUNT 174 10^3/uL (130-400); WHITE BLOOD COUNT 3.9 10^3/uL (4.3-11.0)
[2022-07-06 05:43] LABS: CALCIUM 7.9 MG/DL (8.5-10.1); CREATININE SERUM 0.95 MG/DL (0.60-1.30); POTASSIUM 4.1 MMOL/L (3.6-5.0)
[2022-07-06] MEDS: morphine INJ 4 MG/ML 1 ML (VIAL/SYRINGE) IVP PRN ×3 (05:51→22:30)
[2022-07-06] MEDS: metroNIDAZOLE 500MG/100ML IVPB 100 ML IV SCH ×4 (05:52→22:30)
[2022-07-06] MEDS ORDERED: LISI40TA9 PO (09:27)
[2022-07-06] MEDS ORDERED: IBUP-2473 PO (09:27)
--- NOTE | 2022-07-06 09:41 | Consultation ---
EDGARGORDON 07/06/22 0941: HPI History of Present Illness: HPI/Chief Complaint Patient is a 46-year-old male with b/l inguinal hernias, and a history of HTN, sleep apnea, and GERD that presented to the ED on 07/05/22 with chief complaint of abdominal pain, diarrhea, and vomiting. This is a patient of Dr. Zavala'mark who was scheduled to undergo elective b/l inguinal hernia repair on 07/15. The patient states that that their symptoms first started 07/04 while they were sleeping. They state that they suddenly became nauseous and noticed a large amount of sharp pain in the area of their left inguinal hernia which he reports has increased in size. Since this incident, the patient reports that they were not able to keep any food or liquid down and was having large amounts of diarrhea. This combined with the pain caused them to come to the ED. On ad mission, the patient was given IV fluids, and started on flagyl and rocephin, with morphine for pain control. CT showed that the left inguinal hernia has a portion of the sigmoid colon with some fat stranding. The patient reports that their pain is still currently an 8-9/10, but notes that he is more anxious than in pain. He does report that his nausea is improving and he has been able to keep clears down. He also reports that his diarrhea has improved somewhat and is now passing loose stools. Source: patient, family, old records Exam Limitations: no limitations Date Seen 07/06/22 Attending Physician Center/[facility] PCP Admitting Physician: Alex Dillon MD Attending Physician: Erlinda Zavala DO Referring Physician Date of Admission Jul 05, 2022 at 15:32 Home Medications & Allergies Home Medications Reviewed patient Home Medication Reconciliation performed by pharmacy medication reconciliations trace evidence technician and/or nursing. Patients Allergies have been reviewed. Allergies Allergies Coded Allergies fentanyl (Verified Allergy, Unknown, 05/20/21) iodine (Verified Allergy, Unknown, 07/05/22) Past Hzomwxi-Gggrve-Iemjet Hx Patient Social History Tobacco Use?: No Smoking Status: Never a Smoker Smokeless Tobacco Frequency: Never a User Substance use?: No Alcohol Use?: No Pt feels they are or have been: No Immunizations Up To Date First/Initial COVID19 Vaccinat: NO Second COVID19 Vaccination Cory: NO Tetanus Booster (TDap): Less Than 5 Years Hepatitis A: Yes Hepatitis B: Yes Date of Pneumonia Vaccine: Mar 16, 2014 Seasonal Allergies Seasonal Allergies: No Current Status Advance Directives: No Communicates: Verbally Primary Language: Estonian Preferred Spoken Language: Estonian Is interpretation needed?: No Implanted or Applied Medical D: None Past Medical History Surgeries: Abdominal, Adenoidectomy, Appendectomy, Orthopedic, Renal, Tonsillectomy Sleep Apnea Currently Using CPAP: Yes ("sometimes") Currently Using BIPAP: No Heart Murmur, Hypertension Headaches /Migraines Sexually Transmitted Disease: No HIV/AIDS: No Kidney Stones Gastroesophageal Reflux, Hepatitis, Hiatal Hernia Gout Loss of Vision: Denies Hearing Impairment: Denies Melanoma Did You Recieve Any Treatments: Yes What Type of Treatment Did You: Chemotherapy, Surgical Intervention Anxiety, Depression Blood Disorders: No Adverse Reaction/Blood Tranf: No Family Medical History Reviewed Nursing Family Hx FH: coronary artery disease 19 MOTHER FH: liver cancer 19 FATHER No Pertinent Family Hx PAST SURGICAL HISTORY: -MULTIPLE SURGERIES FOR MELANOMA, AND LYMPH NODE EXCISIONS -LEFT NECK -REMOVAL OF BENIGN SKIN LESION 04/2018 -LITHOTRIPSY -LEFT SHOULDER SURGERY -APPENDECTOMY -TONSILLECTOMY -HIATAL HERNIA REPAIR Review of Systems Constitutional: chills, fever EENTM: No hearing loss, No blurred vision, No double vision Respiratory: No cough, No short of breath Cardiovascular: No chest pain, No palpitations Gastrointestinal: abdominal pain (inguinal hernia L), nausea, vomiting Genitourinary: No dysuria, No hematuria Musculoskeletal: back pain (reports stiff); No joint pain, No muscle pain Skin: hx of skin cancer; No pruritus, No rash Psychiatric/Neurological: Anxiety, Headache; Denies Numbness, Denies Tingling, Denies Weakness Physical Exam Physical Exam Vital Signs Vital Signs - First Documented 07/05/22 07/05/22 12:59 13:50 Temp 38.1 Pulse 101 Resp 25 B/P (MAP) 145/103 (117) Pulse Ox 95 O2 Delivery Room Air O2 Flow Rate 2.00 Capillary Refill : Less Than 3 Seconds Height, Weight, BMI Height: 6'4.00" Weight: 275lbs. 0.0oz. [id number]; 41.44 BMI Method:Stated General Appearance: No Apparent Distress, WD/WN Eyes: Bilateral Eye PERRL HEENT: PERRL/EOMI, Moist Mucous Membranes Neck: Non Tender, Supple Respiratory: Chest Non Tender, Lungs Clear, Normal Breath Sounds, No Accessory Muscle Use, No Respiratory Distress Cardiovascular: Regular Rate, Rhythm, Normal Peripheral Pulses Gastrointestinal: Normal Bowel Sounds, Hernia (b/l inguinal hernia, larger on left, unable to be reduced, bowel sounds present), Tenderness (over left inguinal hernia site) Rectal: Deferred Back: No Vertebral Tenderness Extremity: Normal Capillary Refill, Non Tender, No Calf Tenderness, Pedal Edema (mild b/l edema, pt states chronic) Neurologic/Psychiatric: Alert, Oriented x3 Skin: Normal Color, Warm/Dry Lymphatic: No Adenopathy (cervical) Results Results/Procedures Labs Laboratory Tests 07/05/22 13:20 07/06/22 05:12 Patient resulted labs reviewed. Imaging: Reviewed Imaging Report Assessment/Plan Assessment and Plan Assess & Plan/Chief Complaint Left incarcerated inguinal hernia N/V Diarrhea Anemia HTN Continue IVF Discontinue Rocephin and Flagyl Continue morphine for pain control Switch diet from clears to NPO, schedule for hernia repair Anemia mild, probably dilutional, will track and trend hemoglobin ERLINDA ZAVALA DO 07/06/22 1246: HPI History of Present Illness: HPI/Chief Complaint Surgery asked to consult regarding Diarrhea, abdominal pain and inguinal hernia -incarcerated. HPI per ED: Here with report of bilateral inguinal hernia but left hernia is worse than previous with pain in the left side of his abdomen. He does report nausea, vomiting and diarrhea. Does report fever and chills. States that he has had quite a bit of diarrhea today. He has seen Dr. Zavala and has surgery scheduled for 07/15/2022 for repair. He was instructed to come to the emergency department if things worsen. He states he is here today because they have. He is not vaccinated for COVID or influenza. Denies dysuria. Timing/Duration: 12-24 Hours Severity/Quality: Moderate, Severe Location: LLQ, Other (Left inguinal area) Radiation: LUQ, LLQ Activities at Onset: None Modifying Factors: Improves With Resting Associated Symptoms: No Back Pain, No Chest Pain, No Fever/Chills; Nausea/Vomiting; No Shortness of Air; Swelling/Mass in Abdomen (Left inguinal area and scrotum); No Weakness When I saw pt he was sleeping in bed and appeared comfortable, easily arousable. He is stilling having pain, mostly down in left inguinal area; controlled with pain meds. Worse with movement Past Yxsghku-Bvzljq-Tiynbh Hx Patient Social History Smoking Status: Never a Smoker Substance use?: No Alcohol Use?: No Past Medical History Surgeries: Abdominal (Hiatal hernia, melenoma sx), Adenoidectomy, Appendectomy, Orthopedic, Tonsillectomy Hypertension Loss of Vision: Denies Hearing Impairment: Denies Melanoma Family Medical History FH: coronary artery disease 19 MOTHER FH: liver cancer 19 FATHER Heart Disease, Cancer Review of Systems Constitutional: chills, fever EENTM: No hearing loss, No blurred vision, No double vision Respiratory: No cough, No short of breath Cardiovascular: No chest pain, No palpitations Gastrointestinal: abdominal pain (inguinal hernia L), nausea, vomiting Genitourinary: No dysuria, No hematuria Musculoskeletal: back pain (reports stiff); No joint pain, No muscle pain Skin: hx of skin cancer; No pruritus, No rash Psychiatric/Neurological: Anxiety, Headache; Denies Numbness, Denies Tingling, Denies Weakness Physical Exam Physical Exam General Appearance: No Apparent Distress, Obese Eyes: Bilateral Eye PERRL, Bilateral Eye EOMI HEENT: Pharynx Normal, Moist Mucous Membranes, Other (poor dentition) Neck: Non Tender, Supple Respiratory: Chest Non Tender, Lungs Clear, Normal Breath Sounds, No Accessory Muscle Use, No Respiratory Distress Cardiovascular: Regular Rate, Rhythm, No Murmur, Normal Peripheral Pulses Gastrointestinal: Normal Bowel Sounds, No Organomegaly, Hernia (b/l inguinal hernia, larger on left, unable to be reduced, bowel sounds present), Tenderness (over left inguinal hernia site) Rectal: Deferred Back: No CVA Tenderness, No Vertebral Tenderness Extremity: Normal Capillary Refill, Non Tender, No Calf Tenderness, Pedal Edema (mild b/l edema, pt states chronic) Neurologic/Psychiatric: Alert, Oriented x3 Skin: Normal Color, Warm/Dry Lymphatic: No Adenopathy (cervical) Results Results/Procedures Imaging Date of Exam:07/05/22 CT ABDOMEN/PELVIS WO PROCEDURE: CT abdomen and pelvis without contrast. TECHNIQUE: Multiple contiguous axial images were obtained through the abdomen and pelvis without the use of intravenous contrast. Auto Exposure Controls were utilized during the CT exam to meet ALARA standards for radiation dose reduction. INDICATION: Left inguinal pain. Evaluate for incarcerated inguinal hernia. COMPARISON: Transmission CT from a PET scan performed on 03/22/2018. FINDINGS: The lung bases demonstrate no findings of pneumonia or evidence of edema. There is no pleural or pericardial effusion. Hepatomegaly and hepatic steatosis are present. The gallbladder is nondistended. There is no radiodense stone or evidence of biliary dilatation. The pancreas is normal. The spleen is normal in size. There is no adrenal mass. The kidneys demonstrate no hydronephrosis. There are punctate 1 to 2 mm nonobstructing calculi within each kidney. No stone is evident within the collecting system or within the urinary bladder. There are bilateral inguinal hernias. The larger on the left contains a loop of the sigmoid colon and there is mild induration and fat stranding demonstrated within the hernia sac that could relate to early incarceration. There is no significant thickening of the sigmoid colon or evidence of upstream dilatation to suggest obstruction. The right sided inguinal hernia is unremarkable. There are no findings of free air, free fluid, or intraperitoneal abscess. The aorta is normal in caliber. There are no pathologically enlarged lymph nodes. Alignment of the spine is normal. No acute osseous abnormality is identified. IMPRESSION: 1. Large left-sided inguinal hernia now contains a loop of the sigmoid colon. There is some fat stranding about the hernia sac that could relate to early incarceration. There is no thickening of the loop of colon within the hernia or evidence of upstream dilatation or high-grade obstruction. 2. No acute intraperitoneal process evident. 3. Hepatic steatosis. 4. Tiny nonobstructing renal calculi bilaterally. Dictated by: Dictated on workstation # [id number] Dict: 07/05/22 1415 Trans: 07/05/22 1524 [id number] Interpreted by: BARRON CLARK MD Electronically signed by: BARRON CLARK MD 07/05/22 1524 Assessment/Plan Assessment and Plan Assess & Plan/Chief Complaint Left incarcerated inguinal hernia- with colon in herna Right inguinal hernia N/V Diarrhea HTN Continue IVF, pain control, anti-emetics as needed. Discontinue Rocephin and Flagyl - pt does not have Colitis. I had just recently seen pt in my office and set him up for surgery. We discussed the procedure in detail going over risks and complications not limited to pain, bleeding, infection, scar, damage to bowel and need for further procedure. All questions answered to his satisfaction. Will get consent for Laparoscopic Robotic bilateral inguinal herniarraphy with mesh placement and all other indicated procedures. Supervisory-Addendum Brief Verification & Attestation Participated in pt care: history, MDM, physical Personally performed: exam, history, MDM, supervision of care Care discussed with: Medical Student Procedures: n/a Verification and Attestation of Medical Student E/M Service A medical student performed and documented this service. I then reviewed and verified all information documented by the medical student and made modifications to such information, when appropriate. I personally performed a physical exam, medical decision making and then discussed any differences between the notes and made revisions as necessary to create one note. Erlinda Zavala , 07/06/22 , 12:52 GORDON HERNÁNDEZ Jul 06, 2022 09:41 ERLINDA ZAVALA DO Jul 06, 2022 12:46
[2022-07-06] MEDS ORDERED: LACTATED RINGERS 1,000 ML IV PRN (12:15)
[2022-07-06] MEDS ORDERED: BUP/EPI 0.5% 1:200,000 (SENSORCAINE) 30 ML VIAL ONE (12:42)
[2022-07-06] MEDS ORDERED: fentaNYL INJ 100 MCG/2 ML AMP ONE (12:54)
[2022-07-06] MEDS ORDERED: MIDAZOLAM 2 MG/2 ML (VERSED) VIAL ONE (12:54)
[2022-07-06] MEDS ORDERED: SEVOFLURANE (ULTANE) 15 ML INHAL SOLN ONE ×2 (12:54→16:20)
[2022-07-06] MEDS ORDERED: ONDANSETRON 4 MG/2 ML (SDV) Z0FRAN ONE (12:54)
[2022-07-06] MEDS ORDERED: proPOfol 200 MG/20 ML (DIPRIVAN) VIAL IV ONE (12:54)
[2022-07-06] MEDS ORDERED: LIDOCAINE PF 2% 5 ML (XYLOCAINE) VIAL ONE (12:54)
[2022-07-06] MEDS ORDERED: ROCURONIUM 50 MG/5 ML (ZEMURON) VIAL IV ONE (14:18)
[2022-07-06] MEDS ORDERED: cefTRIAXone 1 GM PRE-MIX 50 ML IV SCH (15:00)
[2022-07-06] MEDS ORDERED: HYDROmorphone 2 MG/ML VIAL (DILAUDID) ONE (15:17)
[2022-07-06] MEDS ORDERED: NEOSTIGMINE (BLOXIVERZ ) 1 MG/1ML 10 ML VIAL ONE (16:01)
[2022-07-06] MEDS ORDERED: GLYCOPYRROLATE 0.2 MG/ML (ROBINUL) 2 ML VIAL ONE (16:01)
--- NOTE | 2022-07-06 16:43 | Progress Note-Post Operative ---
Post-Operative Progess Note Surgeon (s)/Hotel And Dining Room Cashier (s) Surgeon ERLINDA ZAVALA DO Hotel And Dining Room Cashier: Faizan Pre-Operative Diagnosis Incarcerated Left Inguinal Hernia, right inguinal hernia Post-Operative Diagnosis same plus B/L cord lipoma Procedure & Operative Findings Date of Procedure 07/06/22 Procedure Performed/Findings Left open Inguinal herniarraphy with mesh placement Laparoscopic right inguinal herniarraphy with mesh placement - Robotic Excision of B/L cord lipoma After informed consent was obtained, the patient was brought to the operating room and placed on the operating table in a supine position. He was sterilely prepped and draped in a normal fashion. Local lidocaine was used to infiltrate the skin above the umbilicus. I made an incision with #11 blade, carried down to the skin into subcutaneous tissue and then deepened down the subcutaneous tissue with Bovie electrocautery down to the fascia. Fascia was incised with Bovie electrocautery and bluntly entered the abdomen, swept a finger around, placed 0 Vicryl [id number] suture and placed limited trocar port under direct visualization. Created pneumoperitoneum, able to visualize the hernia and took a picture of this and then placed two 8 mm ports about 10 cm on either side of the midline port using a local lidocaine, 11 blade for stab incision and then advanced the robotic port under direct visualization. Once this was in, I then placed the patient in Trendelenburg and then placed the working instruments, the fenestrated bipolar and the scissors. Looked on the left side and saw incarcerated left inguinal hernia with sigmoid colon in the hernia. I could see an indirect hernia defect on the right side. First attempted to reduce the hernia on the left, but was unsuccessful. Elected to do right side laparoscopically and then left side open. Next, I came across the peritoneum approximately 8 cm away from the hernia defect, going across laterally starting lateral about 17cm and cutting toward the median umbilical ligament. I then carefully dissected the visceral peritoneum away and down and then in the midline, went through the parietal side and dissected down to the pubic tubercle, dissecting this down carefully pushing the peritoneum away, I was able to then visualize the pubic tubercle and Jarrell's ligament. I went 2 cm posterior and at this point, we then had a critical view of the dissection, able to dissect 2 cm across the midline to the right side, 2 cm posterior to the Jarrell's ligament, able to then parietalize the vas deferens and spermatic vessels right at the groove between Jarrell's and iliac vein and able to dissect, make sure there was no peritoneum between those two, able to see the indirect hernia space, took a picture of this, looked at the femoral space (no hernia seen). Then I carefully teased out the hernia sac and could visualize the indirect hernia space. Next I looked on the cord and cord structures. There was a small cord lipoma that I was able to reduce and cut off. This was then removed throught the port to get it out of the peritoneal space. I could clearly see the inguinal canal and the indirect space. Next I carried the posterior lateral dissection all the way out and then placed a 12 x 17 [place] Bard 3DMax mesh. It laid in nicely, covered the hernia defect and the rest of the area. It was above the peritoneum, sutured it at the pubic tubercle with a 3-0 Vicryl suture and tied this off. This appeared to lay in very nicely. I then brought down the pneumoperitoneum to about 8 mmHg and then started closing the peritoneum. Started laterally and used a 2-0 V-lock barbed suture to start a running stitch to close the peritoneum. This was closed nicely, took a picture of the closure at this point, then removed both needles had switched to a suture star route mail driver from the scissors. The patient was then placed back supine and robot was undocked. Started the open left inguinal hernia repair. Incision was made and cautery used to dissect down to the external oblique, which was then opened down through the external ring. The hernia was very large, firm and could feel the Sigmoid colon. Elected to open the hernia sac to remove the sigmoid colon and then pushed it back into the abdomen. The spermatic cord was then dissected around. A [place] drain was placed around it and there was no direct defect present. The indirect hernia sac was then dissected off of spermatic cord. The hernia sac was then twisted and suture ligated. Removed a large cord lipoma from this left side and passed off the table. Using ProGrip mesh, this was secured at Jarrell's ligament and then incorporated around the spermatic cord and placed under the external oblique. Hemostasis was achieved. The external oblique was then closed recreating the external ring and then the subcutaneous tissues were then reapproximated using 3-0 Vicryl and skin was then closed using 4-0 Monocryl in a subcuticular fashion. The abdomen was then washed and dried and Skin Affix was placed over the incision. I then placed the camera back into the abdomen and could see the repair on the left had completely reduced the sigmoid colon and defect appeared ligated and closed. Finally removed all ports under direct visualization, allowed pneumoperitoneum to escape and then closed the supraumbilical incision, closing the fascia with 0 Vicryl suture previously placed. Copiously irrigated all incisions and then closed the two small 8 mm incisions with two interrupted 4-0 undyed Monocryl subcuticular stitches and closed the supraumbilical incision with three interrupted undyed Monocryl subcuticular stitch. Area was cleaned and dried. Dermabond was placed. The patient tolerated the procedure. The sponge, instrument and needle counts were correct at the end of the case. Dr. Gloria assisted during this surgery by making incisions, closing incisions, helping to identify anatomy and passing/retrieving suture and needles. Anesthesia Type GET Estimated Blood Loss Estimated blood loss (mL): less than 15ml Specimens/Packing Specimens Removed B/L cord lipoma ERLINDA ZAVALA DO Jul 06, 2022 16:42
[2022-07-06] MEDS ORDERED: ONDANSETRON 4 MG/2 ML (SDV) Z0FRAN IVP PRN (16:45)
[2022-07-06] MEDS ORDERED: morphine INJ 10 MG/ML 1ML (SYR OR VIAL) IVP ONE (16:45)
[2022-07-06] MEDS ORDERED: MEPERIDINE (DEMEROL) INJ 50 MG/ML IVP ONE (16:45)
[2022-07-07] MEDS: morphine INJ 4 MG/ML 1 ML (VIAL/SYRINGE) IVP PRN ×2 (03:45→08:55)
[2022-07-07 03:46] VITALS: BP 126/74
[2022-07-07] MEDS: metroNIDAZOLE 500MG/100ML IVPB 100 ML IV SCH (06:00)
[2022-07-07] MEDS: NS IV 1000 ML 1,000 ML IV SCH (06:00)
[2022-07-07 07:35] VITALS: BP 126/67
--- NOTE | 2022-07-07 08:45 | Progress Note - Surgery ---
IBRAHIMMARLA 07/07/22 0845: Subjective Subjective/Events-last exam Pt was seen lying flat at the initiation of the encounter, he was visibly frustrated, and was seen entangled in his IV/gown, with the monitor beeping due to occlusion of the line. He said he wasnt notified that his breakfast had been brought in and that he wanted to get out because he would get better help at home. He denied any new onset of SOB, headache, chest pain, swelling, nausea, vomiting, and hasnt had a BM yet although he has been able to urinate fine. He reports having felt some fever, but doesn't feel ill or any abnormal myalgias. He currently rates his incisions sites pain as an 8/10. Nothing appears inflamed or edematous. Focused Exam Lactate Level 07/05/22 13:20: Lactic Acid Level 1.29 Respiratory: Chest Non Tender, Lungs Clear, Normal Breath Sounds, No Accessory Muscle Use, No Respiratory Distress Cardiovascular: Regular Rate, Rhythm, No Edema, No Murmur, Normal Peripheral Pulses Skin: normal color, warm/dry, ecchymosis Objective Exam Vital Signs Date Time Temp Pulse Resp B/P (MAP) Pulse Ox O2 Delivery O2 Flow Rate FiO2 07/07/22 07:35 36.7 81 18 126/67 (86) 90 Room Air 07/07/22 03:46 36.8 84 18 126/74 (91) 92 Nasal Cannula 2.00 07/06/22 23:27 36.6 79 18 133/75 (94) 93 Nasal Cannula 3.00 3.00 07/06/22 21:25 95 Nasal Cannula 3.00 07/06/22 20:33 36.6 75 18 133/80 (97) 94 Nasal Cannula 6.00 07/06/22 20:00 Nasal Cannula 6.00 07/06/22 17:38 36.8 79 16 128/74 (92) 92 OxyMask 6.00 07/06/22 17:30 OxyMask 5.00 07/06/22 17:30 36.6 18 132/85 (101) 93 OxyMask 6.00 07/06/22 17:20 18 128/83 (98) 93 OxyMask 6.00 07/06/22 17:19 OxyMask 5.00 07/06/22 17:15 OxyMask 5.00 07/06/22 17:10 18 142/87 (105) 94 OxyMask 5.00 07/06/22 17:05 Non Rebreather 10.00 07/06/22 17:00 18 141/82 (101) 96 Non Rebreather 10.00 07/06/22 16:57 Non Rebreather 10.00 07/06/22 16:52 Non Rebreather 10.00 07/06/22 16:50 18 135/85 (102) 93 Non Rebreather 10.00 07/06/22 16:45 Non Rebreather 10.00 07/06/22 16:40 18 127/80 (96) 93 Face Tent 10.00 07/06/22 16:35 Non Rebreather 10.00 07/06/22 16:35 36.4 18 129/64 (85) 93 Face Tent 10.00 07/06/22 11:53 37.3 75 18 127/73 (91) 95 Room Air I & O 07/07/22 07:00 Intake Total 1445 ml Output Total 2200 ml Balance -755 ml Capillary Refill : Less Than 3 Seconds General Appearance: No Apparent Distress, Obese HEENT: Moist Mucous Membranes, Other (poor dentition) Neck: Non Tender, Supple Respiratory: Chest Non Tender, Lungs Clear, Normal Breath Sounds, No Accessory Muscle Use, No Respiratory Distress Cardiovascular: Regular Rate, Rhythm, No Murmur, Normal Peripheral Pulses Gastrointestinal: soft, other (Inguinal hernia left canal noted. He has a large portion of bowel down into the scrotum. I am unable to reduce this despite different positioning and direct pressure. There are bowel sounds within the hernia.) Extremity: Normal Capillary Refill, Non Tender, No Calf Tenderness, Pedal Edema (mild b/l edema, pt states chronic) Neurologic/Psychiatric: Alert, Oriented x3 Skin: Normal Color, Warm/Dry, Ecchymosis Lymphatic: No Adenopathy (cervical) Results Lab Microbiology 07/05/22 Blood Culture - Preliminary, Resulted No growth Assessment/Plan Assessment/Plan Admission Diagonsis Left incarcerated inguinal hernia, Right inguinal hernia Assessment/Plan Left incarcerated inguinal hernia, Right inguinal hernia * Defects corrected/ hernias reduced * Incision sites bruised with no inflammation/edema/puss * Continue IVF * Continue Rocephin Anemia mild * continue to monitor trends SHAY SMITH DO 07/07/22 1412: Subjective Time Seen by a Provider: 11:09 Subjective/Events-last exam Pt seen and examined, states pain is ok and he would like to go home. Review of Systems Pulmonary: No Dyspnea, No Cough Cardiovascular: No: Chest Pain, Palpitations Gastrointestinal: Abdominal Pain; No: Nausea, Vomiting Objective Exam General Appearance: No Apparent Distress, Obese HEENT: Moist Mucous Membranes, Other (poor dentition) Respiratory: Chest Non Tender, Lungs Clear, Normal Breath Sounds, No Accessory Muscle Use, No Respiratory Distress Cardiovascular: Regular Rate, Rhythm Gastrointestinal: soft, other (incisions c/d/I) Neurologic/Psychiatric: Alert, Oriented x3 Skin: Ecchymosis Assessment/Plan Assessment/Plan Assessment/Plan S/P Laparoscopic RIH repair and open LIH repair D/C IV and D/C home, with pain meds and instructions Supervisory-Addendum Brief Verification & Attestation Participated in pt care: history, MDM, physical Personally performed: exam, history, MDM, supervision of care Care discussed with: Medical Student Procedures: n/a Verification and Attestation of Medical Student E/M Service A medical student performed and documented this service. I then reviewed and verified all information documented by the medical student and made modifications to such information, when appropriate. I personally performed a physical exam, medical decision making and then discussed any differences between the notes and made revisions as necessary to create one note. Shay Smith , 07/07/22 , 14:12 MARLA IBRAHIM Jul 07, 2022 08:45 SHAY SMITH DO Jul 07, 2022 14:12
[2022-07-07 11:17] VITALS: BP 137/83
[2022-07-07] MEDS ORDERED: ACHYD1T PO (11:48)
--- NOTE | 2022-07-07 11:49 | Discharge Inst-Surgical ---
Discharge Inst-Surgical Depart Medication/Instructions New, Converted or Re-Newed RX: Transmitted to Pharmacy Patient Instructions Follow up Appt: Make appointment for 1 week. [phone] Instructions: No lifting greater than 20 pounds. No strenuous activity. May shower in 24 hours, no tub bath or soaking. Use incentive spirometer at home as directed. No Smoking Skin/Wound Care: May remove bandages in am. You need to leave the Dermabond on incision it will fall off on it's own. Symptoms to Report: Appetite Changes, Extremity Discoloration, Numbness/Tingling, Swelling Increased, Bleeding Excessive, Eyesight Changes, Pain Increased, Urine Color Change, Constipation(Persistent), Fever over 101 degree F, Pain/Pressure in chest, Urinating Difficulty, Cough Up/Vomit Blood, Heart Beat Irreg/Pounding, Pain/Pressure in jaw, Cramps in feet or legs, Lightheadedness, Pain/Pressure in shoulder, Diarrhea(Persistent), Memory Changes Suddenly, Questions/Concerns, Weight gain consecutive days, Dizziness/Fainting, Nausea/Vomiting, Shortness of Breath, Weight gain over 2 pounds If questions or concerns contact your physician Or seek help at emergency department. Activity Activity as Tolerated: Yes Activity Instructions: Avoid Stress to Incision Driving Instructions: No Driving/Refer to Dr. Prado Discharge Diet: No Restrictions Diet After 24 Hours: Clear Liquid if Nauseous If Any Problems/Questions/Issu: Contact Your Physician, Go to Emergency Room Skin/Wound Care Infection Signs and Symptoms: Increased Redness, Foul Odor of Wound, Increased Drainage, Skin Itchy or Has a Rash, Increased Swelling, Temperature Above 101 F Bathing Instructions: Shower Stitches/[place]/Dermabond Dis: ERLINDA Damon DO Jul 07, 2022 11:49
[2022-07-07 13:25] VITALS: BP 137/83
== END 2022-07-07 14:45 | disposition home or self-care (01) | DRG 351 ==
LOC: EDUNIT# 12:53 → ER 12:54 → 4TH 15:32
PROVIDERS: ADMIT Surgery; ATTEND Surgery
PROC: 0YU54JZ Supplement Right Inguinal Region with Synthetic Substitute, Percutaneous Endoscopic Approach (ICD-10-PCS; 2022-07-06)
PROC: 0JB80ZZ Excision of Abdomen Subcutaneous Tissue and Fascia, Open Approach (ICD-10-PCS; 2022-07-06)
PROC: 0YU60JZ Supplement Left Inguinal Region with Synthetic Substitute, Open Approach (ICD-10-PCS; principal; 2022-07-06 13:22)
DX: K40.00 Bilateral inguinal hernia, with obstruction, without gangrene, not specified as recurrent (principal); Z68.41 Body mass index [BMI] 40.0-44.9, adult; D17.79 Benign lipomatous neoplasm of other sites; D64.9 Anemia, unspecified; Z28.310 Unvaccinated for COVID-19; Z79.899 Other long term (current) drug therapy; M10.9 Gout, unspecified; I10 Essential (primary) hypertension; G43.909 Migraine, unspecified, not intractable, without status migrainosus; K21.9 Gastro-esophageal reflux disease without esophagitis; E66.9 Obesity, unspecified; F41.9 Anxiety disorder, unspecified; F32.A Depression, unspecified; Z92.21 Personal history of antineoplastic chemotherapy
CPT/HCPCS: 36415; 74176; 80048; 80053; 83605; 85007; 85025; 85027; 86141; 87040; 87081; 87636

== ENCOUNTER → 2022-07-06 | Outpatient (CLI) | payer MEDICARE ==
[~2022-07-06] MED LIST changes: +ACHYD1T PO; +IBUP-2473 PO; +LISI40TA9 PO
--- NOTE | 2022-07-07 09:18 | Anesthesia-General Post-Op ---
General Patient Condition Mental Status/LOC: Same as Preop Cardiovascular: Satisfactory Nausea/Vomiting: Absent Respiratory: Satisfactory Pain: Controlled Complications: Absent Post Op Complications Complications None Follow Up Care/Instructions Patient Instructions None needed. Anesthesia/Patient Condition Patient Condition Patient is doing well, no complaints, stable vital signs, no apparent adverse anesthesia problems. No complications reported per nursing. MP MORGAN CRNA Jul 07, 2022 09:18
== END | disposition home or self-care (01) ==
LOC: PREOP 08:30
PROVIDERS: ATTEND Surgery
DX: Z01.818 Encounter for other preprocedural examination (principal)

== ENCOUNTER 2022-12-02 11:03 | Emergency (ER) | payer MEDICARE, MEDICAID ==
[~2022-12-02] VITALS: Ht 190.5 cm; Wt 142.8 kg
--- NOTE | 2022-12-02 11:27 | ED Lower Extremity ---
General Stated Complaint: SWOLLEN FEET, LT KNEE LOCKED UP, LOWER BACK PAIN Source: patient Exam Limitations: no limitations (ANNA JONES) History of Present Illness Date Seen by Provider: Dec 02, 2022 Time Seen by Provider: 11:24 Initial Comments Patient is a 46-year-old male with a history of hypertension who presents ED with bilateral leg pain swelling. Pain is worse on his left leg with swelling. Patient states he had symptoms a few weeks ago. Patient Was seen at [facility] for bilateral ankle and feet swelling. Was placed on Keflex for 10 days with some improvement. The swelling increased over the past 3 days. Reports pain in his left leg with increasing swelling. Does have swelling in the right leg as well. Reports pain to the left side upper back that shoots down into the left leg. Difficulty ambulating flexing the left knee. States it feels like his left knee wants to give out. States a few weeks ago he was outside and cut up his feet from brush which they were concerned for potential infection. Denies any fever, chills, nausea, vomiting, diarrhea, headache, dizziness, redness, shortness of breath, chest pain. No history of kidney disease or CHF. Denies any drug use. Patient has been taken ibuprofen without much improvement. History of joint infections. (ANNA JONES) Allergies and Home Medications Allergies Coded Allergies: fentanyl (Verified Allergy, Unknown, 05/20/21) iodine (Verified Allergy, Unknown, 07/05/22) Patient Home Medication List Home Medication List Reviewed: Yes (ANNA JONES) Clindamycin HCl (Clindamycin HCl) 300 Mg Capsule, 300 MG PO QID Prescribed by: MAGNOLIA DUONG on 12/02/22 1250 Hydrocodone Bit/Acetaminophen (HYDROcodone/APAP 10/325 TABLET) 1 Ea Tab, 1 TAB PO Q6H Prescribed by: ERLINDA ZAVALA on 07/07/22 1149 Hydrocodone/Acetaminophen (Hydrocodone-Acetamin 5-325 mg) 5 Mg-325 Mg Tablet, 1 TAB PO Q4H PRN for PAIN-MODERATE (5-7) Prescribed by: MAGNOLIA DUONG on 12/02/22 1304 Ibuprofen (Ibuprofen) 200 Mg Tablet, 400 MG PO Q8H PRN for PAIN-MILD (1-4), (Reported) Entered as Reported by: ALCIRA FARIA on 07/06/22926 Indomethacin (Indomethacin) 50 Mg Capsule, 50 MG PO TID Prescribed by: MAGNOLIA DUONG on 12/02/22 1229 Lisinopril (Lisinopril) 40 Mg Tablet, 40 MG PO DAILY, (Reported) Entered as Reported by: ALCIRA FARIA on 07/06/22926 Prednisone (Prednisone) 20 Mg Tab, 40 MG PO DAILY Prescribed by: MAGNOLIA DUONG on 12/02/22 1229 Discontinued Medications Sulfamethoxazole/Trimethoprim (Bactrim Ds Tablet) 800 Mg-160 Mg Tablet, 1 EACH PO BID Prescribed by: MAGNOLIA DUONG on 12/02/22 1249 Review of Systems Constitutional: No diaphoresis, No malaise, No weakness EENTM: No ear pain, No double vision Respiratory: No cough, No dyspnea on exertion Cardiovascular: No palpitations Gastrointestinal: No abdominal pain, No diarrhea, No nausea, No vomiting Genitourinary: No decreased output, No discharge Musculoskeletal: No back pain; joint pain, joint swelling, muscle pain Skin: change in color (ANNA JONES) All Other Systems Reviewed Negative Unless Noted: Yes (ANNA JONES) Past Sirlfwk-Bgpmxc-Wcrqzv Hx Immunizations Up To Date Tetanus Booster (TDap): Less than 5yrs First/Initial COVID19 Vaccinat: NO Second COVID19 Vaccination Cory: NO Third COVID19 Vaccination Date: NO (ANNA JONES) Seasonal Allergies Seasonal Allergies: No (ANNA JONES) Past Medical History Surgery/Hospitalization HX: skin ca and gout and htn Surgeries: Yes (removal of 2 lesions to right and left groin, L shoulder; ESWL;HIATAL HERNIA) Abdominal, Adenoidectomy, Appendectomy, Orthopedic, Renal, Tonsillectomy Respiratory: Yes Sleep Apnea Currently Using CPAP: Yes ("sometimes") Currently Using BIPAP: No Cardiac: Yes Heart Murmur, Hypertension Neurological: Yes Headaches /Migraines Reproductive Disorders: No Sexually Transmitted Disease: No HIV/AIDS: No Genitourinary: Yes Kidney Stones Gastrointestinal: Yes (HEP C-TX WITH INTERFERON) Gastroesophageal Reflux, Hepatitis, Hiatal Hernia Musculoskeletal: Yes (CHRONIC PAIN; PSUEDOGOUT--CALCIUM PYROPHOSPHATE FOUND IN SYNOVIAL FLUID) Gout Endocrine: Yes (BOESITY) HEENT: No Loss of Vision: Denies Hearing Impairment: Denies Cancer: Yes (stage 4 melanoma skin cancer) Melanoma Did You Recieve Any Treatments: Yes What Type of Treatment Did You: Chemotherapy, Surgical Intervention Psychosocial: Yes Anxiety, Depression Integumentary: Yes (multiple lesion removals for melanoma,stage 4 melanoma) Blood Disorders: No Adverse Reaction/Blood Tranf: No (ANNA JONES) Family Medical History FH: coronary artery disease 19 MOTHER FH: liver cancer 19 FATHER No Pertinent Family Hx PAST SURGICAL HISTORY: -MULTIPLE SURGERIES FOR MELANOMA, AND LYMPH NODE EXCISIONS -LEFT NECK -REMOVAL OF BENIGN SKIN LESION 04/2018 -LITHOTRIPSY -LEFT SHOULDER SURGERY -APPENDECTOMY -TONSILLECTOMY -HIATAL HERNIA REPAIR (ANNA JONES) Physical Exam Vital Signs Vital Signs - First Documented 12/02/22 11:11 Temp 37.2 Pulse 99 Resp 16 B/P (MAP) 157/112 (127) Pulse Ox 96 O2 Delivery Room Air (PRESTON IVERSON MD) Vital Signs Capillary Refill : (ANNA JONES) Height, Weight, BMI Height: 6'4.00" Weight: 275lbs. 0.0oz. 124.060596td; 41.44 BMI Method:Stated General Appearance: WD/WN, no apparent distress HEENT: PERRL/EOMI, normal ENT inspection, TMs normal, pharynx normal Neck: non-tender, full range of motion, supple Cardiovascular: no edema, no gallop, no JVD, tachycardia Respiratory: chest non-tender, lungs clear, normal breath sounds, no r espiratory distress, no accessory muscle use Gastrointestinal: normal bowel sounds, non tender, soft, no organomegaly Back: normal inspection, no CVA tenderness Hips: bilateral hip non-tender, bilateral hip normal inspection, bilateral hip normal range of motion Legs: left leg limited range of motion; bilateral leg soft tissue tenderness, bilateral leg swelling, bilateral leg other (Cap refill less than 2 bilateral lower extremities, dorsalis pedis +2.) Knees: left knee other (Limited passive range of motion left knee. Anterior knee tenderness. 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 Localized redness to the abrasions) (ANNA JONES) Progress/Results/Core Measures Results/Orders Lab Results Laboratory Tests Test 12/02/22 11:27 Range/Units White Blood Count 9.9 4.3-11.0 10^3/uL Red Blood Count 4.30 4.30-5.52 10^6/uL Hemoglobin 12.6 L 13.3-17.7 g/dL Hematocrit 39 L 40-54 % Mean Corpuscular Volume 92 80-99 fL Mean Corpuscular Hemoglobin 29 25-34 pg Mean Corpuscular Hemoglobin Concent 32 32-36 g/dL Red Cell Distribution Width 13.4 10.0-14.5 % Platelet Count 246 130-400 10^3/uL Mean Platelet Volume 10.7 9.0-12.2 fL Immature Granulocyte % (Auto) 0 % Neutrophils (%) (Auto) 77 H 42-75 % Lymphocytes (%) (Auto) 12 12-44 % Monocytes (%) (Auto) 9 0-12 % Eosinophils (%) (Auto) 1 0-10 % Basophils (%) (Auto) 0 0-10 % Neutrophils # (Auto) 7.7 1.8-7.8 10^3/uL Lymphocytes # (Auto) 1.2 1.0-4.0 10^3/uL Monocytes # (Auto) 0.8 0.0-1.0 10^3/uL Eosinophils # (Auto) 0.1 0.0-0.3 10^3/uL Basophils # (Auto) 0.0 0.0-0.1 10^3/uL Immature Granulocyte # (Auto) 0.0 0.0-0.1 10^3/uL Erythrocyte Sedimentation Rate 18 H 0-15 MM/HR Sodium Level 138 135-145 MMOL/L Potassium Level 4.2 3.6-5.0 MMOL/L Chloride Level 104 98-107 MMOL/L Carbon Dioxide Level 23 21-32 MMOL/L Anion Gap 11 5-14 MMOL/L Blood Urea Nitrogen 13 7-18 MG/DL Creatinine 1.01 0.60-1.30 MG/DL Estimat Glomerular Filtration Rate 94 BUN/Creatinine Ratio 13 Glucose Level 100 70-105 MG/DL Lactic Acid Level 1.57 0.50-2.00 MMOL/L Uric Acid 8.3 H 2.6-7.2 MG/DL Calcium Level 9.4 8.5-10.1 MG/DL Corrected Calcium 9.5 8.5-10.1 MG/DL Total Bilirubin 0.9 0.1-1.0 MG/DL Aspartate Amino Transf (AST/SGOT) 16 5-34 U/L Alanine Aminotransferase (ALT/SGPT) 19 0-55 U/L Alkaline Phosphatase 85 40-136 U/L C-Reactive Protein High Sensitivity 7.74 H 0.00-0.50 MG/DL Total Protein 8.0 6.4-8.2 GM/DL Albumin 3.9 3.2-4.5 GM/DL (PRESTON IVERSON MD) Medications Given in ED Current Medications Medications Dose Ordered Sig/Tra Route Start Time Stop Time Status Last Admin Dose Admin Ketorolac Tromethamine 30 mg ONCE ONCE IVP 12/02/22 11:30 12/02/22 11:32 DC 12/02/22 11:36 30 MG Methylprednisolone Sodium Succinate 125 mg ONCE ONCE IVP 12/02/22 11:30 12/02/22 11:32 DC 12/02/22 11:36 125 MG (PRESTON IVERSON MD) Vital Signs/I&O 12/02/22 12/02/22 11:11 13:05 Temp 37.2 Pulse 99 99 Resp 16 16 B/P (MAP) 157/112 (127) 164/99 Pulse Ox 96 96 O2 Delivery Room Air Room Air (PRESTON IVERSON MD) Departure Communication (PCP) Reviewed previous ER visits, H&P, lab testing. Patient was seen here August 2018 and had synovial fluid collected. Found to postive for calcium pyrophosphate. There was no evidence of infection. Patient has been seen here a few different times with similar type pain. Pain started in his right leg and has worked to the left with increasing pain in the left leg with swelling. The swelling started a few weeks ago but improved with antibiotics (keflex) as there was concern for cellulitis. Swelling started again 3 days ago. Patient feels like his left knee wants to give out and lock up. Denies of any draining wounds. On exam does have some areas of localized erythema. There is no erythema or significant swelling of the knees bilateral or the lower extremities suggesting cellulitis. Patient with bilateral lower extremity swelling worse on the left leg. Differential diagnosis, gout, pseudogout, reactive arthritis. History of drug use. Denies of any recent drug use. History of drug use. few of the lesions of the lower extremities concern for infectious etiology. Blood cultures were orded as well lactic. Added CRP and ESR. Hematology was grossly unremarkable. Normal white blood count. CRP elevated 7 with an history of elevated CRP in the past. ESR of 18. Could be more inflammatory than infectious. normal kidney function. Normal lactic acid. He is afebrile. Yulia ent was hypertensive currently on lisinopril. Does have limited range of motion of the left knee secondary to pain. The left knee does not appear to be septic in nature concern for his chronic pseudogout flare. Patient received IV Solu- Medrol and Toradol with improvement of pain. Ultrasounds were ordered for bilateral lower extremity swelling which was negative for DVT. Patient will be discharged with short burst steroids and indomethacin. Will discharge with clindamycin as a few of the areas to lower extremity concern for infectious. Avoid Bactrim since he is currently taking lisinopril. avoid any alcohol consumption's. Avoid meat and seafood consumptions. Avoid any diuretics. If increased redness or swelling fever chills to return back to ED. (ANNA JONES) Impression Primary Impression: Pseudogout involving multiple joints Disposition: 01 HOME, SELF-CARE Condition: Stable Departure-Patient Inst. Decision time for Depature: 12:25 (ANNA JONES) Referrals: [facility] (PCP/Family) Primary Care Physician Patient Instructions: Gout ED Add. Discharge Instructions: Take pain medication as prescribed. Steroids to help with joint swelling. Follow-up your primary care physician 2 to 3 days for reevaluation. Continue monitoring her blood pressure. Scripts Hydrocodone/Acetaminophen (Hydrocodone-Acetamin 5-325 mg) 5 Mg-325 Mg Tablet 1 TAB PO Q4H PRN for PAIN-MODERATE (5-7), #8 TAB Prov: ANNA JONES 12/02/22 Clindamycin HCl (Clindamycin HCl) 300 Mg Capsule 300 MG PO QID for 7 Days, #28 CAP Prov: ANNA JONES 12/02/22 Indomethacin (Indomethacin) 50 Mg Capsule 50 MG PO TID for 5 Days, #15 CAP Prov: ANNA OJNES 12/02/22 Prednisone (Prednisone) 20 Mg Tab 40 MG PO DAILY for 4 Days, #10 TAB Prov: ANNA JONES 12/02/22 ATTENDING PHYSICIAN NOTE: I was physically present as attending physician in the emergency department during the care of this patient, but I was not directly involved in the decision making or delivery of care for this patient. (PRESTON IVERSON MD) ANNA JONES Dec 02, 2022 11:27 PRESTON IVERSON MD Dec 02, 2022 19:46
[2022-12-02] MEDS ORDERED: KETOROLAC INJ 30 MG/ML VIAL IVP ONE (11:30)
[2022-12-02] MEDS ORDERED: methylPREDNISolone INJ 125 MG VIAL IVP ONE (11:30)
[2022-12-02 11:36] LABS: BASOPHILS % (AUTO) 0 % (0-10); EOSINOPHILS # (AUTO) 0.1 10^3/uL (0.0-0.3); EOSINOPHILS % (AUTO) 1 % (0-10); HEMATOCRIT 39 % (40-54); HEMOGLOBIN 12.6 g/dL (13.3-17.7); LYMPHOCYTES # (AUTO) 1.2 10^3/uL (1.0-4.0); LYMPHOCYTES % (AUTO) 12 % (12-44); MEAN CORPUSCULAR HEMOGLOBIN 29 pg (25-34); MEAN CORPUSCULAR HGB CONC 32 g/dL (32-36); MEAN CORPUSCULAR VOLUME 92 fL (80-99); MEAN PLATELET VOLUME 10.7 fL (9.0-12.2); MONOCYTES # (AUTO) 0.8 10^3/uL (0.0-1.0); MONOCYTES % (AUTO) 9 % (0-12); NEUTROPHILS # (AUTO) 7.7 10^3/uL (1.8-7.8); NEUTROPHILS % (AUTO) 77 % (42-75); PLATELET COUNT 246 10^3/uL (130-400); WHITE BLOOD COUNT 9.9 10^3/uL (4.3-11.0)
[2022-12-02 11:45] LABS: ALBUMIN 3.9 GM/DL (3.2-4.5)
[2022-12-02 11:46] LABS: POTASSIUM 4.2 MMOL/L (3.6-5.0)
[2022-12-02 11:47] LABS: CALCIUM 9.4 MG/DL (8.5-10.1)
[2022-12-02 11:50] LABS: BILIRUBIN,TOTAL 0.9 MG/DL (0.1-1.0)
[2022-12-02 11:52] LABS: CREATININE SERUM 1.01 MG/DL (0.60-1.30)
[2022-12-02 11:55] LABS: URIC ACID 8.3 MG/DL (2.6-7.2)
[2022-12-02 12:18] LABS: ERYTHROCYTE SEDIMENTATION RATE 18 MM/HR (0-15)
[2022-12-02] MEDS ORDERED: INDO50CA82 PO ×2 (12:27→12:29)
[2022-12-02] MEDS ORDERED: PRED10TA22 PO (12:27)
[2022-12-02] MEDS ORDERED: PRD20T PO (12:29)
--- NOTE | 2022-12-02 12:39 | Diagnostic Imaging Report ---
PROCEDURE: US Venous Lower Ext Xu. TECHNIQUE: Multiple real-time grayscale images were obtained over the lower extremities in various projections, bilaterally. Additional duplex Doppler and color Doppler images were also obtained. INDICATION: Bilateral leg pain. FINDINGS: Bilateral lower extremity venous system showed normal color flow, normal compressibility and normal waveforms. No deep or superficial thrombus identified. IMPRESSION: Normal negative bilateral lower extremity venous Doppler and ultrasound. Dictated by: Dictated on workstation # [id number]
[2022-12-02] MEDS ORDERED: SULF-221 PO (12:49)
[2022-12-02] MEDS ORDERED: CLIN-144 PO (12:50)
[2022-12-02] MEDS ORDERED: ACHD5005 PO (13:03)
[2022-12-02 13:05] VITALS: BP 164/99
== END 2022-12-02 13:05 | disposition home or self-care (01) ==
LOC: EDUNIT# 11:03 → ER 11:07
DX: S80.812A Abrasion, left lower leg, initial encounter (principal); S80.811A Abrasion, right lower leg, initial encounter; M10.9 Gout, unspecified; R79.82 Elevated C-reactive protein (CRP); G47.30 Sleep apnea, unspecified; E66.9 Obesity, unspecified; I10 Essential (primary) hypertension; Z68.41 Body mass index [BMI] 40.0-44.9, adult; Z99.89 Dependence on other enabling machines and devices; Z28.310 Unvaccinated for COVID-19; Z79.899 Other long term (current) drug therapy; Z88.5 Allergy status to narcotic agent; X58.XXXA Exposure to other specified factors, initial encounter
CPT/HCPCS: 36415; 80053; 83605; 84550; 85025; 85652; 86141; 87040; 93970

== ENCOUNTER 2023-02-16 16:17 | Emergency (ER) | payer MEDICARE, MEDICAID ==
[~2023-02-16] VITALS: Ht 190 cm; Wt 145.0 kg
[~2023-02-16 16:17] MED LIST changes: +CLIN-144 PO; +PRED10TA22 PO; +SULF-221 PO
[2023-02-16 16:19] VITALS: BP 174/105
--- NOTE | 2023-02-16 16:37 | ED Lower Extremity ---
General Chief Complaint: Lower Extremity Stated Complaint: GOUT FLARE UP Nursing Triage Note: PT ARRIVES TO ER VIA EMS FROM HOME. PT C/O GOUT FLARE UP TO R KNEE. PT DOES NOT TAKE ANY MEDICATION FOR HIS GOUT. PT ALSO REPORTS LOW BACK PAIN, HX OF SCIATICA. PT HAS TAKEN TYLENOL AND ADVIL WITHOUT RELIEF OF PAIN. REPORTS HAS BEEN APPLYING ICE TO KNEE. PT HAS A HX OF HTN, HAS NOT TAKEN BP MEDICATION FOR THE PAST SEVERAL DAYS. Source: patient Exam Limitations: no limitations (JENIFFER CARLOS APRN) History of Present Illness Date Seen by Provider: Feb 16, 2023 Time Seen by Provider: 16:23 Initial Comments 47-year-old male presents to the ER with complaint of right knee, right ankle, and bilateral foot pain and swelling. He reports history of gout, states that the swelling and pain has gotten worse over the last 4 days. Reports significant pain, difficulty moving his joints and walking. He reports that he also been told that he has a history of ASO strep that could be the cause of his symptoms. On previous joint aspiration, it showed calcium pyrophosphate which indicates pseudogout. (JENIFFER CARLOS APRN) Allergies and Home Medications Allergies Coded Allergies: fentanyl (Verified Allergy, Unknown, 05/20/21) iodine (Verified Allergy, Unknown, 07/05/22) Patient Home Medication List Home Medication List Reviewed: Yes (JENIFFER CARLOS APRN) Clindamycin HCl (Clindamycin HCl) 300 Mg Capsule, 300 MG PO QID Prescribed by: MAGNOLIA DUONG on 12/02/22 1250 Hydrocodone Bit/Acetaminophen (HYDROcodone/APAP 10/325 TABLET) 1 Ea Tab, 1 TAB PO Q6H Prescribed by: ERLINDA ZAVALA on 07/07/22 1149 Hydrocodone/Acetaminophen (Hydrocodone-Acetamin 5-325 mg) 5 Mg-325 Mg Tablet, 1 TAB PO Q4H PRN for PAIN-MODERATE (5-7) Prescribed by: MAGNOLIA DUONG on 12/02/22 1304 Ibuprofen (Ibuprofen) 200 Mg Tablet, 400 MG PO Q8H PRN for PAIN-MILD (1-4), (Reported) Entered as Reported by: ALCIRA FARIA on 07/06/22 0927 Indomethacin (Indomethacin) 50 Mg Capsule, 50 MG PO TID Prescribed by: MAGNOLIA DUONG on 12/02/22 1229 Lisinopril (Lisinopril) 40 Mg Tablet, 40 MG PO DAILY, (Reported) Entered as Reported by: ALCIRA FARIA on 07/06/22 0927 Oxycodone HCl/Acetaminophen (Percocet 5-325 mg Tablet) 1 Each Tablet, 1 TAB PO Q4H Prescribed by: Jeniffer Eaton on 02/16/232033 Prednisone (Prednisone) 20 Mg Tab, 40 MG PO DAILY Prescribed by: MAGNOLIA DUONG on 12/02/22 1229 Review of Systems Constitutional: see HPI (JENIFFER CARLOS APRN) Past Yeonbfk-Cihoaa-Xhdjdh Hx Patient Social History Tobacco Use?: No Use of E-Cig and/or Vaping dev: No Substance use?: No Alcohol Use?: No Pt feels they are or have been: No (JENIFFER CARLOS APRN) Immunizations Up To Date Tetanus Booster (TDap): Less than 5yrs First/Initial COVID19 Vaccinat: DENIES Second COVID19 Vaccination Cory: NO Third COVID19 Vaccination Date: NO (JENIFFER CARLOS APRN) Seasonal Allergies Seasonal Allergies: No (JENIFFER CARLOS APRN) Past Medical History Surgery/Hospitalization HX: skin ca and gout and htn Surgeries: Yes (removal of 2 lesions to right and left groin, L shoulder;ESWL;H IATAL HERNIA) Abdominal, Adenoidectomy, Appendectomy, Orthopedic, Renal, Tonsillectomy Respiratory: Yes Sleep Apnea Currently Using CPAP: Yes ("sometimes") Currently Using BIPAP: No Cardiac: Yes Heart Murmur, Hypertension Neurological: Yes Headaches /Migraines Reproductive Disorders: No Sexually Transmitted Disease: No HIV/AIDS: No Genitourinary: Yes Kidney Stones Gastrointestinal: Yes (HEP C-TX WITH INTERFERON) Gastroesophageal Reflux, Hepatitis, Hiatal Hernia Musculoskeletal: Yes (CHRONIC PAIN; PSUEDOGOUT--CALCIUM PYROPHOSPHATE FOUND IN SYNOVIAL FLUID) Gout Endocrine: Yes (BOESITY) HEENT: No Loss of Vision: Denies Hearing Impairment: Denies Cancer: Yes (stage 4 melanoma skin cancer) Melanoma Did You Recieve Any Treatments: Yes What Type of Treatment Did You: Chemotherapy, Surgical Intervention Psychosocial: Yes Anxiety, Depression Integumentary: Yes (multiple lesion removals for melanoma,stage 4 melanoma) Blood Disorders: No Adverse Reaction/Blood Tranf: No (JENIFFER CARLOS APRN) Family Medical History FH: coronary artery disease 19 MOTHER FH: liver cancer 19 FATHER No Pertinent Family Hx PAST SURGICAL HISTORY: -MULTIPLE SURGERIES FOR MELANOMA, AND LYMPH NODE EXCISIONS -LEFT NECK -REMOVAL OF BENIGN SKIN LESION 04/2018 -LITHOTRIPSY -LEFT SHOULDER SURGERY -APPENDECTOMY -TONSILLECTOMY -HIATAL HERNIA REPAIR (JENIFFER CARLOS APRN) Physical Exam Vital Signs Vital Signs - First Documented 02/16/23 16:19 Temp 36.7 Pulse 110 Resp 20 B/P (MAP) 174/105 (128) Pulse Ox 93 O2 Delivery Room Air (PRESTON IVERSON MD) Vital Signs Capillary Refill : (JENIFFER CARLOS APRN) Height, Weight, BMI Height: 6'4.00" Weight: 275lbs. 0.0oz. 124.128665rp; 40.00 BMI Method:Stated General Appearance: WD/WN, no apparent distress Neck: supple, normal inspection Cardiovascular: regular rate, rhythm Respiratory: lungs clear, normal breath sounds, no respiratory distress, no accessory muscle use Knees: right knee pain, right knee soft tissue tenderness, right knee swelling, right knee other (Limited range of motion, no warmth or erythema) Ankles: right ankle limited range of motion, right ankle pain, right ankle soft tissue tenderness, right ankle swelling, right ankle other (No warmth or erythema) Feet: bilateral foot pain, bilateral foot swelling (Worse on right foot) Neurologic/Psychiatric: alert, normal mood/affect Skin: normal color, warm/dry (JENIFFER CARLOS APRN) Progress/Results/Core Measures Results/Orders Lab Results Laboratory Tests Test 02/16/23 17:58 02/16/23 19:57 02/16/23 20:12 Range/Units White Blood Count 13.6 H 4.3-11.0 10^3/uL Red Blood Count 4.51 4.30-5.52 10^6/uL Hemoglobin 12.9 L 13.3-17.7 g/dL Hematocrit 40 40-54 % Mean Corpuscular Volume 88 80-99 fL Mean Corpuscular Hemoglobin 29 25-34 pg Mean Corpuscular Hemoglobin Concent 33 32-36 g/dL Red Cell Distribution Width 13.7 10.0-14.5 % Platelet Count 281 130-400 10^3/uL Mean Platelet Volume 10.3 9.0-12.2 fL Immature Granulocyte % (Auto) 1 % Neutrophils (%) (Auto) 83 H 42-75 % Lymphocytes (%) (Auto) 7 L 12-44 % Monocytes (%) (Auto) 9 0-12 % Eosinophils (%) (Auto) 0 0-10 % Basophils (%) (Auto) 0 0-10 % Neutrophils # (Auto) 11.2 H 1.8-7.8 10^3/uL Lymphocytes # (Auto) 1.0 1.0-4.0 10^3/uL Monocytes # (Auto) 1.3 H 0.0-1.0 10^3/uL Eosinophils # (Auto) 0.0 0.0-0.3 10^3/uL Basophils # (Auto) 0.0 0.0-0.1 10^3/uL Immature Granulocyte # (Auto) 0.1 0.0-0.1 10^3/uL Neutrophils % (Manual) 85 % Lymphocytes % (Manual) 11 % Monocytes % (Manual) 4 % Blood Morphology Comment NORMAL Erythrocyte Sedimentation Rate 73 H 0-15 MM/HR Sodium Level 134 L 135-145 MMOL/L Potassium Level 4.4 3.6-5.0 MMOL/L Chloride Level 100 98-107 MMOL/L Carbon Dioxide Level 24 21-32 MMOL/L Anion Gap 10 5-14 MMOL/L Blood Urea Nitrogen 15 7-18 MG/DL Creatinine 0.92 0.60-1.30 MG/DL Estimat Glomerular Filtration Rate 105 BUN/Creatinine Ratio 16 Glucose Level 116 H 70-105 MG/DL Uric Acid 6.9 2.6-7.2 MG/DL Calcium Level 9.4 8.5-10.1 MG/DL Corrected Calcium 9.7 8.5-10.1 MG/DL Total Bilirubin 0.8 0.1-1.0 MG/DL Aspartate Amino Transf (AST/SGOT) 22 5-34 U/L Alanine Aminotransferase (ALT/SGPT) 43 0-55 U/L Alkaline Phosphatase 106 40-136 U/L C-Reactive Protein High Sensitivity 23.85 H 0.00-0.50 MG/DL Total Protein 8.0 6.4-8.2 GM/DL Albumin 3.6 3.2-4.5 GM/DL Urine Color YELLOW Urine Clarity CLEAR Urine pH 5.5 5-9 Urine Specific [place] 1.020 1.016-1.022 Urine Protein 1+ H NEGATIVE Urine Glucose (UA) NEGATIVE NEGATIVE Urine Ketones NEGATIVE NEGATIVE Urine Nitrite NEGATIVE NEGATIVE Urine Bilirubin 1+ H NEGATIVE Urine Urobilinogen 0.2 < = 1.0 MG/DL Urine Leukocyte Esterase NEGATIVE NEGATIVE Urine RBC (Auto) NEGATIVE NEGATIVE Urine RBC NONE /HPF Urine WBC 2-5 /HPF Urine Squamous Epithelial Cells RARE /HPF Urine Crystals NONE /LPF Urine Bacteria TRACE /HPF Urine Casts NONE /LPF Urine Mucus SMALL H /LPF Urine Culture Indicated NO Urine Chlamydia trachomatis RNA Not Detected Not Detected Urine Neisseria gonorrhoeae RNA Not Detected Not Detected (PRESTON IVERSNO MD) Vital Signs/I&O 02/16/23 02/16/23 16:19 18:20 Temp 36.7 Pulse 110 95 Resp 20 16 B/P (MAP) 174/105 (128) 156/82 (106) Pulse Ox 93 95 O2 Delivery Room Air Room Air (PRESTON IVERSON MD) Blood Pressure Mean: 128 Progress Progress Note : Progress Note Patient seen and evaluated, resting in bed, no acute distress. Based on exam and symptoms, differential diagnosis includes but is not limited to gout, pseudogout, septic arthritis. Work-up initiated including CBC, CMP, CRP, sed rate, uric acid. Colchicine and Toradol ordered. X-ray of right knee, right ankle, bilateral feet ordered. 1901 Labs and imaging reviewed. Moderate right knee joint effusion with no acute osseous abnormality. Mild soft tissue swelling around the right ankle with no acute osseous abnormality. Bilateral foot x-ray shows no acute fracture or dislocation. No classic findings of gout. CBC shows elevated WBC 13.6, neutrophil percentage elevated 83. ESR elevated 73. CMP shows slight decrease sodium 134. CRP elevated 23.85. Patient reevaluated. Discussed with patient possibility of gonorrhea or chlamydia infection. He denies any urinary symptoms, denies penile discharge, denies any rashes or sores in the groin area, states he is in a monogamous relationship. He denies any IV drug use. Due to significant decrease in range of motion of knee and ankle, and elevated WBC, ESR, and CRP, I called and spoke with Dr. Delarosa, orthopedics. He states this is likely not septic joint due to the involvement of multiple joints and no fever. He states that gout can cause elevation in white count, ESR, and CRP. 192 due to continued pain, I called and spoke with Dr. Friedman, [facility] hospitalist, for possible admission. She states that due to patient age, she does not want to admit for pain control. Will give patient another dose of colchicine and morphine. Will go ahead and collect urine for gonorrhea chlamydia testing and urinalysis. 2030 urinalysis reviewed. It shows 1+ protein, 1+ bilirubin, 2-5 WBCs, trace bacteria, negative for nitrates and leukocytes. Will send patient home with take-home pack of Percocet and discharge with prescription for Percocet. Patient instructed to return to the ER if he develops warmth over the joints, erythema, or develops a fever. Patient instructed to follow-up with Dr. Delarosa within 24 to 48 hours, instructed him to follow-up with [facility] if he is not able to get in with Dr. Delarosa within 48 hours. Patient is stable for discharge. Discharge instructions and return precautions provided. (JENIFFER CARLOS APRN) Diagnostic Imaging Diagonstic Imaging: Xray Plain Films/CT/US/NM/MRI: knee Comments [facility] [place] [place] NAME: LINDSAY BUTLER [facility] REC#: [id number] PT STATUS: REG ER : 1975 PHYSICIAN: JENIFFER CARLOS APRN ADMIT DATE: 02/16/23/ER Signed Date of Exam:02/16/23 KNEE, RIGHT, 3 VIEWS HISTORY: Right knee pain COMPARISON: 08/23/2018 TECHNIQUE: 3 views of the right knee. FINDINGS: No acute fracture seen in the right knee. Alignment is normal. Joint spaces are generally preserved. There is a moderate right knee joint effusion. IMPRESSION:. Moderate right knee joint effusion with no acute osseous abnormalities seen. Dictated by: Dictated on workstation # [id number] Dict: 02/16/23 3213 Trans: [id number] CVB [id number] Interpreted by: BRANNON STOVER MD Electronically signed by: BRANNON STOVER MD 02/16/231850 Diagonstic Imaging: Xray Plain Films/CT/US/NM/MRI: ankle Comments [facility] [place] NAME: LINDSAY BUTLER [facility] REC#: [id number] PT STATUS: REG ER : 1975 PHYSICIAN: JENIFFER CARLOS APRN ADMIT DATE: 02/16/23/ER Signed Date of Exam:02/16/23 ANKLE, RIGHT, 3 VIEWS HISTORY: Right ankle pain TECHNIQUE: 3 views of the right ankle COMPARISON: None FINDINGS: No acute fracture or dislocation is seen in the right ankle. Alignment appears normal. Joint spaces are preserved. There is a plantar calcaneal osteophyte. No erosions are seen. There is mild soft tissue swelling about the right ankle. IMPRESSION:. Mild soft tissue swelling about the right ankle with no acute osseous abnormality seen. Dictated by: Dictated on workstation # [id number] Dict: 02/16/231734 Trans: 02/16/231850 [facility] [id number] Interpreted by: BRANNON STOVER MD Electronically signed by: BRANNON STOVER MD 02/16/231850 Diagonstic Imaging: Xray Plain Films/CT/US/NM/MRI: other (feet) Comments [facility] [place] NAME: LINDSAY BUTLER [facility] REC#: [id number] PT STATUS: REG ER : 1975 PHYSICIAN: JENIFFER CARLOS APRN ADMIT DATE: 02/16/23/ER Signed Date of Exam:02/16/23 FOOT, BILATERAL, 3 VIEW CLINICAL HISTORY: Bilateral foot pain. Gout flare. COMPARISON: None. TECHNIQUE: 6 views of the bilateral feet. FINDINGS: There is no acute fracture or dislocation of the bilateral feet. No suspicious focal osseous lesions. No erosive changes are seen in the articular surfaces of the feet. There is mild generalized edema in the feet. IMPRESSION: 1. No acute fracture or dislocation of the bilateral feet. No classic findings of gout such as periarticular erosive changes in the feet. Recommend continued follow-up. Dictated by: Dictated on workstation # [id number] Dict: 02/16/231732 Trans: 02/16/231740 JUN [id number] Interpreted by: YOLY MART DO Electronically signed by: YOLY MART DO 02/16/231740 (JENIFFER CARLOS APRN) Departure Impression Primary Impression: Pseudogout involving multiple joints Disposition: HOME, SELF-CARE Condition: Stable Departure-Patient Inst. Decision time for Depature: 20:31 (JENIFFER CARLOS APRN) Referrals: [facility] [place] (PCP/Family) Primary Care Physician JAQUELINE DELAROSA MD Patient Instructions: Gout (DC) Add. Discharge Instructions: Call Dr. Delarosa's office first thing in the morning to schedule a follow-up appointment for tomorrow or the next day. If you are having any difficulty getting into see him, follow-up with [facility] within 48 hours. Take the Percocet as needed for pain. It may make you sleepy. It can also cause constipation. You may need a cane to help you get around until the pain and inflammation improves. I have written you a prescription for crutches, you will need to take the prescription to the [facility]. Below is the address and phone number. Return if you have worsening of your pain, your joints become hot, or red, you have decreased range of motion, you develop a rash, or any other new, concer chivo, or worsening symptoms. [facility] in [address] [place] [address] All discharge instructions reviewed with patient and/or family. Voiced understanding. Scripts Oxycodone HCl/Acetaminophen (Percocet 5-325 mg Tablet) 1 Each Tablet 1 TAB PO Q4H for PAIN-MODERATE MDD 6 TABS, #16 TAB 0 Refills Prov: JENIFFER CARLOS APRN 02/16/23 ATTENDING PHYSICIAN NOTE: I was physically present as attending physician in the emergency department during the care of this patient, but I was not directly involved in the decision making or delivery of care for this patient. (PRESTON IVERSON MD) JENIFFER CARLOS APRN Feb 16, 2023 16:36 PRESTON IVERSON MD Feb 19, 2023 06:37
[2023-02-16] MEDS ORDERED: KETOROLAC INJ 15 MG/ML VIAL IVP ONE (16:45)
[2023-02-16] MEDS ORDERED: COLCHICINE 0.6 MG TABLET PO ONE ×2 (16:45→19:45)
--- NOTE | 2023-02-16 17:36 | Diagnostic Imaging Report ---
HISTORY: Right knee pain COMPARISON: 08/23/2018 TECHNIQUE: 3 views of the right knee. FINDINGS: No acute fracture seen in the right knee. Alignment is normal. Joint spaces are generally preserved. There is a moderate right knee joint effusion. IMPRESSION:. Moderate right knee joint effusion with no acute osseous abnormalities seen. Dictated by: Dictated on workstation # [id number]
--- NOTE | 2023-02-16 17:36 | Diagnostic Imaging Report ---
HISTORY: Right ankle pain TECHNIQUE: 3 views of the right ankle COMPARISON: None FINDINGS: No acute fracture or dislocation is seen in the right ankle. Alignment appears normal. Joint spaces are preserved. There is a plantar calcaneal osteophyte. No erosions are seen. There is mild soft tissue swelling about the right ankle. IMPRESSION:. Mild soft tissue swelling about the right ankle with no acute osseous abnormality seen. Dictated by: Dictated on workstation # [id number]
--- NOTE | 2023-02-16 17:37 | Diagnostic Imaging Report ---
CLINICAL HISTORY: Bilateral foot pain. Gout flare. COMPARISON: None. TECHNIQUE: 6 views of the bilateral feet. FINDINGS: There is no acute fracture or dislocation of the bilateral feet. No suspicious focal osseous lesions. No erosive changes are seen in the articular surfaces of the feet. There is mild generalized edema in the feet. IMPRESSION: 1. No acute fracture or dislocation of the bilateral feet. No classic findings of gout such as periarticular erosive changes in the feet. Recommend continued follow-up. Dictated by: Dictated on workstation # [id number]
[2023-02-16 18:03] LABS: BASOPHILS % (AUTO) 0 % (0-10); EOSINOPHILS % (AUTO) 0 % (0-10); HEMATOCRIT 40 % (40-54); HEMOGLOBIN 12.9 g/dL (13.3-17.7); LYMPHOCYTES % (AUTO) 7 % (12-44); MEAN CORPUSCULAR HEMOGLOBIN 29 pg (25-34); MEAN CORPUSCULAR HGB CONC 33 g/dL (32-36); MEAN CORPUSCULAR VOLUME 88 fL (80-99); MEAN PLATELET VOLUME 10.3 fL (9.0-12.2); MONOCYTES # (AUTO) 1.3 10^3/uL (0.0-1.0); MONOCYTES % (AUTO) 9 % (0-12); NEUTROPHILS # (AUTO) 11.2 10^3/uL (1.8-7.8); NEUTROPHILS % (AUTO) 83 % (42-75); PLATELET COUNT 281 10^3/uL (130-400); WHITE BLOOD COUNT 13.6 10^3/uL (4.3-11.0)
[2023-02-16 18:12] LABS: ALBUMIN 3.6 GM/DL (3.2-4.5)
[2023-02-16 18:13] LABS: POTASSIUM 4.4 MMOL/L (3.6-5.0)
[2023-02-16 18:14] LABS: CALCIUM 9.4 MG/DL (8.5-10.1)
[2023-02-16] MEDS ORDERED: morphine INJ 4 MG/ML 1 ML (VIAL/SYRINGE) IVP ONE ×2 (18:15→19:45)
[2023-02-16 18:17] LABS: BILIRUBIN,TOTAL 0.8 MG/DL (0.1-1.0)
[2023-02-16 18:19] LABS: CREATININE SERUM 0.92 MG/DL (0.60-1.30)
[2023-02-16 18:22] LABS: URIC ACID 6.9 MG/DL (2.6-7.2)
[2023-02-16 18:23] LABS: LYMPHOCYTES % (MANUAL) 11 %; MONOCYTES % (MANUAL) 4 %; NEUTROPHILS % (MANUAL) 85 %
[2023-02-16 18:24] LABS: RBC MORPH NORMAL
[2023-02-16 18:30] LABS: ERYTHROCYTE SEDIMENTATION RATE 73 MM/HR (0-15)
[2023-02-16 20:19] LABS: CLARITY,URINE CLEAR; COLOR,URINE YELLOW; GLUCOSE, URINE (UA) NEGATIVE (NEGATIVE); PH,URINE 5.5 (5-9); PROTEIN,URINE 1+ (NEGATIVE)
[2023-02-16 20:20] LABS: BACTERIA,URINE TRACE /HPF; BILIRUBIN,URINE 1+ (NEGATIVE); KETONES,URINE NEGATIVE (NEGATIVE); LEUKOCYTE ESTERASE ,URINE NEGATIVE (NEGATIVE); NITRITE,URINE NEGATIVE (NEGATIVE); SQUAMOUS EPITHELIAL CELL,UR RARE /HPF
[2023-02-16] MEDS ORDERED: OXYC1TAB87 PO (20:33)
[2023-02-16] MEDS ORDERED: RX-OXYCODONE/APAP 5-325 MG #4 TAB PK PO PRN (20:45)
== END 2023-02-16 21:00 | disposition home or self-care (01) ==
LOC: EDUNIT# 16:17 → ER 16:18
DX: M10.9 Gout, unspecified (principal); E66.9 Obesity, unspecified; G47.30 Sleep apnea, unspecified; Z99.89 Dependence on other enabling machines and devices; Z68.41 Body mass index [BMI] 40.0-44.9, adult
CPT/HCPCS: 36415; 73562; 73610; 80053; 81000; 84550; 85007; 85027; 85652; 86141; 87491; 87591; 96374; 96375; 96376